=== PATIENT | female | born 1985 | race Hispanic/Latino ===

== ENCOUNTER 2018-03-13 21:06 | Emergency (ER) | payer OTHER ==
--- OUTSIDE RECORDS SUMMARY | 2018-03-13 21:18 | XMS REPORT | Continuity of Care Document ---
:1985 Author Organization Interface Problems Problem Status Onset Classification Date Comments Source Date Reported Escherichia Active 02/25/20 Problem 02/28/2018 Problem MH coli<sup>1, 2</sup> 18 added by [facility] Discern Expert. CATATONIA, Active 02/24/20 HYPOKALEMIA 18 [place] PALPITATIONS Active 02/24/20 18 [place] Chalazion left 10/28/19 01/25/2018 upper eyelid 18 [place] STROKE SYMPTOMS Active 10/20/19 18 [facility] Epilepsy, 10/07/19 01/06/2018 unspecified, not 18 [facility] intractable, without status epilepticus GI BLEED/SEIZURES Active 09/30/19 18 [facility] SEIZURES Active 09/30/19 18 [facility] Discharge 11/12/19 11/14/2016 Diagnosis: 17 [facility] Abdominal pain in female CHEST PAIN Active 11/11/19 17 [place] Discharge 06/14/20 06/17/2016 Diagnosis: Fracture 16 [facility] of unspecified metatarsal bone, unspecified foot, initial encounter for closed fracture POSSIBLE FRACTURE Active 06/14/20 16 [facility] Discharge 06/10/20 06/13/2016 Diagnosis: Hand 16 [facility] contusion HAND PAIN OR INJURY Active 06/10/20 16 [facility] Discharge 06/03/20 06/06/2016 Diagnosis: URI 16 [facility] EAR PAIN Active 06/03/20 16 [facility] G89.4 - CHRONIC Active 05/06/20 OPID PAIN SYNDROME 16 [place] ABD PAIN Active 02/13/20 16 [facility] UPPER GI BLEED Active 02/13/20 16 [facility] UPPER GI BLEED Active 02/13/20 16 [facility] VOMITING BLOOD Active 02/07/20 16 [facility] ABDOMINAL PAIN Active 02/07/20 16 [facility] ABDOMINAL PAIN, Active 02/07/20 UPPER GI BLEED 16 [facility] Discharge 02/06/20 02/09/2016 Diagnosis: 16 [facility] Diverticulitis Discharge 02/06/20 02/09/2016 Diagnosis: 16 [facility] Abdominal pain ABD PAIN/ EAR PAIN Active 02/05/20 16 [facility] Discharge 10/04/19 10/07/2015 Diagnosis: 16 [facility] 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 THROAT PAIN Active 10/04/19 16 [facility] Discharge 09/19/19 09/21/2014 Diagnosis: Skin 15 [facility] infection Discharge 09/19/19 09/21/2014 Diagnosis: Migraine 15 [facility] MIGRAINE Active 09/19/19 15 [facility] GI bleed Resolved Problem 02/28/2018 [facility], [place] Hypertension Resolved Problem 02/28/2018 [facility] [place] Migraines Active Problem 02/28/2018 [facility] [place] Gastrointestinal 01/06/2018 hemorrhage, [place] unspecified 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 , and cerebral infarction without residual deficits Essential 01/06/2018 hypertension [facility] Anxiety Active Problem 02/28/2018 [facility] Back pain, chronic Active Problem 02/28/2018 [facility] GERD (<span Active Problem 02/28/2018 ID="[id number]">C [place] onfirmed</span>) Insomnia Active Problem 02/28/2018 [facility] Obesity Active Problem 02/28/2018 [facility] Malignant neoplasm 01/25/2018 of pancreas, [place] unspecified 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 UNSPECIFIED Active ABDOMINAL PAIN [place] GASTROINTESTINAL Active HEMORRHAGE, [place] UNSPECIFIED LBP Active S[facility] [place] UNSPECIFIED Active CONVULSIONS [place] 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 [facility] PHYSIOLO HYPOKALEMIA Active [place] ANEMIA, UNSPECIFIED Active [facility] FOR GENERAL Active ADULT MEDICAL EXAM [facility] W/ VITAMIN D Active DEFICIENCY, [place] UNSPECIFIED ESSENTIAL (PRIMARY) Active HYPERTENSION [facility] Medications Medication Details Route Status Patient Ordering Order Source Instructions Provider Date Celexa 10 mg, 1 tab, Inactive 02/26/ Route: PO, Drug 2017 form: TAB, Bedtime, Dosing Weight 63.636, kg, Start date: 02/25/18 21:00:00 CDT, Duration: 30 day, Stop date: 03/26/18 21:00:00 CDT Citalopram 10 MG 10 mg=1 tab, Active 02/25/ Oral Tablet PO, Daily, # 30 2017 [facility] [Celexa] tab, 0 Refill(s), Pharmacy: [facility] [id number] Tylenol 1,000 mg, 2 Inactive 02/25/ MH tab, Route: PO2017 [facility] Drug form: TAB, ONCE, Dosing Weight 63.636, kg, Priority: NOW, Start date: 02/25/18 13:14:00 CDT, Stop date: 02/25/18 13:14:00 CDTNotes: Max acetaminophen 4000 mg/day (4 gm/day). (Same as: Tylenol Extra Strength) Potassium 40 mEq, 2 tab, Inactive 02/25/ MH Chloride Route: PO, Drug 2017 [facility] form: ERTAB, ONCE, Dosing Weight 63.636, kg, Start date: 02/25/18 12:00:00 CDT, Stop date: 02/25/18 12:00:00 CDTNotes: (Same as: K-Dur 20) "Do Not Crush" For patients unable to swallow tablet, dissolve in one half glass of water. Allow about 2 minutes for the tablets to disintegrate. Stir before giving to prepare slurry and administer. Please exclude Patient’s with feeding tube less than 14 [place] (Dobhoff, J-tube etc) and pediatric and patients. With food and full glass of water Potassium 40 mEq, 2 tab, Inactive 02/25/ MH Chloride Route: PO, Drug 2017 [facility] form: ERTAB, ONCE, Dosing Weight 63.636, kg, Start date: 02/25/18 10:00:00 CDT, Stop date: 02/25/18 10:00:00 CDTNotes: (Same as: K-Dur 20) "Do Not Crush" For patients unable to swallow tablet, dissolve in one half glass of water. Allow about 2 minutes for the tablets to disintegrate. Stir before giving to prepare slurry and administer. Please exclude Patient’s with feeding tube less than 14 [place] (Dobhoff, J-tube etc) and pediatric and patients. With food and full glass of water Potassium 40 mEq, 2 tab, Inactive 02/25/ MH Chloride Route: PO, Drug 2017 [facility] form: ERTAB, ONCE, Dosing Weight 63.636, kg, Start date: 02/25/18 8:24:00 CDT, Stop date: 02/25/18 8:24:00 CDTNotes: (Same as: K-Dur 20) "Do Not Crush" For patients unable to swallow tablet, dissolve in one half glass of water. Allow about 2 minutes for the tablets to disintegrate. Stir before giving to prepare slurry and administer. Please exclude Patient’s with feeding tube less than 14 [place] (Dobhoff, J-tube etc) and pediatric and patients. With food and full glass of water Potassium 10 mEq, 5 mL, Inactive Chloride Route: IVPB2017 [facility] Q1H, Dosing Weight 63.636, kg, Total Dose=40 meq, Start date: 02/25/18 7:00:00 CDT, Duration: 4 doses or times, Stop date: 02/25/18 10:00:00 CDT, Peripheral LineNotes: MUST be Diluted before use (Same as: KCl) MEDICATION WASTE Product Size: 40 mEq Product Wasted: ___ mEq Celexa 10 mg, 1 tab, Inactive Route: PO, Drug 2017 [facility] form: TAB, ONCE, Dosing Weight 63.636, kg, Start date: 02/24/18 21:00:00 CDT, Stop date: 02/24/18 21:00:00 CDT Ativan 1 mg, 0.5 mL, No Longer Route: IV, Drug Active 2017 [facility] form: INJ, Q4H, Dosing Weight 63.636, kg, PRN as needed for anxiety, Start date: 02/24/18 21:00:00 CDT, Duration: 30 day, Stop date: 03/26/18 20:59:00 CDTNotes: (Same as: Ativan) Ativan 1 mg, 0.5 mL, Inactive Route: IVP, 2017 [facility] Drug form: INJ, ONCE, Dosing Weight 63.636, kg, Start date: 02/24/18 20:59:00 CDT, Stop date: 02/24/18 20:59:00 CDTNotes: (Same as: Ativan) Docusate 100 mg, 10 mL, No Longer Route: PO, Drug Active 2017 [facility] form: LIQ, BID, Dosing Weight 63.636, kg, Start date: 02/24/18 17:00:00 CDT, Duration: 30 day, Stop date: 03/26/18 9:00:00 CDTNotes: (Same as: Colace) Insulin Lispro 4 unit, 0.04 No Longer mL, Route: Active 2017 [facility] SUB-Q, Drug form: SOLN, TID-Before Meals, Dosing Weight 63.636, kg, PRN Blood Glucose Results, Start date: 02/24/18 9:14:00 CDT, Duration: 30 day, Stop date: 03/26/18 9:13:00 CDTNotes: (Same as: Humalog ) Roll in palms of hands gently; Do not shake `vigorously. "Single Patient Use Only " WASTE: F/P - Black; E - Municipal Trash Bin Stable for 28 days at room temperature. Expires in days from D ate Dextrose 50% 25 gm, 50 mL, No Longer Syringe Route: IVP, Active 2017 [facility] Drug Form: INJ, Dosing Weight 63.636, kg, PRN, PRN Blood Glucose Results, Start date: 02/24/18 9:14:00 CDT, Duration: 30 day, Stop date: 03/26/18 9:13:00 CDT Glucagon 1 mg, Route: No Longer IM, Drug form: [facility] 2017 [facility] PDR/INJ, PRN, Dosing Weight 63.636, kg, PRN Blood Glucose Results, Start date: 02/24/18 9:14:00 CDT, Duration: 30 day, Stop date: 03/26/18 9:13:00 CDT Saline Flush 0.9% 10 ml, Route: No Longer IVP, Drug Form: Active 2017 [facility] INJ, Dosing Weight 63.636, kg, PRN, PRN Line Flush, Start date: 02/24/18 9:06:00 CDT, Duration: 30 day, Stop date: 03/26/18 9:05:00 CDTNotes: (Same as: BD Posiflush) Ondansetron 4 mg, 2 mL, No Longer Route: IVP, Active 2017 [facility] Drug form: INJ, Q6H, Dosing Weight 63.636, kg, PRN Nausea & Vomiting, Start date: 02/24/18 9:06:00 CDT, Duration: 30 day, Stop date: 03/26/18 9:05:00 CDTNotes: (Same as: Zofran) MEDICATION WASTE Product Size: 4 mg Product Wasted: ___ mg Sodium Chloride 1,000 mL, Rate: No Longer 0.9% IV 1,000 mL 250 ml/hr, Active 2017 [facility] Infuse over: 4 hr, Route: IV, Dosing Weight 63.636 kg, Total Volume: 1,000, Start date: 02/24/18 9:06:00 CDT, Duration: 30 day, Stop date: 03/26/18 9:05:00 CDT, 1.73, m2 Zofran ODT 4 mg, Route: Inactive PO, Drug form: 2017 [facility] TABDIS, ONCE, Dosing Weight 63.636, kg, Priority: STAT, Start date: 02/24/18 2:31:00 CDT, Stop date: 02/24/18 2:31:00 CDT Potassium 10 mEq, 5 mL, Inactive Chloride Route: IVPB, 2017 [facility] Q1H, Dosing Weight 63.636, kg, Total Dose=40 meq, Start date: 02/24/18 2:00:00 CDT, Duration: 4 doses or times, Stop date: 02/24/18 5:00:00 CDT, Peripheral LineNotes: MUST be Diluted before use (Same as: KCl) MEDICATION WASTE Product Size: 40 mEq Product Wasted: 30mEq Potassium 40 mEq, 30 mL, No Longer Chloride 1.33 Route: PO, Drug Active 2017 MEQ/ML Oral form: LIQ, Solution ONCE, Dosing Weight 63.636, kg, Priority: STAT, Start date: 02/23/18 23:46:00 CDT, Stop date: 02/23/18 23:46:00 CDTNotes: (Same as: Potassium Chloride) Docusate 100 mg, Route: Inactive PO, Drug form: 2017 [facility], BID, Dosing Weight 81.818, kg, Start date: 09/30/17 9:00:00 SIGNAL INTEGRITY ENGINEER, Duration: 30 day, Stop date: 10/29/17 17:00:00 CDT Levetiracetam 500 500 mg, 1 tab, No Longer MG Oral Tablet Route: PO, Drug Active 2017 [facility] [Keppra] form: TAB, Q12H, Dosing Weight 81.818, kg, Start date: 09/30/17 9:00:00 SIGNAL INTEGRITY ENGINEER, Duration: 30 day, Stop date: 10/29/17 21:00:00 CDTNotes: (Same as:Pricila) Lorazepam 1 mg, Route: Inactive IVP, Q15Min, 2017 [facility] Dosing Weight 81.818, kg, PRN Seizure, Start date: 09/30/17 8:21:00 SIGNAL INTEGRITY ENGINEER, Duration: 30 day, Stop date: 10/30/17 9:20:00 CDT Saline Flush 0.9% 10 ml, Route: Inactive IVP, Drug Form: 2017 [facility] INJ, Dosing Weight 81.818, kg, PRN, PRN Line Flush, Start date: 09/30/17 8:17:00 SIGNAL INTEGRITY ENGINEER, Duration: 30 day, Stop date: 10/30/17 9:16:00 CDT Ondansetron 4 mg, Route: Inactive IVP, Q6H, 2017 [facility] Dosing Weight 81.818, kg, PRN Nausea & Vomiting, Start date: 09/30/17 8:17:00 SIGNAL INTEGRITY ENGINEER, Duration: 30 day, Stop date: 10/30/17 8:16:00 CDT Acetaminophen 650 mg, Route: Inactive PO, Drug form: 2017 [facility] TAB, Q4H, Dosing Weight 81.818, kg, PRN Pain 1-3/Temp > 100.4 F, Start date: 09/30/17 8:17:00 SIGNAL INTEGRITY ENGINEER, Duration: 30 day, Stop date: 10/30/17 8:16:00 CDT Acetaminophen 325 1 tab, Route: Inactive MG / Hydrocodone PO, Drug Form: 2017 [facility] Bitartrate 5 MG TAB, Dosing Oral Tablet Weight 81.818, kg, Q4H, PRN Pain Score 4-6, Start date: 09/30/17 8:17:00 SIGNAL INTEGRITY ENGINEER, Duration: 30 day, Stop date: 10/30/17 8:16:00 CDT Sodium Chloride 1,000 mL, Rate: Inactive 0.9% IV 1000 mL 125 ml/hr, 2017 [facility] Infuse over: 8 hr, Route: IV, Dosing Weight 81.818 kg, Total Volume: 1,000, Start date: 09/30/17 8:17:00 SIGNAL INTEGRITY ENGINEER, Duration: 30 day, Stop date: 10/30/17 8:16:00 CDT, 1.96, m2 octreotide 1,250 248.25 mL, Inactive microgram + Rate: 10 ml/hr, 2017 [facility] Sodium Chloride Infuse over: 25 0.9% IV 248.25 mL hr, Route: IV, Dosing Weight 81.818 kg, Total Volume: 249.5, Start date: 09/30/17 5:09:00 SIGNAL INTEGRITY ENGINEER, Duration: 30 day, Stop date: 10/30/17 5:08:00 CDT, 1.96, m2 Reglan 10 mg, Route: Inactive IVP, Drug form: 2017 [facility] INJ, ONCE, Dosing Weight 81.818, kg, Priority: STAT, Start date: 09/30/17 5:09:00 SIGNAL INTEGRITY ENGINEER, Stop date: 09/30/17 5:09:00 SIGNAL INTEGRITY ENGINEER Octreotide 50 microgram, Inactive 0.5 mL, Route: 2017 [facility] IV, Drug form: INJ, ONCE, Dosing Weight 81.818, kg, Start date: 09/30/17 5:08:00 SIGNAL INTEGRITY ENGINEER, Stop date: 09/30/17 5:08:00 CSTNotes: (Same As: SandoSTATIN). Refrigerate. MEDICATION WASTE Product Size: 100 microgram Product Wasted: ___ microgram Divalproex Sodium 250 mg, 1 tab, No Longer 250 MG Enteric Route: PO, Drug Active 2017 [facility] Coated Tablet form: ECTAB, [Depakote] ONCE, Dosing Weight 81.818, kg, Start date: 09/30/17 5:03:00 SIGNAL INTEGRITY ENGINEER, Stop date: 09/30/17 5:03:00 SIGNAL INTEGRITY ENGINEER, Delayed Release tabletNotes: (Same as: Depakote Delayed Release) Do not confuse with the extended-releas e tablet. Delayed absorption, enteric coated tablet. Do not crush pantoprazole 80 100 mL, Rate: No Longer mg + Sodium 10 ml/hr, Active 2017 [facility] Chloride 0.9% IV Infuse over: 10 100 mL hr, Route: IVPB, Dosing Weight 81.818 kg, Total Volume: 100, Infuse at 8 mg / hr for 72 hours for GI bleeding, Start date: 09/30/17 4:57:00 SIGNAL INTEGRITY ENGINEER, Duration: 72 hr, Stop date: 10/03/17 4:56:00 SIGNAL INTEGRITY ENGINEER, 1.96, m2 Acetaminophen 325 1 tab, Route: Inactive MG / Hydrocodone PO, Drug Form: 2017 [facility] Bitartrate 5 MG TAB, Dosing Oral Tablet Weight 81.818, [Ovett 5/325] kg, ONCE, STAT, Start date: 09/30/17 4:37:00 SIGNAL INTEGRITY ENGINEER, Stop date: 09/30/17 4:37:00 SIGNAL INTEGRITY ENGINEER Protonix 80 mg, Route: Inactive IVP, ONCE, 2017 [facility] Dosing Weight 81.818, kg, Priority: STAT, Start date: 09/30/17 4:00:00 SIGNAL INTEGRITY ENGINEER, Stop date: 09/30/17 4:00:00 SIGNAL INTEGRITY ENGINEER Ondansetron 4 mg, Route: Inactive IVP, Drug form: 2017 [facility] INJ, ONCE, Dosing Weight 81.818, kg, Priority: STAT, Start date: 09/30/17 3:59:00 SIGNAL INTEGRITY ENGINEER, Stop date: 09/30/17 3:59:00 SIGNAL INTEGRITY ENGINEER Sodium Chloride 1,000 mL, Inactive 0.9% (Bolus) IV Infuse Over: 1 2017 [facility] hr, Route: IV, ONCE, Priority: STAT, Dosing Weight 81.818 kg, Start date: 09/30/17 3:59:00 SIGNAL INTEGRITY ENGINEER, Stop date: 09/30/17 3:59:00 SIGNAL INTEGRITY ENGINEER Famotidine 20 mg, Route: Inactive IVP, ONCE, 2017 [facility] Dosing Weight 81.818, kg, Priority: STAT, Start date: 09/30/17 3:59:00 SIGNAL INTEGRITY ENGINEER, Stop date: 09/30/17 3:59:00 SIGNAL INTEGRITY ENGINEER Famotidine 20 MG 20 mg=1 tab, Active Oral Tablet PO, BID, # 30 2017 [facility] tab, 0 Refill(s) Ondansetron 4 MG 4 mg=1 tab, PO, Active Disintegrating TID, PRN Nausea 2016 [facility] Tablet / Vomiting, Dissolve tab under tongue, X 3 day, # 20 tab, 0 Refill(s) Acetaminophen 300 1 - 2 tab, PO, No Longer MG / Codeine Q6H, PRN Pain, Active 2016 [facility] Phosphate 30 MG X 2 day, # 10 Oral Tablet tab, 0 [Tylenol with Refill(s) Codeine #3] Acetaminophen 325 1 tab, Route: Inactive MG / Hydrocodone PO, Dosing 2016 [facility] Bitartrate 10 MG Weight 90, kg, Oral Tablet ONCE, STAT, Start date: 11/11/16 1:54:00 CDT, Stop date: 11/11/16 1:54:00 CDT Morphine 4 mg, Route: Inactive IVP, ONCE, 2016 [facility] Dosing Weight 90, kg, Priority: STAT, Start date: 11/11/16 0:08:00 CDT, Stop date: 11/11/16 0:08:00 CDT Levsin SL 0.125 mg, 1 Inactive tab, Route: SL, 2016 [facility] Drug form: TAB, Q4H, Dosing Weight 90, kg, Start date: 11/11/16 0:00:00 CDT, Duration: 30 day, Stop date: 12/10/16 20:00:00 CDTNotes: (Same as: Levsin) Take 30 min before meal Ondansetron 4 mg, 2 mL, Inactive Route: IVP2016 [facility] Drug form: INJ, ONCE, Dosing Weight 90, kg, Priority: STAT, Start date: 11/10/16 23:05:00 CDT, Stop date: 11/10/16 23:05:00 CDTNotes: (Same as: Zofran) MEDICATION WASTE Product Size: 4 mg Product Wasted: ___ mg Famotidine 20 mg, 2 mL, Inactive Route: IVP2016 [facility] Drug form: INJ, ONCE, Dosing Weight 90, kg, Priority: STAT, Start date: 11/10/16 23:04:00 CDT, Stop date: 11/10/16 23:04:00 CDTNotes: (Same as: Pepcid) Can be dilute in 5-10cc NS IVP: Slow IV push over at least 2 minutes. Sodium Chloride 1,000 mL, 1000 Inactive 0.154 MEQ/ML ml/hr, Infuse 2016 [facility] Injectable Over: 1 hr, Solution Route: IV, 1,000, Drug form: INJ, ONCE, Priority: STAT, Dosing Weight 90 kg, Start date: 11/10/16 23:04:00 CDT, Duration: 1 doses or times, Stop date: 11/10/16 23:04:00 CDT Saline Flush 0.9% 10 mL, Route: No Longer IVP, Drug Form: Active 2016 [facility] INJ, Dosing Weight 90.17, kg, PRN, PRN Line Flush, Start date: 11/10/16 21:32:00 CDT, Duration: 30 day, Stop date: 12/10/16 21:31:00 CDTNotes: (Same as: BD Posiflush) Acetaminophen 325 1 tab, Route: Inactive MG / Hydrocodone PO, Dosing 2015 [facility] Bitartrate 7.5 MG Weight 87.273, Oral Tablet kg, ONCE, Start [Ovett 7.5/325] date: 06/14/16 8:14:00 CDT, Stop date: 06/14/16 8:14:00 CDT Acetaminophen 300 1 - 2 tab, PO, Active MG / Codeine Q4H, PRN Pain, 2015 [facility] Phosphate 30 MG X 3 day, # 20 Oral Tablet tab, 0 [Tylenol with Refill(s) Codeine #3] Acetaminophen 325 1 tab, Route: Inactive MG / Hydrocodone PO, Drug Form: 2015 [facility] Bitartrate 5 MG TAB, Dosing Oral Tablet Weight 87.273, [Ovett 5/325] kg, ONCE, STAT, Start date: 06/14/16 7:15:00 CDT, Stop date: 06/14/16 7:15:00 CDT ibuprofen 800 mg 800 mg=1 tab, Active oral tablet PO, Q6H, PRN 2015 [facility] Fever or Pain, Take with food, X 10 day, # 40 tab, 0 Refill(s), Pharmacy: [facility] [id number] Acetaminophen 300 1 tab, PO, Q6H, Active MG / Codeine PRN Pain, X 3 2016 Phosphate 30 MG day, # 12 tab, Oral Tablet 0 Refill(s) [Tylenol with Codeine #3] Acetaminophen 300 1 cap, PO, Q4H, Active MH MG / butalbital PRN PRN 2016 [facility] 50 MG / Caffeine Headache, Do 40 MG Oral not exceed 6 Capsule capsules in 24 [Fioricet] hours, X 5 day, # 30 cap, 0 Refill(s), Pharmacy: [facility] [id number] 200 ACTUAT 2 puff, Active Albuterol 0.09 INHALER, Q4H, 2016 MG/ACTUAT Metered PRN wheezing, Dose Inhaler coughing, or [Proventil] shortness of breath, # 1 ea, 1 Refill(s), Pharmacy: [facility] [id number] Promethazine DM 5 mL, PO, Q6H, Active oral syrup PRN for cough, 2016 [facility] X 6 day, # 120 mL, 0 Refill(s), Pharmacy: [facility] [id number] Acetaminophen 325 1 tab, Route: Inactive MG / Hydrocodone PO, Drug Form: 2015 Bitartrate 10 MG TAB, Dosing Oral Tablet Weight 86.364, kg, ONCE, STAT, Start date: 06/10/16 22:24:00 CDT, Stop date: 06/10/16 22:24:00 CDTNotes: Do not exceed 4gm/day of acetaminophen. (Same as: Ovett 325/10) Ketorolac 60 mg, 2 mL, Inactive Route: IM, Drug 2015 form: INJ, ONCE, Dosing Weight 86.364, kg, Priority: STAT, Start date: 06/10/16 22:24:00 CDT, Stop date: 06/10/16 22:24:00 CDTNotes: (Same as:Toradol) IV bolus must be given >15 seconds. Give IM administration slowly and deeply into the muscle. Not for use > 4 days MEDICATION WASTE Product Size: 60 mg Product Wasted: ___ mg Orphenadrine 60 mg, 2 mL, Inactive Route: IM, Drug 2015 [facility] form: INJ, ONCE, Dosing Weight 86.364, kg, Priority: STAT, Start date: 06/10/16 22:24:00 CDT, Stop date: 06/10/16 22:24:00 CDT Acetaminophen 325 1 tab, Route: Inactive MH MG / Hydrocodone PO, Dosing 2015 [facility] Bitartrate 5 MG Weight 86.364, Oral Tablet kg, ONCE, STAT, Start date: 06/10/16 22:21:00 CDT, Stop date: 06/10/16 22:21:00 CDT Acetaminophen 325 1 tab, Route: Inactive MH MG / Hydrocodone PO, Dosing 2015 [facility] Bitartrate 5 MG Weight 88.182, Oral Tablet kg, ONCE, STAT, Start date: 06/03/16 4:06:00 CDT, Stop date: 06/03/16 4:06:00 CDT Robitussin-AC 10 mL, PO, Q6H, Active oral syrup PRN as needed 2015 for cough and congestion, X 5 day, # 200 mL, 0 Refill(s) predniSONE 20 mg 40 mg=2 tab, Active MH oral tablet PO, Daily, X 5 2015, # 10 tab, 0 Refill(s), Pharmacy: [facility] [id number] 200 ACTUAT 2 puff, Active Albuterol 0.09 INHALER, Q4H, 2015 MG/ACTUAT Metered PRN wheezing, Dose Inhaler coughing, or [Proventil] shortness of breath, # 1 ea, 1 Refill(s), Pharmacy: [facility] [id number] homatropine 5 mL, Route: Inactive methylbromide 0.3 PO, Dosing 2015 [facility] MG/ML / Weight 88.182, Hydrocodone kg, ONCE, STAT, Bitartrate 1 Start date: MG/ML Oral 06/03/16 Solution 2:31:00 CDT, [Hycodan] Stop date: 06/03/16 2:31:00 CDT Lunesta 3 mg, Route: Inactive PO, Bedtime, 2015 Dosing Weight 86.364, kg, Start date: 02/13/16 21:00:00 CDT, Duration: 30 day, Stop date: 03/13/16 21:00:00 CDT Ambien 5 mg, 1 tab, Inactive Route: PO, Drug 2015 form: TAB, Bedtime, Start date: 02/13/16 21:00:00 CDT, Duration: 30 day, Stop date: 03/13/16 21:00:00 CDTNotes: (Same As: Ambien) Seroquel 50 mg, 2 tab, Inactive Route: PO, Drug 2015 form: TAB, BID, Dosing Weight 86.364, kg, Start date: 02/13/16 17:00:00 CDT, Duration: 30 day, Stop date: 03/14/16 9:00:00 CDTNotes: (Same as: SEROquel) Zanaflex 8 mg, 2 tab, Inactive Route: PO, Drug 2015 [facility] form: TAB, Q8H, Dosing Weight 86.364, kg, Start date: 02/13/16 16:00:00 CDT, Duration: 30 day, Stop date: 03/14/16 8:00:00 CDTNotes: (Same As: Zanaflex) ciprofloxacin 500 500 mg=1 tab, Active mg oral tablet PO, Q12H, X 3 2015, # 6 tab, 0 Refill(s) Sucralfate 100 1 gm, 10 mL, Inactive MG/ML Oral Route: PO, Drug 2015 Suspension form: SUSP, [Carafate] QID-Before Meals, Dosing Weight 86.364, kg, Start date: 02/13/16 11:30:00 CDT, Duration: 30 day, Stop date: 03/14/16 7:30:00 CDTNotes: Enteral feeds may interfere with the absorption of this medication. Shake well. Take 1 hr before or 2 hrs after antacids, dairy pdt, minerals & meals. (Same As: Carafate) Saline Flush 0.9% 10 ml, Route: Inactive IVP, Drug Form: 2015 [place] INJ, Dosing Weight 86.364, kg, PRN, PRN Line Flush, Start date: 02/13/16 10:15:00 CDT, Duration: 30 day, Stop date: 03/14/16 10:14:00 CDTNotes: Same as: BD Posiflush Sterile Glucose 50 MG/ML 1,000 mL, Rate: Inactive / Sodium Chloride 125 ml/hr, 2015 0.154 MEQ/ML Infuse over: 8 Injectable hr, Route: IV, Solution Dosing Weight 86.364 kg, Total Volume: 1,000, Start date: 02/13/16 10:15:00 CDT, Duration: 30 day, Stop date: 03/14/16 10:14:00 CDT Sodium Chloride 100 mL, Rate: 8 Inactive 0.154 MEQ/ML mg/hr, Route: 2015 [facility] Injectable IV, Dosing Solution Weight 86.364 kg, Total Volume: 100, Start date: 02/13/16 10:15:00 CDT, Duration: 72 hr, Stop date: 02/16/16 10:14:00 CDT quetiapine 50 MG 50 mg=1 tab, Active Oral Tablet PO, BID, 0 2015 [facility] [Seroquel] Refill(s) tizanidine 4 MG 8 mg=2 tab, PO, Active Oral Tablet Q8H, 0 2015 [Zanaflex] Refill(s) Lunesta 3 mg, PO, Active Bedtime, 0 2015 [facility] Refill(s) tramadol 50 mg, 1 tab, Inactive hydrochloride 50 Route: PO, Drug 2015 [facility] Oral Tablet form: TAB, Q6H, Dosing Weight 86.364, kg, PRN Pain Score 4-6, Start date: 02/13/16 9:52:00 CDT, Duration: 30 day, Stop date: 03/14/16 9:51:00 CDTNotes: Not to exceed 400mg/day. (Same As: Ultram) Acetaminophen 300 1 tab, Route: Inactive MG / Codeine PO, Drug Form: 2015 [facility] Phosphate 30 MG TAB, Dosing Oral Tablet Weight 86.364, [Tylenol with kg, Q6H, PRN Codeine #3] Pain Score 7-10, Start date: 02/13/16 9:52:00 CDT, Duration: 30 day, Stop date: 03/14/16 9:51:00 CDTNotes: Do not exceed 4gm/day of acetaminophen. (Same as: Tylenol with Codeine # 3) Acetaminophen 650 mg, 2 tab, Inactive Route: PO, Drug 2015 [facility] form: TAB, Q6H, Dosing Weight 86.364, kg, PRN Pain 1-3/Temp > 99.5 F, Start date: 02/13/16 9:48:00 CDT, Duration: 30 day, Stop date: 03/14/16 9:47:00 CDTNotes: Do not exceed 4 gm/day. (Same as: Tylenol) Zofran 4 mg, 2 mL, Inactive Route: IV, Drug 2015 [facility] form: INJ, Q8H, Dosing Weight 86.364, kg, PRN Nausea, Start date: 02/13/16 9:48:00 CDT, Duration: 30 day, Stop date: 03/14/16 9:47:00 CDTNotes: (Same as: Zofran) MEDICATION WASTE Product Size: 4 mg Product Wasted: ___ mg docusate sodium 100 mg, 1 cap, Inactive 100 mg oral Route: PO, Drug 2015 [facility] capsule form: CAP, BID, Dosing Weight 86.364, kg, PRN Constipation, Start date: 02/13/16 9:46:00 CDT, Duration: 30 day, Stop date: 03/14/16 9:45:00 CDTNotes: (Same as: Colace) (Do Not Crush) Metoclopramide 5 5 mg, 1 tab, Inactive MG Oral Tablet Route: PO, Drug 2015 [facility] [Reglan] form: TAB, Before Meals & Bedtime, Dosing Weight 86.364, kg, Start date: 02/13/16 7:30:00 CDT, Duration: 30 day, Stop date: 03/13/16 21:00:00 CDTNotes: (Same as: Reglan) Take 30 min before meals Protonix 40 mg, 1 tab, Inactive Route: PO, Drug 2015 [facility] form: ECTAB, Before Breakfast, Dosing Weight 86.364, kg, Start date: 02/13/16 7:30:00 CDT, Duration: 30 day, Stop date: 03/13/16 7:30:00 CDTNotes: Tablet should not be chewed or crushed. (Same as: Protonix) Dilaudid 0.5 mg, 0.5 mL, Inactive Route: IV, Drug 2015 [facility] form: INJ, Q3H, Dosing Weight 86.364, kg, PRN Pain Score 7-10, Start date: 02/13/16 6:41:00 CDT, Duration: 30 day, Stop date: 03/14/16 6:40:00 CDT Phenergan 12.5 mg, 0.5 Inactive mL, Route: 2015 [facility] IVPB, Q4H, Dosing Weight 86.364, kg, PRN Nausea & Vomiting, Start date: 02/13/16 6:41:00 CDT, Duration: 30 day, Stop date: 03/14/16 6:40:00 CDTNotes: Do not give IV push. (Same as: Phenergan) Sodium Chloride 1,000 mL, Rate: Inactive 0.154 MEQ/ML 25 ml/hr, 2015 [facility] Injectable Infuse over: 40 Solution hr, Route: IV, Dosing Weight 86.364 kg, Total Volume: 1,000, Start date: 02/13/16 6:35:00 CDT, Duration: 30 day, Stop date: 03/14/16 6:34:00 CDT Sodium Chloride 100 mL, Rate: Inactive 0.154 MEQ/ML 10 ml/hr, 2015 [facility] Injectable Infuse over: 10 Solution hr, Route: IVPB, Dosing Weight 86.364 kg, Total Volume: 100, Infuse at 8 mg / hr for 72 hours for GI bleeding, Start date: 02/13/16 5:00:00 CDT, Duration: 72 hr, Stop date: 02/16/16 4:59:00 CDT Morphine 4 mg, Route: Inactive IVP, Drug form: 2015 [facility] INJ, ONCE, Dosing Weight 86.364, kg, Priority: STAT, Start date: 02/13/16 3:34:00 CDT, Stop date: 02/13/16 3:34:00 CDT Protonix 80 mg, Route: Inactive IVP, Drug form: 2015 [facility] INJ, ONCE, Dosing Weight 86.364, kg, Priority: STAT, Start date: 02/13/16 3:34:00 CDT, Stop date: 02/13/16 3:34:00 CDTNotes: For IV push reconstitute with 10 ml 0.9% sodium chloride and push over 2 minutes. (Same as: Protonix) Ondansetron 4 mg, Route: Inactive IVP, ONCE, 2015 Dosing Weight 86.364, kg, Priority: STAT, Start date: 02/13/16 3:34:00 CDT, Stop date: 02/13/16 3:34:00 CDT Saline Flush 0.9% 10 mL, Route: Inactive IVP, Drug Form: 2015 [facility] INJ, Dosing Weight 86.364, kg, PRN, PRN Line Flush, Start date: 02/13/16 3:34:00 CDT, Duration: 30 day, Stop date: 03/14/16 3:33:00 CDTNotes: (Same as: BD Posiflush) Sodium Chloride 1,000 mL, Rate: Inactive 0.154 MEQ/ML 125 ml/hr, 2015 Injectable Infuse over: 8 Solution hr, Route: IV, Dosing Weight 86.364 kg, Total Volume: 1,000, Start date: 02/13/16 3:34:00 CDT, Duration: 30 day, Stop date: 03/14/16 3:33:00 CDT pantoprazole 40 40 mg=1 tab, Active 02/10/ [facility] mg oral enteric PO, BID-Before 2015 coated tablet Meals, # 60 tab, 0 Refill(s) Sucralfate 100 1 gm=10 mL, PO, Active 02/10/ [facility] MG/ML Oral QID-Before 2015 Suspension Meals, # 560 [Carafate] mL, 0 Refill(s) Metoclopramide 5 5 mg=1 tab, PO, Active 02/10/ [facility] MG Oral Tablet Before Meals & 2015 Bedtime, X 14 day, # 56 tab, 0 Refill(s) Promethazine 25 mg=1 tab, Active Hydrochloride 25 PO, Q6H, PRN 2015 [facility] Oral Tablet Nausea, X 4 [Phenergan] day, # 15 tab, 0 Refill(s) Acetaminophen 300 1 - 2 tab, PO, No Longer MG / Codeine Q4H, PRN Pain, Active 2015 Phosphate 30 MG X 2 day, # 20 Oral Tablet tab, 0 [Tylenol with Refill(s) Codeine #3] Acetaminophen 325 1 tab, Route: Inactive MG / Hydrocodone PO, Drug Form: 2015 Bitartrate 5 MG TAB, Dosing Oral Tablet Weight 74.5, [Ovett 5/325] kg, Q4H, PRN Pain Score 7-10, Minimize use if possible, Start date: 02/11/16 7:40:00 CDT, Duration: 30 day, Stop date: 03/12/16 7:39:00 CDTNotes: (Same as: Ovett 325/5) Do not exceed 4gm/day of acetaminophen. tramadol 50 mg, 1 tab, Inactive hydrochloride 50 Route: PO, Drug 2015 [facility] Oral Tablet form: TAB, Q6H, Dosing Weight 74.5, kg, PRN Pain Score 4-6, Start date: 02/11/16 7:40:00 CDT, Duration: 30 day, Stop date: 03/12/16 7:39:00 CDTNotes: Not to exceed 400mg/day. (Same As: Ultram) Acetaminophen 650 mg, 2 tab, Inactive Route: PO, Drug 2015 [facility] form: TAB, Q6H, Dosing Weight 74.5, kg, PRN Pain 1-3/Temp > 99.5 F, Start date: 02/11/16 7:40:00 CDT, Duration: 30 day, Stop date: 03/12/16 7:39:00 CDTNotes: Do not exceed 4 gm/day. (Same as: Tylenol) Reglan 5 mg, 1 tab, No Longer Route: PO, Drug Active 2015 [facility] form: TAB, Before Meals & Bedtime, Dosing Weight 74.5, kg, Start date: 02/10/16 16:30:00 CDT, Duration: 30 day, Stop date: 03/11/16 11:30:00 CDTNotes: (Same as: Reglan) Take 30 min before meals pneumococcal 0.5 mL, Route: Inactive capsular IM, Drug Form: 2015 [facility] polysaccharide INJ, Daily, type 1 vaccine / Start date: pneumococcal 02/10/16 capsular 9:00:00 CDT, polysaccharide Duration: 1 type 10A vaccine doses or times, / pneumococcal Stop date: capsular 02/10/16 polysaccharide 9:00:00 type 11A vaccine CDTNotes: (Same / pneumococcal as: Pneumovax capsular 23) polysaccharide Refrigerate type 12F vaccine / pneumococcal capsular polysacchar Phenergan 12.5 mg, 0.5 Inactive mL, Route: IM, 2015 [facility] Drug form: INJ, Q4H, Dosing Weight 74.5, kg, PRN as needed for nausea/vomiting , Start date: 02/10/16 6:40:00 CDT, Duration: 30 day, Stop date: 03/11/16 6:39:00 CDTNotes: Do not give IV push. (Same as: Phenergan) Phenergan 12.5 mg, 0.5 Inactive mL, Route: IM, 2015 [facility] Drug form: INJ, Q4H, Dosing Weight 74.5, kg, PRN as needed for nausea/vomiting , Start date: 02/10/16 6:27:00 CDT, Duration: 30 day, Stop date: 03/11/16 6:26:00 CDTNotes: Do not give IV push. (Same as: Phenergan) Sucralfate 100 1 gm, 10 mL, No Longer MG/ML Oral Route: PO, Drug Active 2015 [facility] Suspension form: SUSP, [Carafate] QID-Before Meals, Dosing Weight 74.5, kg, Start date: 02/09/16 16:30:00 CDT, Duration: 30 day, Stop date: 03/10/16 11:30:00 CDTNotes: Enteral feeds may interfere with the absorption of this medication. Shake well. Take 1 hr before or 2 hrs after antacids, dairy pdt, minerals & meals. (Same As: Carafate) Phenergan 25 mg, 1 mL, No Longer Route: IVPB, 2015 [facility] Q6H, Dosing Weight 74.5, kg, PRN Nausea & Vomiting, Start date: 02/09/16 11:28:00 CDT, Duration: 30 day, Stop date: 03/10/16 11:27:00 CDTNotes: Do not give IV push. (Same as: Phenergan) docusate sodium 100 mg, 1 cap, No Longer 100 mg oral Route: PO, Drug Active 2015 [facility] capsule form: CAP, BID, Dosing Weight 74.5, kg, PRN Constipation, Start date: 02/09/16 9:15:00 CDT, Duration: 30 day, Stop date: 03/10/16 9:14:00 CDTNotes: (Same as: Colace) (Do Not Crush) Seroquel 25 mg, 1 tab, No Longer Route: PO, Drug Active 2015 [facility] form: TAB, BID, Dosing Weight 74.5, kg, Start date: 02/08/16 17:00:00 CDT, Duration: 30 day, Stop date: 03/09/16 9:00:00 CDTNotes: (Same as: SEROquel) pantoprazole 40 mg, 1 tab, No Longer Route: PO, Drug Active 2015 [facility] form: ECTAB, BID-Before Meals, Dosing Weight 74.5, kg, Start date: 02/08/16 16:30:00 CDT, Duration: 30 day, Stop date: 03/09/16 7:30:00 CDTNotes: Tablet should not be chewed or crushed. (Same as: Protonix) Ambien 5 mg, 1 tab, No Longer Route: PO, Drug Active 2015 [facility] form: TAB, Bedtime, Dosing Weight 74.5, kg, PRN as needed for sleep, Start date: 02/08/16 13:52:00 CDT, Duration: 30 day, Stop date: 03/09/16 13:51:00 CDTNotes: (Same As: Ambien) Zofran 4 mg, 2 mL, No Longer Route: IVP, Active 2015 [facility] Drug form: INJ, Q4H, Dosing Weight 74.5, kg, PRN Nausea, Start date: 02/08/16 13:49:00 CDT, Duration: 30 day, Stop date: 03/09/16 13:48:00 CDTNotes: (Same as: Dariana) MEDICATION WASTE Product Size: 4 mg Product Wasted: ___ mg Acetaminophen 325 1 tab, Route: No Longer MG / Hydrocodone PO, Drug Form: Active 2015 [facility] Bitartrate 5 MG TAB, Dosing Oral Tablet Weight 74.5, [Ovett 5/325] kg, Q4H, PRN Pain Score 4-6, Start date: 02/08/16 13:48:00 CDT, Duration: 30 day, Stop date: 03/09/16 13:47:00 CDTNotes: (Same as: Ovett 325/5) Do not exceed 4gm/day of acetaminophen. Ciprofloxacin 400 mg, 200 mL, No Longer Route: IVPB, Active 2015 [facility] Drug form: INJ, [id number], Dosing Weight 74.545, kg, Start date: 02/08/16 1:00:00 CDT, Duration: 30 day, Stop date: 03/08/16 13:00:00 CDTNotes: Do not refrigerate Sodium Chloride 100 mL, Rate: No Longer 0.154 MEQ/ML 10 ml/hr, Active 2015 [facility] Injectable Infuse over: 10 Solution hr, Route: IVPB, Dosing Weight 74.545 kg, Total Volume: 100, Infuse at 8 mg / hr for 72 hours for GI bleeding, Start date: 02/07/16 23:34:00 CDT, Duration: 72 hr, Stop date: 02/10/16 23:33:00 CDT Sodium Chloride 100 mL, Rate: No Longer 0.154 MEQ/ML 10 ml/hr, Active 2015 [facility] Injectable Infuse over: 10 Solution hr, Route: IVPB, Dosing Weight 74.545 kg, Total Volume: 100, Infuse at 8 mg / hr for 72 hours for GI bleeding, Start date: 02/07/16 23:33:00 CDT, Duration: 72 hr, Stop date: 02/10/16 23:32:00 CDT sodium chloride 1,000 mL, Rate: No Longer 0.9% 1000 ml INJ 100 ml/hr, Active 2015 [facility] 1,000 mL Infuse over: 10 hr, Route: IV, Dosing Weight 74.545 kg, Total Volume: 1,000, Start date: 02/07/16 23:26:00 CDT, Duration: 30 day, Stop date: 03/08/16 23:25:00 CDT Dilaudid 0.5 mg, 0.5 mL, No Longer Route: IVP, Active 2015 [facility] Drug form: INJ, Q3H, Dosing Weight 74.545, kg, PRN Pain Score 6-10, Priority: Routine, Start date: 02/07/16 23:25:00 CDT, Duration: 30 day, Stop date: 03/08/16 23:24:00 CDT Flagyl 500 mg, 100 mL, Inactive Route: IVPB, 2015 [facility] Drug form: INJ, ONCE, Dosing Weight 74.545, kg, Priority: STAT, Start date: 02/07/16 22:27:00 CDT, Stop date: 02/07/16 22:27:00 CDTNotes: (Same as: Flagyl) Avoid alcohol. Ciprofloxacin 400 mg, 200 mL, Inactive Route: IVPB, 2015 [facility] Drug form: INJ, ONCE, Dosing Weight 74.545, kg, Priority: STAT, Start date: 02/07/16 22:27:00 CDT, Stop date: 02/07/16 22:27:00 CDTNotes: Do not refrigerate Zofran 4 mg, Route: Inactive IVP, Drug form: 2015 [facility] INJ, ONCE, Dosing Weight 74.545, kg, Priority: STAT, Start date: 02/07/16 22:00:00 CDT, Stop date: 02/07/16 22:00:00 CDT Morphine 4 mg, Route: Inactive IVP, Drug form: 2015 [facility] INJ, ONCE, Dosing Weight 74.545, kg, Priority: STAT, Start date: 02/07/16 22:00:00 CDT, Stop date: 02/07/16 22:00:00 CDT pantoprazole 40 mg, Route: Inactive IVP, Drug form: 2015 [facility] INJ, ONCE, Dosing Weight 74.545, kg, For IV push reconstitute with 10 ml 0.9% sodium chloride and push over at least 3 minutes, Priority: STAT, Start date: 02/07/16 20:17:00 CDT, Stop date: 02/07/16 20:17:00 CDTNotes: For IV push reconstitute with 10 ml 0.9% sodium chloride and push over 2 minutes. (Same as: Protonix) Ondansetron 4 mg, 2 mL, Inactive Route: IVP, 2015 [facility] Drug form: INJ, ONCE, Dosing Weight 74.545, kg, Priority: STAT, Start date: 02/07/16 20:17:00 CDT, Stop date: 02/07/16 20:17:00 CDTNotes: (Same as: Zofran) MEDICATION WASTE Product Size: 4 mg Product Wasted: __0_ mg sodium chloride 250 mL, Rate: No Longer 0.9% INJ 250 mL [facility] for use Active 2015 [facility] with blood product administration. , Dosing Weight 74.545, kg, Route: IV, Total Volume: 250, Priority: Routine, Start Date: 02/07/16 20:17:00 CDT, Duration: 30 day, Stop date: 03/08/16 20:16:00 CDT, Replace Every: 24 hr Morphine 4 mg, 2 mL, Inactive Route: IVP, 2015 [facility] Drug form: INJ, ONCE, Dosing Weight 74.545, kg, Priority: STAT, Start date: 02/07/16 20:17:00 CDT, Stop date: 02/07/16 20:17:00 CDTNotes: (Same as:MORPhine Sulfate) Saline Flush 0.9% 10 mL, Route: No Longer IVP, Drug Form: Active 2015 [facility] INJ, Dosing Weight 74.545, kg, PRN, PRN Line Flush, Start date: 02/07/16 20:17:00 CDT, Duration: 30 day, Stop date: 03/08/16 20:16:00 CDTNotes: (Same as: BD Posiflush) Sodium Chloride 1,000 mL, 2,000 Inactive 0.154 MEQ/ML ml/hr, Infuse 2015 [facility] Injectable Over: 30 Solution minutes, Route: IV, 1,000, Drug form: INJ, ONCE, Priority: STAT, Dosing Weight 74.545 kg, Start date: 02/07/16 20:17:00 CDT, Duration: 1 doses or times, Stop date: 02/07/16 20:17:00 CDT Sodium Chloride 1,000 mL, 1,000 Inactive 0.154 MEQ/ML ml/hr, Infuse 2015 [facility] Injectable Over: 1 hr, Solution Route: IV, 1,000, Drug form: INJ, ONCE, Priority: STAT, Dosing Weight 73.636 kg, Start date: 02/07/16 19:53:00 CDT, Duration: 1 doses or times, Stop date: 02/07/16 19:53:00 CDT Zofran 4 mg, 2 mL, Inactive Route: IVP, 2015 [facility] Drug form: INJ, ONCE, Dosing Weight 73.636, kg, Priority: STAT, Start date: 02/07/16 19:53:00 CDT, Stop date: 02/07/16 19:53:00 CDTNotes: (Same as: Zofran) MEDICATION WASTE Product Size: 4 mg Product Wasted: ___ mg Morphine 4 mg, Route: Inactive IVP, Drug form: 2015 [facility] INJ, ONCE, Dosing Weight 73.636, kg, Priority: STAT, Start date: 02/06/16 0:18:00 CDT, Stop date: 02/06/16 0:18:00 CDT promethazine 25 25 mg=1 tab, On Hold mg oral tablet PO, Q6H, PRN 2015 [facility] Nausea/Vomiting , X 3 day, # 12 tab, 0 Refill(s) Acetaminophen 300 1 - 2 tab, PO, No Longer MG / Codeine Q6H, PRN Pain, Active 2015 [facility] Phosphate 30 MG X 2 day, # 20 Oral Tablet tab, 0 [Tylenol with Refill(s) Codeine #3] Metronidazole 500 500 mg=1 tab, On Hold MG Oral Tablet PO, Q8H, X 10 2015 [facility] [Flagyl] day, # 30 tab, 0 Refill(s) Ciprofloxacin 500 500 mg=1 tab, On Hold MG Oral Tablet PO, Q12H, X 10 2015 [Cipro] day, # 20 tab, 0 Refill(s) Ondansetron 4 mg, 2 mL, Inactive Route: IVP, 2015 [facility] Drug form: INJ, ONCE, Dosing Weight 73.636, kg, Priority: STAT, Start date: 02/05/16 23:45:00 CDT, Stop date: 02/05/16 23:45:00 CDTNotes: (Same as: Zofran) MEDICATION WASTE Product Size: 4 mg Product Wasted: ___ mg Morphine 4 mg, Route: Inactive IVP, Drug form: 2015 [facility] INJ, ONCE, Dosing Weight 73.636, kg, Priority: STAT, Start date: 02/05/16 22:39:00 CDT, Stop date: 02/05/16 22:39:00 CDT Zofran 4 mg, Route: Inactive IVP, Drug form: 2015 [facility] INJ, ONCE, Dosing Weight 73.636, kg, Priority: STAT, Start date: 02/05/16 22:39:00 CDT, Stop date: 02/05/16 22:39:00 CDT Sodium Chloride 1,000 mL, 1,000 Inactive 0.154 MEQ/ML ml/hr, Infuse 2015 [facility] Injectable Over: 1 Hour, Solution Route: IV, ONCE, Priority: STAT, Dosing Weight 73.636 kg, Start date: 02/05/16 21:35:00 CDT, Duration: 1 doses or times, Stop date: 02/05/16 21:35:00 CDT Morphine 4 mg, Route: Inactive IVP, Drug form: 2015 [facility] INJ, ONCE, Dosing Weight 73.636, kg, Priority: STAT, Start date: 02/05/16 21:35:00 CDT, Stop date: 02/05/16 21:35:00 CDT Zofran 4 mg, 2 mL, Inactive Route: IVP, 2015 [facility] Drug form: INJ, ONCE, Dosing Weight 73.636, kg, Start date: 02/05/16 21:21:00 CDT, Stop date: 02/05/16 21:21:00 CDTNotes: (Same as: Zofran) MEDICATION WASTE Product Size: 4 mg Product Wasted: ___ mg Metronidazole 500 500 mg=1 tab, Active 10/04/ [facility] MG Oral Tablet PO, Q8H, X 7 2016 [facility] [Flagyl] day, # 21 tab, 0 Refill(s) Ciprofloxacin 500 500 mg=1 tab, Active 10/04/ [facility] MG Oral Tablet PO, Q12H, X 7 2016 [facility] [Cipro] day, # 14 tab, 0 Refill(s) tramadol 1 - 2 tabs, PO, Active hydrochloride 50 Q4-6H, PRN as 2015 [facility] MG Oral Tablet needed for [Ultram] pain, X 7 day, # 12 tab, 0 Refill(s) Dilaudid 0.5 mg, Route: Inactive IM, ONCE, 2015 [facility] Dosing Weight 90.909, kg, Priority: STAT, Start date: 10/04/15 4:14:00, Stop date: 10/04/15 4:14:00 Acetaminophen 325 1 tab, Route: Inactive MG / Hydrocodone PO, Dosing 2015 [facility] Bitartrate 7.5 MG Weight 90.909, Oral Tablet kg, ONCE, Start [Ovett 7.5/325] date: 10/04/15 3:37:00, Stop date: 10/04/15 3:37:00 Phenergan 12.5 mg, Route: Inactive IVPB, ONCE, 2015 [facility] Dosing Weight 90.909, kg, Priority: STAT, Start date: 10/04/15 2:20:00, Stop date: 10/04/15 2:20:00 Sodium Chloride 1,000 mL, 1,000 Inactive 0.154 MEQ/ML ml/hr, Infuse 2015 [facility] Injectable Over: 1 Hour, Solution Route: IV, ONCE, Priority: STAT, Dosing Weight 90.909 kg, Start date: 10/04/15 2:20:00, Duration: 1 doses or times, Stop date: 10/04/15 2:20:00 Zofran 4 mg, Route: Inactive IVP, ONCE, 2015 [facility] Dosing Weight 90.909, kg, Start date: 10/04/15 1:18:00, Stop date: 10/04/15 1:18:00 Morphine 4 mg, Route: Inactive IVP, ONCE, 2015 [facility] Dosing Weight 90.909, kg, Priority: STAT, Start date: 10/04/15 1:18:00, Stop date: 10/04/15 1:18:00 Ativan 0.5 mg, Route: Inactive IVP, ONCE, 2015 [facility] Dosing Weight 90.909, kg, Priority: STAT, Start date: 10/04/15 1:18:00, Stop date: 10/04/15 1:18:00 tramadol 50 mg=1 tab, Active hydrochloride 50 PO, Q6H, pain, 2014 [facility] MG Oral Tablet # 20 tab, 0 [Ultram] Refill(s) Cephalexin 500 MG 500 mg=1 cap, Active Oral Capsule PO, QID, # 40 2014 [facility] [Keflex] cap, 0 Refill(s) Sulfamethoxazole 1 tab, PO, BID, Active 800 MG / # 20 tab, 0 2014 [facility] Trimethoprim 160 Refill(s) MG Oral Tablet [Bactrim] Clindamycin 900 mg, 6 mL, Inactive Route: IVPB, 2014 [facility] Drug form: INJ, ONCE, Dosing Weight 83.182, kg, Priority: STAT, Start date: 09/19/14 1:24:00, Stop date: 09/19/14 1:24:00Notes: (Same As: Cleocin) Sodium Chloride 1,000 mL, 1,000 Inactive 0.154 MEQ/ML ml/hr, Infuse 2014 [facility] Injectable Over: 1 hr, Solution Route: IV, 1,000, Drug form: INJ, ONCE, Priority: STAT, Dosing Weight 83.182 kg, Start date: 09/19/14 1:23:00, Duration: 1 doses or times, Stop date: 09/19/14 1:23:00 Metoclopramide 10 mg, 2 mL, Inactive Route: IVP, 2014 [facility] Drug form: INJ, ONCE, Dosing Weight 83.182, kg, Priority: STAT, Start date: 09/19/14 1:23:00, Stop date: 09/19/14 1:23:00Notes: (Same as: Reglan) Diphenhydramine 25 mg, 0.5 mL, Inactive Route: IVP, 2014 [facility] Drug form: INJ, ONCE, Dosing Weight 83.182, kg, Priority: STAT, Start date: 09/19/14 1:23:00, Stop date: 09/19/14 1:23:00Notes: (Same as: Benadryl) Allergies, Adverse Reactions, Alerts Substance Category Reaction Severity Reaction Status Date Comments Source type Reported NKDA Assertion Drug Active allergy [facility] Immunizations Immunization Date Site Status Last Comments Source Given Updated influenza virus Right completed [facility] vaccine, 6 Deltoid inactivated pneumococcal Not Given [facility] 23-valent 6 vaccine<sup>1</s up> Results Order Name Results Value Reference Date Interpretation Comments Source Range ELECTROLYT Potassium 3.3 meq/L 3.5 - 5.1 02/25 [facility] ELECTROLYT Potassium 2.6 meq/L 3.5 - 5.1 02/25 Result [facility] Comment: [facility] Critical Result(s) called to Mary Kay Foreman at 02/25/2018 10:36 by Mary Kay Lewis. Read back OK. CARDIAC Total CK 1265 12 - 191 02/25 ENZYMES unit/L /2018 [facility] CHEM PANEL eGFR 129 02/25 Result Comment: The eGFR is calculated using the CKD-EPI formula. In most young, healthy individuals the eGFR will be >90 mL/ min/1.73m2. The eGFR declines with age. An eGFR of 60-89 may be normal in mL/min/1.7 /2017 some populations, particularly the elderly, for whom the CKD-EPI formula has not been extensively validated. Use of the eGFR is not recommended in the following populations: [facility] 3m2 Individuals with unstable creatinine concentrations, including patients and those with serious co-morbid conditions. Patients with extremes in muscle mass or diet. The data above are obtained from the National Kid[employer] Disease Education Program (NKDEP) which additionally recommends that when the eGFR is used in patients with extremes of body mass index for purposes of drug dosing, the eGFR should be multiplied by the estimated BMI. CHEM PANEL AST 84 unit/L 0 - 37 02/25 [facility] CHEM PANEL Alk Phos 45 unit/L 39 - 136 02/25 [facility] CHEM PANEL Bili Total 0.3 mg/dL 0.2 - 1.3 02/25 [facility] CHEM PANEL Globulin 2.6 g/dL 2.7 - 4.2 02/25 [facility] CHEM PANEL A/G Ratio 1.0 0.7 - 1.6 02/25 [facility] CHEM PANEL ALT 113 unit/L 0 - 65 02/25 [facility] CHEM PANEL B/C Ratio 19 6 - 25 02/25 [facility] CHEM PANEL Total 5.1 g/dL 6.4 - 8.4 02/25 [facility] CHEM PANEL Albumin Lvl 2.5 g/dL 3.5 - 5.0 02/25 [facility] CHEM PANEL AGAP 12.6 meq/L 10.0 - 02/25 MH 20.0 [facility] CHEM PANEL Calcium Lvl 7.6 mg/dL 8.5 - 10.5 02/25 [facility] CHEM PANEL Potassium 2.6 meq/L 3.5 - 5.1 02/25 Result Comment: [facility] Critical Result(s) called to Yoko Grullon at 02/25/2018 06:39 by LT. Read back OK. CHEM PANEL Chloride Lvl 114 meq/L 95 - 109 02/25 [facility] CHEM PANEL Sodium Lvl 149 meq/L 135 - 145 02/25 [facility] CHEM PANEL CO2 25 meq/L 24 - 32 02/25 [facility] CHEM PANEL BUN 9 mg/dL 7 - 22 02/25 [facility] CHEM PANEL Creatinine 0.48 mg/dL 0.50 - 02/25 Lvl 1.40 [facility] CHEM PANEL Glucose Lvl 88 mg/dL 70 - 99 02/25 [facility] CHEM PANEL Phosphorus 2.6 mg/dL 2.5 - 4.5 02/25 [facility] CHEM PANEL Magnesium 1.8 mg/dL 1.8 - 2.4 02/25 Lvl [facility] HEMATOLOGY Segs 52.5 % 45.0 - 02/25 MH 75.0 [facility] HEMATOLOGY Lymphocytes 2.7 K/CMM 1.0 - 5.5 02/25 # /2017 [facility] HEMATOLOGY Segs-Bands # 3.8 K/CMM 1.5 - 8.1 02/25 [facility] HEMATOLOGY Monocytes # 0.7 K/CMM 0.0 - 0.8 02/25 [facility] HEMATOLOGY Basophils 0.4 % 0.0 - 1.0 02/25 [facility] HEMATOLOGY Lymphocytes 36.7 % 20.0 - 02/25 MH 40.0 [facility] HEMATOLOGY Eosinophils 0.8 % 0.0 - 4.0 02/25 [facility] HEMATOLOGY Monocytes 9.6 % 2.0 - 12.0 02/25 [facility] HEMATOLOGY Eosinophils 0.1 K/CMM 0.0 - 0.5 02/25 # /2017 [facility] HEMATOLOGY MPV 9.5 fL 7.4 - 10.4 02/25 [facility] HEMATOLOGY Platelet 261 K/CMM 133 - 450 02/25 [facility] HEMATOLOGY RDW 14.0 % 11.5 - 02/25 14. [facility] HEMATOLOGY MCH 28.0 pg 27.0 - 02/25 31.0 [facility] HEMATOLOGY Hct 31.1 % 36.0 - 02/25 48.0 [facility] HEMATOLOGY MCV 84.5 fL 80.0 - 02/25 98.0 [facility] HEMATOLOGY MCHC 33.2 g/dL 32.0 - 02/25 36.0 [facility] HEMATOLOGY Hgb 10.3 g/dL 12.0 - 02/25 16.0 [facility] HEMATOLOGY RBC 3.69 M/CMM 4.20 - 02/25 5.40 /2017 [facility] HEMATOLOGY WBC 7.3 K/CMM 3.7 - 10.4 02/25 [facility] DRUG U Phencyc Negative Negative 02/24 SCREEN [facility] *NA* (02/24/18 2:36 AM) DRUG UDS Note See Note 02/24 SCREEN /2017 [facility] (02/24/18 2:36 AM) DRUG U Cannab Scr Positive Negative 02/24 SCREEN [facility] *ABN* (02/24/18 2:36 AM) DRUG U Opiate Scr Negative Negative 02/24 SCREEN [facility] *NA* (02/24/18 2:36 AM) DRUG U Cocaine Negative Negative 02/24 SCREEN [facility] *NA* (02/24/18 2:36 AM) DRUG U Benzodia Negative Negative 02/24 SCREEN Scr /2017 [facility] *NA* (02/24/18 2:36 AM) DRUG U Kalpana Scr Negative Negative 02/24 SCREEN /2017 [facility] *NA* (02/24/18 2:36 AM) DRUG U Amph Scr Negative Negative 02/24 SCREEN /2017 [facility] *NA* (02/24/18 2:36 AM) URINE AND UA Color Paulette 02/24 STOOL [facility] URINE AND UA Mucus Many /LPF None Seen 02/24 MH STOOL /LPF [facility] URINE AND UA Bacteria Occasional None Seen 02/24 MH STOOL /HPF /HPF /2017 URINE AND UA WBC 7 /HPF 0 - 5 02/24 STOOL [facility] URINE AND UA Sq Epi Moderate Few /LPF 02/24 STOOL /LPF URINE AND UA Nitrite Negative Negative 02/24 STOOL [facility] (02/24/18 2:36 AM) URINE AND UA 2.0 mg/dL 0.1 - 1.0 02/24 STOOL Urobilinogen URINE AND UA Blood Moderate Negative 02/24 STOOL [facility] *ABN* (02/24/18 2:36 AM) URINE AND UA Leuk Est Trace Negative 02/24 [facility] *ABN* (02/24/18 2:36 AM) URINE AND UA Spec Grav 1.024 <=1.030 02/24 STOOL URINE AND UA Turbidity Slight Clear 02/24 STOOL [facility] *ABN* (02/24/18 2:36 AM) URINE AND UA Glucose Negative Negative 02/24 STOOL mg/dL mg/dL URINE AND UA Protein 30 mg/dL Negative 02/24 STOOL mg/dL URINE AND UA pH 5.0 5.0 - 8.0 02/24 STOOL [facility] URINE AND UA Bili Negative Negative 02/24 STOOL [facility] *NA* (02/24/18 2:36 AM) URINE AND UA Ketones 20 mg/dL Negative 02/24 STOOL mg/dL /2017 [facility] URINE CHEM U Preg Negative Negative 02/24 [facility] (02/24/18 2:36 AM) CHEM PANEL Ketone 2.26 <=0.27 02/24 Quantitative mmol/L mmol/L /2017 [facility] CHEM PANEL Ammonia 29.0 <=45.0 02/24 umol/L uMol/L /2017 [facility] CARDIAC Troponin-I null 0.00 - 02/24 ENZYMES 0.40 [facility] CARDIAC CK MB 39.2 ng/mL 0.5 - 3.6 02/24 ENZYMES [facility] CARDIAC Total CK 3892 12 - 191 02/24 ENZYMES unit/L /2017 [facility] CARDIAC CK MB Index 1.0 0.0 - 2.5 02/24 ENZYMES [facility] CHEM PANEL eGFR 56 02/24 Result Comment: The eGFR is calculated using the CKD-EPI formula. In most young, healthy individuals the eGFR will be >90 mL/ min/1.73m2. The eGFR declines with age. An eGFR of 60-89 may be normal in mL/min/1.7 some populations, particularly the elderly, for whom the CKD-EPI formula has not been extensively validated. Use of the eGFR is not recommended in the following populations: [facility] 3m2 Individuals with unstable creatinine concentrations, including patients and those with serious co-morbid conditions. Patients with extremes in muscle mass or diet. The data above are obtained from the National Kidney Disease Education Program (NKDEP) which additionally recommends that when the eGFR is used in patients with extremes of body mass index for purposes of drug dosing, the eGFR should be multiplied by the estimated BMI. CHEM PANEL Albumin Lvl 3.9 g/dL 3.5 - 5.0 02/24 [facility] CHEM PANEL Total 8.3 g/dL 6.4 - 8.4 02/24 Protein [facility] CHEM PANEL Sodium Lvl 144 meq/L 135 - 145 02/24 [facility] CHEM PANEL Creatinine 1.26 mg/dL 0.50 - 02/24 Lvl 1.40 [facility] CHEM PANEL Chloride Lvl 106 meq/L 95 - 109 02/24 [facility] CHEM PANEL B/C Ratio 25 6 - 25 02/24 [facility] CHEM PANEL CO2 21 meq/L 24 - 32 02/24 [facility] CHEM PANEL Calcium Lvl 10.0 mg/dL 8.5 - 10.5 02/24 [facility] CHEM PANEL AGAP 19.6 meq/L 10.0 - 02/24 MH 20.0 [facility] CHEM PANEL A/G Ratio 0.9 0.7 - 1.6 02/24 [facility] CHEM PANEL Globulin 4.4 g/dL 2.7 - 4.2 02/24 [facility] CHEM PANEL AST 147 unit/L 0 - 37 02/24 [facility] CHEM PANEL ALT 203 unit/L 0 - 65 02/24 [facility] CHEM PANEL Alk Phos 73 unit/L 39 - 136 02/24 [facility] CHEM PANEL Bili Total 0.4 mg/dL 0.2 - 1.3 02/24 [facility] CHEM PANEL BUN 32 mg/dL 7 - 22 02/24 [facility] CHEM PANEL Glucose Lvl 250 mg/dL 70 - 99 02/24 [facility] CHEM PANEL Lipase Lvl 374 unit/L 73 - 393 02/24 [facility] HEMATOLOGY PTT 23.6 s 22.9 - 02/24 MH 35.8 /2017 [facility] HEMATOLOGY PT 14.4 s 12.0 - 02/24 MH 14.7 [facility] HEMATOLOGY INR 1.12 0.85 - 02/24 MH 1.17 [facility] HEMATOLOGY MPV 10.5 fL 7.4 - 10.4 02/24 [facility] HEMATOLOGY Platelet 387 K/CMM 133 - 450 02/24 [facility] HEMATOLOGY RDW 14.0 % 11.5 - 02/24 MH 14.5 [facility] HEMATOLOGY MCH 28.1 pg 27.0 - 02/24 MH 31.0 /2017 [facility] HEMATOLOGY MCHC 33.0 g/dL 32.0 - 02/24 MH 36.0 [facility] HEMATOLOGY RBC 5.37 M/CMM 4.20 - 02/24 MH 5.40 /2017 [facility] HEMATOLOGY Hgb 15.1 g/dL 12.0 - 02/24 MH 16.0 [facility] HEMATOLOGY Hct 45.8 % 36.0 - 02/24 MH 48.0 [facility] HEMATOLOGY MCV 85.3 fL 80.0 - 02/24 MH 98.0 [facility] HEMATOLOGY WBC 19.5 K/CMM 3.7 - 10.4 02/24 [facility] HEMATOLOGY Segs-Bands # 16.9 K/CMM 1.5 - 8.1 02/24 [facility] HEMATOLOGY Lymphocytes 1.3 K/CMM 1.0 - 5.5 02/24 MH # /2018 [facility] HEMATOLOGY Monocytes # 1.2 K/CMM 0.0 - 0.8 02/24 [facility] HEMATOLOGY Basophils # 0.1 K/CMM 0.0 - 0.2 02/24 [facility] HEMATOLOGY Segs 86.6 % 45.0 - 02/24 75.0 /2017 [facility] HEMATOLOGY Lymphocytes 6.8 % 20.0 - 02/24 MH 40.0 /2017 [facility] HEMATOLOGY Monocytes 6.2 % 2.0 - 12.0 02/24 [facility] HEMATOLOGY Basophils 0.4 % 0.0 - 1.0 02/24 [facility] SPECIAL Hgb A1C 5.9 % <=5.6 % 02/24 CHEMISTRY /2017 [facility] Knee 1-2 Knee 1-2 Clinical Indication: - bilateral knee pain 02/24 - Views Views - [facility] Bilateral Bilateral DX Comparison: None DX Read by: Clinton Vinson MD Dictated Date/time: 02/24/18 01:22 FINDINGS: Electronically Signed by: Clinton Vinson MD 02/24/18 01:23 FINAL REPORT AP and lateral views of both knees are performed. No evidence for acute fracture or dislocation. The joint spaces are preserved bilaterally. There is no knee region soft tissue swelling. There are no radiopaque foreign bodies. Hoffa's fat pad region is unremarkable. No significant joint effusion appreciated. No loose intra-articular bodies. If there is further concern, recommend follow-up radiographs or MRI for complete assessment. IMPRESSION: Unremarkable bilateral knee radiographs. SL: [id number] Brain wo Brain wo EXAM: CT BRAIN WITHOUT CONTRAST 02/23 - contrast contrast CT /2017 - [facility] CT DATE: 02/23/2018 10:30 PM CDT Read by: Cory Mixon MD Dictated Date/time: 02/24/18 00:01 Electronically Signed by: Cory Mixon MD 02/24/18 00:03 FINAL REPORT INDICATION: Altered mental status. COMPARISON: 09/30/2017. TECHNIQUE: Noncontrast axial imaging of the brain was acquired from the vertex to the skull base. Reformatted coronal and sagittal images were provided for review. CT radiation dose DLP: 981.84 mGy-cm. FINDINGS: No acute intracranial hemorrhage, midline shift, or mass effect is identified. The russo-white matter differentiation is preserved. The ventricles and sulci are within normal limits, without evidence for hydrocephalus. The orbits, paranasal sinuses, and mastoid air cells are unremarkable. The calvarium and skull base are intact. IMPRESSION: No acute intracranial abnormality. SL: [id number] Chest Chest 1view Clinical Indication: - ams 02/23 - 1view DX - [facility] Comparison: September 30, 2017 Read by: Dale Glass MD Dictated Date/time: 02/23/18 22:44 FINDINGS: Electronically Signed by: Dale Glass MD 02/23/18 22:45 FINAL REPORT The frontal chest radiograph shows normal lung volumes without interstitial or airspace opacities, pleural effusions or pneumothorax. The cardiomediastinal contours are normal. The trachea is midline. There are no clinically significant osseous abnormalities noted. IMPRESSION: No chest radiographic evidence of acute cardiopulmonary disease. SL: 82 BLOOD BANK ABO/Rh A POS 09/30 RESULTS /2017 [facility] BLOOD BANK Antibody Negative 09/30 RESULTS Scrn [facility] (09/30/17 4:14 AM) DRUG UDS Note See Note 09/30 SCREEN [facility] (09/30/17 3:57 AM) DRUG U Kalpana Scr Negative Negative 09/30 SCREEN [facility] *NA* (09/30/17 3:57 AM) DRUG U Cocaine Negative Negative 09/30 SCREEN Scr [facility] *NA* (09/30/17 3:57 AM) DRUG U Amph Scr Negative Negative 09/30 SCREEN [facility] *NA* (09/30/17 3:57 AM) DRUG U Benzodia Positive Negative 09/30 SCREEN Scr [facility] *ABN* (09/30/17 3:57 AM) DRUG U Opiate Scr Positive Negative 09/30 SCREEN [facility] *ABN* (09/30/17 3:57 AM) DRUG U Cannab Scr Positive Negative 09/30 SCREEN [facility] *ABN* (09/30/17 3:57 AM) DRUG U Phencyc Negative Negative 09/30 SCREEN Scr [facility] *NA* (09/30/17 3:57 AM) URINE AND UA Color Ltyellow 09/30 STOOL /2017 [facility] URINE AND UA <=1.0 0.1 - 1.0 09/30 STOOL Urobilinogen mg/dL /2017 [facility] URINE AND UA Bacteria Occasional None Seen 09/30 STOOL /HPF /HPF /2017 [facility] URINE AND UA Sq Epi Few /LPF Few /LPF 09/30 [facility] URINE AND UA Nitrite Negative Negative 09/30 [facility] (09/30/17 3:57 AM) URINE AND UA Blood Negative Negative 09/30 [facility] (09/30/17 3:57 AM) URINE AND UA Bili Negative Negative 09/30 [facility] *NA* (09/30/17 3:57 AM) URINE AND UA RBC 1 /HPF 0 - 2 09/30 [facility] URINE AND UA WBC 4 /HPF 0 - 5 09/30 [facility] URINE AND UA Leuk Est Small Negative 09/30 [facility] *ABN* (09/30/17 3:57 AM) URINE AND UA Ketones Negative Negative 09/30 STOOL mg/dL mg/dL [facility] URINE AND UA Protein Negative Negative 09/30 STOOL mg/dL mg/dL [facility] URINE AND UA Turbidity Clear Clear 09/30 [facility] (09/30/17 3:57 AM) URINE AND UA Spec Grav 1.009 <=1.030 09/30 [facility] URINE AND UA Glucose Negative Negative 09/30 STOOL mg/dL mg/dL [facility] URINE AND UA pH 7.0 5.0 - 8.0 09/30 [facility] CARDIAC Total CK 49 unit/L 12 - 191 09/30 ENZYMES [facility] CHEM PANEL Lactic Acid 1.1 mMol/L 0.5 - 2.2 09/30 Lvl /2017 [facility] CHEM PANEL eGFR 118 09/30 Result Comment: The eGFR is calculated using the CKD-EPI formula. In most young, healthy individuals the eGFR will be >90 mL/ min/1.73m2. The eGFR declines with age. An eGFR of 60-89 may be normal in mL/min/1.7 /2018 some populations, particularly the elderly, for whom the CKD-EPI formula has not been extensively validated. Use of the eGFR is not recommended in the following populations: [facility] 3m2 Individuals with unstable creatinine concentrations, including patients and those with serious co-morbid conditions. Patients with extremes in muscle mass or diet. The data above are obtained from the National Kidney Disease Education Program (NKDEP) which additionally recommends that when the eGFR is used in patients with extremes of body mass index for purposes of drug dosing, the eGFR should be multiplied by the estimated BMI. CHEM PANEL Total 7.4 g/dL 6.4 - 8.4 09/30 [facility] CHEM PANEL Calcium Lvl 8.2 mg/dL 8.5 - 10.5 09/30 [facility] CHEM PANEL Albumin Lvl 3.7 g/dL 3.5 - 5.0 09/30 [facility] CHEM PANEL BUN 13 mg/dL 7 - 22 09/30 [facility] CHEM PANEL Glucose Lvl 108 mg/dL 70 - 99 09/30 [facility] CHEM PANEL CO2 27 meq/L 24 - 32 09/30 [facility] CHEM PANEL Potassium 3.6 meq/L 3.5 - 5.1 09/30 Lvl [facility] CHEM PANEL Chloride Lvl 105 meq/L 95 - 109 09/30 [facility] CHEM PANEL Sodium Lvl 139 meq/L 135 - 145 09/30 [facility] CHEM PANEL Creatinine 0.63 mg/dL 0.50 - 09/30 Lvl 1.40 [facility] CHEM PANEL AST 32 unit/L 0 - 37 09/30 [facility] CHEM PANEL ALT 43 unit/L 0 - 65 09/30 [facility] CHEM PANEL Bili Total 0.2 mg/dL 0.2 - 1.3 09/30 [facility] CHEM PANEL Alk Phos 76 unit/L 39 - 136 09/30 [facility] CHEM PANEL AGAP 10.6 meq/L 10.0 - 09/30 20.0 [facility] CHEM PANEL Globulin 3.7 g/dL 2.7 - 4.2 09/30 [facility] CHEM PANEL B/C Ratio 21 6 - 25 09/30 [facility] CHEM PANEL A/G Ratio 1.0 0.7 - 1.6 09/30 [facility] ENDOCRINOL S Preg Negative Negative 09/30 OG [facility] *NA* (09/30/17 3:24 AM) HEMATOLOGY Eosinophils 0.1 K/CMM 0.0 - 0.5 09/30 # /2018 [facility] HEMATOLOGY Monocytes # 0.5 K/CMM 0.0 - 0.8 09/30 [facility] HEMATOLOGY Basophils 0.5 % 0.0 - 1.0 09/30 [facility] HEMATOLOGY Segs-Bands # 3.2 K/CMM 1.5 - 8.1 09/30 [facility] Lymphocytes 2.9 K/CMM 1.0 - 5.5 09/30 MH # /2017 [facility] HEMATOLOGY Lymphocytes 43.8 % 20.0 - 09/30 MH 40.0 [facility] Eosinophils 1.0 % 0.0 - 4.0 09/30 [facility] Monocytes 7.6 % 2.0 - 12.0 09/30 [facility] HEMATOLOGY Segs 47.1 % 45.0 - 09/30 MH 75.0 /2017 [facility] Hct 38.3 % 36.0 - 09/30 MH 48.0 [facility] Hgb 12.7 g/dL 12.0 - 09/30 16.0 [facility] MCV 85.8 fL 80.0 - 09/30 98.0 [facility] MCH 28.3 pg 27.0 - 09/30 31.0 [facility] RDW 14.6 % 11.5 - 09/30 14.5 [facility] MCHC 33.0 g/dL 32.0 - 09/30 36.0 [facility] RBC 4.47 M/CMM 4.20 - 09/30 5.40 /2017 [facility] Platelet 244 K/CMM 133 - 450 09/30 [facility] WBC 6.7 K/CMM 3.7 - 10.4 09/30 [facility] MPV 8.6 fL 7.4 - 10.4 09/30 [facility] Chest Chest 1view Chest, single view dated 09/30/2017. 09/30 - 1view DX - [facility] HISTORY: Dyspnea. Read by: Derrick Hendricks MD Dictated Date/time: 09/30/17 04:28 Electronically Signed by: Derrick Hendricks MD 09/30/17 04:29 FINAL REPORT Comparison is made to a prior study dated 11/10/2016. The heart is normal in size. The cardiomediastinal shadow is stable. The lungs appear clear. The pulmonary vasculature is normal in caliber. No acute pleural space abnormalities are detected. IMPRESSION: 1. No radiographic evidence of acute cardiopulmonary disease. SL: 131 Brain wo Brain wo CT HEAD WITHOUT CONTRAST 09/30 - contrast contrast CT /2017 - [facility] CT Clinical Indication: - seizure. Read by: Rudy Henderson MD Dictated Date/time: 09/30/17 04:13 Comparison: 10/02/2015. Electronically Signed by: Rudy Henderson MD 09/30/17 04:19 FINAL REPORT TECHNIQUE: CT images were obtained from the foramen magnum to the vertex without the use of intravenous contrast on a multidetector CT. CT imaging was performed with exposure control parameters to reduc e radiation dose. Coronal and sagittal reconstructions were obtained. CT radiation dose DLP: 901.27 mGy-cm FINDINGS: There is no hemorrhage, extra-axial fluid collection, overt mass, midline shift or hydrocephalus. The visualized paranasal sinuses and mastoid air cells are clear. The calvarium and skull base are intact. If clinical concern persists for acute pathology further evaluation with MRI brain can be obtained if clinically warranted. IMPRESSION: No CT evidence of acute intracranial abnormality. SL: NIMA CARDIAC CK MB Index null 0.0 - 2.5 11/11 ENZYMES [facility] CARDIAC Troponin-I null 0.00 - 11/11 ENZYMES 0.40 /2017 [facility] CARDIAC CK MB null 0.5 - 3.6 11/11 ENZYMES [facility] CARDIAC Total CK 71 unit/L 12 - 191 11/11 ENZYMES [facility] CHEM PANEL Amylase Lvl 37 unit/L 25 - 115 11/11 [facility] CHEM PANEL eGFR 94 11/11 Result Comment: The eGFR is calculated using the CKD-EPI formula. In most young, healthy individuals the eGFR will be >90 mL/ min/1.73m2. The eGFR declines with age. An eGFR of 60-89 may be normal in mL/min/1.7 /2017 some populations, particularly the elderly, for whom the CKD-EPI formula has not been extensively validated. Use of the eGFR is not recommended in the following populations: [facility] 3m2 Individuals with unstable creatinine concentrations, including patients and those with serious co-morbid conditions. Patients with extremes in muscle mass or diet. The data above are obtained from the National Kidney Disease Education Program (NKDEP) which additionally recommends that when the eGFR is used in patients with extremes of body mass index for purposes of drug dosing, the eGFR should be multiplied by the estimated BMI. CHEM PANEL A/G Ratio 0.9 0.7 - 1.6 11/11 [facility] CHEM PANEL Globulin 3.8 g/dL 2.7 - 4.2 11/11 [facility] CHEM PANEL B/C Ratio 12 6 - 25 11/11 [facility] CHEM PANEL AGAP 9.8 meq/L 10.0 - 03 MH 20.0 [facility] CHEM PANEL Bili Total 0.5 mg/dL 0.2 - 1.3 11/11 [facility] CHEM PANEL Alk Phos 76 unit/L 39 - 136 11/11 [facility] CHEM PANEL Calcium Lvl 8.6 mg/dL 8.5 - 10.5 11/11 [facility] CHEM PANEL CO2 29 meq/L 24 - 32 11/11 [facility] CHEM PANEL Chloride Lvl 106 meq/L 95 - 109 11/11 [facility] CHEM PANEL Potassium 3.8 meq/L 3.5 - 5.1 11/11 MH Lvl [facility] CHEM PANEL Sodium Lvl 141 meq/L 135 - 145 11/11 [facility] CHEM PANEL AST 24 unit/L 0 - 37 11/11 [facility] CHEM PANEL ALT 22 unit/L 0 - 65 11/11 [facility] CHEM PANEL Albumin Lvl 3.5 g/dL 3.5 - 5.0 11/11 [facility] CHEM PANEL Total 7.3 g/dL 6.4 - 8.4 11/11 [facility] CHEM PANEL BUN 10 mg/dL 7 - 22 11/11 [facility] CHEM PANEL Creatinine 0.82 mg/dL 0.50 - 11/11 MH Lvl 1.40 /2016 [facility] CHEM PANEL Glucose Lvl 100 mg/dL 70 - 99 11/11 [facility] HEMATOLOGY Monocytes # 0.6 K/CMM 0.0 - 0.8 11/11 [facility] HEMATOLOGY Lymphocytes 1.9 K/CMM 1.0 - 5.5 11/11 MH [facility] HEMATOLOGY Basophils 0.5 % 0.0 - 1.0 11/11 [facility] HEMATOLOGY Segs-Bands # 4.9 K/CMM 1.5 - 8.1 11/11 [facility] HEMATOLOGY Monocytes 8.3 % 2.0 - 12.0 11/11 [facility] HEMATOLOGY Eosinophils 0.3 % 0.0 - 4.0 11/11 [facility] HEMATOLOGY Lymphocytes 25.3 % 20.0 - 11/11 MH 40.0 /2017 [facility] HEMATOLOGY Segs 65.6 % 45.0 - 11/11 MH 75.0 /2017 [facility] HEMATOLOGY Hct 36.7 % 36.0 - 11/11 MH 48.0 /2016 [facility] HEMATOLOGY Hgb 12.1 g/dL 12.0 - 11/11 MH 16.0 /2016 [facility] HEMATOLOGY MCV 84.7 fL 80.0 - 11/11 MH 98.0 /2017 [facility] HEMATOLOGY RBC 4.33 M/CMM 4.20 - 11/11 MH 5.40 /2017 [facility] HEMATOLOGY WBC 7.5 K/CMM 3.7 - 10.4 11/11 [facility] HEMATOLOGY MPV 8.2 fL 7.4 - 10.4 11/11 [facility] HEMATOLOGY RDW 13.9 % 11.5 - 11/11 MH 14.5 /2016 [facility] HEMATOLOGY Platelet 285 K/CMM 133 - 450 11/11 [facility] HEMATOLOGY MCH 28.1 pg 27.0 - 11/11 MH 31.0 [facility] HEMATOLOGY MCHC 33.1 g/dL 32.0 - 11/11 MH 36.0 [facility] URINE AND UA Nitrite Negative Negative 11/11 STOOL [facility] (11/10/16 10:12 PM) URINE AND UA Blood Negative Negative 11/11 [facility] (11/10/16 10:12 PM) URINE AND UA WBC 1 /HPF 0 - 5 11/11 [facility] URINE AND UA Sq Epi Few /LPF Few /LPF 11/11 [facility] URINE AND UA Leuk Est Small Negative 11/11 [facility] *ABN* (11/10/16 10:12 PM) URINE AND UA Bili Negative Negative 11/11 STOOL [facility] *NA* (11/10/16 10:12 PM) URINE AND UA Ketones Negative Negative 11/11 STOOL mg/dL mg/dL [facility] URINE AND UA Glucose Negative Negative 11/11 STOOL mg/dL mg/dL [facility] URINE AND UA Bacteria Occasional None Seen 11/11 STOOL /HPF /HPF /2016 URINE AND UA RBC 1 /HPF 0 - 2 11/11 STOOL [facility] URINE AND UA <=1.0 0.1 - 1.0 11/11 STOOL Urobilinogen mg/dL /2016 [facility] URINE AND UA Color Ltyellow 11/11 STOOL [facility] URINE AND UA Protein Negative Negative 11/11 STOOL mg/dL mg/dL [facility] URINE AND UA pH 6.0 5.0 - 8.0 11/11 [facility] URINE AND UA Spec Grav 1.011 <=1.030 11/11 STOOL [facility] URINE AND UA Turbidity Clear Clear 11/11 [facility] (11/10/16 10:12 PM) URINE CHEM U Preg Negative Negative 11/11 [facility] (11/10/16 10:12 PM) ED ED Study: CT abdomen and pelvis with contrast. 11/11 Abdomen/Pe Abdomen/Pelv - [facility] lvis IV is IV contrast contrast only CT only CT HISTORY: Right lower quadrant pain Read by: Sabine Ho MD Dictated Date/time: 11/11/16 01:08 Electronically Signed by: Sabine Ho MD 11/11/16 01:19 FINAL REPORT Comments: Abdomen pelvic CT was obtained utilizing multiple axial images from the lung bases to the pelvic outlet. Intravenous contrast was given. Sagittal and coronal reconstructions were reviewed. Total exam DLP is 2112 mgy-cm. Visualized lower chest: The lung bases are clear. Normal size heart. ABDOMEN: The liver, spleen, kidneys, pancreas and adrenal glands are within normal limits. Dilated CBD, likely due to cholecystectomy. The small and large bowel loops are nondilated. No evidence of acute appendicitis or diverticulitis. No free intraperitoneal air or fluid collections. Urinary bladder is within normal limits. Uterus present Bones are within normal limits. Impression: No acute inflammatory process in the abdomen or pelvis Chest Chest 1view Study: Chest 1view DX 11/10 - 1view DX - [facility] Clinical Indication: Chest pain - chest pain Read by: Óscar Garces MD Dictated Date/time: 11/10/16 22:43 Electronically Signed by: Óscar Garces MD 11/10/16 22:43 FINAL REPORT Comparison: Chest x-ray from 06/03/2016 FINDINGS: The cardiac silhouette is normal in size. The lungs are clear and without consolidation or congestion. No pleural effusion or pneumothorax is seen. The osseous structures are unremarkable. IMPRESSION: No acute cardiopulmonary disease. SL: [id number] Foot Foot series Patient Name: MICK KELLER [birth year] - series DX : 1985; Age: 30 years y/o Female MR: [id number] Read by: Joshua Torres MD Dictated Date/time: 06/14/16 07:37 Electronically Signed by: Joshua Torres MD 06/14/16 07:41 FINAL REPORT Study: Foot series DX Comparison: None Clinical Indication: Right foot pain; Nondisplaced fractures are noted at the articular base of the right 1st metatarsal as well as the proximal metadiaphyseal junctions of the right 2nd, 3rd and 4th metatarsals. No dislocation. Soft tissue swelling at the dorsum of the forefoot. SL: [id number] Hand 3 Hand 3 views Clinical Indication: Right hand Pain, Trauma; 06/10 views DX Comparison: None Read by: Pastor Pickett Dictated Date/time: 06/10/16 23:30 FINDINGS: Electronically Signed by: Pastor Pickett 06/10/16 23:31 FINAL REPORT The 3 views of the right hand show normal alignment without fractures or dislocations. There is no soft tissue swelling or radiopaque foreign body. IMPRESSION: No acute bony abnormality in the right hand. SL: [id number] Chest 2 Chest 2 CHEST RADIOGRAPH 2 VIEWS 06/03 - views DX views INDICATION: Chest pain Read by: Ray Espinal MD Dictated Date/time: 06/03/16 03:36 Electronically Signed by: Ray Espinal MD 06/03/16 03:37 FINAL REPORT COMPARISON: Chest radiograph 02/13/2016 DISCUSSION: The cardiomediastinal silhouette and pulmonary vasculature are within normal limits. No consolidation, pleural effusion, or pneumothorax are visible. No suspicious pulmonary nodules are identified. No acute bony abnormalities are seen. IMPRESSION: No acute intrathoracic abnormalities are visualized. SL:16 HEMATOLOGY RDW 13.9 % 11.5 - 02/12 14. [facility] HEMATOLOGY Platelet 196 K/CMM 133 - 450 02/12 [facility] HEMATOLOGY MPV 8.1 fL 7.4 - 10.4 02/12 [facility] HEMATOLOGY MCHC 32.4 g/dL 32.0 - 02/12 MH 36.0 /2015 [facility] HEMATOLOGY WBC 3.6 K/CMM 3.7 - 10.4 02/12 [facility] HEMATOLOGY RBC 4.18 M/CMM 4.20 - 02/12 MH 5.40 /2015 [facility] HEMATOLOGY Hgb 11.6 g/dL 12.0 - 02/12 MH 16.0 /2015 [facility] HEMATOLOGY MCH 27.7 pg 27.0 - 02/12 MH 31.0 /2015 [facility] HEMATOLOGY MCV 85.4 fL 80.0 - 02/12 MH 98.0 /2015 [facility] HEMATOLOGY Hct 35.7 % 36.0 - 02/12 MH 48.0 [facility] CHEM PANEL Phosphorus 3.8 mg/dL 2.5 - 4.5 02/12 [facility] CHEM PANEL Magnesium 2.1 mg/dL 1.8 - 2.4 02/12 Lvl /2015 [facility] CHEM PANEL A/G Ratio 0.8 0.7 - 1.6 02/12 [facility] CHEM PANEL B/C Ratio 10 6 - 25 02/12 [facility] CHEM PANEL Globulin 4.5 g/dL 2.0 - 4.0 02/12 [facility] CHEM PANEL AGAP 10.5 meq/L 10.0 - 02/12 20.0 [facility] CHEM PANEL eGFR 97 02/12 Result Comment: The eGFR is calculated using the CKD-EPI formula. In most young, healthy individuals the eGFR will be >90 mL/ min/1.73m2. The eGFR declines with age. An eGFR of 60-89 may be normal in mL/min/1. some populations, particularly the elderly, for whom the CKD-EPI formula has not been extensively validated. Use of the eGFR is not recommended in the following populations: [facility] 3m2 Individuals with unstable creatinine concentrations, including patients and those with serious co-morbid conditions. Patients with extremes in muscle mass or diet. The data above are obtained from the National Kidney Disease Education Program (NKDEP) which additionally recommends that when the eGFR is used in patients with extremes of body mass index for purposes of drug dosing, the eGFR should be multiplied by the estimated BMI. CHEM PANEL Glucose Lvl 119 mg/dL 70 - 99 02/12 [facility] CHEM PANEL CO2 28 meq/L 24 - 32 07/ [facility] CHEM PANEL Potassium 3.5 meq/L 3.5 - 5.1 07/ MH Lvl /2015 [facility] CHEM PANEL Creatinine 0.81 mg/dL 0.50 - 07/ MH Lvl 1.40 /2015 [facility] CHEM PANEL Chloride Lvl 104 meq/L 95 - 109 07/ [facility] CHEM PANEL Sodium Lvl 139 meq/L 135 - 145 07 [facility] CHEM PANEL BUN 8 mg/dL 7 - 22 02/12 [facility] CHEM PANEL Bili Total 0.1 mg/dL 0.2 - 1.3 07 [facility] CHEM PANEL Alk Phos 117 unit/L 39 - 136 07 [facility] CHEM PANEL AST 36 unit/L 0 - 37 02/12 [facility] CHEM PANEL Albumin Lvl 3.5 g/dL 3.5 - 5.0 02/12 [facility] CHEM PANEL Calcium Lvl 8.8 mg/dL 8.5 - 10.5 02/12 [facility] CHEM PANEL ALT 57 unit/L 0 - 65 07 [facility] CHEM PANEL Total 8.0 g/dL 6.4 - 8.4 02/12 [facility] CHEM PANEL Magnesium 2.1 mg/dL 1.8 - 2.4 02/12 Lvl /2015 [facility] CHEM PANEL Lipase Lvl 80 unit/L 73 - 393 02/12 [facility] HEMATOLOGY PTT 30.2 s 22.9 - 07 MH 35.8 /2015 [facility] HEMATOLOGY MPV 8.1 fL 7.4 - 10.4 02/12 [facility] HEMATOLOGY RBC 4.51 M/CMM 4.20 - 07 MH 5.40 /2015 [facility] HEMATOLOGY Hct 38.4 % 36.0 - 07/ MH 48.0 /2015 [facility] HEMATOLOGY Hgb 12.3 g/dL 12.0 - 07 MH 16.0 /2015 [facility] HEMATOLOGY MCHC 32.2 g/dL 32.0 - 07 MH 36.0 /2015 [facility] HEMATOLOGY MCH 27.4 pg 27.0 - 07 MH 31.0 /2015 [facility] HEMATOLOGY MCV 85.0 fL 80.0 - 07 MH 98.0 /2015 [facility] HEMATOLOGY Platelet 209 K/CMM 133 - 450 07 [facility] HEMATOLOGY RDW 14.0 % 11.5 - 07 MH 14.5 /2015 [facility] HEMATOLOGY WBC 3.8 K/CMM 3.7 - 10.4 / /2015 [facility] HEMATOLOGY INR 0.99 0.85 - 02/12 MH 1.17 /2015 [facility] HEMATOLOGY PT 13.4 s 12.0 - 02/12 MH 14.7 /2015 [facility] HEMATOLOGY Monocytes # 0.6 K/CMM 0.0 - 0.8 02/12 /2015 [facility] HEMATOLOGY Lymphocytes 36.8 % 20.0 - 07 MH 40.0 /2015 [facility] HEMATOLOGY Segs 43.4 % 45.0 - 07 MH 75.0 /2015 [facility] HEMATOLOGY Eosinophils 0.2 K/CMM 0.0 - 0.5 / MH # /2015 [facility] HEMATOLOGY Lymphocytes 1.4 K/CMM 1.0 - 5.5 / MH # /2015 [facility] HEMATOLOGY Segs-Bands # 1.7 K/CMM 1.5 - 8.1 02/12 [facility] HEMATOLOGY Basophils 0.7 % 0.0 - 1.0 02/12 [facility] HEMATOLOGY Eosinophils 4.1 % 0.0 - 4.0 02/12 [facility] HEMATOLOGY Monocytes 15.0 % 2.0 - 12.0 02/12 [facility] URINE AND UA <=1.0 0.1 - 1.0 02/12 STOOL Urobilinogen mg/dL /2015 [facility] URINE AND UA Spec Grav 1.018 <=1.030 02/12 STOOL /2015 [facility] URINE AND UA pH 6.0 5.0 - 8.0 02/12 STOOL [facility] URINE AND UA Protein Negative Negative 02/12 STOOL mg/dL mg/dL /2015 [facility] URINE AND UA Color Yellow Yellow 02/12 STOOL [facility] *NA* (02/13/16 3:41 AM) URINE AND UA Turbidity Clear Clear 02/12 STOOL /2015 [facility] (02/13/16 3:41 AM) URINE AND UA Trans Epi 2 /LPF <=0 /LPF 02/12 STOOL [facility] URINE AND UA RBC 6 /HPF 0 - 2 02/12 STOOL /2015 [facility] URINE AND UA Mucus Few /LPF None Seen 02/12 STOOL /LPF /2015 [facility] URINE AND UA WBC 7 /HPF 0 - 5 02/12 STOOL [facility] URINE AND UA Sq Epi Many /LPF Few /LPF 02/12 STOOL [facility] URINE AND UA Bacteria Occasional None Seen 02/12 STOOL /HPF /HPF /2015 [facility] URINE AND UA Glucose Negative Negative 02/12 [facility] mg/dL mg/dL URINE AND UA Ketones Negative Negative 02/12 [facility] mg/dL mg/dL URINE AND UA Blood Negative Negative 02/12 [facility] (02/13/16 3:41 AM) URINE AND UA Leuk Est Large Negative 02/12 [facility] *ABN* (02/13/16 3:41 AM) URINE AND UA Bili Negative Negative 02/12 *NA* (02/13/16 3:41 AM) URINE AND UA Nitrite Negative Negative 02/12 (02/13/16 3:41 AM) URINE AND Occult Bld Negative Negative 02/12 STOOL Stl [facility] (02/13/16 3:41 AM) Chest Chest 1view Chest 1view DX 02/13/2016 3:34 AM CDT 02/12 - 1view DX - [facility] Ordering Physician: Shantanu Curtis MD Read by: Anastasia Perales MD Dictated Date/time: 02/13/16 03:56 CLINICAL HISTORY: Abnormal chest sounds; shortness of breath Electronically Signed by: Anastasia Perales MD 02/13/16 03 :57 FINAL REPORT TECHNIQUE: AP view of the chest were obtained. COMPARISON: 02/07/2016 FINDINGS: Lungs are clear. No pleural effusion of pneumothorax is present. Cardiomediastinal silhouette is normal. Bones are normal. IMPRESSION: No acute abnormality of the chest. SL: SSENDOS-PC ELECTROLYT AGAP 12.2 meq/L 10.0 - 02/10 ES 20.0 /2015 [facility] ELECTROLYT eGFR 87 02/10 Result Comment: The eGFR is calculated using the CKD-EPI formula. In most young, healthy individuals the eGFR will be >90 mL/ min/1.73m2. The eGFR declines with age. An eGFR of 60-89 may be normal in ES mL/min/1. some populations, particularly the elderly, for whom the CKD-EPI formula has not been extensively validated. Use of the eGFR is not recommended in the following populations: [facility] 3m2 Individuals with unstable creatinine concentrations, including patients and those with serious co-morbid conditions. Patients with extremes in muscle mass or diet. The data above are obtained from the National Kidney Disease Education Program (NKDEP) which additionally recommends that when the eGFR is used in patients with extremes of body mass index for purposes of drug dosing, the eGFR should be multiplied by the estimated BMI. ELECTROLYT Glucose Lvl 111 mg/dL 70 - 99 02/10 [facility] ELECTROLYT Chloride Lvl 102 meq/L 95 - 109 02/10 [facility] ELECTROLYT Creatinine 0.88 mg/dL 0.50 - 02/10 ES Lvl 1.40 [facility] ELECTROLYT BUN 4 mg/dL 7 - 02/10 [facility] ELECTROLYT Potassium 4.2 meq/L 3.5 - 5.1 02/10 Lv [facility] ELECTROLYT Sodium Lvl 140 meq/L 135 - 145 02/10 [facility] ELECTROLYT Calcium Lvl 8.3 mg/dL 8.5 - 10.5 02/10 [facility] ELECTROLYT CO2 30 meq/L 24 - 32 02/10 [facility] HEMATOLOGY Eosinophils 0.2 K/CMM 0.0 - 0.5 02/10 MH # /2015 [facility] HEMATOLOGY Monocytes # 0.5 K/CMM 0.0 - 0.8 02/10 [facility] HEMATOLOGY Lymphocytes 1.0 K/CMM 1.0 - 5.5 02/10 [facility] HEMATOLOGY Segs 69.5 % 45.0 - 02/10 MH 75.0 [facility] HEMATOLOGY Lymphocytes 18.4 % 20.0 - 02/10 MH 40.0 [facility] HEMATOLOGY Segs-Bands # 3.9 K/CMM 1.5 - 8.1 02/10 [facility] HEMATOLOGY Basophils 0.4 % 0.0 - 1.0 02/10 [facility] HEMATOLOGY Monocytes 8.9 % 2.0 - 12.0 02/10 [facility] HEMATOLOGY Eosinophils 2.8 % 0.0 - 4.0 02/10 [facility] HEMATOLOGY MCHC 32.7 g/dL 32.0 - 02/10 MH 36.0 [facility] HEMATOLOGY MCH 28.0 pg 27.0 - 02/10 MH 31.0 [facility] HEMATOLOGY MCV 85.6 fL 80.0 - 02/10 MH 98.0 /2015 [facility] HEMATOLOGY MPV 7.8 fL 7.4 - 10.4 02/10 [facility] HEMATOLOGY Platelet 196 K/CMM 133 - 450 02/10 [facility] HEMATOLOGY RDW 14.3 % 11.5 - 02/10 MH 14.5 [facility] HEMATOLOGY Hct 33.1 % 36.0 - 02/10 MH 48.0 [facility] HEMATOLOGY Hgb 10.8 g/dL 12.0 - 02/10 MH 16.0 [facility] HEMATOLOGY WBC 5.7 K/CMM 3.7 - 10.4 02/10 [facility] HEMATOLOGY RBC 3.87 M/CMM 4.20 - 02/10 5.40 [facility] CHEM PANEL eGFR 117 02/09 Result Comment: The eGFR is calculated using the CKD-EPI formula. In most young, healthy individuals the eGFR will be >90 mL/ min/1.73m2. The eGFR declines with age. An eGFR of 60-89 may be normal in mL/min/1. some populations, particularly the elderly, for whom the CKD-EPI formula has not been extensively validated. Use of the eGFR is not recommended in the following populations: [facility] 3m2 Individuals with unstable creatinine concentrations, including patients and those with serious co-morbid conditions. Patients with extremes in muscle mass or diet. The data above are obtained from the National Kidney Disease Education Program (NKDEP) which additionally recommends that when the eGFR is used in patients with extremes of body mass index for purposes of drug dosing, the eGFR should be multiplied by the estimated BMI. CHEM PANEL Potassium 3.7 meq/L 3.5 - 5.1 02/09 MH Lvl /2015 [facility] CHEM PANEL Chloride Lvl 103 meq/L 95 - 109 02/09 [facility] CHEM PANEL CO2 28 meq/L 24 - 32 02/09 [facility] CHEM PANEL Sodium Lvl 139 meq/L 135 - 145 02/09 [facility] CHEM PANEL Creatinine 0.66 mg/dL 0.50 - 02/09 MH Lvl 1.40 [facility] CHEM PANEL Calcium Lvl 8.0 mg/dL 8.5 - 10.5 02/09 [facility] CHEM PANEL BUN 3 mg/dL 7 - 22 02/09 [facility] CHEM PANEL Glucose Lvl 108 mg/dL 70 - 99 02/09 [facility] CHEM PANEL AGAP 11.7 meq/L 10.0 - 02/09 MH 20.0 [facility] CHEM PANEL Phosphorus 3.6 mg/dL 2.5 - 4.5 02/09 [facility] CHEM PANEL Magnesium 2.3 mg/dL 1.8 - 2.4 02/09 MH Lvl /2015 [facility] HEMATOLOGY MPV 8.4 fL 7.4 - 10.4 02/09 [facility] HEMATOLOGY Platelet 220 K/CMM 133 - 450 02/09 [facility] HEMATOLOGY RDW 13.8 % 11.5 - 02/09 MH 14.5 [facility] HEMATOLOGY RBC 3.79 M/CMM 4.20 - 02/09 MH 5.40 /2015 [facility] HEMATOLOGY Hct 32.5 % 36.0 - 02/09 MH 48.0 /2015 [facility] HEMATOLOGY Hgb 10.6 g/dL 12.0 - 02/09 MH 16.0 [facility] HEMATOLOGY MCV 85.6 fL 80.0 - 02/09 MH 98.0 /2015 [facility] HEMATOLOGY MCH 28.0 pg 27.0 - 02/09 MH 31.0 /2015 [facility] HEMATOLOGY MCHC 32.7 g/dL 32.0 - 02/09 MH 36.0 /2015 [facility] HEMATOLOGY WBC 4.4 K/CMM 3.7 - 10.4 02/09 [facility] HEMATOLOGY Lymphocytes 36.2 % 20.0 - 02/09 MH 40.0 [facility] HEMATOLOGY Monocytes 11.0 % 2.0 - 12.0 02/09 [facility] HEMATOLOGY Basophils 0.3 % 0.0 - 1.0 02/09 [facility] HEMATOLOGY Segs-Bands # 2.1 K/CMM 1.5 - 8.1 02/09 [facility] HEMATOLOGY Eosinophils 4.0 % 0.0 - 4.0 02/09 [facility] HEMATOLOGY Lymphocytes 1.6 K/CMM 1.0 - 5.5 02/09 MH # /2015 [facility] HEMATOLOGY Monocytes # 0.5 K/CMM 0.0 - 0.8 02/09 [facility] HEMATOLOGY Eosinophils 0.2 K/CMM 0.0 - 0.5 02/09 MH # /2015 [facility] HEMATOLOGY Segs 48.5 % 45.0 - 02/09 75.0 /2015 [facility] HEMATOLOGY Hct 32.7 % 36.0 - 02/07 48.0 /2015 [facility] HEMATOLOGY Hgb 10.7 g/dL 12.0 - 02/07 16.0 [facility] Abdomen Abdomen Patient Name: MICK KELLER 02/07 - complete complete US /2015 - [facility] US : 1985; Age: 30 years y/o Female MR: [id number] Read by: Joshua Torres MD Dictated Date/time: 02/08/16 13:11 Electronically Signed by: Joshua Torres MD 02/08/16 13:14 FINAL REPORT Study: Abdomen complete US 02/08/2016 11:13 AM CDT Ordering Physician: Lorenzo Ponce MD Comparison: None Clinical Indication: Epigastric Pain; The gallbladder is surgically absent by history. Patchy increased echogenicity of the liver is noted compatible with fatty infiltration of the liver; however, cirrhosis or chronic hepatitis could have t his appearance. No intrahepatic duct dilatation demonstrated. Common duct caliber is 6 mm which is normal. The right kidney measures 11.1 x 4.5 x 4.9cm. Left kidney measures 11.5 x 4.5 x 5.4cm. Accentua tion of the corticomedullary differentiation is noted at the kidneys bilaterally. Kidneys and spleen have an otherwise normal sonographic appearance. The abdominal aorta and IVC are unremarkable. The pa ncreas head has a normal sonographic appearance; the body and tail are obscured by shadowing from overlying bowel gas. Flow at the portal vein is hepatopedal. IMPRESSION: 1. Status post cholecystectomy. 2. Patchy increased echogenicity of the liver is noted compatible with fatty infiltration of the liver; however, cirrhosis or chronic hepatitis could have this appearance. 3. Bilateral medical renal disease. SL: [id number] CHEM PANEL Lactic Acid 0.7 mMol/L 0.5 - 2.2 02/07 Lvl /2015 [facility] BLOOD BANK ABO/Rh A POS 02/07 RESULTS /2015 [facility] BLOOD BANK Antibody Negative 02/07 RESULTS Scrn [facility] (02/07/16 8:47 PM) CHEM PANEL Magnesium 2.2 mg/dL 1.8 - 2.4 02/07 Lvl /2015 [facility] CHEM PANEL Glucose Lvl 86 mg/dL 70 - 99 02/07 [facility] CHEM PANEL Albumin Lvl 3.6 g/dL 3.5 - 5.0 02/07 [facility] CHEM PANEL BUN 8 mg/dL 7 - 22 02/07 [facility] CHEM PANEL Calcium Lvl 8.5 mg/dL 8.5 - 10.5 02/07 [facility] CHEM PANEL Sodium Lvl 138 meq/L 135 - 145 02/07 [facility] CHEM PANEL Creatinine 0.80 mg/dL 0.50 - 02/07 MH Lvl 1.40 [facility] CHEM PANEL CO2 27 meq/L 24 - 32 02/07 [facility] CHEM PANEL Chloride Lvl 103 meq/L 95 - 109 02/07 [facility] CHEM PANEL Potassium 3.9 meq/L 3.5 - 5.1 02/07 Result Comment: [facility] Specimen slightly hemolyzed. CHEM PANEL AST 23 unit/L 0 - 37 02/07 [facility] CHEM PANEL ALT 28 unit/L 0 - 65 02/07 [facility] CHEM PANEL eGFR 98 02/07 Result Comment: The eGFR is calculated using the CKD-EPI formula. In most young, healthy individuals the eGFR will be >90 mL/ min/1.73m2. The eGFR declines with age. An eGFR of 60-89 may be normal in mL/min/1.7 some populations, particularly the elderly, for whom the CKD-EPI formula has not been extensively validated. Use of the eGFR is not recommended in the following populations: [facility] 3m2 Individuals with unstable creatinine concentrations, including patients and those with serious co-morbid conditions. Patients with extremes in muscle mass or diet. The data above are obtained from the National Kidney Disease Education Program (NKDEP) which additionally recommends that when the eGFR is used in patients with extremes of body mass index for purposes of drug dosing, the eGFR should be multiplied by the estimated BMI. CHEM PANEL Total 7.7 g/dL 6.4 - 8.4 02/07 [facility] CHEM PANEL Bili Total 0.2 mg/dL 0.2 - 1.3 02/07 [facility] CHEM PANEL Alk Phos 75 unit/L 39 - 136 02/07 [facility] CHEM PANEL B/C Ratio 10 6 - 25 02/07 [facility] CHEM PANEL AGAP 11.9 meq/L 10.0 - 06/26 MH 20.0 [facility] CHEM PANEL Globulin 4.1 g/dL 2.0 - 4.0 02/07 [facility] CHEM PANEL A/G Ratio 0.9 0.7 - 1.6 02/07 [facility] CHEM PANEL Lipase Lvl 120 unit/L 73 - 393 02/07 [facility] HEMATOLOGY Basophils # 0.1 K/CMM 0.0 - 0.2 02/07 [facility] HEMATOLOGY Eosinophils 0.1 K/CMM 0.0 - 0.5 02/07 MH # /2015 [facility] HEMATOLOGY Monocytes # 0.6 K/CMM 0.0 - 0.8 02/07 [facility] HEMATOLOGY Lymphocytes 2.6 K/CMM 1.0 - 5.5 02/07 [facility] HEMATOLOGY Segs 51.4 % 45.0 - 02/07 75.0 [facility] HEMATOLOGY Segs-Bands # 3.5 K/CMM 1.5 - 8.1 02/07 [facility] HEMATOLOGY Plt Morph Clumped 02/07 [facility] (02/07/16 8:47 PM) HEMATOLOGY RBC Morph Normal 02/07 [facility] (02/07/16 8:47 PM) HEMATOLOGY Basophils 0.8 % 0.0 - 1.0 02/07 [facility] HEMATOLOGY Eosinophils 1.6 % 0.0 - 4.0 02/07 [facility] HEMATOLOGY Monocytes 8.9 % 2.0 - 12.0 02/07 [facility] HEMATOLOGY Lymphocytes 37.3 % 20.0 - 02/07 MH 40.0 [facility] HEMATOLOGY PTT 20.0 s 22.9 - 02/07 MH 35.8 [facility] HEMATOLOGY PT 12.5 s 12.0 - 02/07 MH 14.7 [facility] HEMATOLOGY INR 0.90 0.85 - 02/07 MH 1.17 /2015 [facility] HEMATOLOGY RBC 4.60 M/CMM 4.20 - 02/07 MH 5.40 [facility] HEMATOLOGY RDW 13.8 % 11.5 - 02/07 MH 14.5 [facility] HEMATOLOGY WBC 6.9 K/CMM 3.7 - 10.4 02/07 [facility] HEMATOLOGY MCV 85.2 fL 80.0 - 02/07 98.0 [facility] HEMATOLOGY MCHC 32.3 g/dL 32.0 - 02/07 36.0 /2015 [facility] HEMATOLOGY MCH 27.5 pg 27.0 - 02/07 31.0 [facility] HEMATOLOGY Platelet 221 K/CMM 133 - 450 02/07 [facility] HEMATOLOGY MPV 8.8 fL 7.4 - 10.4 02/07 [facility] IMMUNOLOGY [facility] HIV 4th Negative Negative 02/07 GEN /2015 [facility] (02/07/16 8:47 PM) URINE AND UA <=1.0 0.1 - 1.0 02/07 STOOL Urobilinogen mg/dL [facility] URINE AND UA Bacteria Occasional None Seen 02/07 STOOL /HPF /HPF /2015 [facility] URINE AND UA Mucus Many /LPF None Seen 02/07 STOOL /LPF [facility] URINE AND UA WBC 3 /HPF 0 - 5 02/07 URINE AND UA Nitrite Negative Negative 02/07 [facility] (02/07/16 8:47 PM) URINE AND UA Sq Epi Many /LPF Few /LPF 02/07 [facility] URINE AND UA Leuk Est Small Negative 02/07 STOOL [facility] *ABN* (02/07/16 8:47 PM) URINE AND UA RBC null 0 - 2 02/07 URINE AND UA Bili Negative Negative 02/07 [facility] *NA* (02/07/16 8:47 PM) URINE AND UA Blood Negative Negative 02/07 [facility] (02/07/16 8:47 PM) URINE AND UA Protein Negative Negative 02/07 STOOL mg/dL mg/dL [facility] URINE AND UA pH 5.0 5.0 - 8.0 02/07 STOOL [facility] URINE AND UA Spec Grav 1.021 <=1.030 02/07 STOOL [facility] URINE AND UA Glucose Negative Negative 02/07 STOOL mg/dL mg/dL [facility] URINE AND UA Ketones Negative Negative 02/07 STOOL mg/dL mg/dL URINE AND UA Color Yellow Yellow 02/07 [facility] *NA* (02/07/16 8:47 PM) URINE AND UA Turbidity Slight Clear 02/07 [facility] *ABN* (02/07/16 8:47 PM) URINE CHEM U Preg Negative Negative 02/07 (02/07/16 8:47 PM) Chest/Abdo Chest/Abdome Patient Name: MICK KELLER 02/07 - men/Pelvis n/Pelvis w w IV IV contrast : 1985; Age: 30 years y/o Female contrast CT CT MR: [id number] Read by: Tito Barahona MD Dictated Date/time: 02/08/16 00:57 Electronically Signed by: Tito Barahona MD 02/08/16 01:03 FINAL REPORT Study: Chest/Abdomen/Pelvis w IV contrast CT 02/07/2016 11:41 PM CDT Ordering Physician: Lennox Toribio MD Clinical Indication: Abdominal pain, acute; right lower abd pain for 4 days , today started vomiting blood and pain worsened. Comparison: CT abdomen pelvis of 02/05/2016. TECHNIQUE: Sequential trans-axial images were obtained thru the chest, abdomen and pelvis after administration of iodinated contrast. Coronal and sagittal reconstructions were obtained. 100 cc of nonionic contrast material was used for the exam. Dose: DLP=mGy-cm CHEST FINDINGS: Stable borderline cardiomegaly. No pericardial effusion. No mediastinum or hilar mass or adenopathy. Mild bibasilar atelectasis. No focal consolidation, significant pleural effusion or pneumothorax. ABDOMEN AND PELVIS FINDINGS: Postoperative cholecystectomy. Dilated common bile duct likely postsurgical. Diffuse fatty liver infiltration. The spleen, pancreas, and kidneys are stable in appearance. Grossly normal appendix. Abundance of stool within the colon. Mild descending diverticulosis. Stable fibroid uterus. Probably small left ovarian cyst. Small amount of fluid is present within the cul-de-sac. The bladder is nondistended. IMPRESSION: 1. Overall, no significant interval change. No definite acute focal abnormality detected. 2. Postoperative cholecystectomy. Dilated common bile duct likely postsurgical. 3. Diffuse fatty liver infiltration. 4. Mild descending diverticulosis. SL: [id number] Chest Chest 1view EXAM: Chest 1view DX 02/06 1view DX DATE: 02/07/2016 11:36 PM CDT INDICATION: Chest pain Read by: Tito Barahona MD Dictated Date/time: 02/08/16 00:08 COMPARISON: None. Electronically Signed by: Tito Barahona MD 02/08/16 00:09 FINAL REPORT IMPRESSION: Grossly normal cardiac silhouette and mediastinum. No focal consolidation, significant pleural effusion or pneumothorax. SL: ESTEBANGUEMILY Abdomen AP Abdomen AP Study: Abdomen AP DX 02/07/2016 10:26 PM CDT 02/06 - MH DX - [facility] Patient Name: MICK KELLER MR: [id number] Read by: Saul Siddiqui MD Dictated Date/time: 02/07/16 23:25 : 1985; Age: 30 years y/o Female Electronically Signed by: Saul Siddiqui MD 02/07/16 23:26 FINAL REPORT Ordering Physician: Lennox Toribio MD Clinical Indication: Acute generalized abdominal pain. Comparison: None Bowel gas: The examination is mildly compromised by large patient body habitus. A nonspecific nonobstructed bowel gas pattern is present. General: No organomegaly, mass lesions, or suspicious abnormal calcifications. Cholecystectomy clips in the right upper abdominal quadrant. Rounded opacity in the pelvis represents the urinary bladder. Lung bases: Clear lung bases. Normal size heart. Osseous structures: No fracture, dislocation, or suspicious focal osseous lesion. IMPRESSION: 1. Nonspecific nonobstructed bowel gas pattern. SL: KALPESH CHEM PANEL eGFR 93 02/05 Result Comment: The eGFR is calculated using the CKD-EPI formula. In most young, healthy individuals the eGFR will be >90 mL/ min/1.73m2. The eGFR declines with age. An eGFR of 60-89 may be normal in mL/min/1. some populations, particularly the elderly, for whom the CKD-EPI formula has not been extensively validated. Use of the eGFR is not recommended in the following populations: [facility] 3m2 Individuals with unstable creatinine concentrations, including patients and those with serious co-morbid conditions. Patients with extremes in muscle mass or diet. The data above are obtained from the National Kidney Disease Education Program (NKDEP) which additionally recommends that when the eGFR is used in patients with extremes of body mass index for purposes of drug dosing, the eGFR should be multiplied by the estimated BMI. CHEM PANEL Bili Total 0.3 mg/dL 0.2 - 1.3 02/05 [facility] CHEM PANEL Glucose Lvl 87 mg/dL 70 - 99 02/05 [facility] CHEM PANEL CO2 27 meq/L 24 - 32 02/05 [facility] CHEM PANEL ALT 25 unit/L 0 - 65 02/05 [facility] CHEM PANEL AST 11 unit/L 0 - 37 02/05 [facility] CHEM PANEL Alk Phos 71 unit/L 39 - 136 02/05 [facility] CHEM PANEL Albumin Lvl 3.7 g/dL 3.5 - 5.0 02/05 [facility] CHEM PANEL Chloride Lvl 105 meq/L 95 - 109 02/05 [facility] CHEM PANEL Sodium Lvl 138 meq/L 135 - 145 02/05 [facility] CHEM PANEL Potassium 3.9 meq/L 3.5 - 5.1 02/05 [facility] Lvl /2015 [facility] CHEM PANEL Calcium Lvl 8.3 mg/dL 8.5 - 10.5 02/05 [facility] CHEM PANEL Total 7.7 g/dL 6.4 - 8.4 02/05 [facility] CHEM PANEL Creatinine 0.84 mg/dL 0.50 - 02/05 [facility] Lvl 1.40 [facility] CHEM PANEL BUN 17 mg/dL 7 - 22 02/05 [facility] CHEM PANEL AGAP 9.9 meq/L 10.0 - 02/05 [facility] 20.0 /2015 [facility] CHEM PANEL B/C Ratio 20 6 - 25 02/05 [facility] CHEM PANEL A/G Ratio 0.9 0.7 - 1.6 02/05 [facility] CHEM PANEL Globulin 4.0 g/dL 2.0 - 4.0 02/05 [facility] HEMATOLOGY Eosinophils 0.1 K/CMM 0.0 - 0.5 02/05 [facility] /2015 [facility] HEMATOLOGY Basophils # 0.1 K/CMM 0.0 - 0.2 02/05 [facility] HEMATOLOGY Eosinophils 1.3 % 0.0 - 4.0 02/05 [facility] HEMATOLOGY Basophils 1.0 % 0.0 - 1.0 02/05 [facility] HEMATOLOGY Monocytes # 0.7 K/CMM 0.0 - 0.8 02/05 [facility] HEMATOLOGY Segs-Bands # 4.8 K/CMM 1.5 - 8.1 02/05 [facility] HEMATOLOGY Lymphocytes 2.2 K/CMM 1.0 - 5.5 02/05 [facility] # /2016 [facility] HEMATOLOGY Monocytes 9.0 % 2.0 - 12.0 02/05 [facility] /2015 [facility] HEMATOLOGY Segs 61.3 % 45.0 - 02/05 [facility] 75.0 /2015 [facility] HEMATOLOGY Lymphocytes 27.4 % 20.0 - 02/05 [facility] 40.0 /2015 [facility] HEMATOLOGY MPV 8.3 fL 7.4 - 10.4 02/05 [facility] HEMATOLOGY WBC 7.8 K/CMM 3.7 - 10.4 02/05 [facility] HEMATOLOGY Platelet 267 K/CMM 133 - 450 02/05 [facility] /2015 [facility] HEMATOLOGY RDW 13.9 % 11.5 - 02/05 [facility] 14.5 /2015 [facility] HEMATOLOGY MCV 85.8 fL 80.0 - 02/05 98.0 /2015 [facility] HEMATOLOGY Hgb 12.4 g/dL 12.0 - 02/05 16.0 /2015 [facility] HEMATOLOGY Hct 38.1 % 36.0 - 02/05 [facility] 48.0 /2015 [facility] HEMATOLOGY MCHC 32.6 g/dL 32.0 - 02/05 36.0 /2015 [facility] HEMATOLOGY MCH 28.0 pg 27.0 - 02/05 31.0 /2015 [facility] HEMATOLOGY RBC 4.44 M/CMM 4.20 - 02/05 [facility] 5.40 /2015 [facility] URINE AND UA <=1.0 0.1 - 1.0 02/05 [facility] Urobilinogen mg/dL /2015 [facility] URINE AND UA WBC 3 /HPF 0 - 5 02/05 [facility] /2016 [facility] URINE AND UA RBC 3 /HPF 0 - 2 02/05 [facility] /2015 [facility] URINE AND UA Mucus Moderate None Seen 02/05 [facility] /LPF /LPF /2015 [facility] URINE AND UA Protein 30 mg/dL Negative 02/05 [facility] mg/dL /2015 [facility] URINE AND UA Glucose Negative Negative 02/05 [facility] mg/dL mg/dL [facility] URINE AND UA Ketones Negative Negative 02/05 [facility] mg/dL mg/dL [facility] URINE AND UA Bili Negative Negative 02/05 [facility] *NA* (02/05/16 9:57 PM) URINE AND UA Leuk Est Trace Negative 02/05 [facility] *ABN* (02/05/16 9:57 PM) URINE AND UA Blood Negative Negative 02/05 [facility] (02/05/16 9:57 PM) URINE AND UA Nitrite Negative Negative 02/05 [facility] (02/05/16 9:57 PM) URINE AND UA Sq Epi Moderate Few /LPF 02/05 [facility] /LPF [facility] URINE AND UA Turbidity Clear Clear 02/05 [facility] (02/05/16 9:57 PM) URINE AND UA Spec Grav 1.032 <=1.030 02/05 [facility] URINE AND UA pH 6.0 5.0 - 8.0 02/05 [facility] URINE AND UA Color Yellow Yellow 02/05 [facility] *NA* (02/05/16 9:57 PM) URINE CHEM U Preg Negative Negative 02/05 [facility] (02/05/16 9:57 PM) ED ED Study: ED Abdomen/Pelvis IV contrast only CT 02/04 - Abdomen/Pe Abdomen/Pelv - [facility] lvis IV is IV Age: 30 years y/o Female contrast contrast only CT only CT Read by: Hernan Dowell MD Dictated Date/time: 02/05/16 23:42 Clinical Indication: Abdominal pain, acute;Pt c/o lower left abd pain and nausea x 2 days with R ear pain and headache x 1 day. Pt also c/o Left lower back pain x 2 days as well. Denies injury Electronically Signed by: Hernan Dowell MD 02/05/16 23:49 FINAL REPORT Comparison: 10/04/2015 TECHNIQUE: Helical imaging was performed diaphragm through the symphysis with multiplanar reformations obtained. IV CONTRAST: 100cc Omnipaque 300 GI CONTRAST: None CT Radiation Dose: KHN=[id number] mGy-cm FINDINGS: LOWER CHEST: The lung bases are clear. SOLID ORGANS: The spleen, pancreas, liver, adrenal glands and kidneys are unremarkable. The patient has had a previous cholecystectomy. BOWEL: The bowel is generally within normal limits. From the splenic flexure to the sigmoid there are changes of diverticulosis. The majority of the descending colon is contracted. This may be due to sp asm associated with mild diverticular inflammation. There is no evidence of infiltration of the adjacent fat. No perforation or abscess formation is noted. The appendix is visualized and is within normal limits. PERITONEUM: No free intraperitoneal fluid or air. RETROPERITONEUM: No adenopathy. The aorta is normal. PELVIS: No pelvic mass. The urinary bladder is normal. The uterus is slightly retroverted. The right and left ovaries are not enlarged. MUSCULOSKELETAL: The skeleton is intact. IMPRESSION: 1. Previous cholecystectomy. 2. Changes of diverticulosis in the descending colon with segmental contraction which may be related to mild diverticular irritation in this region. No other evidence of diverticulitis. 3. Otherwise unremarkable CT abdomen and pelvis. SL: BENITA MOLECULAR N gonorrhea Negative Negative 10/04 DIAGNOSTIC by Amp Det (APTIMA) *NA* (10/04/15 4:33 AM) MOLECULAR Source Endocervix 10/04 DIAGNOSTIC [facility]TIMA *NA* (10/04/15 4:33 AM) MOLECULAR C Negative Negative 10/04 DIAGNOSTIC trachomatis by Amp Det *NA* (APTIMA) (10/04/15 4:33 AM) MOLECULAR Source Endocervix 10/04 DIAGNOSTIC APTIMA [facility] *NA* (10/04/15 4:33 AM) URINE AND Occult Bld Negative Negative 10/04 [facility] (10/04/15 3:40 AM) URINE AND UA Color Ltyellow 10/04 [facility] URINE AND UA <=1.0 0.1 - 1.0 10/04 [facility] Urobilinogen mg/dL [facility] URINE AND UA Bili Negative Negative 10/04 [facility] *NA* (10/04/15 12:40 AM) URINE AND UA Blood Negative Negative 10/04 [facility] (10/04/15 12:40 AM) URINE AND UA Ketones Negative Negative 10/04 [facility] mg/dL mg/dL [facility] URINE AND UA Trans Epi 3 /LPF <=0 /LPF 10/04 [facility] URINE AND UA Mucus Few /LPF None Seen 10/04 [facility] /LPF [facility] URINE AND UA Sq Epi Moderate Few /LPF 10/04 [facility] /LPF [facility] URINE AND UA WBC 29 /HPF 0 - 5 10/04 [facility] URINE AND UA RBC 2 /HPF 0 - 2 10/04 [facility] URINE AND UA Leuk Est Large Negative 10/04 [facility] *ABN* (10/04/15 12:40 AM) URINE AND UA Nitrite Negative Negative 10/04 [facility] (10/04/15 12:40 AM) URINE AND UA Glucose Negative Negative 10/04 [facility] mg/dL mg/dL [facility] URINE AND UA pH 5.0 5.0 - 8.0 10/04 [facility] URINE AND UA Protein Negative Negative 10/04 [facility] mg/dL mg/dL [facility] URINE AND UA Spec Grav 1.014 <=1.030 10/04 [facility] URINE AND UA Turbidity Marked Clear 10/04 [facility] *ABN* (10/04/15 12:40 AM) URINE CHEM U Preg Negative Negative 10/04 [facility] (10/04/15 12:40 AM) CHEM PANEL eGFR 107 10/04 Result Comment: The eGFR is calculated using the CKD-EPI formula. In most young, healthy individuals the eGFR will be >90 mL/ min/1.73m2. The eGFR declines with age. An eGFR of 60-89 may be normal in mL/min/1.7 some populations, particularly the elderly, for whom the CKD-EPI formula has not been extensively validated. Use of the eGFR is not recommended in the following populations: [facility] 3m2 Individuals with unstable creatinine concentrations, including patients and those with serious co-morbid conditions. Patients with extremes in muscle mass or diet. The data above are obtained from the National Kidney Disease Education Program (NKDEP) which additionally recommends that when the eGFR is used in patients with extremes of body mass index for purposes of drug dosing, the eGFR should be multiplied by the estimated BMI. CHEM PANEL Bili Total 0.2 mg/dL 0.2 - 1.3 10/04 [facility] CHEM PANEL Alk Phos 72 unit/L 39 - 136 10/04 [facility] CHEM PANEL AST 25 unit/L 0 - 37 10/04 [facility] CHEM PANEL Total 7.5 g/dL 6.4 - 8.4 10/04 [facility] CHEM PANEL Calcium Lvl 8.6 mg/dL 8.5 - 10.5 10/04 [facility] CHEM PANEL ALT 42 unit/L 0 - 65 10/04 [facility] CHEM PANEL Albumin Lvl 3.7 g/dL 3.5 - 5.0 10/04 [facility] CHEM PANEL CO2 29 meq/L 24 - 32 10/04 [facility] CHEM PANEL Chloride Lvl 103 meq/L 95 - 109 10/04 [facility] CHEM PANEL Creatinine 0.75 mg/dL 0.50 - 10/04 [facility] Lvl 1.40 /2015 [facility] CHEM PANEL BUN 14 mg/dL 7 - 22 10/04 [facility] CHEM PANEL Glucose Lvl 81 mg/dL 70 - 99 10/04 [facility] CHEM PANEL Potassium 3.5 meq/L 3.5 - 5.1 10/04 [facility] Lvl /2015 [facility] CHEM PANEL Sodium Lvl 139 meq/L 135 - 145 10/04 [facility] CHEM PANEL A/G Ratio 1.0 0.7 - 1.6 10/04 [facility] CHEM PANEL Globulin 3.8 g/dL 2.0 - 4.0 10/04 [facility] CHEM PANEL B/C Ratio 19 6 - 25 10/04 [facility] CHEM PANEL AGAP 10.5 meq/L 10.0 - 10/04 [facility] 20.0 [facility] HEMATOLOGY Platelet 268 K/CMM 133 - 450 10/04 [facility] HEMATOLOGY MPV 8.2 fL 7.4 - 10.4 10/04 [facility] HEMATOLOGY RBC 4.40 M/CMM 4.20 - 10/04 [facility] 5.40 /2015 [facility] HEMATOLOGY WBC 6.4 K/CMM 3.7 - 10.4 10/04 [facility] HEMATOLOGY RDW 13.5 % 11.5 - 10/04 MH 14.5 [facility] HEMATOLOGY Hgb 12.2 g/dL 12.0 - 10/04 MH 16.0 [facility] HEMATOLOGY MCV 84.8 fL 80.0 - 10/04 [facility] 98.0 [facility] HEMATOLOGY MCHC 32.7 g/dL 32.0 - 10/04 [facility] 36.0 /2015 [facility] HEMATOLOGY Hct 37.3 % 36.0 - 10/04 MH 48.0 [facility] HEMATOLOGY MCH 27.8 pg 27.0 - 10/04 [facility] 31.0 [facility] HEMATOLOGY Segs 50.0 % 45.0 - 10/04 MH 75.0 [facility] HEMATOLOGY Basophils 0.7 % 0.0 - 1.0 10/04 [facility] HEMATOLOGY Monocytes 10.0 % 2.0 - 12.0 10/04 [facility] HEMATOLOGY Eosinophils 2.4 % 0.0 - 4.0 10/04 MH /2015 [facility] HEMATOLOGY Lymphocytes 36.9 % 20.0 - 10/04 [facility] 40.0 /2016 [facility] HEMATOLOGY Segs-Bands # 3.2 K/CMM 1.5 - 8.1 10/04 [facility] HEMATOLOGY Lymphocytes 2.4 K/CMM 1.0 - 5.5 10/04 # /2016 [facility] HEMATOLOGY Eosinophils 0.2 K/CMM 0.0 - 0.5 10/04 # /2016 [facility] HEMATOLOGY Monocytes # 0.6 K/CMM 0.0 - 0.8 10/04 [facility] Pelvis w Pelvis w EXAM: Ultrasound pelvis with Doppler 10/04 - Transvag Transvag - [facility] and Pelvis Pelvis History: Left pelvic pain, possible ovarian torsion. Negative test. Doppler US Doppler US COMPARISON: Ultrasound 03/08/2010 Read by: Renato Ye MD Dictated Date/time: 10/04/15 05:23 TECHNIQUE: Transabdominal and transvaginal grayscale static imaging of the pelvis performed with duplex Doppler. Electronically Signed by: Renato Ye MD 10/04/15 05:27 FINAL REPORT FINDINGS: Exam is somewhat limited due to patient motion. TRANSABDOMINAL PELVIC ULTRASOUND: Uterus: Measures 7.2 cm length. Right ovary: Visualized. Left ovary: Nonvisualized. Bladder is underdistended. TRANSVAGINAL PELVIC ULTRASOUND performed to better evaluate the endometrium and adnexa: Uterus: Endometrial stripe measures 2.5 cm thickness. Nabothian cysts in the cervix. Right ovary: Visualized with color and spectral flow. Left ovary: Visualized with color and spectral flow. No adnexal mass is seen. Small amount of free fluid. IMPRESSION: No appreciable ovarian torsion. SL: [id number] Renal Renal Stone EXAM: CT renal stone 10/04 - Stone CT CT /2015 - [facility] History: Right and left lateral abdominal pain COMPARISON: CT 03/08/2010 Read by: Renato Ye MD Dictated Date/time: 10/04/15 02:57 TECHNIQUE: Axial images of the abdomen and pelvis with sagittal and coronal reformats. No contrast. Electronically Signed by: Renato Ye MD 10/04/15 03:04 FINAL REPORT FINDINGS: No renal, ureteral or bladder stone is seen. No hydronephrosis. Cholecystectomy. Unenhanced images of the visualized liver, spleen, adrenals and pancreas appear unremarkable. Nonspecific bowel pattern. Normal appendix. Physiological free fluid in the cul-de-sac. Uterine fibroids. Aorta is normal caliber. Mild groundglass attenuation in the visualized lung bases. Sacralization of L5 on the left. IMPRESSION: 1. No urinary stone is seen. 2. Mild groundglass opacities in the lung bases may reflect air trapping or pneumonitis. SL: [id number] URINE CHEM U Preg Negative Negative 09/19 [facility] (09/19/14 1:53 AM) Vital Signs Vital Sign Value Date Comments Source Systolic (mm Hg) 104 02/25/2018 [facility] Diastolic (mm Hg) 72 02/25/2018 [facility] Respitory Rate 16 02/25/2018 [facility] Heart Rate 83 02/25/2018 [facility] Temperature Oral (F) 97.9 F 02/25/2018 [facility] Respitory Rate 18 02/25/2018 [facility] Systolic (mm Hg) 134 02/25/2018 [facility] Diastolic (mm Hg) 91 02/25/2018 [facility] Heart Rate 100 02/25/2018 [facility] Temperature Oral (F) 98.6 F 02/25/2018 [facility] Temperature Oral (F) 98.5 F 02/25/2018 [facility] Heart Rate 102 02/25/2018 [facility] Respitory Rate 18 02/25/2018 [facility] Systolic (mm Hg) 128 02/25/2018 [facility] Diastolic (mm Hg) 82 02/25/2018 [facility] BMI Calculated 22.64 02/24/2018 [facility] Weight 63.636 02/24/2018 [facility] Height 167.64 cm 02/24/2018 [facility] Weight 63.636 02/24/2018 [facility] Weight 85 10/19/2017 [facility] BMI Calculated 31.18 10/19/2017 [facility] Height 165.1 cm 10/19/2017 [facility] Systolic (mm Hg) 143 10/19/2017 [facility] Diastolic (mm Hg) 92 10/19/2017 [facility] Heart Rate 88 10/19/2017 [facility] Respitory Rate 18 10/19/2017 [facility] Temperature Oral (F) 97.6 F 10/19/2017 [facility] Respitory Rate 18 09/30/2017 [facility] Systolic (mm Hg) 112 09/30/2017 [facility] Diastolic (mm Hg) 69 09/30/2017 [facility] Heart Rate 85 09/30/2017 [facility] Temperature Oral (F) 98.5 F 09/30/2017 [facility] Respitory Rate 19 09/30/2017 [facility] Systolic (mm Hg) 128 09/30/2017 [facility] Diastolic (mm Hg) 58 09/30/2017 [facility] Diastolic (mm Hg) 86 09/30/2017 [facility] Heart Rate 105 09/30/2017 [facility] Respitory Rate 19 09/30/2017 [facility] Systolic (mm Hg) 138 09/30/2017 [facility] Temperature Oral (F) 98.6 F 09/30/2017 [facility] Weight 81.818 09/30/2017 [facility] Height 165.1 cm 09/30/2017 [facility] BMI Calculated 30.02 09/30/2017 [facility] Heart Rate 104 09/30/2017 [facility] Temperature Oral (F) 98.6 F 09/30/2017 [facility] Respitory Rate 18 11/11/2016 [facility] Systolic (mm Hg) 146 11/11/2016 [facility] Diastolic (mm Hg) 95 11/11/2016 [facility] Temperature Oral (F) 97.9 F 11/11/2016 [facility] Heart Rate 81 11/11/2016 [facility] Weight 90 11/11/2016 [facility] Height 165.1 cm 11/11/2016 [facility] Respitory Rate 18 11/11/2016 [facility] Heart Rate 106 11/11/2016 [facility] Temperature Oral (F) 98.7 F 11/11/2016 [facility] BMI Calculated 33.02 11/11/2016 [facility] Systolic (mm Hg) 145 11/11/2016 [facility] Diastolic (mm Hg) 99 11/11/2016 [facility] Heart Rate 79 06/14/2016 [facility] Respitory Rate 18 06/14/2016 [facility] Temperature Oral (F) 98.7 F 06/14/2016 [facility] Systolic (mm Hg) 128 06/14/2016 [facility] Diastolic (mm Hg) 84 06/14/2016 [facility] Weight 87.273 06/14/2016 [facility] BMI Calculated 33.03 06/14/2016 [facility] Height 162.56 cm 06/14/2016 [facility] Temperature Oral (F) 98.7 F 06/14/2016 [facility] Systolic (mm Hg) 134 06/14/2016 [facility] Diastolic (mm Hg) 92 06/14/2016 [facility] Respitory Rate 17 06/14/2016 [facility] Heart Rate 90 06/14/2016 [facility] Heart Rate 96 06/11/2016 [facility] Temperature Oral (F) 97.8 F 06/11/2016 [facility] Systolic (mm Hg) 128 06/11/2016 [facility] Diastolic (mm Hg) 98 06/11/2016 [facility] Respitory Rate 18 06/11/2016 [facility] Weight 86.364 06/11/2016 [facility] BMI Calculated 31.68 06/11/2016 [facility] Height 165.1 cm 06/11/2016 [facility] Respitory Rate 20 06/11/2016 [facility] Heart Rate 112 06/11/2016 [facility] Temperature Oral (F) 98.1 F 06/11/2016 [facility] Systolic (mm Hg) 143 06/11/2016 [facility] Diastolic (mm Hg) 91 06/11/2016 [facility] Temperature Oral (F) 98 F 06/03/2016 [facility] Respitory Rate 18 06/03/2016 [facility] Heart Rate 89 06/03/2016 [facility] Systolic (mm Hg) 121 06/03/2016 [facility] Diastolic (mm Hg) 87 06/03/2016 [facility] Weight 88.182 06/03/2016 [facility] Temperature Oral (F) 98.1 F 06/03/2016 [facility] BMI Calculated 32.35 06/03/2016 [facility] Height 165.1 cm 06/03/2016 [facility] Respitory Rate 18 06/03/2016 [facility] Heart Rate 98 06/03/2016 [facility] Systolic (mm Hg) 127 06/03/2016 [facility] Diastolic (mm Hg) 89 06/03/2016 [facility] Temperature Oral (F) 97.7 F 02/13/2016 [facility] Respitory Rate 17 02/13/2016 [facility] Systolic (mm Hg) 126 02/13/2016 [facility] Diastolic (mm Hg) 82 02/13/2016 [facility] Heart Rate 92 02/13/2016 [facility] Height 165.1 cm 02/13/2016 [facility] BMI Calculated 31.68 02/13/2016 [facility] Weight 86.364 02/13/2016 [facility] Systolic (mm Hg) 116 02/13/2016 [facility] Diastolic (mm Hg) 78 02/13/2016 [facility] Temperature Oral (F) 97.8 F 02/13/2016 [facility] Respitory Rate 16 02/13/2016 [facility] Heart Rate 82 02/13/2016 [facility] Respitory Rate 16 02/13/2016 [facility] Systolic (mm Hg) 112 02/13/2016 [facility] Diastolic (mm Hg) 88 02/13/2016 [facility] Temperature Oral (F) 98.2 F 02/13/2016 [facility] Heart Rate 102 02/13/2016 [facility] Height 165.1 cm 02/13/2016 [facility] BMI Calculated 31.68 02/13/2016 [facility] Weight 86.364 02/13/2016 [facility] Temperature Oral (F) 98.4 F 02/11/2016 [facility] Heart Rate 68 02/11/2016 [facility] Respitory Rate 16 02/11/2016 [facility] Systolic (mm Hg) 103 02/11/2016 [facility] Diastolic (mm Hg) 74 02/11/2016 [facility] Heart Rate 80 02/11/2016 [facility] Systolic (mm Hg) 118 02/11/2016 [facility] Diastolic (mm Hg) 72 02/11/2016 [facility] Respitory Rate 16 02/11/2016 [facility] Temperature Oral (F) 99.1 F 02/11/2016 [facility] Systolic (mm Hg) 113 02/11/2016 [facility] Diastolic (mm Hg) 74 02/11/2016 [facility] Temperature Oral (F) 99.8 F 02/11/2016 [facility] Respitory Rate 16 02/11/2016 [facility] Heart Rate 82 02/11/2016 [facility] Weight 74.5 02/08/2016 [facility] BMI Calculated 27.35 02/08/2016 [facility] Weight 74.545 02/08/2016 [facility] Height 165.1 cm 02/08/2016 [facility] Respitory Rate 18 02/06/2016 [facility] Systolic (mm Hg) 123 02/06/2016 [facility] Diastolic (mm Hg) 78 02/06/2016 [facility] Temperature Oral (F) 98.2 F 02/06/2016 [facility] Heart Rate 100 02/06/2016 [facility] Weight 73.636 02/06/2016 [facility] Height 165.1 cm 02/06/2016 [facility] Respitory Rate 21 02/06/2016 [facility] Heart Rate 110 02/06/2016 [facility] Systolic (mm Hg) 128 02/06/2016 [facility] Diastolic (mm Hg) 88 02/06/2016 [facility] BMI Calculated 27.01 02/06/2016 [facility] Temperature Oral (F) 98.3 F 02/06/2016 [facility] Weight 90 10/04/2015 [facility] Height 165.1 cm 10/04/2015 [facility] Systolic (mm Hg) 116 10/04/2015 [facility] Diastolic (mm Hg) 74 10/04/2015 [facility] Temperature Oral (F) 98.3 F 10/04/2015 [facility] Heart Rate 104 10/04/2015 [facility] Respitory Rate 18 10/04/2015 [facility] BMI Calculated 33.02 10/04/2015 [facility] Systolic (mm Hg) 128 10/04/2015 [facility] Diastolic (mm Hg) 88 10/04/2015 [facility] Temperature Oral (F) 98.5 F 10/04/2015 [facility] Respitory Rate 18 10/04/2015 [facility] Heart Rate 91 10/04/2015 [facility] Temperature Oral (F) 98.0 F 10/04/2015 [facility] Respitory Rate 18 10/04/2015 [facility] Systolic (mm Hg) 118 10/04/2015 [facility] Diastolic (mm Hg) 81 10/04/2015 [facility] Heart Rate 90 10/04/2015 [facility] BMI Calculated 33.35 10/04/2015 [facility] Weight 90.909 10/04/2015 [facility] Height 165.1 cm 10/04/2015 [facility] Respitory Rate 20 10/04/2015 [facility] Heart Rate 90 10/04/2015 [facility] Temperature Oral (F) 98.0 F 10/04/2015 [facility] Systolic (mm Hg) 124 10/04/2015 [facility] Diastolic (mm Hg) 85 10/04/2015 [facility] Weight 88.182 10/04/2015 [facility] BMI Calculated 32.35 10/04/2015 [facility] Temperature Oral (F) 97.3 F 10/04/2015 [facility] Heart Rate 95 10/04/2015 [facility] Respitory Rate 18 10/04/2015 [facility] Systolic (mm Hg) 106 10/04/2015 [facility] Diastolic (mm Hg) 68 10/04/2015 [facility] Height 165.1 cm 10/04/2015 [facility] Systolic (mm Hg) 126 09/19/2014 [facility] Diastolic (mm Hg) 74 09/19/2014 [facility] Respitory Rate 18 09/19/2014 [facility] Temperature Oral (F) 98.1 F 09/19/2014 [facility] Heart Rate 88 09/19/2014 [facility] Heart Rate 92 09/19/2014 [facility] Respitory Rate 18 09/19/2014 [facility] Temperature Oral (F) 98.1 F 09/19/2014 [facility] Temperature Oral (F) 98.6 F 09/19/2014 [facility] Respitory Rate 20 09/19/2014 [facility] Heart Rate 107 09/19/2014 [facility] Diastolic (mm Hg) 79 09/19/2014 [facility] Systolic (mm Hg) 131 09/19/2014 [facility] Height 165.1 cm 09/19/2014 [facility] Weight 83.182 09/19/2014 [facility] BMI Calculated 30.52 09/19/2014 [facility] Encounters Location Location Encounter Encounter Reason Attending ADM DC Status Source Details Type Number For Provider Date Date Visit [facility] [place] [id number] Jasson 09/19 09/19 [facility] Zalacain /2014 [facility] [place] [id number] Jay 10/04 10/04 [facility] Emergency Rika /2015 [facility] [place] [id number] Wilber 10/04 10/04 [facility] Emergency Kutsen /2015 [facility] [place] EC [id number] Mayura 10/04 10/04 [facility] Emergency Phadtare /2015 [facility] EC [id number] Wilber 02/05 02/05 [facility] K[place]sen /2015 [facility] Inpatient [id number] Shantanu 02/07 02/10 Rosendo Rogers /2015 [facility] Inpatient [id number] Shantanu 02/12 02/12 Rosendo Yingved /2015 [facility] Emergency [id number] Cat Barahona 06/03 06/03 Rosendo /2015 [facility] Emergency [id number] Stacey 06/11 06/11 Rosendo Malcolm /2015 [facility] Emergency [id number] Christopher 06/14 06/14 Rosendo Curtis /2015 [facility] Outpatient [id number] REEBA 10/06 [facility] /2016 [facility] Emergency [id number] Cat Barahona 11/11 11/11 JAMES Robbins /2016 [facility] Emergency [id number] Eugenie 09/30 09/30 JAMES Smyth /2017 [facility] Emergency [id number] Cat Barahona 10/19 10/19 JAMES Robbins /2017 [facility] Inpatient [id number] Ravinder 02/24 02/25 JAMES Iniguez Jr /2017 [facility] Procedures Procedure Code Date Perfomer Comments Source Cholecystectomy [id number] [facility] Cholecystectomy [id number] [facility]
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
--- OUTSIDE RECORDS SUMMARY | 2018-03-13 21:20 | XMS REPORT | Summary of Care ---
:1985 Author Organization [facility] Address [address] [place], [place] [address]- Encounter HQ Encntr_alias(FIN) [id number] Date(s): 10/03/15 - 10/04/15 [facility] [address] [place] [address] Professional Services provided by [facility] [place] [address]- Discharge Disposition: Not Seen Attending Physician: Jay Meléndez MD Vital Signs Most recent to oldest [Reference Range]: 1 Height 165.1 cm (10/03/15 10:59 PM) Temperature Oral [96.4-99.1 DegF] 97.3 DegF (10/03/15 10:59 PM) Blood Pressure [90-140/60-90 mmHg] 106/68 mmHg (10/03/15 10:59 PM) Respiratory Rate [14-20 BRMIN] 18 BRMIN (10/03/15 10:59 PM) Peripheral Pulse Rate [60-100 bpm] 95 bpm (10/03/15 10:59 PM) Weight 88.182 kg (10/03/15 10:59 PM) Body Mass Index 32.35 m2 (10/03/15 10:59 PM) Problem List Condition Effective Dates Status Health Status Informant GI bleed(Confirmed) Resolved Hypertension(Confirmed) Resolved Migraines(Confirmed) Resolved Allergies, Adverse Reactions, Alerts Substance Reaction Severity Status NKDA Active Medications No data available for this section Results No data available for this section Immunizations No data available for this section Procedures Procedure Date Related Diagnosis Body Site Cholecystectomy Social History Social History Type Response Smoking Status Never smoker; Exposure to Tobacco Smoke None; Cigarette Smoking Last 365 Days No; Reg Smoking Cessation Counseling No Assessment and Plan No data available for this section
--- OUTSIDE RECORDS SUMMARY | 2018-03-13 21:20 | XMS REPORT | Summary of Care ---
:1985 Author Organization [facility] Address [address] [place], [place] [address]- Encounter HQ Melar_herbert(FIN) [id number] Date(s): 10/04/15 - 10/04/15 [facility] [address] [place] [address]- Discharge Disposition: Elopement Attending Physician: Alecia Dowd MD Vital Signs Most recent to oldest [Reference Range]: 1 Height 165.1 cm (10/04/15 4:28 PM) Temperature Oral [96.4-99.1 DegF] 98.3 DegF (10/04/15 4:28 PM) Blood Pressure [90-140/60-90 mmHg] 116/74 mmHg (10/04/15 4:28 PM) Respiratory Rate [14-20 BRMIN] 18 BRMIN (10/04/15 4:28 PM) Peripheral Pulse Rate [60-100 bpm] 104 bpm *HI* (10/04/15 4:28 PM) Weight 90 kg (10/04/15 4:28 PM) Body Mass Index 33.02 m2 (10/04/15 4:28 PM) Problem List Condition Effective Dates Status [...]
--- OUTSIDE RECORDS SUMMARY | 2018-03-13 21:20 | XMS REPORT | Summary of Care ---
:1985 Author Organization [facility] Address [address] [place], [place] [address]- Encounter HQ Donal(FIN) [id number] Date(s): 09/30/17 - 09/30/17 [facility] [address] [place] [address]- Encounter Diagnosis Epilepsy, unspecified, not intractable, without status epilepticus (Final) - Gastrointestinal hemorrhage, unspecified (Final) - Personal history of transient ischemic attack (TIA), and cerebral infarction without residual deficits (Final) - Essential (primary) hypertension (Final) - Discharge Disposition: Left Against Medical Advise Attending Physician: Stacey Malcolm DO Admitting Physician: Eugenie Smyth MD Vital Signs Most recent to oldest 1 2 3 [Reference Range]: Height 165.1 cm (09/30/17 2:59 AM) Temperature Oral [96.4-99.1 98.5 DegF 98.6 DegF 98.6 DegF DegF] (09/30/17 5:15 AM) (09/30/17 3:11 AM) (09/30/17 2:59 AM) Blood Pressure [90-140/60-90 112/69 mmHg 128/58 mmHg mmHg] (09/30/17 5:15 AM) (09/30/17 4:15 AM) Systolic Blood Pressure [90-140 138 mmHg mmHg] (09/30/17 3:11 AM) Diastolic Blood Pressure [60-90 86 mmHg mmHg] (09/30/17 3:11 AM) Respiratory Rate [14-20 BRMIN] 18 BRMIN 19 BRMIN 19 BRMIN (09/30/17 5:15 AM) (09/30/17 4:15 AM) (09/30/17 3:11 AM) Peripheral Pulse Rate [60-100 85 bpm 105 bpm 104 bpm bpm] (09/30/17 5:15 AM) *HI* *HI* (09/30/17 3:11 AM) (09/30/17 2:59 AM) Weight 81.818 kg (09/30/17 2:59 AM) Body Mass Index 30.02 m2 (09/30/17 2:59 AM) Problem List Condition Effective Dates Status Health Status Informant Anxiety(Confirmed) Active Back pain, chronic(Confirmed) Active GERD (gastroesophageal reflux Active disease)(Confirmed) GI bleed(Confirmed) Resolved Hypertension(Confirmed) Resolved Insomnia(Confirmed) Active Migraines(Confirmed) Active Obesity(Confirmed) Active Allergies, Adverse Reactions, Alerts Substance Reaction Severity Status NKDA Active Medications acetaminophen 650 mg, Route: PO, Drug form: TAB, Q4H, Dosing Weight 81.818, kg, PRN Pain 1-3/ Temp > 100.4 F, Start date: 09/30/17 8:17:00 [employer], Duration: 30 day, Stop date : 10/30/17 8:16:00 CDT Start Date: 09/30/17 Stop Date: 09/30/17 Status: Discontinuedacetaminophen-hydrocodone 325 mg-5 mg oral tablet 1 tab, Route: PO, Drug Form: TAB, Dosing Weight 81.818, kg, Q4H, PRN Pain Score 4-6, Start date: 09/30/17 8:17:00 [employer], Duration: 30 day, Stop date: 10/30/17 8: 16:00 CDT Start Date: 09/30/17 Stop Date: 09/30/17 Status: DiscontinuedDepakote 250 mg oral enteric coated tablet 250 mg, 1 tab, Route: PO, Drug form: ECTAB, ONCE, Dosing Weight 81.818, kg, Start date: 09/30/17 5:03:00 [employer], Stop date: 09/30/17 5:03:00 [employer], Delayed Release tablet Notes: (Same as: Depakote Delayed Release) Do not confuse with the extended- release tablet. Delayed absorption, enteric coated tablet. Do not crush Start Date: 09/30/17 Stop Date: 10/10/17 Status: Discontinueddocusate 100 mg, Route: PO, Drug form: CAP, BID, Dosing Weight 81.818, kg, Start date: 9:00:00 [employer], Duration: 30 day, Stop date: 10/29/17 17:00:00 CDT Start Date: 09/30/17 Stop Date: 09/30/17 Status: Canceledfamotidine 20 mg, Route: IVP, ONCE, Dosing Weight 81.818, kg, Priority: STAT, Start date: 09/30/17 3:59:00 [employer],Stop date: 09/30/17 3:59:00 [employer] Start Date: 09/30/17 Stop Date: 09/30/17 Status: Completedfamotidine 20 mg, Route: IVP, ONCE, Dosing Weight 81.818, kg, Priority: STAT, Start date: 09/30/17 3:59:00 [employer],Stop date: 09/30/17 3:59:00 [employer] Start Date: 09/30/17 Stop Date: 09/30/17 Status: CompletedKeppra 500 mg oral tablet 500 mg, 1 tab, Route: PO, Drug form: TAB, Q12H, Dosing Weight 81.818, kg, Start date: 09/30/17 9:00:00 [employer], Duration: 30 day, Stop date: 10/29/17 21:00:00 CDT Notes: (Same as:Keppra) Start Date: 09/30/17 Stop Date: 10/01/17 Status: DiscontinuedLORazepam 1 mg, Route: IVP, Q15Min, Dosing Weight 81.818, kg, PRN Seizure, Start date: 8:21:00 [employer], Duration: 30 day, Stop date: 10/30/17 9:20:00 CDT Start Date: 09/30/17 Stop Date: 09/30/17 Status: DiscontinuedNorco 5/325 oral tablet 1 tab, Route: PO, Drug Form: TAB, Dosing Weight 81.818, kg, ONCE, STAT, Start date: 09/30/17 4:37:00CST, Stop date: 09/30/17 4:37:00 [employer] Start Date: 09/30/17 Stop Date: 09/30/17 Status: CompletedOctreotide (bolus) 50 microgram, 0.5 mL, Route: IV, Drug form: INJ, ONCE, Dosing Weight 81.818, kg , Start date: 09/30/17 5:08:00 [employer], Stop date: 09/30/17 5:08:00 [employer]IST Notes: (Same As: SandoSTATIN). Refrigerate. MEDICATION WASTE Product Size: 100 microgram Product Wasted: ___ microgram Start Date: 09/30/17 Stop Date: 09/30/17 Status: Completedoctreotide 1,250 microgram + Sodium Chloride 0.9% IV 248.25 mL 248.25 mL, Rate: 10 ml/hr, Infuse over: 25 hr, Route: IV, Dosing Weight 81.818 kg, Total Volume: 249.5, Start date: 09/30/17 5:09:00 [employer], Duration: 30 day, Stop date: 10/30/17 5:08:00 CDT, 1.96, m2 Start Date: 09/30/17 Stop Date: 09/30/17 Status: Discontinuedondansetron 4 mg, Route: IVP, Q6H, Dosing Weight 81.818, kg, PRN Nausea & Vomiting, Start date: 09/30/17 8:17:00 [employer], Duration: 30 day, Stop date: 10/30/17 8:16:00 CDT Start Date: 09/30/17 Stop Date: 09/30/17 Status: Discontinuedondansetron 4 mg, Route: IVP, Drug form: INJ, ONCE, Dosing Weight 81.818, kg, Priority: STAT , Start date: 09/30/17 3:59:00 [employer], Stop date: 09/30/17 3:59:00 [employer]IST Start Date: 09/30/17 Stop Date: 09/30/17 Status: Completedondansetron 4 mg, Route: IVP, Drug form: INJ, ONCE, Dosing Weight 81.818, kg, Priority: STAT , Start date: 09/30/17 3:59:00 [employer], Stop date: 09/30/17 3:59:00 [employer]IST Start Date: 09/30/17 Stop Date: 09/30/17 Status: Completedpantoprazole 80 mg + Sodium Chloride 0.9% IV 100 mL 100 mL, Rate: 10 ml/hr, Infuse over: 10 hr, Route: IVPB, Dosing Weight 81.818 kg , Total Volume: 100,Infuse at 8 mg / hr for 72 hours for GI bleeding, Start date : 09/30/17 4:57:00 [employer], Duration: 72 hr,Stop date: 10/03/17 4:56:00 [employer], 1.96, m2 Start Date: 09/30/17 Stop Date: 10/01/17 Status: DiscontinuedProtonix 80 mg, Route: IVP, ONCE, Dosing Weight 81.818, kg, Priority: STAT, Start date: 09/30/17 4:00:00 [employer],Stop date: 09/30/17 4:00:00 [employer]IST Start Date: 09/30/17 Stop Date: 09/30/17 Status: CompletedReglan 10 mg, Route: IVP, Drug form: INJ, ONCE, Dosing Weight 81.818, kg, Priority: STAT, Start date: 09/30/17 5:09:00 [employer], Stop date: 09/30/17 5:09:00 [employer]IST Start Date: 09/30/17 Stop Date: 09/30/17 Status: CompletedSaline Flush 0.9% 10 ml, Route: IVP, Drug Form: INJ, Dosing Weight 81.818, kg, PRN, PRN Line Flush , Start date: 09/30/17 8:17:00 [employer], Duration: 30 day, Stop date: 10/30/17 9:16: 00 CDT Start Date: 09/30/17 Stop Date: 09/30/17 Status: DiscontinuedSodium Chloride 0.9% (Bolus) IV 1,000 mL, Infuse Over: 1 hr, Route: IV, ONCE, Priority: STAT, Dosing Weight 81.818 kg, Start date: 09/30/17 3:59:00 [employer], Stop date: 09/30/17 3:59:00 [employer] D[employer]IST Start Date: 09/30/17 Stop Date: 09/30/17 Status: CompletedSodium Chloride 0.9% (Bolus) IV 1,000 mL, Infuse Over: 1 hr, Route: IV, ONCE, Priority: STAT, Dosing Weight 81.818 kg, Start date: 09/30/17 3:59:00 [employer], Stop date: 09/30/17 3:59:00 [employer] D[employer]IST Start Date: 09/30/17 Stop Date: 09/30/17 Status: CompletedSodium Chloride 0.9% IV 1000 mL 1,000 mL, Rate: 125 ml/hr, Infuse over: 8 hr, Route: IV, Dosing Weight 81.818 kg , Total Volume: 1,000, Start date: 09/30/17 8:17:00 [employer], Duration: 30 day, Stop date: 10/30/17 8:16:00 CDT, 1.96, m2 Start Date: 09/30/17 Stop Date: 09/30/17 Status: Discontinued Results BLOOD BANK RESULTS Most recent to oldest [Reference Range]: 1 ABO/Rh A POS *Unknown* (09/30/17 4:14 AM) Antibody Scrn Negative (09/30/17 4:14 AM) ELECTROLYTES Most recent to oldest [Reference Range]: 1 Sodium Lvl [135-145 mEq/L] 139 mEq/L (09/30/17 3:24 AM) Potassium Lvl [3.5-5.1 mEq/L] 3.6 mEq/L (09/30/17 3:24 AM) Chloride Lvl [95-109 mEq/L] 105 mEq/L (09/30/17 3:24 AM) CO2 [24-32 mEq/L] 27 mEq/L (09/30/17 3:24 AM) AGAP [10.0-20.0 mEq/L] 10.6 mEq/L (09/30/17 3:24 AM) CHEM PANEL Most recent to oldest [Reference Range]: 1 Creatinine Lvl [0.50-1.40 mg/dL] 0.63 mg/dL (09/30/17 3:24 AM) eGFR 118 mL/min/1.73m2 1 *NA* (09/30/17 3:24 AM) BUN [7-22 mg/dL] 13 mg/dL (09/30/17 3:24 AM) B/C Ratio [6-25] 21 (09/30/17 3:24 AM) Glucose Lvl [70-99 mg/dL] 108 mg/dL *HI* (09/30/17 3:24 AM) Total Protein [6.4-8.4 g/dL] 7.4 g/dL (09/30/17 3:24 AM) Albumin Lvl [3.5-5.0 g/dL] 3.7 g/dL (09/30/17 3:24 AM) Globulin [2.7-4.2 g/dL] 3.7 g/dL (09/30/17 3:24 AM) A/G Ratio [0.7-1.6] 1.0 (09/30/17 3:24 AM) Calcium Lvl [8.5-10.5 mg/dL] 8.2 mg/dL *LOW* (09/30/17 3:24 AM) ALT [0-65 unit/L] 43 unit/L (09/30/17 3:24 AM) AST [0-37 unit/L] 32 unit/L (09/30/17 3:24 AM) Alk Phos [39-136 unit/L] 76 unit/L (09/30/17 3:24 AM) Bili Total [0.2-1.3 mg/dL] 0.2 mg/dL (09/30/17 3:24 AM) Lactic Acid Lvl [0.5-2.2 mMol/L] 1.1 mMol/L (09/30/17 3:24 AM) 1Result Comment: The eGFR is calculated using [...] Most recent to oldest [Reference Range]: 1 Total CK [12-191 unit/L] 49 unit/L (09/30/17 3:24 AM) DRUG SCREEN Most recent to oldest [Reference Range]: 1 U Amph Scr [Negative] Negative *NA* (09/30/17 3:57 AM) U Kalpana Scr [Negative] Negative *NA* (09/30/17 3:57 AM) U Benzodia Scr [Negative] Positive *ABN* (09/30/17 3:57 AM) U Cocaine Scr [Negative] Negative *NA* (09/30/17 3:57 AM) U Opiate Scr [Negative] Positive *ABN* (09/30/17 3:57 AM) U Phencyc Scr [Negative] Negative *NA* (09/30/17 3:57 AM) U Cannab Scr [Negative] Positive *ABN* (09/30/17 3:57 AM) UDS Note See Note (09/30/17 3:57 AM) TOXICOLOGY Most recent to oldest [Reference Range]: 1 Valproic Acid Lvl [50-100 ug/ml] 6 ug/ml *LOW* (09/30/17 3:57 AM) ENDOCRINOLOGY Most recent to oldest [Reference Range]: 1 S Preg [Negative] Negative *NA* (09/30/17 3:24 AM) URINE AND STOOL Most recent to oldest [Reference Range]: 1 UA Turbidity [Clear] Clear (09/30/17 3:57 AM) UA Color Ltyellow *NA* (09/30/17 3:57 AM) UA pH [5.0-8.0] 7.0 (09/30/17 3:57 AM) UA Spec Grav [<=1.030] 1.009 (09/30/17 3:57 AM) UA Glucose [Negative mg/dL] Negative mg/dL *NA* (09/30/17 3:57 AM) UA Blood [Negative] Negative (09/30/17 3:57 AM) UA Ketones [Negative mg/dL] Negative mg/dL *NA* (09/30/17 3:57 AM) UA Protein [Negative mg/dL] Negative mg/dL (09/30/17 3:57 AM) UA Urobilinogen [0.1-1.0 mg/dL] <=1.0 mg/dL *NA* (09/30/17 3:57 AM) UA Bili [Negative] Negative *NA* (09/30/17 3:57 AM) UA Leuk Est [Negative] Small *ABN* (09/30/17 3:57 AM) UA Nitrite [Negative] Negative (09/30/17 3:57 AM) UA WBC [0-5 /HPF] 4 /HPF (09/30/17 3:57 AM) UA RBC [0-2 /HPF] 1 /HPF (09/30/17 3:57 AM) UA Bacteria [None Seen /HPF] Occasional /HPF *NA* (09/30/17 3:57 AM) UA Sq Epi [Few /LPF] Few /LPF *NA* (09/30/17 3:57 AM) HEMATOLOGY Most recent to oldest [Reference Range]: 1 WBC [3.7-10.4 K/CMM] 6.7 K/CMM (09/30/17 3:24 AM) RBC [4.20-5.40 M/CMM] 4.47 M/CMM (09/30/17 3:24 AM) Hgb [12.0-16.0 g/dL] 12.7 g/dL (09/30/17 3:24 AM) Hct [36.0-48.0 %] 38.3 % (09/30/17 3:24 AM) MCV [80.0-98.0 fL] 85.8 fL (09/30/17 3:24 AM) MCH [27.0-31.0 pg] 28.3 pg (09/30/17 3:24 AM) MCHC [32.0-36.0 g/dL] 33.0 g/dL (09/30/17 3:24 AM) RDW [11.5-14.5 %] 14.6 % *HI* (09/30/17 3:24 AM) MPV [7.4-10.4 fL] 8.6 fL (09/30/17 3:24 AM) Platelet [133-450 K/CMM] 244 K/CMM (09/30/17 3:24 AM) Segs [45.0-75.0 %] 47.1 % (09/30/17 3:24 AM) Lymphocytes [20.0-40.0 %] 43.8 % *HI* (09/30/17 3:24 AM) Monocytes [2.0-12.0 %] 7.6 % (09/30/17 3:24 AM) Eosinophils [0.0-4.0 %] 1.0 % (09/30/17 3:24 AM) Basophils [0.0-1.0 %] 0.5 % (09/30/17 3:24 AM) Segs-Bands # [1.5-8.1 K/CMM] 3.2 K/CMM (09/30/17 3:24 AM) Lymphocytes # [1.0-5.5 K/CMM] 2.9 K/CMM (09/30/17 3:24 AM) Monocytes # [0.0-0.8 K/CMM] 0.5 K/CMM (09/30/17 3:24 AM) Eosinophils # [0.0-0.5 K/CMM] 0.1 K/CMM (09/30/17 3:24 AM) Immunizations Given and Recorded Vaccine Date Status [...] Reg Smoking Cessation Counseling No entered on: 10/19/17 1socially Assessment and Plan No data available for this section
--- OUTSIDE RECORDS SUMMARY | 2018-03-13 21:20 | XMS REPORT | Summary of Care ---
:1985 Author Encounter HQ Donal(RON) [id number] Date(s): 09/19/14 - 09/19/14 [facility] [address] Discharge Diagnosis: Skin infection Discharge Diagnosis: Migraine Discharge Disposition: Home Physician Attending: Jasson Mooney MD Reason for Visit MIGRAINE Vital Signs Most recent to oldest [Reference 1 2 3 Range]: Height 165.1 cm (09/19/14 1:04 AM) Temperature Oral [96.4-99.1 DegF] 98.1 DegF 98.1 DegF 98.6 DegF (09/19/14 3:28 AM) (09/19/14 1:48 AM) (09/19/14 1:04 AM) Systolic Blood Pressure [90-140 126 mmHg 131 mmHg mmHg] (09/19/14 3:28 AM) (09/19/14 1:04 AM) Diastolic Blood Pressure [60-90 74 mmHg 79 mmHg mmHg] (09/19/14 3:28 AM) (09/19/14 1:04 AM) Respiratory Rate [14-20 BRMIN] 18 BRMIN 18 BRMIN 20 BRMIN (09/19/14 3:28 AM) (09/19/14 1:48 AM) (09/19/14 1:04 AM) Peripheral Pulse Rate [60-100 bpm] 88 bpm 92 bpm 107 bpm (09/19/14 3:28 AM) (09/19/14 1:48 AM) *HI* (09/19/14 1:04 AM) Weight 83.182 kg (09/19/14 1:04 AM) Body Mass Index 30.52 m2 (09/19/14 1:04 AM) Problem List Condition Effective Dates Status Health Status Informant Hypertension(Confirmed) Resolved Migraines(Confirmed) Resolved Allergies, Adverse Reactions, Alerts Substance Reaction Severity Status NKDA Active Medications Bactrim DS oral tablet 1 tab, PO, BID, # 20 tab, 0 Refill(s) Start Date: 09/19/14 Stop Date: 09/29/14 Status: Orderedclindamycin + Sodium Chloride 0.9% IV 100 mL 900 mg, 6 mL, Route: IVPB, Drug form: INJ, ONCE, Dosing Weight 83.182, kg, Priority: STAT, Start date: 09/19/14 1:24:00, Stop date: 09/19/14 1:24:00 Notes: (Same As: Cleocin) Start Date: 09/19/14 Stop Date: 09/19/14 Status: CompleteddiphenhydrAMINE 25 mg, 0.5 mL, Route: IVP, Drug form: INJ, ONCE, Dosing Weight 83.182, kg, Priority: STAT, Start date: 09/19/14 1:23:00, Stop date: 09/19/14 1:23:00 Notes: (Same as: Benadryl) Start Date: 09/19/14 Stop Date: 09/19/14 Status: CompletedKeflex 500 mg oral capsule 500 mg=1 cap, PO, QID, # 40 cap, 0 Refill(s) Start Date: 09/19/14 Stop Date: 09/29/14 Status: Orderedmetoclopramide 10 mg, 2 mL, Route: IVP, Drug form: INJ, ONCE, Dosing Weight 83.182, kg, Priority: STAT, Start date:09/19/14 1:23:00, Stop date: 09/19/14 1:23:00 Notes: (Same as: Reglan) Start Date: 09/19/14 Stop Date: 09/19/14 Status: CompletedSodium Chloride 0.9% (Bolus) IV 1,000 mL, 1,000 ml/hr, Infuse Over: 1 hr, Route: IV, 1,000, Drug form: INJ, ONCE , Priority: STAT, Dosing Weight 83.182 kg, Start date: 09/19/14 1:23:00, Duration: 1 doses or times, Stop date: 09/19/14 1:23:00 Start Date: 09/19/14 Stop Date: 09/19/14 Status: CompletedUltram 50 mg oral tablet 50 mg=1 tab, PO, Q6H, pain, # 20 tab, 0 Refill(s) Start Date: 09/19/14 Status: Ordered Results URINE CHEM Most recent to oldest [Reference Range]: 1 U Preg [Negative] Negative (09/19/14 1:53 AM) Medications Administered During Your Visit No data available for this section Immunizations No data available for this section Procedures Procedure Type Body Site Date of Procedure Related Diagnosis Cholecystectomy Social History Social History Type Response Smoking Status Never smoker, Exposure to Tobacco Smoke None, Cigarette Smoking Last 365 Days No, Reg Smoking Cessation Counseling No
--- OUTSIDE RECORDS SUMMARY | 2018-03-13 21:20 | XMS REPORT | Summary of Care ---
:[address] [facility] Address [address] [place], [place] [address]- Encounter HQ Elida_herbert(FIN) [id number] Date(s): 10/19/17 - 10/19/17 [facility] [address] [place] [address]- Encounter Diagnosis Chalazion left upper eyelid (Final) - 10/26/17 Malignant neoplasm of pancreas, unspecified (Final) - Discharge Disposition: Home or Self Care Attending Physician: India Barahona DO Vital Signs Most recent to oldest [Reference Range]: 1 Height 165.1 cm (10/19/17 12:55 AM) Temperature Oral [96.4-99.1 DegF] 97.6 DegF (10/19/17 12:55 AM) Blood Pressure [90-140/60-90 mmHg] 143/92 mmHg *HI* (10/19/17 12:55 AM) Respiratory Rate [14-20 BRMIN] 18 BRMIN (10/19/17 12:55 AM) Peripheral Pulse Rate [60-100 bpm] 88 bpm (10/19/17 12:55 AM) Weight 85 kg (10/19/17 12:55 AM) Body Mass Index 31.18 m2 (10/19/17 12:55 AM) Problem List Condition Effective Dates Status Health Status Informant Anxiety(Confirmed) Active Back pain, chronic(Confirmed) Active GERD (gastroesophageal reflux Active disease)(Confirmed) GI bleed(Confirmed) Resolved Hypertension(Confirmed) Resolved Insomnia(Confirmed) Active Migraines(Confirmed) Active Obesity(Confirmed) Active Allergies, Adverse Reactions, Alerts Substance Reaction Severity Status NKDA Active Medications No data available for this section Results No data available for this section Immunizations Given and Recorded Vaccine Date Status [...]
--- OUTSIDE RECORDS SUMMARY | 2018-03-13 21:21 | XMS REPORT | Summary of Care ---
:1985 Author Organization [facility] Address [address] [place], [place] [address]- Encounter HQ Elida_herbert(FIN) [id number] Date(s): 06/14/16 - 06/14/16 [facility] [address] [place] [address]- Discharge Diagnosis: Fracture of unspecified metatarsal bone(s), unspecified foot, initial encounterfor closed fracture Discharge Disposition: Home or Self Care Attending Physician: Shantanu Cutris MD Vital Signs Most recent to oldest [Reference Range]: 1 2 Height 162.56 cm (06/14/16 7:09 AM) Temperature Oral [96.4-99.1 DegF] 98.7 DegF 98.7 DegF (06/14/16 8:30 AM) (06/14/16 7:09 AM) Blood Pressure [90-140/60-90 mmHg] 128/84 mmHg 134/92 mmHg (06/14/16 8:30 AM) (06/14/16 7:09 AM) Respiratory Rate [14-20 BRMIN] 18 BRMIN 17 BRMIN (06/14/16 8:30 AM) (06/14/16 7:09 AM) Peripheral Pulse Rate [60-100 bpm] 79 bpm 90 bpm (06/14/16 8:30 AM) (06/14/16 7:09 AM) Weight 87.273 kg (06/14/16 7:09 AM) Body Mass Index 33.03 m2 (06/14/16 7:09 AM) Problem List Condition Effective Dates Status Health Status Informant Anxiety(Confirmed) Active Back pain, chronic(Confirmed) Active GERD (gastroesophageal reflux Active disease)(Confirmed) GI bleed(Confirmed) Resolved Hypertension(Confirmed) Resolved Insomnia(Confirmed) Active Migraines(Confirmed) Active Obesity(Confirmed) Active Allergies, Adverse Reactions, Alerts Substance Reaction Severity Status NKDA Active Medications [place] 5/325 oral tablet 1 tab, Route: PO, Drug Form: TAB, Dosing Weight 87.273, kg, ONCE, STAT, Start date: 06/14/16 7:15:00CDT, Stop date: 06/14/16 7:15:00 CDT Start Date: 06/14/16 Stop Date: 06/14/16 Status: CompletedNorco 7.5/325 oral tablet 1 tab, Route: PO, Dosing Weight 87.273, kg, ONCE, Start date: 06/14/16 8:14:00 CDT, Stop date: 06/14/16 8:14:00 CDT Start Date: 06/14/16 Stop Date: 06/14/16 Status: CompletedTylenol with Codeine #3 oral tablet 1 - 2 tab, PO, Q4H, PRN Pain, X 3 day, # 20 tab, 0 Refill(s) Start Date: 06/14/16 Stop Date: 06/17/16 Status: Ordered Results No data available for this section Immunizations Given and Recorded Vaccine Date Status Refusal Reason influenza virus vaccine, inactivated 05/31/16 Given Not Given Vaccine Date Status Refusal Reason pneumococcal 23-valent vaccine1 02/10/16 Not Given Patient Refuses 1Result Comment: Pt got it 2014 Procedures Procedure Date Related Diagnosis Body Site Cholecystectomy Social History Social History Type Response Substance Abuse Use: None. Alcohol Current, Type Wine, Liquor.1 Smoking Status Never smoker; Type: Chewing tobacco; Exposure to Tobacco Smoke None; Cigarette Smoking Last 365 Days No; Reg Smoking Cessation Counseling No 1socially Assessment and Plan No data available for this section
--- OUTSIDE RECORDS SUMMARY | 2018-03-13 21:21 | XMS REPORT | Summary of Care ---
:1985 Author Organization [facility] Address [address] [place], [place] [address]- Encounter HQ Elida_herbert(FIN) [id number] Date(s): 06/10/16 - 06/10/16 [facility] [address] [place] [address]- Discharge Diagnosis: Hand contusion Discharge Disposition: Home or Self Care Attending Physician: Stacey Malcolm DO Vital Signs Most recent to oldest [Reference Range]: 1 2 Height 165.1 cm (06/10/16 10:18 PM) Temperature Oral [96.4-99.1 DegF] 97.8 DegF 98.1 DegF (06/10/16 11:55 PM) (06/10/16 10:18 PM) Blood Pressure [90-140/60-90 mmHg] 128/98 mmHg 143/91 mmHg (06/10/16 11:55 PM) *HI* (06/10/16 10:18 PM) Respiratory Rate [14-20 BRMIN] 18 BRMIN 20 BRMIN (06/10/16 11:55 PM) (06/10/16 10:18 PM) Peripheral Pulse Rate [60-100 bpm] 96 bpm 112 bpm (06/10/16 11:55 PM) *HI* (06/10/16 10:18 PM) Weight 86.364 kg (06/10/16 10:18 PM) Body Mass Index 31.68 m2 (06/10/16 10:18 PM) Problem List Condition Effective Dates Status Health Status Informant Anxiety(Confirmed) Active Back pain, chronic(Confirmed) Active GERD (gastroesophageal reflux Active disease)(Confirmed) GI bleed(Confirmed) Resolved Hypertension(Confirmed) Resolved Insomnia(Confirmed) Active Migraines(Confirmed) Active Obesity(Confirmed) Active Allergies, Adverse Reactions, Alerts Substance Reaction Severity Status NKDA Active Medications acetaminophen-hydrocodone 325 mg-10 mg oral tablet 1 tab, Route: PO, Drug Form: TAB, Dosing Weight 86.364, kg, ONCE, STAT, Start date: 06/10/16 22:24:00 CDT, Stop date: 06/10/16 22:24:00 CDT Notes: Do not exceed 4gm/day of acetaminophen. (Same as: [place] 325/10) Start Date: 06/10/16 Stop Date: 06/10/16 Status: Completedacetaminophen-hydrocodone 325 mg-5 mg oral tablet 1 tab, Route: PO, Dosing Weight 86.364, kg, ONCE, STAT, Start date: 06/10/16 22: 21:00 CDT, Stop date: 06/10/16 22:21:00 CDT Start Date: 06/10/16 Stop Date: 06/10/16 Status: DiscontinuedFioricet 300 mg-50 mg-40 mg oral capsule 1 cap, PO, Q4H, PRN PRN Headache, Do not exceed 6 capsules in 24 hours, X 5 day , # 30 cap, 0 Refill(s), Pharmacy: [facility] [id number] Start Date: 06/10/16 Stop Date: 06/15/16 Status: Orderedibuprofen 800 mg oral tablet 800 mg=1 tab, PO, Q6H, PRN Fever or Pain, Take with food, X 10 day, # 40 tab, 0 Refill(s), Pharmacy:[facility] [id number] Start Date: 06/10/16 Stop Date: 06/20/16 Status: OrderedketOROLAC 60 mg, 2 mL, Route: IM, Drug form: INJ, ONCE, Dosing Weight 86.364, kg, Priority : STAT, Start date: 06/10/16 22:24:00 CDT, Stop date: 06/10/16 22:24:00 CDT Notes: (Same as:Toradol) IV bolus must be given >15 seconds. Give IM administration slowly and deeply into the muscle.Not for use > 4 days MEDICATION WASTE Product Size: 60 mgProduct Wasted: ___ mg Start Date: 06/10/16 Stop Date: 06/10/16 Status: Completedorphenadrine 60 mg, 2 mL, Route: IM, Drug form: INJ, ONCE, Dosing Weight 86.364, kg, Priority : STAT, Start date: 06/10/16 22:24:00 CDT, Stop date: 06/10/16 22:24:00 CDT Start Date: 06/10/16 Stop Date: 06/10/16 Status: CompletedPromethazine DM oral syrup 5 mL, PO, Q6H, PRN for cough, X 6 day, # 120 mL, 0 Refill(s), Pharmacy: [facility] [id number] Start Date: 06/10/16 Stop Date: 06/16/16 Status: OrderedProventil HFA 90 mcg/inh inhalation aerosol with adapter 2 puff, INHALER, Q4H, PRN wheezing, coughing, or shortness of breath, # 1 ea, 1 Refill(s), Pharmacy:[facility] [id number] Start Date: 06/10/16 Status: OrderedTylenol with Codeine #3 oral tablet 1 tab, PO, Q6H, PRN Pain, X 3 day, # 12 tab, 0 Refill(s) Start Date: 06/10/16 Stop Date: 06/13/16 Status: Ordered Results No data available for [...]
--- OUTSIDE RECORDS SUMMARY | 2018-03-13 21:21 | XMS REPORT | Summary of Care ---
:1985 Author Organization [facility] Address [address] [place], [place] [address]- Encounter HQ Donal(FIN) [id number] Date(s): 02/13/16 - 02/13/16 [facility] [address] [place] [address]- Discharge Disposition: Home Attending Physician: Shatnanu Rogers MD Admitting Physician: Shantanu Rogers MD Vital Signs Most recent to oldest [Reference 1 2 3 Range]: Height 165.1 cm 165.1 cm (02/13/16 9:55 AM) (02/13/16 3:00 AM) Temperature Oral [96.4-99.1 DegF] 97.7 DegF 97.8 DegF 98.2 DegF (02/13/16 12:00 PM) (02/13/16 8:17 AM) (02/13/16 6:44 AM) Blood Pressure [90-140/60-90 126/82 mmHg 116/78 mmHg 112/88 mmHg mmHg] (02/13/16 12:00 PM) (02/13/16 8:17 AM) (02/13/16 7:51 AM) Respiratory Rate [14-20 BRMIN] 17 BRMIN 16 BRMIN 16 BRMIN (02/13/16 12:00 PM) (02/13/16 8:17 AM) (02/13/16 7:51 AM) Peripheral Pulse Rate [60-100 92 bpm 82 bpm 102 bpm bpm] (02/13/16 12:00 PM) (02/13/16 8:17 AM) *HI* (02/13/16 6:44 AM) Weight 86.364 kg 86.364 kg (02/13/16 9:55 AM) (02/13/16 3:00 AM) Body Mass Index 31.68 m2 31.68 m2 (02/13/16 9:55 AM) (02/13/16 3:00 AM) Problem List Condition Effective Dates Status Health Status Informant GI bleed(Confirmed) Resolved Hypertension(Confirmed) Resolved Migraines(Confirmed) Resolved Allergies, Adverse Reactions, Alerts Substance Reaction Severity Status NKDA Active Medications acetaminophen 650 mg, 2 tab, Route: PO, Drug form: TAB, Q6H, Dosing Weight 86.364, kg, PRN Pain 1-3/Temp > 99.5 F, Start date: 02/13/16 9:48:00 CDT, Duration: 30 day, Stop date: 03/14/16 9:47:00 CDT Notes: Do not exceed 4 gm/day. (Same as: Tylenol) Start Date: 02/13/16 Stop Date: 02/13/16 Status: DiscontinuedAmbien 5 mg, 1 tab, Route: PO, Drug form: TAB, Bedtime, Start date: 02/13/16 21:00:00 CDT, Duration: 30 day, Stop date: 03/13/16 21:00:00 CDT Notes: (Same As: Ambien) Start Date: 02/13/16 Stop Date: 02/13/16 Status: CanceledCarafate 1 g/10 mL oral suspension 1 gm, 10 mL, Route: PO, Drug form: SUSP, QID-Before Meals, Dosing Weight 86.364 , kg, Start date: 02/13/16 11:30:00 CDT, Duration: 30 day, Stop date: 03/14/16 7 :30:00 CDT Notes: Enteral feeds may interfere with the absorption of this medication. Shake well. Take 1 hr before or 2 hrs after antacids, dairy pdt, minerals & meals. (Same As: Carafate) Start Date: 02/13/16 Stop Date: 02/13/16 Status: Discontinuedciprofloxacin 500 mg oral tablet 500 mg=1 tab, PO, Q12H, X 3 day, # 6 tab, 0 Refill(s) Start Date: 02/13/16 Stop Date: 02/16/16 Status: TynvhjaA5KN 1,000 mL 1,000 mL, Rate: 125 ml/hr, Infuse over: 8 hr, Route: IV, Dosing Weight 86.364 kg , Total Volume: 1,000, Start date: 02/13/16 10:15:00 CDT, Duration: 30 day, Stop date: 03/14/16 10:14:00 CDT Start Date: 02/13/16 Stop Date: 02/13/16 Status: DiscontinuedDilaudid 0.5 mg, 0.5 mL, Route: IV, Drug form: INJ, Q3H, Dosing Weight 86.364, kg, PRN Pain Score 7-10, Startdate: 02/13/16 6:41:00 CDT, Duration: 30 day, Stop date: 03/14/16 6:40:00 CDT Start Date: 02/13/16 Stop Date: 02/13/16 Status: Discontinueddocusate sodium 100 mg oral capsule 100 mg, 1 cap, Route: PO, Drug form: CAP, BID, Dosing Weight 86.364, kg, PRN Constipation, Start date: 02/13/16 9:46:00 CDT, Duration: 30 day, Stop date: 9:45:00 CDT Notes: (Same as: Colace) (Do Not Crush) Start Date: 02/13/16 Stop Date: 02/13/16 Status: DiscontinuedLunesta 3 mg, Route: PO, Bedtime, Dosing Weight 86.364, kg, Start date: 02/13/16 21:00: 00 CDT, Duration: 30 day, Stop date: 03/13/16 21:00:00 CDT Start Date: 02/13/16 Stop Date: 02/13/16 Status: DeletedLunesta 3 mg, PO, Bedtime, 0 Refill(s) Start Date: 02/13/16 Status: Orderedmorphine Sulfate 4 mg, Route: IVP, Drug form: INJ, ONCE, Dosing Weight 86.364, kg, Priority: STAT , Start date: 02/13/16 3:34:00 CDT, Stop date: 02/13/16 3:34:00 CDT Start Date: 02/13/16 Stop Date: 02/13/16 Status: Completedondansetron 4 mg, Route: IVP, ONCE, Dosing Weight 86.364, kg, Priority: STAT, Start date: 3:34:00 CDT, Stop date: 02/13/16 3:34:00 CDT Start Date: 02/13/16 Stop Date: 02/13/16 Status: Completedpantoprazole 80 mg + sodium chloride 0.9% INJ 100 mL 100 mL, Rate: 10 ml/hr, Infuse over: 10 hr, Route: IVPB, Dosing Weight 86.364 kg , Total Volume: 100,Infuse at 8 mg / hr for 72 hours for GI bleeding, Start date : 02/13/16 5:00:00 CDT, Duration: 72 hr,Stop date: 02/16/16 4:59:00 CDT Start Date: 02/13/16 Stop Date: 02/13/16 Status: DiscontinuedPhenergan + sodium chloride 0.9% INJ 50 mL 12.5 mg, 0.5 mL, Route: IVPB, Q4H, Dosing Weight 86.364, kg, PRN Nausea & Vomiting, Start date: 02/13/16 6:41:00 CDT, Duration: 30 day, Stop date: 6:40:00 CDT Notes: Do not give IV push. (Same as: Phenergan) Start Date: 02/13/16 Stop Date: 02/13/16 Status: DiscontinuedProtonix 80 mg, Route: IVP, Drug form: INJ, ONCE, Dosing Weight 86.364, kg, Priority: STAT, Start date: 02/13/16 3:34:00 CDT, Stop date: 02/13/16 3:34:00 CDT Notes: For IV push reconstitute with 10 ml 0.9% sodium chloride and push over 2 minutes. (Same as: Protonix) Start Date: 02/13/16 Stop Date: 02/13/16 Status: CompletedProtonix 40 mg, 1 tab, Route: PO, Drug form: ECTAB, Before Breakfast, Dosing Weight 86.364, kg, Start date: 02/13/16 7:30:00 CDT, Duration: 30 day, Stop date: 03/13 7:30:00 CDT Notes: Tablet should not be chewed or crushed.(Same as: Protonix) Start Date: 02/13/16 Stop Date: 02/13/16 Status: DiscontinuedReglan 5 mg oral tablet 5 mg, 1 tab, Route: PO, Drug form: TAB, Before Meals & Bedtime, Dosing Weight 86.364, kg, Start date: 02/13/16 7:30:00 CDT, Duration: 30 day, Stop date : 03/13/16 21:00:00 CDT Notes: (Same as: Reglan) Take 30 min before meals Start Date: 02/13/16 Stop Date: 02/13/16 Status: DiscontinuedSaline Flush 0.9% 10 ml, Route: IVP, Drug Form: INJ, Dosing Weight 86.364, kg, PRN, PRN Line Flush , Start date: 02/13/16 10:15:00 CDT, Duration: 30 day, Stop date: 03/14/16 10:14 :00 CDT Notes: Same as: BD Posiflush Sterile Start Date: 02/13/16 Stop Date: 02/13/16 Status: DiscontinuedSaline Flush 0.9% 10 mL, Route: IVP, Drug Form: INJ, Dosing Weight 86.364, kg, PRN, PRN Line Flush , Start date: 02/13/16 3:34:00 CDT, Duration: 30 day, Stop date: 03/14/16 3:33: 00 CDT Notes: (Same as: BD Posiflush) Start Date: 02/13/16 Stop Date: 02/13/16 Status: DiscontinuedSEROquel 50 mg, 2 tab, Route: PO, Drug form: TAB, BID, Dosing Weight 86.364, kg, Start date: 02/13/16 17:00:00 CDT, Duration: 30 day, Stop date: 03/14/16 9:00:00 CDT Notes: (Same as: SEROquel) Start Date: 02/13/16 Stop Date: 02/13/16 Status: CanceledSEROquel 50 mg oral tablet 50 mg=1 tab, PO, BID, 0 Refill(s) Start Date: 02/13/16 Status: Orderedsodium chloride 0.9% 1000 ml INJ 1,000 mL 1,000 mL, Rate: 125 ml/hr, Infuse over: 8 hr, Route: IV, Dosing Weight 86.364 kg , Total Volume: 1,000, Start date: 02/13/16 3:34:00 CDT, Duration: 30 day, Stop date: 03/14/16 3:33:00 CDT Start Date: 02/13/16 Stop Date: 02/13/16 Status: Discontinuedsodium chloride 0.9% 1000 ml INJ 1,000 mL 1,000 mL, Rate: 25 ml/hr, Infuse over: 40 hr, Route: IV, Dosing Weight 86.364 kg , Total Volume: 1,000, Start date: 02/13/16 6:35:00 CDT, Duration: 30 day, Stop date: 03/14/16 6:34:00 CDT Start Date: 02/13/16 Stop Date: 02/13/16 Status: DiscontinuedSodium Chloride 0.9% IV 100 mL + pantoprazole 80 mg 100 mL, Rate: 8 mg/hr, Route: IV, Dosing Weight 86.364 kg, Total Volume: 100, Start date: 02/13/16 10:15:00 CDT, Duration: 72 hr, Stop date: 02/16/16 10:14: 00 CDT Start Date: 02/13/16 Stop Date: 02/13/16 Status: Deletedtramadol 50 mg oral tablet 50 mg, 1 tab, Route: PO, Drug form: TAB, Q6H, Dosing Weight 86.364, kg, PRN Pain Score 4-6, Start date: 02/13/16 9:52:00 CDT, Duration: 30 day, Stop date: 03/14/16 9:51:00 CDT Notes: Not to exceed 400mg/day. (Same As: Ultram) Start Date: 02/13/16 Stop Date: 02/13/16 Status: DiscontinuedTylenol with Codeine #3 oral tablet 1 tab, Route: PO, Drug Form: TAB, Dosing Weight 86.364, kg, Q6H, PRN Pain Score 7-10, Start date: 02/13/16 9:52:00 CDT, Duration: 30 day, Stop date: 03/14/16 9: 51:00 CDT Notes: Do not exceed 4gm/day of acetaminophen. (Same as: Tylenol with Codeine # 3) Start Date: 02/13/16 Stop Date: 02/13/16 Status: DiscontinuedZanaflex 8 mg, 2 tab, Route: PO, Drug form: TAB, Q8H, Dosing Weight 86.364, kg, Start date: 02/13/16 16:00:00CDT, Duration: 30 day, Stop date: 03/14/16 8:00:00 CDT Notes: (Same As: Zanaflex) Start Date: 02/13/16 Stop Date: 02/13/16 Status: CanceledZanaflex 4 mg oral tablet 8 mg=2 tab, PO, Q8H, 0 Refill(s) Start Date: 02/13/16 Status: OrderedZofran 4 mg, 2 mL, Route: IV, Drug form: INJ, Q8H, Dosing Weight 86.364, kg, PRN Nausea , Start date: 02/13/16 9:48:00 CDT, Duration: 30 day, Stop date: 03/14/16 9:47: 00 CDT Notes: (Same as: Zofran) MEDICATION WASTE Product Size: 4 mgProduct Wasted: ___ mg Start Date: 02/13/16 Stop Date: 02/13/16 Status: Discontinued Results ELECTROLYTES Most recent to oldest [Reference Range]: 1 2 Sodium Lvl [135-145 mEq/L] 139 mEq/L (02/13/16 3:41 AM) Potassium Lvl [3.5-5.1 mEq/L] 3.5 mEq/L (02/13/16 3:41 AM) Chloride Lvl [95-109 mEq/L] 104 mEq/L (02/13/16 3:41 AM) CO2 [24-32 mEq/L] 28 mEq/L (02/13/16 3:41 AM) AGAP [10.0-20.0 mEq/L] 10.5 mEq/L (02/13/16 3:41 AM) CHEM PANEL Most recent to oldest [Reference Range]: 1 2 Creatinine Lvl [0.50-1.40 mg/dL] 0.81 mg/dL (02/13/16 3:41 AM) eGFR 97 mL/min/1.73m2 1 *NA* (02/13/16 3:41 AM) BUN [7-22 mg/dL] 8 mg/dL (02/13/16 3:41 AM) B/C Ratio [6-25] 10 (02/13/16 3:41 AM) Glucose Lvl [70-99 mg/dL] 119 mg/dL *HI* (02/13/16 3:41 AM) Total Protein [6.4-8.4 g/dL] 8.0 g/dL (02/13/16 3:41 AM) Albumin Lvl [3.5-5.0 g/dL] 3.5 g/dL (02/13/16 3:41 AM) Globulin [2.0-4.0 g/dL] 4.5 g/dL *HI* (02/13/16 3:41 AM) A/G Ratio [0.7-1.6] 0.8 (02/13/16 3:41 AM) Calcium Lvl [8.5-10.5 mg/dL] 8.8 mg/dL (02/13/16 3:41 AM) Phosphorus [2.5-4.5 mg/dL] 3.8 mg/dL (02/13/16 3:41 AM) Magnesium Lvl [1.8-2.4 mg/dL] 2.1 mg/dL 2.1 mg/dL (02/13/16 3:41 AM) (02/13/16 3:41 AM) ALT [0-65 unit/L] 57 unit/L (02/13/16 3:41 AM) AST [0-37 unit/L] 36 unit/L (02/13/16 3:41 AM) Alk Phos [39-136 unit/L] 117 unit/L (02/13/16 3:41 AM) Bili Total [0.2-1.3 mg/dL] 0.1 mg/dL *LOW* (02/13/16 3:41 AM) Lipase Lvl [73-393 unit/L] 80 unit/L (02/13/16 3:41 AM) 1Result Comment: The eGFR is calculated using the CKD-EPI formula. In most young , healthy individualsthe eGFR will be >90 mL/min/1.73m2. The eGFR declines with age. An eGFR of 60-89 may be normal in some populations, particularly the elderly, for whom [...] eGFR should be multiplied by the estimated BMI.URINE AND STOOL Most recent to oldest [Reference Range]: 1 2 UA Turbidity [Clear] Clear (02/13/16 3:41 AM) UA Color [Yellow] Yellow *NA* (02/13/16 3:41 AM) UA pH [5.0-8.0] 6.0 (02/13/16 3:41 AM) UA Spec Grav [<=1.030] 1.018 (02/13/16 3:41 AM) UA Glucose [Negative mg/dL] Negative mg/dL *NA* (02/13/16 3:41 AM) UA Blood [Negative] Negative (02/13/16 3:41 AM) UA Ketones [Negative mg/dL] Negative mg/dL *NA* (02/13/16 3:41 AM) UA Protein [Negative mg/dL] Negative mg/dL (02/13/16 3:41 AM) UA Urobilinogen [0.1-1.0 mg/dL] <=1.0 mg/dL *NA* (02/13/16 3:41 AM) UA Bili [Negative] Negative *NA* (02/13/16 3:41 AM) UA Leuk Est [Negative] Large *ABN* (02/13/16 3:41 AM) UA Nitrite [Negative] Negative (02/13/16 3:41 AM) UA WBC [0-5 /HPF] 7 /HPF *HI* (02/13/16 3:41 AM) UA RBC [0-2 /HPF] 6 /HPF *HI* (02/13/16 3:41 AM) UA Bacteria [None Seen /HPF] Occasional /HPF *NA* (02/13/16 3:41 AM) UA Sq Epi [Few /LPF] Many /LPF *ABN* (02/13/16 3:41 AM) UA Mucus [None Seen /LPF] Few /LPF *NA* (02/13/16 3:41 AM) UA Trans Epi [<=0 /LPF] 2 /LPF *HI* (02/13/16 3:41 AM) Occult Bld Stl [Negative] Negative (02/13/16 3:41 AM) HEMATOLOGY Most recent to oldest [Reference Range]: 1 2 WBC [3.7-10.4 K/CMM] 3.6 K/CMM 3.8 K/CMM *LOW* (02/13/16 3:41 AM) (02/13/16 10:34 AM) RBC [4.20-5.40 M/CMM] 4.18 M/CMM 4.51 M/CMM *LOW* (02/13/16 3:41 AM) (02/13/16 10:34 AM) Hgb [12.0-16.0 g/dL] 11.6 g/dL 12.3 g/dL *LOW* (02/13/16 3:41 AM) (02/13/16 10:34 AM) Hct [36.0-48.0 %] 35.7 % 38.4 % *LOW* (02/13/16 3:41 AM) (02/13/16 10:34 AM) MCV [80.0-98.0 fL] 85.4 fL 85.0 fL (02/13/16 10:34 AM) (02/13/16 3:41 AM) MCH [27.0-31.0 pg] 27.7 pg 27.4 pg (02/13/16 10:34 AM) (02/13/16 3:41 AM) MCHC [32.0-36.0 g/dL] 32.4 g/dL 32.2 g/dL (02/13/16 10:34 AM) (02/13/16 3:41 AM) RDW [11.5-14.5 %] 13.9 % 14.0 % (02/13/16 10:34 AM) (02/13/16 3:41 AM) Platelet [133-450 K/CMM] 196 K/CMM 209 K/CMM (02/13/16 10:34 AM) (02/13/16 3:41 AM) MPV [7.4-10.4 fL] 8.1 fL 8.1 fL (02/13/16 10:34 AM) (02/13/16 3:41 AM) Segs [45.0-75.0 %] 43.4 % *LOW* (02/13/16 3:41 AM) Lymphocytes [20.0-40.0 %] 36.8 % (02/13/16 3:41 AM) Monocytes [2.0-12.0 %] 15.0 % *HI* (02/13/16 3:41 AM) Eosinophils [0.0-4.0 %] 4.1 % *HI* (02/13/16 3:41 AM) Basophils [0.0-1.0 %] 0.7 % (02/13/16 3:41 AM) Segs-Bands # [1.5-8.1 K/CMM] 1.7 K/CMM (02/13/16 3:41 AM) Lymphocytes # [1.0-5.5 K/CMM] 1.4 K/CMM (02/13/16 3:41 AM) Monocytes # [0.0-0.8 K/CMM] 0.6 K/CMM (02/13/16 3:41 AM) Eosinophils # [0.0-0.5 K/CMM] 0.2 K/CMM (02/13/16 3:41 AM) PT [12.0-14.7 seconds] 13.4 seconds (02/13/16 3:41 AM) INR [0.85-1.17] 0.99 (02/13/16 3:41 AM) PTT [22.9-35.8 seconds] 30.2 seconds (02/13/16 3:41 AM) Immunizations Not Given Vaccine Date Status Refusal Reason pneumococcal 23-valent vaccine1 02/10/16 Not Given Patient Refuses 1Result Comment: Pt got it 2014 Procedures Procedure Date Related Diagnosis Body Site Cholecystectomy Social History Social History Type Response Alcohol Current, Type Beer. Frequency: 1-2 times per week. 3 Drinks/Episode average. 6.00 Drinks/Episode maximum. Previous treatment: None. Alcohol use interferes with work or home: No. Drinks more than intended: No. Others hurt by drinking: No. Ready to change: No. Household alcohol concerns: No. 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 R/O hematemesis 2. UTI 3. Abd pain 4. Gastritis 5. Gastroparesis 6. HTN 7. Fatty liver 8. Recent Chantal-Dela Cruz tear 02/12 - EGD shows gastritis, food in stomach. No evidence of active bleed or tear. Pt reporting hematemesis, but Hb actually increased since D/C two days ago. Hemoccult stool is neg. Will check gastric fluid if pt has further episode of hematemesis. GI has recommended minimizing op ioids to avoid further exacerbating gastroparesis so will d/c morphine, Dilaudid, Edgard. Continue Reglan. ABX for UTI.
--- OUTSIDE RECORDS SUMMARY | 2018-03-13 21:21 | XMS REPORT | Summary of Care ---
:1985 Author Organization [facility] Address [address] [place], [place] [address]- Encounter [facility] Donal(FIN) [id number] Date(s): 02/07/16 - 02/11/16 [facility] [address] [place] [address]- Discharge Disposition: Home Attending Physician: Shantanu Rogers MD Admitting Physician: Shantanu Rogers MD Vital Signs Most recent to oldest 1 2 3 [Reference Range]: Height 165.1 cm (02/07/16 7:52 PM) Temperature Oral [96.4-99.1 98.4 DegF 99.1 DegF 99.8 DegF DegF] (02/11/16 12:00 PM) (02/11/16 8:00 AM) *HI* (02/11/16 4:00 AM) Blood Pressure [90-140/60-90 103/74 mmHg 118/72 mmHg 113/74 mmHg mmHg] (02/11/16 12:00 PM) (02/11/16 8:00 AM) (02/11/16 4:00 AM) Respiratory Rate [14-20 BRMIN] 16 BRMIN 16 BRMIN 16 BRMIN (02/11/16 12:00 PM) (02/11/16 8:00 AM) (02/11/16 4:00 AM) Peripheral Pulse Rate [60-100 68 bpm 80 bpm 82 bpm bpm] (02/11/16 12:00 PM) (02/11/16 8:00 AM) (02/11/16 4:00 AM) Weight 74.5 kg 74.545 kg (02/08/16 2:00 AM) (02/07/16 7:52 PM) Body Mass Index 27.35 m2 (02/07/16 7:52 PM) Problem List Condition Effective Dates Status Health Status Informant GI bleed(Confirmed) Resolved Hypertension(Confirmed) Resolved Migraines(Confirmed) Resolved Allergies, Adverse Reactions, Alerts Substance Reaction Severity Status NKDA Active Medications acetaminophen 650 mg, 2 tab, Route: PO, Drug form: TAB, Q6H, Dosing Weight 74.5, kg, PRN Pain 1-3/Temp > 99.5 F, Start date: 02/11/16 7:40:00 CDT, Duration: 30 day, Stop date : 03/12/16 7:39:00 CDT Notes: Do not exceed 4 gm/day. (Same as: Tylenol) Start Date: 02/11/16 Stop Date: 02/11/16 Status: DiscontinuedAmbien 5 mg, 1 tab, Route: PO, Drug form: TAB, Bedtime, Dosing Weight 74.5, kg, PRN as needed for sleep, Start date: 02/08/16 13:52:00 CDT, Duration: 30 day, Stop date : 03/09/16 13:51:00 CDT Notes: (Same As: Ambien) Start Date: 02/08/16 Stop Date: 02/11/16 Status: DiscontinuedCarafate 1 g/10 mL oral suspension 1 gm=10 mL, PO, QID-Before Meals, # 560 mL, 0 Refill(s) Start Date: 02/11/16 Stop Date: 02/25/16 Status: OrderedCarafate 1 g/10 mL oral suspension 1 gm, 10 mL, Route: PO, Drug form: SUSP, QID-Before Meals, Dosing Weight 74.5, kg, Start date: 02/09/16 16:30:00 CDT, Duration: 30 day, Stop date: 03/10/16 11: 30:00 CDT Notes: Enteral feeds may interfere with the absorption of this medication. Shake well. Take 1 hr before or 2 hrs after antacids, dairy pdt, minerals & meals. (Same As: Carafate) Start Date: 02/09/16 Stop Date: 02/11/16 Status: Discontinuedciprofloxacin 400 mg, 200 mL, Route: IVPB, Drug form: INJ, [id number], Dosing Weight 74.545, kg, Start date: 161:00:00 CDT, Duration: 30 day, Stop date: 03/08/16 13:00:00 CDT Notes: Do not refrigerate Start Date: 02/08/16 Stop Date: 02/11/16 Status: Discontinuedciprofloxacin 400 mg, 200 mL, Route: IVPB, Drug form: INJ, ONCE, Dosing Weight 74.545, kg, Priority: STAT, Start date: 02/07/16 22:27:00 CDT, Stop date: 02/07/16 22:27:00 CDT Notes: Do not refrigerate Start Date: 02/07/16 Stop Date: 02/07/16 Status: CompletedDilaudid 0.5 mg, 0.5 mL, Route: IVP, Drug form: INJ, Q3H, Dosing Weight 74.545, kg, PRN Pain Score 6-10, Priority: Routine, Start date: 02/07/16 23:25:00 CDT, Duration : 30 day, Stop date: 03/08/16 23:24:00 CDT Start Date: 02/07/16 Stop Date: 02/11/16 Status: Discontinueddocusate sodium 100 mg oral capsule 100 mg, 1 cap, Route: PO, Drug form: CAP, BID, Dosing Weight 74.5, kg, PRN Constipation, Start date:02/09/16 9:15:00 CDT, Duration: 30 day, Stop date: 9:14:00 CDT Notes: (Same as: Colace) (Do Not Crush) Start Date: 02/09/16 Stop Date: 02/11/16 Status: DiscontinuedFlagyl 500 mg, 100 mL, Route: IVPB, Drug form: INJ, ONCE, Dosing Weight 74.545, kg, Priority: STAT, Start date: 02/07/16 22:27:00 CDT, Stop date: 02/07/16 22:27:00 CDT Notes: (Same as: Flagyl) Avoid alcohol. Start Date: 02/07/16 Stop Date: 02/07/16 Status: Completedmetoclopramide 5 mg oral tablet 5 mg=1 tab, PO, Before Meals & Bedtime, X 14 day, # 56 tab, 0 Refill(s) Start Date: 02/11/16 Stop Date: 02/25/16 Status: Orderedmorphine Sulfate 4 mg, 2 mL, Route: IVP, Drug form: INJ, ONCE, Dosing Weight 74.545, kg, Priority : STAT, Start date: 02/07/16 20:17:00 CDT, Stop date: 02/07/16 20:17:00 CDT Notes: (Same as:MORPhine Sulfate) Start Date: 02/07/16 Stop Date: 02/07/16 Status: Completedmorphine Sulfate 4 mg, Route: IVP, Drug form: INJ, ONCE, Dosing Weight 74.545, kg, Priority: STAT , Start date: 02/07/16 22:00:00 CDT, Stop date: 02/07/16 22:00:00 CDT Start Date: 02/07/16 Stop Date: 02/07/16 Status: CompletedNorco 5/325 oral tablet 1 tab, Route: PO, Drug Form: TAB, Dosing Weight 74.5, kg, Q4H, PRN Pain Score 7- 10, Minimize use if possible, Start date: 02/11/16 7:40:00 CDT, Duration: 30 day , Stop date: 03/12/16 7:39:00 CDT Notes: (Same as: Milton 325/5) Do not exceed 4gm/day of acetaminophen. Start Date: 02/11/16 Stop Date: 02/11/16 Status: DiscontinuedNorco 5/325 oral tablet 1 tab, Route: PO, Drug Form: TAB, Dosing Weight 74.5, kg, Q4H, PRN Pain Score 4- 6, Start date: 02/08/16 13:48:00 CDT, Duration: 30 day, Stop date: 03/09/16 13: 47:00 CDT Notes: (Same as: Milton 325/5) Do not exceed 4gm/day of acetaminophen. Start Date: 02/08/16 Stop Date: 02/11/16 Status: DiscontinuedNS (Bolus) IV 1,000 mL, 1,000 ml/hr, Infuse Over: 1 hr, Route: IV, 1,000, Drug form: INJ, ONCE , Priority: STAT, Dosing Weight 73.636 kg, Start date: 02/07/16 19:53:00 CDT, Duration: 1 doses or times, Stop date: 02/07/16 19:53:00 CDT Start Date: 02/07/16 Stop Date: 02/07/16 Status: Completedondansetron 4 mg, 2 mL, Route: IVP, Drug form: INJ, ONCE, Dosing Weight 74.545, kg, Priority : STAT, Start date: 02/07/16 20:17:00 CDT, Stop date: 02/07/16 20:17:00 CDT Notes: (Same as: Zofran) MEDICATION WASTE Product Size: 4 mgProduct Wasted: __0_ mg Start Date: 02/07/16 Stop Date: 02/07/16 Status: Completedpantoprazole 40 mg, 1 tab, Route: PO, Drug form: ECTAB, BID-Before Meals, Dosing Weight 74.5 , kg, Start date: 02/08/16 16:30:00 CDT, Duration: 30 day, Stop date: 03/09/16 7 :30:00 CDT Notes: Tablet should not be chewed or crushed.(Same as: Protonix) Start Date: 02/08/16 Stop Date: 02/11/16 Status: Discontinuedpantoprazole 40 mg, Route: IVP, Drug form: INJ, ONCE, Dosing Weight 74.545, kg, For IV push reconstitute with 10 ml 0.9% sodium chloride and push over at least 3 minutes, Priority: STAT, Start date: 02/07/16 20:17:00 CDT, Stop date: 02/07/16 20:17:00 CDT Notes: For IV push reconstitute with 10 ml 0.9% sodium chloride and push over 2 minutes. (Same as: Protonix) Start Date: 02/07/16 Stop Date: 02/07/16 Status: Completedpantoprazole 40 mg oral enteric coated tablet 40 mg=1 tab, PO, BID-Before Meals, # 60 tab, 0 Refill(s) Start Date: 02/11/16 Stop Date: 03/12/16 Status: Orderedpantoprazole 80 mg + sodium chloride 0.9% INJ 100 mL 100 mL, Rate: 10 ml/hr, Infuse over: 10 hr, Route: IVPB, Dosing Weight 74.545 kg , Total Volume: 100,Infuse at 8 mg / hr for 72 hours for GI bleeding, Start date : 02/07/16 23:34:00 CDT, Duration: 72 hr, Stop date: 02/10/16 23:33:00 CDT Start Date: 02/07/16 Stop Date: 02/08/16 Status: Discontinuedpantoprazole 80 mg + sodium chloride 0.9% INJ 100 mL 100 mL, Rate: 10 ml/hr, Infuse over: 10 hr, Route: IVPB, Dosing Weight 74.545 kg , Total Volume: 100,Infuse at 8 mg / hr for 72 hours for GI bleeding, Start date : 02/07/16 23:33:00 CDT, Duration: 72 hr, Stop date: 02/10/16 23:32:00 CDT Start Date: 02/07/16 Stop Date: 02/08/16 Status: Voided With ResultsPhenergan 12.5 mg, 0.5 mL, Route: IM, Drug form: INJ, Q4H, Dosing Weight 74.5, kg, PRN as needed for nausea/vomiting, Start date: 02/10/16 6:40:00 CDT, Duration: 30 day, Stop date: 03/11/16 6:39:00 CDT Notes: Do not give IV push. (Same as: Phenergan) Start Date: 02/10/16 Stop Date: 02/10/16 Status: DiscontinuedPhenergan 12.5 mg, 0.5 mL, Route: IM, Drug form: INJ, Q4H, Dosing Weight 74.5, kg, PRN as needed for nausea/vomiting, Start date: 02/10/16 6:27:00 CDT, Duration: 30 day, Stop date: 03/11/16 6:26:00 CDT Notes: Do not give IV push. (Same as: Phenergan) Start Date: 02/10/16 Stop Date: 02/10/16 Status: DiscontinuedPhenergan + sodium chloride 0.9% INJ 50 mL 25 mg, 1 mL, Route: IVPB, Q6H, Dosing Weight 74.5, kg, PRN Nausea & Vomiting , Start date: 02/09/16 11:28:00 CDT, Duration: 30 day, Stop date: 03/10/16 11:27 :00 CDT Notes: Do not give IV push. (Same as: Phenergan) Start Date: 02/09/16 Stop Date: 02/11/16 Status: DiscontinuedPhenergan 25 mg oral tablet 25 mg=1 tab, PO, Q6H, PRN Nausea, X 4 day, # 15 tab, 0 Refill(s) Start Date: 02/11/16 Stop Date: 02/15/16 Status: Orderedpneumococcal 23-valent vaccine 0.5 mL, Route: IM, Drug Form: INJ, Daily, Start date: 02/10/16 9:00:00 CDT, Duration: 1 doses or times, Stop date: 02/10/16 9:00:00 CDT Notes: (Same as: Pneumovax 23) Refrigerate Start Date: 02/10/16 Stop Date: 02/10/16 Status: CompletedReglan 5 mg, 1 tab, Route: PO, Drug form: TAB, Before Meals & Bedtime, Dosing Weight 74.5, kg, Start date: 02/10/16 16:30:00 CDT, Duration: 30 day, Stop date : 03/11/16 11:30:00 CDT Notes: (Same as: Reglan) Take 30 min before meals Start Date: 02/10/16 Stop Date: 02/11/16 Status: DiscontinuedSaline Flush 0.9% 10 mL, Route: IVP, Drug Form: INJ, Dosing Weight 74.545, kg, PRN, PRN Line Flush , Start date: 02/07/16 20:17:00 CDT, Duration: 30 day, Stop date: 03/08/16 20:16 :00 CDT Notes: (Same as: BD Posiflush) Start Date: 02/07/16 Stop Date: 02/08/16 Status: DiscontinuedSEROquel 25 mg, 1 tab, Route: PO, Drug form: TAB, BID, Dosing Weight 74.5, kg, Start date : 02/08/16 17:00:00 CDT, Duration: 30 day, Stop date: 03/09/16 9:00:00 CDT Notes: (Same as: SEROquel) Start Date: 02/08/16 Stop Date: 02/11/16 Status: DiscontinuedSodium Chloride 0.9% (Bolus) IV 1,000 mL, 2,000 ml/hr, Infuse Over: 30 minutes, Route: IV, 1,000, Drug form: INJ , ONCE, Priority: STAT, Dosing Weight 74.545 kg, Start date: 02/07/16 20:17:00 CDT, Duration: 1 doses or times, Stop date: 02/07/16 20:17:00 CDT Start Date: 02/07/16 Stop Date: 02/07/16 Status: Completedsodium chloride 0.9% 1000 ml INJ 1,000 mL 1,000 mL, Rate: 100 ml/hr, Infuse over: 10 hr, Route: IV, Dosing Weight 74.545 kg, Total Volume: 1,000, Start date: 02/07/16 23:26:00 CDT, Duration: 30 day, Stop date: 03/08/16 23:25:00 CDT Start Date: 02/07/16 Stop Date: 02/08/16 Status: Discontinuedsodium chloride 0.9% INJ 250 mL 250 mL, Rate: [employer] for use with blood product administration., Dosing Weight 74.545, kg, Route: IV, Total Volume: 250, Priority: Routine, Start Date: 20:17:00 CDT, Duration: 30 day, Stop date: 03/08/16 20:16:00 CDT, Replace Every: 24 hr Start Date: 02/07/16 Stop Date: 02/08/16 Status: Discontinuedtramadol 50 mg oral tablet 50 mg, 1 tab, Route: PO, Drug form: TAB, Q6H, Dosing Weight 74.5, kg, PRN Pain Score 4-6, Start date: 02/11/16 7:40:00 CDT, Duration: 30 day, Stop date: 7:39:00 CDT Notes: Not to exceed 400mg/day. (Same As: Ultram) Start Date: 02/11/16 Stop Date: 02/11/16 Status: DiscontinuedTylenol with Codeine #3 oral tablet 1 - 2 tab, PO, Q4H, PRN Pain, X 2 day, # 20 tab, 0 Refill(s) Start Date: 02/11/16 Stop Date: 02/13/16 Status: CompletedZofran 4 mg, 2 mL, Route: IVP, Drug form: INJ, Q4H, Dosing Weight 74.5, kg, PRN Nausea , Start date: 02/08/16 13:49:00 CDT, Duration: 30 day, Stop date: 03/09/16 13:48 :00 CDT Notes: (Same as: Zofran) MEDICATION WASTE Product Size: 4 mgProduct Wasted: ___ mg Start Date: 02/08/16 Stop Date: 02/11/16 Status: DiscontinuedZofran 4 mg, Route: IVP, Drug form: INJ, ONCE, Dosing Weight 74.545, kg, Priority: STAT , Start date: 02/07/16 22:00:00 CDT, Stop date: 02/07/16 22:00:00 CDT Start Date: 02/07/16 Stop Date: 02/07/16 Status: CompletedZofran 4 mg, 2 mL, Route: IVP, Drug form: INJ, ONCE, Dosing Weight 73.636, kg, Priority : STAT, Start date: 02/07/16 19:53:00 CDT, Stop date: 02/07/16 19:53:00 CDT Notes: (Same as: Zofran) MEDICATION WASTE Product Size: 4 mgProduct Wasted: ___ mg Start Date: 02/07/16 Stop Date: 02/07/16 Status: Discontinued Results BLOOD BANK RESULTS Most recent to oldest [Reference Range]: 1 2 3 ABO/Rh A POS *Unknown* (02/07/16 8:47 PM) Antibody Scrn Negative (02/07/16 8:47 PM) ELECTROLYTES Most recent to oldest 1 2 3 [Reference Range]: Sodium Lvl [135-145 mEq/L] 140 mEq/L 139 mEq/L 138 mEq/L (02/11/16 5:32 AM) (02/10/16 5:18 AM) (02/07/16 8:47 PM) Potassium Lvl [3.5-5.1 4.2 mEq/L 3.7 mEq/L 3.9 mEq/L 1 mEq/L] (02/11/16 5:32 AM) (02/10/16 5:18 AM) (02/07/16 8:47 PM) Chloride Lvl [95-109 mEq/L] 102 mEq/L 103 mEq/L 103 mEq/L (02/11/16 5:32 AM) (02/10/16 5:18 AM) (02/07/16 8:47 PM) CO2 [24-32 mEq/L] 30 mEq/L 28 mEq/L 27 mEq/L (02/11/16 5:32 AM) (02/10/16 5:18 AM) (02/07/16 8:47 PM) AGAP [10.0-20.0 mEq/L] 12.2 mEq/L 11.7 mEq/L 11.9 mEq/L (02/11/16 5:32 AM) (02/10/16 5:18 AM) (02/07/16 8:47 PM) 1Result Comment: Specimen slightly hemolyzed.CHEM PANEL Most recent to oldest 1 2 3 [Reference Range]: Creatinine Lvl [0.50-1.40 0.88 mg/dL 0.66 mg/dL 0.80 mg/dL mg/dL] (02/11/16 5:32 AM) (02/10/16 5:18 AM) (02/07/16 8:47 PM) eGFR 87 mL/min/1.73m2 1 117 mL/min/1.73m2 2 98 mL/min/1.73m2 3 *NA* *NA* *NA* (02/11/16 5:32 AM) (02/10/16 5:18 AM) (02/07/16 8:47 PM) BUN [7-22 mg/dL] 4 mg/dL 3 mg/dL 8 mg/dL *LOW* *LOW* (02/07/16 8:47 PM) (02/11/16 5:32 AM) (02/10/16 5:18 AM) B/C Ratio [6-25] 10 (02/07/16 8:47 PM) Glucose Lvl [70-99 mg/dL] 111 mg/dL 108 mg/dL 86 mg/dL *HI* *HI* (02/07/16 8:47 PM) (02/11/16 5:32 AM) (02/10/16 5:18 AM) Total Protein [6.4-8.4 7.7 g/dL g/dL] (02/07/16 8:47 PM) Albumin Lvl [3.5-5.0 g/dL] 3.6 g/dL (02/07/16 8:47 PM) Globulin [2.0-4.0 g/dL] 4.1 g/dL *HI* (02/07/16 8:47 PM) A/G Ratio [0.7-1.6] 0.9 (02/07/16 8:47 PM) Calcium Lvl [8.5-10.5 8.3 mg/dL 8.0 mg/dL 8.5 mg/dL mg/dL] *LOW* *LOW* (02/07/16 8:47 PM) (02/11/16 5:32 AM) (02/10/16 5:18 AM) Phosphorus [2.5-4.5 mg/dL] 3.6 mg/dL (02/10/16 5:18 AM) Magnesium Lvl [1.8-2.4 2.3 mg/dL 2.2 mg/dL mg/dL] (02/10/16 5:18 AM) (02/07/16 8:47 PM) ALT [0-65 unit/L] 28 unit/L (02/07/16 8:47 PM) AST [0-37 unit/L] 23 unit/L (02/07/16 8:47 PM) Alk Phos [39-136 unit/L] 75 unit/L (02/07/16 8:47 PM) Bili Total [0.2-1.3 mg/dL] 0.2 mg/dL (02/07/16 8:47 PM) Lipase Lvl [73-393 unit/L] 120 unit/L (02/07/16 8:47 PM) Lactic Acid Lvl [0.5-2.2 0.7 mMol/L mMol/L] (02/08/16 5:31 AM) 1Result Comment: The eGFR is calculated [...] young, healthy individualsthe eGFR will be >90 mL/ min/1.73m2. The [...] eGFR should be multiplied by the estimated BMI.3Result Comment: The eGFR is calculated using the CKD-EPI formula. In most young, healthy individualsthe eGFR will be >90 mL/ min/1.73m2. The [...] should be multiplied by the estimated BMI.URINE CHEM Most recent to oldest [Reference Range]: 1 2 3 U Preg [Negative] Negative (02/07/16 8:47 PM) URINE AND STOOL Most recent to oldest [Reference Range]: 1 2 3 UA Turbidity [Clear] Slight *ABN* (02/07/16 8:47 PM) UA Color [Yellow] Yellow *NA* (02/07/16 8:47 PM) UA pH [5.0-8.0] 5.0 (02/07/16 8:47 PM) UA Spec Grav [<=1.030] 1.021 (02/07/16 8:47 PM) UA Glucose [Negative mg/dL] Negative mg/dL *NA* (02/07/16 8:47 PM) UA Blood [Negative] Negative (02/07/16 8:47 PM) UA Ketones [Negative mg/dL] Negative mg/dL *NA* (02/07/16 8:47 PM) UA Protein [Negative mg/dL] Negative mg/dL (02/07/16 8:47 PM) UA Urobilinogen [0.1-1.0 mg/dL] <=1.0 mg/dL *NA* (02/07/16 8:47 PM) UA Bili [Negative] Negative *NA* (02/07/16 8:47 PM) UA Leuk Est [Negative] Small *ABN* (02/07/16 8:47 PM) UA Nitrite [Negative] Negative (02/07/16 8:47 PM) UA WBC [0-5 /HPF] 3 /HPF (02/07/16 8:47 PM) UA RBC [0-2 /HPF] <1 /HPF (02/07/16 8:47 PM) UA Bacteria [None Seen /HPF] Occasional /HPF *NA* (02/07/16 8:47 PM) UA Sq Epi [Few /LPF] Many /LPF *ABN* (02/07/16 8:47 PM) UA Mucus [None Seen /LPF] Many /LPF *ABN* (02/07/16 8:47 PM) IMMUNOLOGY Most recent to oldest [Reference Range]: 1 2 3 CDC HIV 4th GEN [Negative] Negative (02/07/16 8:47 PM) HEMATOLOGY Most recent to oldest 1 2 3 [Reference Range]: WBC [3.7-10.4 K/CMM] 5.7 K/CMM 4.4 K/CMM 6.9 K/CMM (02/11/16 5:32 AM) (02/10/16 5:18 AM) (02/07/16 8:47 PM) RBC [4.20-5.40 M/CMM] 3.87 M/CMM 3.79 M/CMM 4.60 M/CMM *LOW* *LOW* (02/07/16 8:47 PM) (02/11/16 5:32 AM) (02/10/16 5:18 AM) Hgb [12.0-16.0 g/dL] 10.8 g/dL 10.6 g/dL 10.7 g/dL *LOW* *LOW* *LOW* (02/11/16 5:32 AM) (02/10/16 5:18 AM) (02/08/16 5:55 PM) Hct [36.0-48.0 %] 33.1 % 32.5 % 32.7 % *LOW* *LOW* *LOW* (02/11/16 5:32 AM) (02/10/16 5:18 AM) (02/08/16 5:55 PM) MCV [80.0-98.0 fL] 85.6 fL 85.6 fL 85.2 fL (02/11/16 5:32 AM) (02/10/16 5:18 AM) (02/07/16 8:47 PM) MCH [27.0-31.0 pg] 28.0 pg 28.0 pg 27.5 pg (02/11/16 5:32 AM) (02/10/16 5:18 AM) (02/07/16 8:47 PM) MCHC [32.0-36.0 g/dL] 32.7 g/dL 32.7 g/dL 32.3 g/dL (02/11/16 5:32 AM) (02/10/16 5:18 AM) (02/07/16 8:47 PM) RDW [11.5-14.5 %] 14.3 % 13.8 % 13.8 % (02/11/16 5:32 AM) (02/10/16 5:18 AM) (02/07/16 8:47 PM) Platelet [133-450 K/CMM] 196 K/CMM 220 K/CMM 221 K/CMM (02/11/16 5:32 AM) (02/10/16 5:18 AM) (02/07/16 8:47 PM) MPV [7.4-10.4 fL] 7.8 fL 8.4 fL 8.8 fL (02/11/16 5:32 AM) (02/10/16 5:18 AM) (6/25/16 8:47 PM) Segs [45.0-75.0 %] 69.5 % 48.5 % 51.4 % (02/11/16 5:32 AM) (02/10/16 5:18 AM) (02/07/16 8:47 PM) Lymphocytes [20.0-40.0 %] 18.4 % 36.2 % 37.3 % *LOW* (02/10/16 5:18 AM) (02/07/16 8:47 PM) (02/11/16 5:32 AM) Monocytes [2.0-12.0 %] 8.9 % 11.0 % 8.9 % (02/11/16 5:32 AM) (02/10/16 5:18 AM) (02/07/16 8:47 PM) Eosinophils [0.0-4.0 %] 2.8 % 4.0 % 1.6 % (02/11/16 5:32 AM) (02/10/16 5:18 AM) (02/07/16 8:47 PM) Basophils [0.0-1.0 %] 0.4 % 0.3 % 0.8 % (02/11/16 5:32 AM) (02/10/16 5:18 AM) (02/07/16 8:47 PM) Segs-Bands # [1.5-8.1 K/CMM] 3.9 K/CMM 2.1 K/CMM 3.5 K/CMM (02/11/16 5:32 AM) (02/10/16 5:18 AM) (02/07/16 8:47 PM) Lymphocytes # [1.0-5.5 1.0 K/CMM 1.6 K/CMM 2.6 K/CMM K/CMM] (02/11/16 5:32 AM) (02/10/16 5:18 AM) (02/07/16 8:47 PM) Monocytes # [0.0-0.8 K/CMM] 0.5 K/CMM 0.5 K/CMM 0.6 K/CMM (02/11/16 5:32 AM) (02/10/16 5:18 AM) (02/07/16 8:47 PM) Eosinophils # [0.0-0.5 0.2 K/CMM 0.2 K/CMM 0.1 K/CMM K/CMM] (02/11/16 5:32 AM) (02/10/16 5:18 AM) (02/07/16 8:47 PM) Basophils # [0.0-0.2 K/CMM] 0.1 K/CMM (02/07/16 8:47 PM) RBC Morph Normal (02/07/16 8:47 PM) Plt Morph Clumped (02/07/16 8:47 PM) PT [12.0-14.7 seconds] 12.5 seconds (02/07/16 8:47 PM) INR [0.85-1.17] 0.90 (02/07/16 8:47 PM) PTT [22.9-35.8 seconds] 20.0 seconds *LOW* (02/07/16 8:47 PM) Immunizations Not Given Vaccine Date Status Refusal Reason pneumococcal 23-valent vaccine1 02/10/16 Not Given Patient Refuses 1Result Comment: Pt got it 2015 Procedures Procedure Date Related Diagnosis Body Site [...] Title: Clinical Document Author: Laya Arthur Date: 02/11/16 Internal Medicine Progress Note [facility] SUBJECTIVE No acute events. Pt asleep. Friend at bedside denies issues. States she stepped out briefly last night and when she returned pt told her she had episode of hematemesis. Also states that pt is requesting to advance to regular diet. OBJECTIVE Vital Signs (last 24 hrs) Last Charted Temp Oral H 99.8DegF (FEB 10 04:00) Heart Rate Peripheral 82 bpm (FEB 10 04:00) Resp Rate 16 BRMIN (FEB 10 04:00) SBP 113 mmHg (FEB 10 04:00) DBP 74 mmHg (FEB 10 04:00) SpO2 98 % (FEB 10 04:00) Labs (Last four charted values) WBC 5.7 (FEB 10) 4.4 (FEB 09) 6.9 (FEB 06) Hgb L 10.8 (FEB 10) L 10.6 (FEB 09) L 10.7 (FEB 07) 12.0 (FEB 07) Hct L 33.1 (FEB 10) L 32.5 (FEB 09) L 32.7 (FEB 07) 37.3 (FEB 07) Plt 196 (FEB 10) 220 (FEB 09) 221 (FEB 06) Na 140 (FEB 10) 139 (FEB 09) 138 (FEB 06) K 4.2 (FEB 10) 3.7 (FEB 09) 3.9 (FEB 06) CO2 30 (FEB 10) 28 (FEB 09) 27 (FEB 06) Cl 102 (FEB 10) 103 (FEB 09) 103 (FEB 06) Cr 0.88 (FEB 10) 0.66 (FEB 09) 0.80 (FEB 06) BUN L 4 (FEB 10) L 3 (FEB 09) 8 (FEB 06) Glucose Random H 111 (FEB 10) H 108 (FEB 09) 86 (FEB 06) Mg 2.3 (FEB 09) 2.2 (FEB 06) Phos 3.6 (FEB 09) Ca L 8.3 (FEB 10) L 8.0 (FEB 09) 8.5 (FEB 06) PT 12.5 (FEB 06) INR 0.90 (FEB 06) PTT L 20.0 (FEB 06) Medications (12) Active Scheduled Meds (5): 02/08/16 QUEtiapine (SEROquel) 25 mg PO BID 02/08/16 ciprofloxacin 400 mg IVPB [id number] 200 ml/hr 02/10/16 metoclopramide (Reglan) 5 mg PO Before Meals & Bedtime 02/08/16 pantoprazole 40 mg PO BID-Before Meals 02/09/16 sucralfate (Carafate 1 g/10 mL oral suspension) 1 gm PO QID-Before Meals Unscheduled Meds: None PRN Meds (7): 02/11/16 acetaminophen-hydrocodone ([place] 5/325 oral tablet) 1 tab PO Q4H 02/11/16 acetaminophen 650 mg PO Q6H 02/09/16 docusate (docusate sodium 100 mg oral capsule) 100 mg PO BID 02/08/16 ondansetron (Zofran) 4 mg IVP Q4H 02/09/16 promethazine + sodium chloride 0.9% INJ 50 mL (Phenergan + sodium chloride 0.9% INJ 50 mL) 25 mg IVPB Q6H 153 ml/hr 02/11/16 tramadol (tramadol 50 mg oral tablet) 50 mg PO Q6H 02/08/16 zolpidem (Ambien) 5 mg PO Bedtime One Time Meds: None Continuous Infusions: None Physical Exam Gen: Pt resting comfortably, NAD HEENT: normocephalic, atraumatic, no thyromegaly, no neck stiffness Chest: RRR, no M/R/G, CTAB, no rhonchi wheezes or rales Abd: Bowel sounds present in 4 quads, soft, ND, NTTP Ext: No cyanosis or edema Skin: No rash noted ASSESSMENT & PLAN 1. Chantal-Dela Cruz tear 2. Erosive esophagitis and gastritis 3. HTN 4. Fatty liver 02/07 - CT A/P shows fatty liver, no other significant findings U/S Abd shows fatty liver 02/09 - Path neg for H.pylori. Shows gastritis Pt stable. Not eating much yesterday, but asking for advanced diet today. Hb stable today, no obvious bleeding. Wean off pain meds, d/c home when cleared by GI.
--- OUTSIDE RECORDS SUMMARY | 2018-03-13 21:21 | XMS REPORT | Summary of Care ---
:1985 Author Organization [facility] Address [address] [place], [place] [address]- Encounter HQ Donal(RON) [id number] Date(s): 02/05/16 - 02/06/16 [facility] [address] [place] [address]- [phone] Discharge Diagnosis: Diverticulitis Discharge Diagnosis: Abdominal pain Discharge Disposition: Home Attending Physician: Wilber Cheatham MD Vital Signs Most recent to oldest [Reference Range]: 1 2 Height 165.1 cm (02/05/16 9:14 PM) Temperature Oral [96.4-99.1 DegF] 98.2 DegF 98.3 DegF (02/06/16 12:22 AM) (02/05/16 9:14 PM) Blood Pressure [90-140/60-90 mmHg] 123/78 mmHg 128/88 mmHg (02/06/16 12:22 AM) (02/05/16 9:14 PM) Respiratory Rate [14-20 BRMIN] 18 BRMIN 21 BRMIN (02/06/16 12:22 AM) *HI* (02/05/16 9:14 PM) Peripheral Pulse Rate [60-100 bpm] 100 bpm 110 bpm (02/06/16 12:22 AM) *HI* (02/05/16 9:14 PM) Weight 73.636 kg (02/05/16 9:14 PM) Body Mass Index 27.01 m2 (02/05/16 9:14 PM) Problem List Condition Effective Dates Status Health Status Informant GI bleed(Confirmed) Resolved Hypertension(Confirmed) Resolved Migraines(Confirmed) Resolved Allergies, Adverse Reactions, Alerts Substance Reaction Severity Status NKDA Active Medications Cipro 500 mg oral tablet 500 mg=1 tab, PO, Q12H, X 10 day, # 20 tab, 0 Refill(s) Start Date: 02/06/16 Stop Date: 02/16/16 Status: SuspendedFlagyl 500 mg oral tablet 500 mg=1 tab, PO, Q8H, X 10 day, # 30 tab, 0 Refill(s) Start Date: 02/06/16 Stop Date: 02/16/16 Status: Suspendedmorphine Sulfate 4 mg, Route: IVP, Drug form: INJ, ONCE, Dosing Weight 73.636, kg, Priority: STAT , Start date: 02/05/16 22:39:00 CDT, Stop date: 02/05/16 22:39:00 CDT Start Date: 02/05/16 Stop Date: 02/05/16 Status: Completedmorphine Sulfate 4 mg, Route: IVP, Drug form: INJ, ONCE, Dosing Weight 73.636, kg, Priority: STAT , Start date: 02/05/16 21:35:00 CDT, Stop date: 02/05/16 21:35:00 CDT Start Date: 02/05/16 Stop Date: 02/05/16 Status: Completedmorphine Sulfate 4 mg, Route: IVP, Drug form: INJ, ONCE, Dosing Weight 73.636, kg, Priority: STAT , Start date: 02/06/16 0:18:00 CDT, Stop date: 02/06/16 0:18:00 CDT Start Date: 02/06/16 Stop Date: 02/06/16 Status: Completedondansetron 4 mg, 2 mL, Route: IVP, Drug form: INJ, ONCE, Dosing Weight 73.636, kg, Priority : STAT, Start date: 02/05/16 23:45:00 CDT, Stop date: 02/05/16 23:45:00 CDT Notes: (Same as: Dariana) MEDICATION WASTE Product Size: 4 mgProduct Wasted: ___ mg Start Date: 02/05/16 Stop Date: 02/05/16 Status: Completedpromethazine 25 mg oral tablet 25 mg=1 tab, PO, Q6H, PRN Nausea/Vomiting, X 3 day, # 12 tab, 0 Refill(s) Start Date: 02/06/16 Stop Date: 02/09/16 Status: SuspendedSodium Chloride 0.9% (Bolus) IV 1,000 mL, 1,000 ml/hr, Infuse Over: 1 Hour, Route: IV, ONCE, Priority: STAT, Dosing Weight 73.636 kg, Start date: 02/05/16 21:35:00 CDT, Duration: 1 doses or times, Stop date: 02/05/16 21:35:00 CDT Start Date: 02/05/16 Stop Date: 02/05/16 Status: CompletedTylenol with Codeine #3 oral tablet 1 - 2 tab, PO, Q6H, PRN Pain, X 2 day, # 20 tab, 0 Refill(s) Start Date: 02/06/16 Stop Date: 02/08/16 Status: CompletedZofran 4 mg, 2 mL, Route: IVP, Drug form: INJ, ONCE, Dosing Weight 73.636, kg, Start date: 02/05/16 21:21:00 CDT, Stop date: 02/05/16 21:21:00 CDT Notes: (Same as: Zofran) MEDICATION WASTE Product Size: 4 mgProduct Wasted: ___ mg Start Date: 02/05/16 Stop Date: 02/05/16 Status: CompletedZofran 4 mg, Route: IVP, Drug form: INJ, ONCE, Dosing Weight 73.636, kg, Priority: STAT , Start date: 02/05/16 22:39:00 CDT, Stop date: 02/05/16 22:39:00 CDT Start Date: 02/05/16 Stop Date: 02/05/16 Status: Completed Results ELECTROLYTES Most recent to oldest [Reference Range]: 1 Sodium Lvl [135-145 mEq/L] 138 mEq/L (02/05/16 9:57 PM) Potassium Lvl [3.5-5.1 mEq/L] 3.9 mEq/L (02/05/16 9:57 PM) Chloride Lvl [95-109 mEq/L] 105 mEq/L (02/05/16 9:57 PM) CO2 [24-32 mEq/L] 27 mEq/L (02/05/16 9:57 PM) AGAP [10.0-20.0 mEq/L] 9.9 mEq/L *LOW* (02/05/16 9:57 PM) CHEM PANEL Most recent to oldest [Reference Range]: 1 Creatinine Lvl [0.50-1.40 mg/dL] 0.84 mg/dL (02/05/16 9:57 PM) eGFR 93 mL/min/1.73m2 1 *NA* (02/05/16 9:57 PM) BUN [7-22 mg/dL] 17 mg/dL (02/05/16 9:57 PM) B/C Ratio [6-25] 20 (02/05/16 9:57 PM) Glucose Lvl [70-99 mg/dL] 87 mg/dL (02/05/16 9:57 PM) Total Protein [6.4-8.4 g/dL] 7.7 g/dL (02/05/16 9:57 PM) Albumin Lvl [3.5-5.0 g/dL] 3.7 g/dL (02/05/16 9:57 PM) Globulin [2.0-4.0 g/dL] 4.0 g/dL (02/05/16 9:57 PM) A/G Ratio [0.7-1.6] 0.9 (02/05/16 9:57 PM) Calcium Lvl [8.5-10.5 mg/dL] 8.3 mg/dL *LOW* (02/05/16 9:57 PM) ALT [0-65 unit/L] 25 unit/L (02/05/16 9:57 PM) AST [0-37 unit/L] 11 unit/L (02/05/16 9:57 PM) Alk Phos [39-136 unit/L] 71 unit/L (02/05/16 9:57 PM) Bili Total [0.2-1.3 mg/dL] 0.3 mg/dL (02/05/16 9:57 PM) 1Result Comment: The eGFR is calculated [...] [Reference Range]: 1 U Preg [Negative] Negative (02/05/16 9:57 PM) URINE AND STOOL Most recent to oldest [Reference Range]: 1 UA Turbidity [Clear] Clear (02/05/16 9:57 PM) UA Color [Yellow] Yellow *NA* (02/05/16 9:57 PM) UA pH [5.0-8.0] 6.0 (02/05/16 9:57 PM) UA Spec Grav [<=1.030] 1.032 *HI* (02/05/16 9:57 PM) UA Glucose [Negative mg/dL] Negative mg/dL *NA* (02/05/16 9:57 PM) UA Blood [Negative] Negative (02/05/16 9:57 PM) UA Ketones [Negative mg/dL] Negative mg/dL *NA* (02/05/16 9:57 PM) UA Protein [Negative mg/dL] 30 mg/dL *ABN* (02/05/16 9:57 PM) UA Urobilinogen [0.1-1.0 mg/dL] <=1.0 mg/dL *NA* (02/05/16 9:57 PM) UA Bili [Negative] Negative *NA* (02/05/16 9:57 PM) UA Leuk Est [Negative] Trace *ABN* (02/05/16 9:57 PM) UA Nitrite [Negative] Negative (02/05/16 9:57 PM) UA WBC [0-5 /HPF] 3 /HPF (02/05/16 9:57 PM) UA RBC [0-2 /HPF] 3 /HPF *HI* (02/05/16 9:57 PM) UA Sq Epi [Few /LPF] Moderate /LPF *ABN* (02/05/16 9:57 PM) UA Mucus [None Seen /LPF] Moderate /LPF *ABN* (02/05/16 9:57 PM) HEMATOLOGY Most recent to oldest [Reference Range]: 1 WBC [3.7-10.4 K/CMM] 7.8 K/CMM (02/05/16 9:57 PM) RBC [4.20-5.40 M/CMM] 4.44 M/CMM (02/05/16 9:57 PM) Hgb [12.0-16.0 g/dL] 12.4 g/dL (02/05/16 9:57 PM) Hct [36.0-48.0 %] 38.1 % (02/05/16 9:57 PM) MCV [80.0-98.0 fL] 85.8 fL (02/05/16 9:57 PM) MCH [27.0-31.0 pg] 28.0 pg (02/05/16 9:57 PM) MCHC [32.0-36.0 g/dL] 32.6 g/dL (02/05/16 9:57 PM) RDW [11.5-14.5 %] 13.9 % (02/05/16 9:57 PM) Platelet [133-450 K/CMM] 267 K/CMM (02/05/16 9:57 PM) MPV [7.4-10.4 fL] 8.3 fL (02/05/16 9:57 PM) Segs [45.0-75.0 %] 61.3 % (02/05/16 9:57 PM) Lymphocytes [20.0-40.0 %] 27.4 % (02/05/16 9:57 PM) Monocytes [2.0-12.0 %] 9.0 % (02/05/16 9:57 PM) Eosinophils [0.0-4.0 %] 1.3 % (02/05/16 9:57 PM) Basophils [0.0-1.0 %] 1.0 % (02/05/16 9:57 PM) Segs-Bands # [1.5-8.1 K/CMM] 4.8 K/CMM (02/05/16 9:57 PM) Lymphocytes # [1.0-5.5 K/CMM] 2.2 K/CMM (02/05/16 9:57 PM) Monocytes # [0.0-0.8 K/CMM] 0.7 K/CMM (02/05/16 9:57 PM) Eosinophils # [0.0-0.5 K/CMM] 0.1 K/CMM (02/05/16 9:57 PM) Basophils # [0.0-0.2 K/CMM] 0.1 K/CMM (02/05/16 9:57 PM) Immunizations No data available for this section [...]
--- OUTSIDE RECORDS SUMMARY | 2018-03-13 21:21 | XMS REPORT | Summary of Care ---
:1985 Author Organization [facility] Address [address] [place], [place] [address]- Encounter HQ Shahlantr_herbert(FIN) [id number] Date(s): 06/03/16 - 06/03/16 [facility] [address] [place] [address]- Discharge Diagnosis: URI (upper respiratory infection) Discharge Disposition: Home or Self Care Attending Physician: Idnia Barahona DO Vital Signs Most recent to oldest [Reference Range]: 1 2 Height 165.1 cm (06/03/16 2:18 AM) Temperature Oral [96.4-99.1 DegF] 98 DegF 98.1 DegF (06/03/16 4:14 AM) (06/03/16 2:18 AM) Blood Pressure [90-140/60-90 mmHg] 121/87 mmHg 127/89 mmHg (06/03/16 4:14 AM) (06/03/16 2:18 AM) Respiratory Rate [14-20 BRMIN] 18 BRMIN 18 BRMIN (06/03/16 4:14 AM) (06/03/16 2:18 AM) Peripheral Pulse Rate [60-100 bpm] 89 bpm 98 bpm (06/03/16 4:14 AM) (06/03/16 2:18 AM) Weight 88.182 kg (06/03/16 2:18 AM) Body Mass Index 32.35 m2 (06/03/16 2:18 AM) Problem List Condition Effective Dates Status Health Status Informant Anxiety(Confirmed) Active Back pain, chronic(Confirmed) Active GERD (gastroesophageal reflux Active disease)(Confirmed) GI bleed(Confirmed) Resolved Hypertension(Confirmed) Resolved Insomnia(Confirmed) Active Migraines(Confirmed) Active Obesity(Confirmed) Active Allergies, Adverse Reactions, Alerts Substance Reaction Severity Status NKDA Active Medications acetaminophen-hydrocodone 325 mg-5 mg oral tablet 1 tab, Route: PO, Dosing Weight 88.182, kg, ONCE, STAT, Start date: 06/03/16 4: 06:00 CDT, Stop date:06/03/16 4:06:00 CDT Start Date: 06/03/16 Stop Date: 06/03/16 Status: CompletedHycodan oral syrup 5 mL, Route: PO, Dosing Weight 88.182, kg, ONCE, STAT, Start date: 06/03/16 2:31 :00 CDT, Stop date: 06/03/16 2:31:00 CDT Start Date: 06/03/16 Stop Date: 06/03/16 Status: CompletedpredniSONE 20 mg oral tablet 40 mg=2 tab, PO, Daily, X 5 day, # 10 tab, 0 Refill(s), Pharmacy: [facility] [id number] Start Date: 06/03/16 Stop Date: 06/08/16 Status: OrderedProventil HFA 90 mcg/inh inhalation aerosol with adapter 2 puff, INHALER, Q4H, PRN wheezing, coughing, or shortness of breath, # 1 ea, 1 Refill(s), Pharmacy:[facility] [id number] Start Date: 06/03/16 Status: OrderedRobitussin-AC oral syrup 10 mL, PO, Q6H, PRN as needed for cough and congestion, X 5 day, # 200 mL, 0 Refill(s) Start Date: 06/03/16 Stop Date: 06/08/16 Status: Ordered Results No data available for [...]
--- OUTSIDE RECORDS SUMMARY | 2018-03-13 21:21 | XMS REPORT | Summary of Care ---
:1985 Author Organization [facility] Address [address] [place], [place] [address]- Encounter HQ Donal(FIN) [id number] Date(s): 10/04/15 - 10/04/15 [facility] [address] [place] [address]- Discharge Diagnosis: 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 Discharge Disposition: Home Attending Physician: Wilber Cheatham MD Vital Signs Most recent to oldest 1 2 3 [Reference Range]: Height 165.1 cm (10/04/15 12:19 AM) Temperature Oral [96.4-99.1 98.5 DegF 98.0 DegF 98.0 DegF DegF] (10/04/15 4:57 AM) (10/04/15 3:03 AM) (10/04/15 12:19 AM) Blood Pressure [90-140/60-90 128/88 mmHg 118/81 mmHg 124/85 mmHg mmHg] (10/04/15 4:57 AM) (10/04/15 3:03 AM) (10/04/15 12:19 AM) Respiratory Rate [14-20 18 BRMIN 18 BRMIN 20 BRMIN BRMIN] (10/04/15 4:57 AM) (10/04/15 3:03 AM) (10/04/15 12:19 AM) Peripheral Pulse Rate [60-100 91 bpm 90 bpm 90 bpm bpm] (10/04/15 4:57 AM) (10/04/15 3:03 AM) (10/04/15 12:19 AM) Weight 90.909 kg (10/04/15 12:19 AM) Body Mass Index 33.35 m2 (10/04/15 12:19 AM) Problem List Condition Effective Dates Status Health Status Informant GI bleed(Confirmed) Resolved Hypertension(Confirmed) Resolved Migraines(Confirmed) Resolved Allergies, Adverse Reactions, Alerts Substance Reaction Severity Status NKDA Active Medications Ativan 0.5 mg, Route: IVP, ONCE, Dosing Weight 90.909, kg, Priority: STAT, Start date: 10/04/15 1:18:00, Stop date: 10/04/15 1:18:00 Start Date: 10/04/15 Stop Date: 10/04/15 Status: CompletedCipro 500 mg oral tablet 500 mg=1 tab, PO, Q12H, X 7 day, # 14 tab, 0 Refill(s) Start Date: 10/04/15 Stop Date: 10/11/15 Status: OrderedDilaudid 0.5 mg, Route: IM, ONCE, Dosing Weight 90.909, kg, Priority: STAT, Start date: 10/04/15 4:14:00, Stop date: 10/04/15 4:14:00 Start Date: 10/04/15 Stop Date: 10/04/15 Status: CompletedFlagyl 500 mg oral tablet 500 mg=1 tab, PO, Q8H, X 7 day, # 21 tab, 0 Refill(s) Start Date: 10/04/15 Stop Date: 10/11/15 Status: Orderedmorphine Sulfate 4 mg, Route: IVP, ONCE, Dosing Weight 90.909, kg, Priority: STAT, Start date: 1:18:00, Stopdate: 10/04/15 1:18:00 Start Date: 10/04/15 Stop Date: 10/04/15 Status: CompletedNorco 7.5/325 oral tablet 1 tab, Route: PO, Dosing Weight 90.909, kg, ONCE, Start date: 10/04/15 3:37:00, Stop date: 10/04/15 3:37:00 Start Date: 10/04/15 Stop Date: 10/04/15 Status: CompletedPhenergan 12.5 mg, Route: IVPB, ONCE, Dosing Weight 90.909, kg, Priority: STAT, Start date : 10/04/15 2:20:00, Stop date: 10/04/15 2:20:00 Start Date: 10/04/15 Stop Date: 10/04/15 Status: CompletedSodium Chloride 0.9% (Bolus) IV 1,000 mL, 1,000 ml/hr, Infuse Over: 1 Hour, Route: IV, ONCE, Priority: STAT, Dosing Weight 90.909 kg, Start date: 10/04/15 2:20:00, Duration: 1 doses or times, Stop date: 10/04/15 2:20:00 Start Date: 10/04/15 Stop Date: 10/04/15 Status: CompletedUltram 50 mg oral tablet 1 - 2 tabs, PO, Q4-6H, PRN as needed for pain, X 7 day, # 12 tab, 0 Refill(s) Start Date: 10/04/15 Stop Date: 10/11/15 Status: OrderedZofran 4 mg, Route: IVP, ONCE, Dosing Weight 90.909, kg, Start date: 10/04/15 1:18:00, Stop date: 10/04/15 1:18:00 Start Date: 10/04/15 Stop Date: 10/04/15 Status: Completed Results ELECTROLYTES Most recent to oldest [Reference Range]: 1 2 Sodium Lvl [135-145 mEq/L] 139 mEq/L (10/04/15 12:25 AM) Potassium Lvl [3.5-5.1 mEq/L] 3.5 mEq/L (10/04/15 12:25 AM) Chloride Lvl [95-109 mEq/L] 103 mEq/L (10/04/15 12:25 AM) CO2 [24-32 mEq/L] 29 mEq/L (10/04/15 12:25 AM) AGAP [10.0-20.0 mEq/L] 10.5 mEq/L (10/04/15 12:25 AM) CHEM PANEL Most recent to oldest [Reference Range]: 1 2 Creatinine Lvl [0.50-1.40 mg/dL] 0.75 mg/dL (10/04/15 12:25 AM) eGFR 107 mL/min/1.73m2 1 *NA* (10/04/15 12:25 AM) BUN [7-22 mg/dL] 14 mg/dL (10/04/15 12:25 AM) B/C Ratio [6-25] 19 (10/04/15 12:25 AM) Glucose Lvl [70-99 mg/dL] 81 mg/dL (10/04/15 12:25 AM) Total Protein [6.4-8.4 g/dL] 7.5 g/dL (10/04/15 12:25 AM) Albumin Lvl [3.5-5.0 g/dL] 3.7 g/dL (10/04/15 12:25 AM) Globulin [2.0-4.0 g/dL] 3.8 g/dL (10/04/15 12:25 AM) A/G Ratio [0.7-1.6] 1.0 (10/04/15 12:25 AM) Calcium Lvl [8.5-10.5 mg/dL] 8.6 mg/dL (10/04/15:25 AM) ALT [0-65 unit/L] 42 unit/L (10/04/15 12:25 AM) AST [0-37 unit/L] 25 unit/L (10/04/15:25 AM) Alk Phos [39-136 unit/L] 72 unit/L (10/04/15 12:25 AM) Bili Total [0.2-1.3 mg/dL] 0.2 mg/dL (10/04/15 12:25 AM) 1Result Comment: The eGFR is calculated [...] recent to oldest [Reference Range]: 1 2 U Preg [Negative] Negative (10/04/15 12:40 AM) URINE AND STOOL Most recent to oldest [Reference Range]: 1 2 UA Turbidity [Clear] Marked *ABN* (10/04/15 12:40 AM) UA Color Ltyellow *NA* (10/04/15 12:40 AM) UA pH [5.0-8.0] 5.0 (10/04/15 12:40 AM) UA Spec Grav [<=1.030] 1.014 (10/04/15 12:40 AM) UA Glucose [Negative mg/dL] Negative mg/dL *NA* (10/04/15 12:40 AM) UA Blood [Negative] Negative (10/04/15 12:40 AM) UA Ketones [Negative mg/dL] Negative mg/dL *NA* (10/04/15 12:40 AM) UA Protein [Negative mg/dL] Negative mg/dL (10/04/15 12:40 AM) UA Urobilinogen [0.1-1.0 mg/dL] <=1.0 mg/dL *NA* (10/04/15 12:40 AM) UA Bili [Negative] Negative *NA* (10/04/15 12:40 AM) UA Leuk Est [Negative] Large *ABN* (10/04/15 12:40 AM) UA Nitrite [Negative] Negative (10/04/15 12:40 AM) UA WBC [0-5 /HPF] 29 /HPF *HI* (10/04/15 12:40 AM) UA RBC [0-2 /HPF] 2 /HPF (10/04/15 12:40 AM) UA Sq Epi [Few /LPF] Moderate /LPF *ABN* (10/04/15 12:40 AM) UA Mucus [None Seen /LPF] Few /LPF *NA* (10/04/15 12:40 AM) UA Trans Epi [<=0 /LPF] 3 /LPF *HI* (10/04/15 12:40 AM) Occult Bld Stl [Negative] Negative (10/04/15 3:40 AM) HEMATOLOGY Most recent to oldest [Reference Range]: 1 2 WBC [3.7-10.4 K/CMM] 6.4 K/CMM (10/04/15 12:25 AM) RBC [4.20-5.40 M/CMM] 4.40 M/CMM (10/04/15 12:25 AM) Hgb [12.0-16.0 g/dL] 12.2 g/dL (10/04/15 12:25 AM) Hct [36.0-48.0 %] 37.3 % (10/04/15 AM) MCV [80.0-98.0 fL] 84.8 fL (10/04/15 AM) MCH [27.0-31.0 pg] 27.8 pg (10/04/15 AM) MCHC [32.0-36.0 g/dL] 32.7 g/dL (10/04/15:25 AM) RDW [11.5-14.5 %] 13.5 % (10/04/15: AM) Platelet [133-450 K/CMM] 268 K/CMM (10/04/15:25 AM) MPV [7.4-10.4 fL] 8.2 fL (10/04/15:25 AM) Segs [45.0-75.0 %] 50.0 % (10/04/15:25 AM) Lymphocytes [20.0-40.0 %] 36.9 % (10/04/15 12:25 AM) Monocytes [2.0-12.0 %] 10.0 % (10/04/15 12:25 AM) Eosinophils [0.0-4.0 %] 2.4 % (10/04/15 12:25 AM) Basophils [0.0-1.0 %] 0.7 % (10/04/15 12:25 AM) Segs-Bands # [1.5-8.1 K/CMM] 3.2 K/CMM (10/04/15 12:25 AM) Lymphocytes # [1.0-5.5 K/CMM] 2.4 K/CMM (10/04/15 12:25 AM) Monocytes # [0.0-0.8 K/CMM] 0.6 K/CMM (10/04/15 12:25 AM) Eosinophils # [0.0-0.5 K/CMM] 0.2 K/CMM (10/04/15 12:25 AM) MOLECULAR DIAGNOSTIC Most recent to oldest [Reference Range]: 1 2 Source APTIMA Endocervix Endocervix *NA* *NA* (10/04/15 4:33 AM) (10/04/15 4:33 AM) N gonorrhea by Amp Det (APTIMA) [Negative] Negative *NA* (10/04/15 4:33 AM) C trachomatis by Amp Det (APTIMA) [Negative] Negative *NA* (10/04/15 4:33 AM) Immunizations No data available for this section Procedures Procedure Date Related Diagnosis Body Site Cholecystectomy Social History Social History Type Response Smoking Status Never smoker; Exposure to Tobacco Smoke None; Cigarette Smoking Last 365 Days No; Reg Smoking Cessation Counseling No Assessment and Plan No data available for this section
--- OUTSIDE RECORDS SUMMARY | 2018-03-13 21:22 | XMS REPORT | Summary of Care ---
:1985 Author Organization [facility] Address [address] [place], [place] [address]- Encounter HQ Elida_herbert(FIN) [id number] Date(s): 11/10/16 - 11/11/16 [facility] [address] [place] [address]- Discharge Diagnosis: Abdominal pain in female Discharge Disposition: Home or Self Care Attending Physician: India Barahona DO Vital Signs Most recent to oldest [Reference Range]: 1 2 Height 165.1 cm (11/10/16 9:31 PM) Temperature Oral [96.4-99.1 DegF] 97.9 DegF 98.7 DegF (11/11/16 2:10 AM) (11/10/16 9:31 PM) Blood Pressure [90-140/60-90 mmHg] 146/95 mmHg 145/99 mmHg *HI* *HI* (11/11/16 2:10 AM) (11/10/16 9:31 PM) Respiratory Rate [14-20 BRMIN] 18 BRMIN 18 BRMIN (11/11/16 2:10 AM) (11/10/16 9:31 PM) Peripheral Pulse Rate [60-100 bpm] 81 bpm 106 bpm (11/11/16 2:10 AM) *HI* (11/10/16 9:31 PM) Weight 90 kg (11/10/16 9:31 PM) Body Mass Index 33.02 m2 (11/10/16 9:31 PM) Problem List Condition Effective Dates Status Health Status Informant Anxiety(Confirmed) Active Back pain, chronic(Confirmed) Active GERD (gastroesophageal reflux Active disease)(Confirmed) GI bleed(Confirmed) Resolved Hypertension(Confirmed) Resolved Insomnia(Confirmed) Active Migraines(Confirmed) Active Obesity(Confirmed) Active Allergies, Adverse Reactions, Alerts Substance Reaction Severity Status NKDA Active Medications acetaminophen-hydrocodone 325 mg-10 mg oral tablet 1 tab, Route: PO, Dosing Weight 90, kg, ONCE, STAT, Start date: 11/11/16 1:54: 00 CDT, Stop date: 11/11/16 1:54:00 CDT Start Date: 11/11/16 Stop Date: 11/11/16 Status: Completedfamotidine 20 mg, 2 mL, Route: IVP, Drug form: INJ, ONCE, Dosing Weight 90, kg, Priority: STAT, Start date: 11/10/16 23:04:00 CDT, Stop date: 11/10/16 23:04:00 CDT Notes: (Same as: Pepcid)Can be dilute in 5-10cc NS IVP: Slow IV push over at least 2 minutes. Start Date: 11/10/16 Stop Date: 11/10/16 Status: Completedfamotidine 20 mg oral tablet 20 mg=1 tab, PO, BID, # 30 tab, 0 Refill(s) Start Date: 11/11/16 Stop Date: 11/18/16 Status: OrderedLevsin SL 0.125 mg, 1 tab, Route: SL, Drug form: TAB, Q4H, Dosing Weight 90, kg, Start date: 11/11/16 0:00:00 CDT, Duration: 30 day, Stop date: 12/10/16 20:00:00 CDT Notes: (Same as: Levsin) Take 30 min before meal Start Date: 11/11/16 Stop Date: 11/11/16 Status: Discontinuedmorphine Sulfate 4 mg, Route: IVP, ONCE, Dosing Weight 90, kg, Priority: STAT, Start date: 0:08:00 CDT, Stopdate: 11/11/16 0:08:00 CDT Start Date: 11/11/16 Stop Date: 11/11/16 Status: Completedondansetron 4 mg, 2 mL, Route: IVP, Drug form: INJ, ONCE, Dosing Weight 90, kg, Priority: STAT, Start date: 11/10/16 23:05:00 CDT, Stop date: 11/10/16 23:05:00 CDT Notes: (Same as: Zofran) MEDICATION WASTE Product Size: 4 mgProduct Wasted: ___ mg Start Date: 11/10/16 Stop Date: 11/10/16 Status: Completedondansetron 4 mg oral tablet, disintegrating 4 mg=1 tab, PO, TID, PRN Nausea / Vomiting, Dissolve tab under tongue, X 3 day, # 20 tab, 0 Refill(s) Start Date: 11/11/16 Stop Date: 11/14/16 Status: OrderedSaline Flush 0.9% 10 mL, Route: IVP, Drug Form: INJ, Dosing Weight 90.17, kg, PRN, PRN Line Flush , Start date: 11/10/16 21:32:00 CDT, Duration: 30 day, Stop date: 12/10/16 21:31 :00 CDT Notes: (Same as: BD Posiflush) Start Date: 11/10/16 Stop Date: 11/11/16 Status: DiscontinuedSodium Chloride 0.9% (Bolus) IV 1,000 mL, 1000 ml/hr, Infuse Over: 1 hr, Route: IV, 1,000, Drug form: INJ, ONCE , Priority: STAT, Dosing Weight 90 kg, Start date: 11/10/16 23:04:00 CDT, Duration: 1 doses or times, Stop date: 11/10/16 23:04:00 CDT Start Date: 11/10/16 Stop Date: 11/10/16 Status: CompletedTylenol with Codeine #3 oral tablet 1 - 2 tab, PO, Q6H, PRN Pain, X 2 day, # 10 tab, 0 Refill(s) Start Date: 11/11/16 Stop Date: 11/13/16 Status: Completed Results ELECTROLYTES Most recent to oldest [Reference Range]: 1 Sodium Lvl [135-145 mEq/L] 141 mEq/L (11/10/16 11:03 PM) Potassium Lvl [3.5-5.1 mEq/L] 3.8 mEq/L (11/10/16 11:03 PM) Chloride Lvl [95-109 mEq/L] 106 mEq/L (11/10/16 11:03 PM) CO2 [24-32 mEq/L] 29 mEq/L (11/10/16 11:03 PM) AGAP [10.0-20.0 mEq/L] 9.8 mEq/L *LOW* (11/10/16 11: PM) CHEM PANEL Most recent to oldest [Reference Range]: 1 Creatinine Lvl [0.50-1.40 mg/dL] 0.82 mg/dL (11/10/16 11: PM) eGFR 94 mL/min/1.73m2 1 *NA* (11/10/16 PM) BUN [7-22 mg/dL] 10 mg/dL (11/10/16 11: PM) B/C Ratio [6-25] 12 (11/10/16 11: PM) Glucose Lvl [70-99 mg/dL] 100 mg/dL *HI* (11/10/16 PM) Total Protein [6.4-8.4 g/dL] 7.3 g/dL (11/10/16 PM) Albumin Lvl [3.5-5.0 g/dL] 3.5 g/dL (11/10/16 PM) Globulin [2.7-4.2 g/dL] 3.8 g/dL (11/10/16 11: PM) A/G Ratio [0.7-1.6] 0.9 (11/10/16 PM) Calcium Lvl [8.5-10.5 mg/dL] 8.6 mg/dL (11/10/16 11: PM) ALT [0-65 unit/L] 22 unit/L (11/10/16 PM) AST [0-37 unit/L] 24 unit/L (11/10/16 11: PM) Alk Phos [39-136 unit/L] 76 unit/L (11/10/16 11:03 PM) Bili Total [0.2-1.3 mg/dL] 0.5 mg/dL (11/10/16: PM) Amylase Lvl [25-115 unit/L] 37 unit/L (11/10/16 11:03 PM) 1Result Comment: The eGFR is calculated [...] [Reference Range]: 1 Total CK [12-191 unit/L] 71 unit/L (11/10/16 11:03 PM) CK MB [0.5-3.6 ng/mL] <0.5 ng/mL (11/10/16 11:03 PM) CK MB Index [0.0-2.5] <0.7 (11/10/16 11:03 PM) Troponin-I [0.00-0.40 ng/mL] <0.02 ng/mL (11/10/16 11:03 PM) URINE CHEM Most recent to oldest [Reference Range]: 1 U Preg [Negative] Negative (11/10/16 10:12 PM) URINE AND STOOL Most recent to oldest [Reference Range]: 1 UA Turbidity [Clear] Clear (11/10/16 10:12 PM) UA Color Ltyellow *NA* (11/10/16 10:12 PM) UA pH [5.0-8.0] 6.0 (11/10/16 10:12 PM) UA Spec Grav [<=1.030] 1.011 (11/10/16 10:12 PM) UA Glucose [Negative mg/dL] Negative mg/dL *NA* (11/10/16 10:12 PM) UA Blood [Negative] Negative (11/10/16 10:12 PM) UA Ketones [Negative mg/dL] Negative mg/dL *NA* (11/10/16 10:12 PM) UA Protein [Negative mg/dL] Negative mg/dL (11/10/16 10:12 PM) UA Urobilinogen [0.1-1.0 mg/dL] <=1.0 mg/dL *NA* (11/10/16 10:12 PM) UA Bili [Negative] Negative *NA* (11/10/16 10:12 PM) UA Leuk Est [Negative] Small *ABN* (11/10/16 10:12 PM) UA Nitrite [Negative] Negative (11/10/16 10:12 PM) UA WBC [0-5 /HPF] 1 /HPF (11/10/16 10:12 PM) UA RBC [0-2 /HPF] 1 /HPF (11/10/16 10:12 PM) UA Bacteria [None Seen /HPF] Occasional /HPF *NA* (11/10/16 10:12 PM) UA Sq Epi [Few /LPF] Few /LPF *NA* (11/10/16 10:12 PM) HEMATOLOGY Most recent to oldest [Reference Range]: 1 WBC [3.7-10.4 K/CMM] 7.5 K/CMM (11/10/16 11:03 PM) RBC [4.20-5.40 M/CMM] 4.33 M/CMM (11/10/16 11:03 PM) Hgb [12.0-16.0 g/dL] 12.1 g/dL (11/10/16 11:03 PM) Hct [36.0-48.0 %] 36.7 % (11/10/16 11:03 PM) MCV [80.0-98.0 fL] 84.7 fL (11/10/16 11:03 PM) MCH [27.0-31.0 pg] 28.1 pg (11/10/16 11:03 PM) MCHC [32.0-36.0 g/dL] 33.1 g/dL (11/10/16 11:03 PM) RDW [11.5-14.5 %] 13.9 % (11/10/16 11:03 PM) Platelet [133-450 K/CMM] 285 K/CMM (11/10/16 11:03 PM) MPV [7.4-10.4 fL] 8.2 fL (11/10/16 11:03 PM) Segs [45.0-75.0 %] 65.6 % (11/10/16 11:03 PM) Lymphocytes [20.0-40.0 %] 25.3 % (11/10/16 11:03 PM) Monocytes [2.0-12.0 %] 8.3 % (11/10/16 11:03 PM) Eosinophils [0.0-4.0 %] 0.3 % (11/10/16 11:03 PM) Basophils [0.0-1.0 %] 0.5 % (11/10/16 11:03 PM) Segs-Bands # [1.5-8.1 K/CMM] 4.9 K/CMM (11/10/16 11:03 PM) Lymphocytes # [1.0-5.5 K/CMM] 1.9 K/CMM (11/10/16 11:03 PM) Monocytes # [0.0-0.8 K/CMM] 0.6 K/CMM (11/10/16 11:03 PM) Immunizations Given and Recorded Vaccine Date Status [...]
--- OUTSIDE RECORDS SUMMARY | 2018-03-13 21:22 | XMS REPORT ---
:1985 Author Organization [facility] Address 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 Problem Name Problem Onset Status Entry Provider Comment Standard Annotate Code Date Date Description Acute sinusitis 461.9 Active Marva Acute sinusitis, 01/21 01/21 William GOODEN unspecified Gastrointestina 578.9 Active Marva Hemorrhage of l bleeding 01/06 01/06 William GOODEN gastrointestinal tract, unspecified Tachycardia NOS 785.0 Active Marva Tachycardia, 01/06 01/06 William GOODEN unspecified Reactive airway 493.90 Active Monica Pickett Asthma, disease 12/07 12/07 unspecified ADJUSTMENT Active Gabe DISORDER, W/ 11/28 11/28 Fazal DEPRESSED MOOD PTSD Active Gabe Posttraumatic 11/28 11/28 Fazal stress disorder Anxiety 300.00 Active Monica Pickett Anxiety state, 10/21 10/21 unspecified BMI 33.0-33.9 Active Monica Pickett Body Mass Index 10/21 10/21 33.0-33.9, adult Migraine 346.00 Active Monica Pickett Migraine with headache with 10/21 10/21 aura, without aura mention of intractable migraine, without mention of status migrainosus Obesity Active Monica Pickett Obesity, 10/21 10/21 unspecified Personal V15.52 Active Monica Pickett Personal history reports 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 then Screening for V77.1 Active Monica Nieves Screening for diabetes 10/21 10/21 diabetes mellitus mellitus Screening for V77.99 Active Monica Nieves Screening for endocrine 10/21 10/21 other and disease unspecified endocrine, nutritional, metabolic, and immunity disorders Screening for V77.91 Active Monica Nieves Screening for hyperlipidemia 10/21 10/21 lipoid disorders Screening for V77.99 Active Monica Nieves Screening for metabolic 10/21 10/21 other and disease unspecified endocrine, nutritional, metabolic, and immunity disorders Screening for V74.5 Active Monica Nieves Screening std 10/21 10/21 examination for venereal disease Seizure 780.39 Active Monica Nieves Other convulsions disorder 10/21 10/21 Medication List Medication Instructions Start Stop Generic NDC Status Provider Patient Date Date Name Instruction SEROQUEL 25 MG Take one QUETIAPINE 84097593816 Active Gabe Active ORAL TABLET tablet at FUMARATE Fazal bedtime MD GLOVER DM Take 10 DEXTROMETHORPH 00396748236 Active Marva Active 100-10 MG/5ML mL every AN-GUAIFENESIN Thomas ORAL SYRUP 6 hours as needed for cough PROAIR HFA 108 2 puffs ALBUTEROL 86122716658 Active Monica Nieves Active (90 Base) every 4 - SULFATE MD MCG/ACT 6 hours INHALATION as needed AEROSOL SOLUTION PROMETHAZINE Take 5 ml PROMETHAZINE 59926024307 Active Monica Nieves Active HCL 6.25 MG/5ML three HCL MD ORAL SOLUTION times daily as needed for cough KLONOPIN 2 MG Take one CLONAZEPAM 13262633284 Active Gabe Active ORAL TABLET tablet By Fazal Mouth Twice a Day as needed for anxiety AMITRIPTYLINE 1 by AMITRIPTYLINE 45009572886 Active Monica Nieves Active HCL 25 MG ORAL mouth HCL MD TABLET nightly at bedtime CELEXA 40 MG 1 by CITALOPRAM 02959427725 Active Gabe Active ORAL TABLET mouth HYDROBROMIDE Fazal every day AMOXICILLIN-POT 1 tsp AMOXICILLIN-POT 821426 AMOXICILLIN-POT Inactive CLAVULANATE by CLAVULANATE CLAVULANATE 875-125 MG ORAL mouth 875-125 MG ORAL TABLET twice TABLET a day PREDNISONE 20 MG Take 2 PREDNISONE 20 MG 488627 PREDNISONE Inactive ORAL TABLET tablet ORAL TABLET s by mouth daily X 5 days QUETIAPINE Take 1 QUETIAPINE 213114 QUETIAPINE Inactive FUMARATE 25 MG tablet FUMARATE 25 MG FUMARATE ORAL TABLET by ORAL TABLET mouth at bedtim e PROMETHAZINE HCL Take 5 PROMETHAZINE HCL 587066 PROMETHAZINE HCL Inactive 6.25 MG/5ML ORAL ml by 6.25 MG/5ML ORAL SOLUTION mouth SOLUTION three times daily as needed for cough TESSALON PERLES Take 1 TESSALON PERLES 647306 BENZONATATE Inactive 100 MG ORAL capsul 100 MG ORAL CAPSULE e CAPSULE three times daily as needed for cough CHERATUSSIN AC 2 CHERATUSSIN AC 100455 GUAIFENESIN- CODE Inactive 100-10 MG/5ML teaspo 100-10 MG/5ML INE ORAL SYRUP ons ORAL SYRUP (10mL) by mouth every 4 hours as needed for cough HYDROXYZINE HCL 1 by HYDROXYZINE HCL 958440 HYDROXYZINE HCL Inactive 25 MG ORAL mouth 25 MG ORAL TABLET every TABLET 6 hours as needed RISPERDAL 2 MG Take 1 RISPERDAL 2 MG 053937 RISPERIDONE Inactive ORAL TABLET tablet ORAL TABLET by mouth at bedtim e AMOXICILLIN-POT 1 tsp AMOXICILLIN-POT 04595645933 No Marva Active CLAVULANATE by CLAVULANATE Longer Thomas 875-125 MG ORAL mouth Active MD TABLET twice a day PREDNISONE 20 MG Take 2 PREDNISONE 29269834979 No Monica Pickett Active ORAL TABLET tablet Longer MD bhatt by Active mouth daily X 5 days QUETIAPINE Take 1 QUETIAPINE 56571804126 No Gabe Active FUMARATE 25 MG tablet FUMARATE Longer Fazal ORAL TABLET by Active [facility] PROMETHAZINE HCL Take 5 PROMETHAZINE HCL 89143177946 No Monica Nieves Active 6.25 MG/5ML ORAL ml by Longer MD SOLUTION mouth Active three times daily as needed for cough TESSALON PERLES Take 1 BENZONATATE 19914449826 No Monica Nieves Active 100 MG ORAL capsul Longer MD CAPSULE e Active three times daily as needed for cough CHERATUSSIN AC 2 GUAIFENESIN-CODE 87601323583 No Monica Nieves Active 100-10 MG/5ML teaspo INE Longer MD ORAL SYRUP ons Active (10mL) by mouth every 4 hours as needed for cough HYDROXYZINE HCL 1 by HYDROXYZINE HCL 46804845586 No Agbe Active 25 MG ORAL mouth Longer Fazal TABLET every Active MD 6 hours as needed RISPERDAL 2 MG Take 1 RISPERIDONE 38115235579 No Gabe Active ORAL TABLET tablet Longer Fazal by Active MD mouth at bedtim e Vital Signs Date Name Value Unit Range Description blood pressure, diastolic 88 mm[Hg] BP card blood pressure, systolic 126 mm[Hg] BP sys height E&M 65 [in_us] Bdy height pulse rate E&M 106 /min Heart rate temperature E&M 99.3 [degF] Body temperature weight E&M 207 [lb_av] Weight Measured blood pressure, diastolic 86 mm[Hg] BP card blood pressure, systolic 138 mm[Hg] BP sys height E&M 65 [in_us] Bdy height pulse rate E&M 109 /min Heart rate weight E&M 208.13 [lb_av] Weight Measured blood pressure, diastolic 83 mm[Hg] BP card blood pressure, systolic 117 mm[Hg] BP sys height E&M 65 [in_us] Bdy height pulse rate E&M 111 /min Heart rate temperature E&M 99.1 [degF] Body temperature weight E&M 212 [lb_av] Weight Measured blood pressure, diastolic 87 mm[Hg] BP card blood pressure, systolic 118 mm[Hg] BP sys height E&M 65 [in_us] Bdy height pulse rate E&M 101 /min Heart rate weight E&M 210.40 [lb_av] Weight Measured blood pressure, diastolic 86 mm[Hg] BP card blood pressure, systolic 119 mm[Hg] BP sys height E&M 65 [in_us] Bdy height pulse rate E&M 101 /min Heart rate temperature E&M 98.0 [degF] Body temperature weight E&M 211.25 [lb_av] Weight Measured blood pressure, diastolic 84 mm[Hg] BP card blood pressure, systolic 116 mm[Hg] BP sys height E&M 65 [in_us] Bdy height pulse rate E&M 108 /min Heart rate weight E&M 205.50 [lb_av] Weight Measured Encounters Date Encounter Provider Code Facility Est Patient Exp Problem Marva Thomas MD CPT-66382 [facility] 16:59:26 CDT - 32086 Family Practice Est Patient Exp Problem Gabe Diehl MD CPT-23562 [facility] 21:08:35 CDT - 62428 Behavioral Health Est Patient Exp Problem Marva Thomas MD CPT-13509 [facility] 17:53:05 CDT - 48484 Family Practice Est Patient Exp Problem Gabe Diehl MD CPT-76470 [facility] 20:22:46 CDT - 66149 Behavioral Health Est Patient Exp Problem Monica Pickett MD CPT-53109 [facility] 08:27:49 CDT - 32099 Family Practice Est Patient Exp Problem Gabe Diehl MD [facility]-56777 [facility] 14:46:42 CDT - 71577 Behavioral Health New Patient Monica Pickett MD CPT-43343 [facility] 09:00:57 [facility] - [address] [facility]
--- OUTSIDE RECORDS SUMMARY | 2018-03-13 21:22 | XMS REPORT ---
:1985 [facility] Address [facility] [address] [place] [address] Care Team Providers Name Role Phone Unavailable Unavailable Unavailable Problems This patient has no known problems. Allergies, Adverse Reactions, Alerts This patient has no known allergies or adverse reactions. Medications This patient has no known medications.
[2018-03-13 22:29] LABS: Absolute Lymphocytes (CBC) 1.8 K/uL (0.7-4.9); Absolute Monocytes 0.4 K/uL (0.1-1.3); Basophils % 0.4 % (0-1.3); Eosinophils % 0.2 % (0-4.4); Hematocrit 41.8 % (36.0-45.0); MCV 87.4 fL (80-100); MPV 9.2 fL (7.6-11.3); Monocytes % 5.8 % (3.3-12.3); RBC Red Blood Cell Count 4.78 M/uL (3.86-4.86)
--- NOTE | 2018-03-13 22:29 | RAD REPORT ---
EXAM DESCRIPTION: CT - Head Brain Wo Cont - 03/13/2018 10:19 pm CLINICAL HISTORY: SEIZURE COMPARISON: HEAD BRAIN W O CONTRAST dated 05/10/2015; HEAD BRAIN W O CONTRAST dated 02/04/2015; HEAD B RAIN W O CONTRAST dated 09/26/2012; HEAD BRAIN W O CONTRAST dated 11/02/2008 TECHNIQUE: All CT scans are performed using dose optimization technique as appropriate and may inclu de automated exposure control or mA/KV adjustment according to patient size. FINDINGS: No intracranial hemorrhage, hydrocephalus or extra-axial fluid collection.No areas of brai n edema or evidence of midline shift. The paranasal sinuses and mastoids are clear. The calvarium is intact. IMPRESSION: No acute intracranial abnormality.
[2018-03-13 22:30] LABS: Protime INR 1.01
[2018-03-13 23:02] LABS: Urine Blood NEGATIVE (NEG); Urine Glucose NEGATIVE (NEG); Urine Protein NEGATIVE (NEG)
[2018-03-13] MEDS ORDERED: ACETAMINOPHEN 500 MG TAB ONE (23:09)
[2018-03-13 23:13] LABS: Urine Bacteria 20-50 /HPF (<20); Urine Culture Reflex Order REFLEXED; Urine Mucus 3+ /HPF (NONE SEEN); Urine RBC <5 /HPF (NONE SEEN)
[2018-03-13 23:21] LABS: Barbiturates NEGATIVE (NEGATIVE); Benzodiazepines NEGATIVE (NEGATIVE); Cocaine NEGATIVE (NEGATIVE); METHAMPHETAM NEGATIVE (NEGATIVE); Methadone NEGATIVE (NEGATIVE); Opiates POSITIVE (NEGATIVE); Phencyclidine NEGATIVE (NEGATIVE); THC Cannibis NEGATIVE (NEGATIVE)
[2018-03-13] MEDS ORDERED: DIVALPROEX DR 250 MG TAB PO ONE (23:31)
[2018-03-13 23:39] LABS: ALT/SGPT 61 U/L (12-78); AST/SGOT 33 U/L (15-37); Albumin 3.3 g/dL (3.4-5.0); Alkaline Phosphatase 101 U/L (45-117); BUN Blood Urea Nitrogen 6 mg/dL (7-18); Bicarbonate 27 mmol/L (21-32); Bilirubin Direct 0.1 mg/dL (0-0.2); Bilirubin Total 0.3 mg/dL (0.2-1.0); Glucose Level 120 mg/dL (74-106); Lipase 232 U/L (73-393); Potassium 3.9 mmol/L (3.5-5.1); Protein, Total 7.2 g/dL (6.4-8.2); Sodium Level 140 mmol/L (136-145)
[2018-03-13 23:44] LABS: Valproic Acid (Depakene) Level < 3.0 ug/mL (50-100)
--- NOTE | 2018-03-14 00:38 | ER ---
Nurse's Notes [facility] Name: Lashay Daniels Age: 32 yrs Sex: Female : 1985 Arrival Date: 03/13/2018 Time: 21:10 Bed 23 Private MD: Diagnosis: Acute Seizure;Seizure medication non-adherence Presentation: 03/13 21:10 Presenting complaint: EMS states: patients family reports patient had a seizure that kr2 lasted about 5-10 minutes. History of seizures and pancreatic cancer. Patient reports she has been out of her Depakote for 1 week. Family states she fell twice today but did not hit her head. She was post ictal when EMS arrived, in bed watching tv when seizure occurred. Transition of care: patient was not received from another setting of care. Onset of symptoms was March 13, 2018 at 20:30. Risk Assessment: Do you want to hurt yourself or someone else? Patient reports no desire to harm self or others. Initial Sepsis Screen: Does the patient meet any 2 criteria? No. Patient's initial sepsis screen is negative. Does the patient have a suspected source of infection? No. Patient's initial sepsis screen is negative. Care prior to arrival: None. 21:10 Method Of Arrival: EMS: [facility] kr2 21:10 Acuity: AKOSUA 3 kr2 Triage Assessment: 21:14 General: Appears in no apparent distress. uncomfortable, well developed, well kr2 nourished, Behavior is. Pain: Complains of pain in entire body Pain currently is 6 out of 10 on a pain scale. Quality of pain is described as aching, Is continuous, Alleviated by nothing. EENT: Oral mucosa is moist. Neuro: Level of Consciousness is awake, alert, obeys commands, Oriented to person, place, time, situation, Appropriate for age. Cardiovascular: Capillary refill < 3 seconds in bilateral fingers Patient's skin is warm and dry. Respiratory: Airway is patent Respiratory effort is even, unlabored, Respiratory pattern is regular, symmetrical. GI: Abdomen is round non-distended. : Denies burning with urination. Derm: Skin is intact, is healthy with good turgor, Skin is pink, warm \T\ dry. Musculoskeletal: Circulation, motion, and sensation intact. 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 - Social history:: Smoking status: Patient/guardian denies using tobacco. - Ebola Screening: : No symptoms or risks identified at this time. - Family history:: not pertinent. - Hospitalizations: : No recent hospitalization is reported. Screenin:14 Abuse screen: Denies threats or abuse. Denies injuries from another. Nutritional kr2 screening: No deficits noted. Tuberculosis screening: No symptoms or risk factors identified. Fall Risk Secondary diagnosis (15 points) seizures. Assessment: 22:33 Reassessment: See triage assessment. kr2 23:10 Reassessment: Patient medicated with Tylenol as ordered for headache. kr2 23:30 Reassessment: Patient reports Dr. Curtis at [facility] wants her to come there so that he kr2 can evaluate her and admit her. Patient's mother here and spoke with Dr. Terrazas. AMA formed signed by patient and mother. 23:40 Reassessment: Patient left AMA via wheelchair with mother, they report they will be kr2 going to [facility]. Vital Signs: 21:18 BP 109 / 82; Pulse 106; Resp 18; Temp 97.7; Pulse Ox 99% ; Weight 63.5 kg; Height 5 ft. kr2 5 in. (165.10 cm); Pain 6/10; 22:34 BP 103 / 84; Pulse 91; Resp 16; Pulse Ox 99% on R/A; kr2 21:18 Body Mass Index 23.30 (63.50 kg, 165.10 cm) kr2 [place] Coma Score: 21:14 Eye Response: spontaneous(4). Verbal Response: oriented(5). Motor Response: obeys kr2 commands(6). Total: 15. ED Course: 21:10 Patient arrived in ED. kr2 21:14 Triage completed. kr2 21:15 Inserted saline lock: 22 gauge in right upper arm, using aseptic technique. ,using kr2 aseptic technique. Performed by DENISE Harrington Blood collected. 21:16 Arm band placed on left wrist. EKG completed in triage. Results shown to . kr2 21:19 Patient has correct armband on for positive identification. Bed in low position. Call kr2 light in reach. Side rails up X2. Seizure precautions initiated. ekg monitor tech on. Pulse ox on. NIBP on. 21:20 EKG done, by ED staff. jp3 21:25 Warm blanket given. Pillow given. jp3 21:37 Danuta Aldridge, DENISE is Primary Nurse. kr2 21:43 Emil Terrazas MD is Attending Physician. pr 22:20 CT Head Brain wo Cont In Process Unspecified. EDMS 23:35 No provider procedures requiring assistance completed. IV discontinued, intact, kr2 bleeding controlled, No redness/swelling at site. Pressure dressing applied. 03/14 00:48 Primary Nurse role handed off by Danuta Aldridge, DENISE rg2 Administered Medications: 03/13 23:10 Drug: Tylenol 1000 mg Route: PO; kr2 23:38 Follow up: Response: No adverse reaction kr2 23:26 Drug: Depakote 500 mg Route: PO; kr2 23:38 Follow up: Response: Administered just prior to patient leaving AMA kr2 Outcome: 23:36 AMA AMA form signed kr2 23:36 Condition: stable 23:36 Instructed on follow up and referral plans. Demonstrated understanding of follow-up care. 03/14 00:37 Patient left the ED. 00:55 Patient left the ED. rg2 Signatures: Dispatcher [employer] ED NnekaTonya mckeon rg2 Kathy Gutierrez RN RN Emil Terrazas MD MD wa Reaves, Karey, RN RN kr2 Abimael Loja jp3 Corrections: (The following items were deleted from the chart) 03/13 23:10 22:34 Pulse 91bpm; Resp 16bpm; Pulse Ox 99% RA; kr2 kr2 23:38 23:15 Tylenol 1000 mg PO kr2 kr2
[2018-03-14 00:41] VITALS: TEMP 97.7; O2SAT 99
[2018-03-14 00:42] VITALS: BP 103/84
--- NOTE | 2018-03-14 00:55 | EDPHYS ---
Physician Documentation [facility] Name: Lashay Daniels Age: 32 yrs Sex: Female : 1985 Arrival Date: 03/13/2018 Time: 21:10 Bed 23 Private MD: ED Physician Emil Terrazas HPI: 03/14 00:40 This 32 yrs old Female presents to ER via EMS with complaints of Seizure. wa 00:40 The patient presents after having a single isolated seizure, that lasted 3 minute(s). wa Character of seizure(s): Loss of consciousness: the patient experienced loss of consciousness, brief, Motor activity: generalized, shaking all over, Incontinence: none, Apnea: the patient did not experience apnea, Circulation: it is unknown whether or not the patient experienced a disturbance in pulse, Eye movements: are unknown. Seizure onset: just prior to arrival. Context: the seizure(s) was witnessed, by family, occurred at home, occurred while the patient was watching TV. Contributing factors: missed recent doses of medications, has not had her depakote in 1 week. Seizure Hx: Last seizure: The patient's last seizure many months ago, Usual frequency: sporadic, Seizure medications: valproic acid. Associated injury: The patient did not suffer any apparent associated injury. EMS care: none. Current symptoms: c/o generalized body aches. The patient has experienced similar episodes in the past. The patient has not recently seen a physician. 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 - Social history:: Smoking status: Patient/guardian denies using tobacco. - Ebola Screening: : No symptoms or risks identified at this time. - Family history:: not pertinent. - Hospitalizations: : No recent hospitalization is reported. ROS: 03/14 00:43 Constitutional: Negative for fever, chills, and weight loss, Eyes: Negative for injury, wa pain, redness, and discharge, ENT: Negative for injury, pain, and discharge, Neck: Negative for injury, pain, and swelling, Cardiovascular: Negative for chest pain, palpitations, and edema, Respiratory: Negative for shortness of breath, cough, wheezing, and pleuritic chest pain, Abdomen/GI: Negative for abdominal pain, nausea, vomiting, diarrhea, and constipation, Back: Negative for injury and pain, : Negative for injury, bleeding, discharge, and swelling, MS/Extremity: Negative for injury and deformity, Skin: Negative for injury, rash, and discoloration, Psych: Negative for depression, anxiety, suicide ideation, homicidal ideation, and hallucinations. Neuro: Positive for seizure activity, Negative for altered mental status, dizziness, gait disturbance, headache. All other systems are negative. Exam: 00:44 Constitutional: This is a well developed, well nourished patient who is awake, alert, wa and in no acute distress. Head/Face: Normocephalic, atraumatic. Eyes: Pupils equal round and reactive to light, extra-ocular motions intact. Lids and lashes normal. Conjunctiva and sclera are non-icteric and not injected. Cornea within normal limits. Periorbital areas with no swelling, redness, or edema. ENT: Nares patent. No nasal discharge, no septal abnormalities noted. Tympanic membranes are normal and external auditory canals are clear. Oropharynx with no redness, swelling, or masses, exudates, or evidence of obstruction, uvula midline. Mucous membranes moist. Neck: Trachea midline, no thyromegaly or masses palpated, and no cervical lymphadenopathy. Supple, full range of motion without nuchal rigidity, or vertebral point tenderness. No Meningismus. Chest/axilla: Normal chest wall appearance and motion. Nontender with no deformity. No lesions are appreciated. Cardiovascular: Regular rate and rhythm with a normal S1 and S2. No gallops, murmurs, or rubs. Normal PMI, no JVD. No pulse deficits. Respiratory: Lungs have equal breath sounds bilaterally, clear to auscultation and percussion. No rales, rhonchi or wheezes noted. No increased work of breathing, no retractions or nasal flaring. Abdomen/GI: Soft, non-tender, with normal bowel sounds. No distension or tympany. No guarding or rebound. No evidence of tenderness throughout. Back: No spinal tenderness. No costovertebral tenderness. Full range of motion. Skin: Warm, dry with normal turgor. Normal color with no rashes, no lesions, and no evidence of cellulitis. MS/ Extremity: Pulses equal, no cyanosis. Neurovascular intact. Full, normal range of motion. Neuro: Awake and alert, GCS 15, oriented to person, place, time, and situation. Cranial nerves II-XII grossly intact. Motor strength 5/5 in all extremities. Sensory grossly intact. Cerebellar exam normal. Normal gait. Psych: Awake, alert, with orientation to person, place and time. Behavior, mood, and affect are within normal limits. Vital Signs: 03/13 21:18 BP 109 / 82; Pulse 106; Resp 18; Temp 97.7; Pulse Ox 99% ; Weight 63.5 kg; Height 5 ft. kr2 5 in. (165.10 cm); Pain 6/10; 22:34 BP 103 / 84; Pulse 91; Resp 16; Pulse Ox 99% on R/A; kr2 21:18 Body Mass Index 23.30 (63.50 kg, 165.10 cm) kr2 [place] Coma Score: 21:14 Eye Response: spontaneous(4). Verbal Response: oriented(5). Motor Response: obeys kr2 commands(6). Total: 15. MDM: 21:43 Patient medically screened. 03/14 00:44 Differential diagnosis: seizure. missed meds. no Sz x several months. will check labs, me head CT, depakote level. will replace as necessary. Data reviewed: vital signs, nurses notes. Test interpretation: by ED physician or midlevel provider: Head CT: no acute process. labs noted positive for opiates. UA noted for 30-50 bacteria. wbc within normal limits. . Response to treatment: the patient's symptoms have markedly improved after treatment. ED course: receive tylenol and a dose of depakote. mother came and signed pt out stating she wants to take pt directly to [facility] to be evaluated by pt's physician. see AMA on chart. Did not wait for discharge instructions. 03/13 21:52 Order name: UDS; Complete Time: 23:26 me 03/13 21:52 Order name: Urine Microscopic Only; Complete Time: 23: me 03/13 21:52 Order name: Basic Metabolic Panel; Complete Time: 00:40 me 03/13 21:52 Order name: CBC with Diff; Complete Time: 23:26 me 03/13 21:52 Order name: Hepatic Function; Complete Time: 00:40 me 03/13 21:52 Order name: Lipase; Complete Time: 00:40 me 03/13 21:52 Order name: Magnesium; Complete Time: 00:40 me 03/13 21:52 Order name: Protime (+inr); Complete Time: 22:33 me 03/13 21:53 Order name: Depakote me 03/13 21:53 Order name: Valproic Acid (Depakene) Level; Complete Time: 00:40 [facility] 03/13 22:21 Order name: Urine Dipstick--Ancillary (enter results) [facility] 03/13 22:21 Order name: Urine --Ancillary (enter results); Complete Time: 23:26 [facility] 03/13 22:21 Order name: Urine Dipstick-Ancillary; Complete Time: 23:26 [facility] 03/13 23:14 Order name: Urine Culture [facility] 03/13 21:52 Order name: Urine Test (obtain specimen); Complete Time: 22:18 me 03/13 21:52 Order name: CT Head Brain wo Cont; Complete Time: 22:32 me 03/13 21:52 Order name: Cardiac monitoring; Complete Time: 22:18 me 03/13 21:52 Order name: IV Saline Lock; Complete Time: 22:18 me 03/13 21:52 Order name: Labs collected and sent; Complete Time: 22:16 me 03/13 21:52 Order name: NPO; Complete Time: 22:16 me 03/13 21:52 Order name: O2 Sat Monitoring; Complete Time: 22:17 me 03/13 21:52 Order name: Urine Dipstick-Ancillary (obtain specimen); Complete Time: 22:17 me Administered Medications: 03/13 23:10 Drug: Tylenol 1000 mg Route: PO; kr2 23:38 Follow up: Response: No adverse reaction 2 23:26 Drug: Depakote 500 mg Route: PO; kr2 23:38 Follow up: Response: Administered just prior to patient leaving AMA kr2 Disposition: 03/14/18 00:37 Patient has left against medical advice. Impression: Acute Seizure, Seizure medication non-adherence. - Patients states they are going to Home. - Condition is Fair. Follow up: Private Physician; When: Today. - Problem is new. - Symptoms have improved. Signatures: Dispatcher [employer] Tonya Villalobos rg2 Kathy Gutierrez, RN RN Emil Terrazas MD MD wa Reaves, Karey, RN RN kr2 Corrections: (The following items were deleted from the chart) 03/14 00:49 00:37 03/14/2018 00:37 Patients has left against medical advice. Patient states they wa are going to Home. Condition is Fair. 00:55 00:49 03/14/2018 00:37 Patients has left against medical advice. Impression: Acute rg2 Seizure; Seizure medication non-adherence. Patient states they are going to Home. Condition is Fair. Follow up: Private Physician; When: Today. Problem is new. Symptoms have improved. wa
--- NOTE | 2018-03-14 14:48 | EKG ---
Test Date: 2018-03-13 Test Time: 21:20:02 Aircraft Technician: PETER MEASUREMENT RESULTS: Intervals: Rate: 104 GA: 140 QRSD: 68 QT: 330 QTc: 433 [place]: P: 58 GA: 140 QRS: 67 T: 34 INTERPRETIVE STATEMENTS: Sinus tachycardia Possible Left atrial enlargement Nonspecific T wave abnormality Abnormal ECG Compared to ECG 05/10/2015 11:32:47 T-wave abnormality now present ST (T wave) deviation no longer present Electronically Signed On 03-14-18 14:45:23 CDT by Adolfo Kaur
== END 2018-03-14 00:55 | disposition left against medical advice (07) ==
LOC: ER 21:06
DX: R56.9 Unspecified convulsions (principal); Z91.14 Patient's other noncompliance with medication regimen
CPT/HCPCS: 36415; 70450; 80048; 80076; 80164; 80307; 81003; 81015; 81025; 83690; 83735; 85025; 85610; 87086; 87088; 93005; 99285

== ENCOUNTER 2018-05-01 21:12 | Inpatient (IN) | payer OTHER ==
--- OUTSIDE RECORDS SUMMARY | 2018-05-01 21:14 | XMS REPORT ---
:1985 Author Organization [facility] Address [address] [address] [place] [address] Phone Allergies, Adverse Reactions, Alerts Allergy Name Reaction Description Start Date Severity Status Provider No Known Allergies Lakisha Gonsalez FIBREGLASS GUN HAND Conditions or Problems Problem Name Problem Onset [...] Instruction SEROQUEL 25 MG Take one QUETIAPINE 97224877546 Active Gabe Active ORAL TABLET tablet at FUMARATE Fazal bedtime MD GLOVER DM Take 10 DEXTROMETHORPH 66891077516 Active Marva Active 100-10 MG/5ML mL every AN-GUAIFENESIN Thomas ORAL SYRUP 6 hours as needed for cough PROAIR HFA 108 2 puffs ALBUTEROL 40542427184 Active Monica Nieves Active (90 Base) every 4 - SULFATE MD MCG/ACT 6 hours INHALATION as needed AEROSOL SOLUTION PROMETHAZINE Take 5 ml PROMETHAZINE 04162200171 Active Monica Nieves Active HCL 6.25 MG/5ML three HCL MD ORAL SOLUTION times daily as needed for cough KLONOPIN 2 MG Take one CLONAZEPAM 77198995326 Active Gabe Active ORAL TABLET tablet By Fazal Mouth Twice a Day as needed for anxiety AMITRIPTYLINE 1 by AMITRIPTYLINE 35619390348 Active Monica Nieves Active HCL 25 MG ORAL mouth HCL MD TABLET nightly at bedtime CELEXA 40 MG 1 by CITALOPRAM 06349571423 Active Gabe Active ORAL TABLET mouth HYDROBROMIDE Fazal every day AMOXICILLIN-POT 1 tsp AMOXICILLIN-POT 285999 AMOXICILLIN-POT Inactive CLAVULANATE by CLAVULANATE CLAVULANATE 875-125 MG ORAL mouth 875-125 MG ORAL TABLET twice TABLET a day PREDNISONE 20 MG Take 2 PREDNISONE 20 MG 741950 PREDNISONE Inactive ORAL TABLET tablet ORAL TABLET s by mouth daily X 5 days QUETIAPINE Take 1 QUETIAPINE 474349 QUETIAPINE Inactive FUMARATE 25 MG tablet FUMARATE 25 MG FUMARATE ORAL TABLET by ORAL TABLET mouth at bedtim e PROMETHAZINE HCL Take 5 PROMETHAZINE HCL 945656 PROMETHAZINE HCL Inactive 6.25 MG/5ML ORAL ml by 6.25 MG/5ML ORAL SOLUTION mouth SOLUTION three times daily as needed for cough TESSALON PERLES Take 1 TESSALON PERLES 479662 BENZONATATE Inactive 100 MG ORAL capsul 100 MG ORAL CAPSULE e CAPSULE three times daily as needed for cough CHERATUSSIN AC 2 CHERATUSSIN AC 720125 GUAIFENESIN- CODE Inactive 100-10 MG/5ML teaspo 100-10 MG/5ML INE ORAL SYRUP ons ORAL SYRUP (10mL) by mouth every 4 hours as needed for cough HYDROXYZINE HCL 1 by HYDROXYZINE HCL 719372 HYDROXYZINE HCL Inactive 25 MG ORAL mouth 25 MG ORAL TABLET every TABLET 6 hours as needed RISPERDAL 2 MG Take 1 RISPERDAL 2 MG 568578 RISPERIDONE Inactive ORAL TABLET tablet ORAL TABLET by mouth at bedtim e AMOXICILLIN-POT 1 tsp AMOXICILLIN-POT 60308914627 No Marva Active CLAVULANATE by CLAVULANATE Longer Thomas 875-125 MG ORAL mouth Active MD TABLET twice a day PREDNISONE 20 MG Take 2 PREDNISONE 25186760610 No Monica Pickett Active ORAL TABLET tablet Longer MD bhatt by Active mouth daily X 5 days QUETIAPINE Take 1 QUETIAPINE 56158490022 No Gabe Active FUMARATE 25 MG tablet FUMARATE Longer Fazal ORAL TABLET by [facility] PROMETHAZINE HCL Take 5 PROMETHAZINE HCL 61775578240 No Monica Nieves Active 6.25 MG/5ML ORAL ml by Longer MD SOLUTION mouth Active three times daily as needed for cough TESSALON PERLES Take 1 BENZONATATE 27693368861 No Monica Nieves Active 100 MG ORAL capsul Longer MD CAPSULE e Active three times daily as needed for cough CHERATUSSIN AC 2 GUAIFENESIN-CODE 74757694583 No Monica Nieves Active 100-10 MG/5ML teaspo INE Longer MD ORAL SYRUP ons Active (10mL) by mouth every 4 hours as needed for cough HYDROXYZINE HCL 1 by HYDROXYZINE HCL 32129268228 No Gabe Active 25 MG ORAL mouth Longer Fazal TABLET every Active MD 6 hours as needed RISPERDAL 2 MG Take 1 RISPERIDONE 10832843587 No Gabe Active ORAL TABLET tablet Longer [...] Est Patient Exp Problem Marva Thomas MD CPT-15978 [facility] 16:59:26 CDT - 04514 Family Practice Est Patient Exp Problem Gabe Diehl MD CPT-58450 [facility] 21:08:35 CDT - 43901 Behavioral Health Est Patient Exp Problem Marva Thomas MD CPT-13576 [facility] 17:53:05 CDT - 71417 Family Practice Est Patient Exp Problem Gabe Diehl MD CPT-16393 [facility] 20:22:46 CDT - 21536 Behavioral Health Est Patient Exp Problem Monica Pickett MD CPT-61360 [facility] 08:27:49 CDT - 89132 Family Practice Est Patient Exp Problem Gabe Diehl MD [facility]-63378 [facility] 14:46:42 CDT - 47732 Behavioral Health New Patient Monica Pickett MD CPT-55814 [facility] 09:00:57 [facility] - [address] [facility]
--- OUTSIDE RECORDS SUMMARY | 2018-05-01 21:14 | XMS REPORT ---
:1985 [facility] Address [address] [place] [address] Care Team Providers Name Role Phone Unavailable Unavailable Unavailable Problems This patient has no known problems. Allergies, Adverse Reactions, Alerts This patient has no known allergies or adverse reactions. Medications This patient has no known medications.
[2018-05-01 22:21] LABS: Protime INR 0.97
[2018-05-01 22:28] LABS: Absolute Lymphocytes (CBC) 0.7 K/uL (0.7-4.9); Absolute Monocytes 0.8 K/uL (0.1-1.3); Absolute Neutrophil 16.6 K/uL (1.8-8.0); Basophils % 0.1 % (0-1.3); Hematocrit 37.6 % (36.0-45.0); Lymphocytes % 3.6 % (15.3-44.8); MCH 29.8 pg (27.0-35.0); MCV 90.3 fL (80-100); MPV 8.2 fL (7.6-11.3); Monocytes % 4.2 % (3.3-12.3); RBC Red Blood Cell Count 4.17 M/uL (3.86-4.86)
[2018-05-01 23:13] LABS: Blood Morphology Comment NOT SEEN (NOT SEEN); Platelet Estimate INCR
[2018-05-02 00:29] LABS: ALT/SGPT 142 U/L (12-78); Albumin 3.6 g/dL (3.4-5.0); Alkaline Phosphatase 121 U/L (45-117); BUN Blood Urea Nitrogen 28 mg/dL (7-18); Bicarbonate 23 mmol/L (21-32); Bilirubin Direct 0.2 mg/dL (0-0.2); Bilirubin Total 0.3 mg/dL (0.2-1.0); Glucose Level 90 mg/dL (74-106); Protein, Total 7.6 g/dL (6.4-8.2); Sodium Level 134 mmol/L (136-145)
[2018-05-02 00:31] LABS: AST/SGOT 469 U/L (15-37); Potassium 6.9 mmol/L (3.5-5.1)
[2018-05-02 01:01] LABS: Arterial Blood Carboxyhemoglob 0.8 % (0-1.5); Blood Gas Oxyhemoglobin 90.7 % (94-97); Blood O2 Saturation 92.5 % (92-98.5)
[2018-05-02] MEDS ORDERED: NALOXONE 0.4 MG/ML VIAL ONE ×2 (01:32→01:40)
[2018-05-02] MEDS ORDERED: NA CHLORIDE 0.9% 1,000 ML ONE (01:40)
--- NOTE | 2018-05-02 01:49 | EDPHYS ---
Physician Documentation [facility] Name: Lashay Daniels Age: 32 yrs Sex: Female : 1985 Arrival Date: 05/01/2018 Time: 21:13 Bed 3 Private MD: ED Physician Gurdeep Hernandez HPI: 05/02 02:58 This 32 yrs old Female presents to ER via EMS with complaints of Overdose. tw4 02:58 The patient presents to the emergency department after a known overdose, that was tw4 intentional. Context: Method: the patient has a confirmed or suspected ingestion, of narcotics, Time: today, Extent: it is unknown what amount the patient ingested, the OD/poisoning occurred at at home. Associated signs and symptoms: The patient has no apparent associated signs or symptoms. Severity of symptoms: At their worst the symptoms were moderate in the emergency department the symptoms have improved. 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 - Social history:: Smoking status: Patient/guardian denies using tobacco. - Ebola Screening: : No symptoms or risks identified at this time. ROS: 05/02 02:58 Constitutional: Negative for fever, chills, and weight loss, Cardiovascular: Negative tw4 for chest pain, palpitations, and edema, Respiratory: Negative for shortness of breath, cough, wheezing, and pleuritic chest pain, Abdomen/GI: Negative for abdominal pain, nausea, vomiting, diarrhea, and constipation, MS/Extremity: Negative for injury and deformity, Skin: Negative for injury, rash, and discoloration. Neuro: Positive for altered mental status. Psych: Positive for drug dependence, Negative for suicide gesture, suicidal ideation. Exam: 02:58 Head/Face: Normocephalic, atraumatic. Chest/axilla: Normal chest wall appearance and tw4 motion. Nontender with no deformity. No lesions are appreciated. Cardiovascular: Regular rate and rhythm with a normal S1 and S2. No gallops, murmurs, or rubs. Normal PMI, no JVD. No pulse deficits. Respiratory: Lungs have equal breath sounds bilaterally, clear to auscultation and percussion. No rales, rhonchi or wheezes noted. No increased work of breathing, no retractions or nasal flaring. Abdomen/GI: Soft, non-tender, with normal bowel sounds. No distension or tympany. No guarding or rebound. No evidence of tenderness throughout. Back: No spinal tenderness. No costovertebral tenderness. Full range of motion. MS/ Extremity: Pulses equal, no cyanosis. Neurovascular intact. Full, normal range of motion. 02:58 Constitutional: The patient appears somnolent 02:58 Neuro: Orientation: to person, place \T\ time. Mentation: slow to respond, Memory: is normal, Cranial nerves: grossly normal, Motor: moves all fours. 02:58 Psych: Behavior/mood is depressed, Affect is flat, Oriented to person, place, time, Patient has no thoughts/intents to harm self or others. Judgement / Insight is impaired. Vital Signs: 05/01 21:17 BP 105 / 72; Pulse 115; Resp 15; Pulse Ox 100% on R/A; Weight 72.57 kg; Height 5 ft. 6 lp1 in. (167.64 cm); Pain 10/10; 23:27 BP 97 / 76; Pulse 125; Resp 12; Pulse Ox 98% on 4 lpm NC; ak1 05/02 00:00 BP 104 / 81; Pulse 125; Resp 14; Pulse Ox 96% on 2 lpm NC; aa1 00:41 BP 103 / 75; Pulse 124; Resp 18; Pulse Ox 100% on 2 lpm NC; aa1 01:46 BP 108 / 86; Pulse 110; Resp 14; Temp 97.8; Pulse Ox 100% on 4 lpm NC; aa1 03:02 BP 115 / 85; Pulse 113; Resp 14; Pulse Ox 100% on 4 lpm NC; aa1 03:47 BP 128 / 85; Pulse 113; Resp 18; Pulse Ox 96% on 2 lpm NC; aa1 05/01 21:17 Body Mass Index 25.82 (72.57 kg, 167.64 cm) lp1 MDM: 05/01 21:19 Patient medically screened. [facility] 05/02 03:08 Differential diagnosis: Ingestion/exposure to opiates polypharmacy. Data reviewed: [facility] vital signs, nurses notes. Data interpreted: pvc monitor: rhythm is normal sinus rhythm, Pulse oximetry: Interpretation: normal. Counseling: I had a detailed discussion with the patient and/or guardian regarding: the historical points, exam findings, and any diagnostic results supporting the discharge/admit diagnosis. Physician consultation: Rubén West MD regarding admission, patient's condition, need to come to ED to see patient, need to evaluate the patient as soon as possible, and will see patient in ED. 05/01 21:45 Order name: CBC with Diff; Complete Time: 00:08 [facility] 05/01 23:13 Interpretation: WBC 18.1; PLT 429; BRANDO% 92.1; LYM% 3.6; NEUT A 16.6. [facility] 05/01 21:45 Order name: ETOH Level; Complete Time: 23:13 [facility] 05/01 23:14 Interpretation: Within normal limits: ETOH < 3. [facility] 05/01 21:45 Order name: PT-INR; Complete Time: 23:13 [facility] 05/01 23:14 Interpretation: Within normal limits: PT 11.5. [facility] 05/01 21:45 Order name: Ptt, Activated; Complete Time: 23:13 [facility] 05/01 23:13 Interpretation: Normal except: PTT 23.8. [facility] 05/01 21:45 Order name: Salicylate; Complete Time: 23:13 [facility] 05/01 23:13 Interpretation: Normal except: WANDA < 1.7. [facility] 05/01 21:45 Order name: Urine Drug Screen [facility] 05/01 23:13 Order name: Manual Differential; Complete Time: 00:08 [facility] 05/02 00:10 Order name: Basic Metabolic Panel; Complete Time: 00:33 [facility] 05/02 00:10 Order name: Liver (Hepatic) Function; Complete Time: 00:33 [facility] 05/02 00:10 Order name: Acetaminophen Level; Complete Time: 00:33 [facility] 05/02 00:34 Order name: ABG; Complete Time: 01:34 tw 05/01 21:45 Order name: Urine Test (obtain specimen); Complete Time: 03:07 tw4 05/01 21:45 Order name: EKG; Complete Time: 21:45 tw 05/01 21:45 Order name: EKG - Nurse/Tech; Complete Time: 22:23 tw4 05/01 21:45 Order name: IV Saline Lock; Complete Time: 22:23 4 05/02 00:34 Order name: Potassium; Complete Time: 01:30 [facility] 05/02 02:28 Order name: Urine Dipstick--Ancillary (enter results) [facility] 05/02 02:28 Order name: Urine --Ancillary (enter results) [facility] 05/02 03:14 Order name: Urine --Ancillary [facility] 05/02 03:14 Order name: Urine Dipstick-Ancillary [facility] 05/02 03:32 Order name: Lipase [facility] 05/02 03:54 Order name: Lactate [facility] 05/01 21:45 Order name: Labs collected and sent; Complete Time: 22:23 [facility] 05/01 21:45 Order name: Urine Dipstick-Ancillary (obtain specimen); Complete Time: 02:56 tw4 EC:08 Rate is 130 beats/min. Rhythm is regular. QRS [place] is Normal. GA interval is normal. tw4 QRS interval is normal. QT interval is normal. No Q waves. T waves are Normal. No ST changes noted. Clinical impression: Sinus tachycardia. Interpreted by me. Reviewed by me. Administered Medications: 01:39 Drug: NARcan 1 mg Route: IVP; Site: right upper arm; aa1 02:30 Follow up: Response: Marked relief of symptoms aa1 01:41 Drug: NS 0.9% 1000 ml Route: IV; Rate: 125 ml/hr; Site: right upper arm; aa1 03:00 Follow up: IV Status: Infusion continued upon transfer aa1 01:50 Drug: Calcium Chloride 1 grams Route: IVP; Site: right upper arm; aa1 02:45 Follow up: Response: No adverse reaction aa1 01:50 Drug: Insulin Regular Human 10 units {Co-Signature: ak1 (Paulette Singh RN).} Route: IVP; aa1 Site: right upper arm; 02:45 Follow up: Response: No adverse reaction aa1 01:50 Drug: D50W 50 ml Route: IVP; Site: right upper arm; aa1 02:45 Follow up: Response: No adverse reaction aa1 Disposition: 05/02/18 01:48 Hospitalization ordered by Rubén West for Inpatient Admission. Preliminary diagnosis is Opiate overdose. - Bed requested for Intensive Care Unit. - Status is Inpatient Admission. aa1 - Condition is Fair. - Problem is new. - Symptoms are unchanged. UTI on Admission? No Signatures: Dispatcher [employer] [facility] Jocelyn Bingham RN RN Melissa Rasmussen RN DENISE aa1 Doreen Brooks RN RN 1 Gurdeep Hernandez MD MD tw4 Paulette Singh RN ak1 Corrections: (The following items were deleted from the chart) 00:09 05/01 21:45 ACETAMINOPHEN+C.LAB.BRZ ordered. [facility] 05/02 00:09 05/01 21:45 BASIC METABOLIC PANEL+C.LAB.BRZ ordered. [facility] 05/02 00:09 05/01 21:45 HEPATIC FUNCTION+C.LAB.BRZ ordered. [facility] 05/02 02:04 01:48 Hospitalization Ordered by Rubén West MD for Inpatient Admission. Preliminary mw diagnosis is Opiate overdose. Bed requested for Telemetry/MedSurg (Inpatient). Status is Inpatient Admission. Condition is Fair. Problem is new. Symptoms are unchanged. UTI on Admission? No. tw4 02:59 02:04 05/02/2018 01:48 Hospitalization Ordered by Rubén West MD for Inpatient Admission. Preliminary diagnosis is Opiate overdose. Bed requested for [facility] ER HOLD. Status is Inpatient Admission. Condition is Fair. Problem is new. Symptoms are unchanged. UTI on Admission? No. mw 03:27 05/01 21:19 PMHx: pancreatic cancer; lp1 aa1 05/02 04:47 02:59 05/02/2018 01:48 Hospitalization Ordered by Rubén West MD for Inpatient aa1 Admission. Preliminary diagnosis is Opiate overdose. Bed requested for Intensive Care Unit. Status is Inpatient Admission. Condition is Fair. Problem is new. Symptoms are unchanged. UTI on Admission? No. mw
--- NOTE | 2018-05-02 01:49 | ER ---
Nurse's Notes [facility] Name: Lashay Daniels Age: 32 yrs Sex: Female : 1985 Arrival Date: 05/01/2018 Time: 21:13 Bed 3 Private MD: Diagnosis: Opiate overdose Presentation: 05/01 21:14 Presenting complaint: EMS states: 2nd time today for EMS called for patient for lp1 overdose; has prescription for Morphine due to pancreatic cancer; Given multiple rounds of Narcan with some improvement, patient continues to be drowsy, Mental health contacted by EMS for harm to self. Transition of care: patient was not received from another setting of care. Onset of symptoms was May 01, 2018. Risk Assessment: Do you want to hurt yourself or someone else? Patient reports desire/thoughts of hurting themselves or someone else. Provider notified. Initial Sepsis Screen: Does the patient meet any 2 criteria? No. Patient's initial sepsis screen is negative. Does the patient have a suspected source of infection? No. Patient's initial sepsis screen is negative. Care prior to arrival: Medication(s) given: Narcan IN x2, Narcan IV x6 IV initiated. 22 GA, in the right upper arm Glucose check: 206. 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 - Social history:: Smoking status: Patient/guardian denies using tobacco. - Ebola Screening: : No symptoms or risks identified at this time. Screenin:21 Abuse screen: Denies threats or abuse. Denies injuries from another. Nutritional aa1 screening: No deficits noted. Tuberculosis screening: No symptoms or risk factors identified. Fall Risk IV access (20 points). Assessment: 21:21 General: Appears in no apparent distress. comfortable, Behavior is calm, cooperative, aa1 appropriate for age. Pain: Complains of pain in back and left leg Quality of pain is described as aching, throbbing, Is continuous, chronic. Neuro: Level of Consciousness is awake, alert, obeys commands, Oriented to person, place, time, situation, Moves all extremities. Speech is normal, Facial symmetry appears normal, Pupils are PERRLA. Cardiovascular: Heart tones S1 S2 present Rhythm is regular. Respiratory: Airway is patent Respiratory effort is even, unlabored, Respiratory pattern is regular, symmetrical, Breath sounds are clear bilaterally. GI: Abd is soft and non tender X 4 quads. : No signs and/or symptoms were reported regarding the genitourinary system. EENT: No signs and/or symptoms were reported regarding the EENT system. Derm: Skin is intact, is healthy with good turgor, Skin is pink, warm \\T\\ dry. Musculoskeletal: Circulation, motion, and sensation intact. Capillary refill < 3 seconds. 23:25 Reassessment: family at bedside per pt request. ak1 05/02 00:20 Reassessment: Patient appears in no apparent distress at this time. Patient and/or aa1 family updated on plan of care and expected duration. Pain level reassessed. Patient is alert, oriented x 3, equal unlabored respirations, skin warm/dry/pink. Pt much more alert and requesting to go home. Reports she feels fine and does not want to stay in the hospital. MD at bedside with pt \\T\\ significant other and explains importance of pt staying in hospital. Pt denies intention to harm herself. States, "I promise I did not intentionally take too much medication. I don't want to ." Pt agrees to stay in hospital for medical treatment. 00:44 Reassessment: RT at bedside for ABG. aa1 01:25 Reassessment: Pt becoming drowsy and falling asleep. RR decreased to 6 with O2 sat aa1 dropping into 70's on 4 L NC. notified and will administer additional dose of Narcan. 01:35 Reassessment: Patient appears in no apparent distress at this time. O2 sat increased to aa1 100% on NC with RR of 14 Patient states symptoms have improved. 01:55 Reassessment: Pt vomited large amount of emesis. Gown and linens changed. aa1 02:15 Reassessment: Patient appears in no apparent distress at this time. Patient and/or aa1 family updated on plan of care and expected duration. Pain level reassessed. Patient is alert, oriented x 3, equal unlabored respirations, skin warm/dry/pink. Dr. Banks at bedside for pt assessment. Pt agrees to staying in hospital but would like to be discharged as soon as medically appropriate. States he mother usually manages her medications and she had been off of her morphine for awhile and believes that her gave her the second dose of her medicine too early. Pt again denies any intention of harming herself. 03:15 Reassessment: Patient appears in no apparent distress at this time. Patient and/or aa1 family updated on plan of care and expected duration. Pain level reassessed. Patient is alert, oriented x 3, equal unlabored respirations, skin warm/dry/pink. Awaiting admission to ICU. 04:20 Reassessment: Patient appears in no apparent distress at this time. Patient is alert, aa1 oriented x 3, equal unlabored respirations, skin warm/dry/pink. Pt admitted to ICU. Vital Signs: 05/01 21:17 BP 105 / 72; Pulse 115; Resp 15; Pulse Ox 100% on R/A; Weight 72.57 kg; Height 5 ft. 6 lp1 in. (167.64 cm); Pain 10/10; 23:27 BP 97 / 76; Pulse 125; Resp 12; Pulse Ox 98% on 4 lpm NC; ak1 05/02 00:00 BP 104 / 81; Pulse 125; Resp 14; Pulse Ox 96% on 2 lpm NC; aa1 00:41 BP 103 / 75; Pulse 124; Resp 18; Pulse Ox 100% on 2 lpm NC; aa1 01:46 BP 108 / 86; Pulse 110; Resp 14; Temp 97.8; Pulse Ox 100% on 4 lpm NC; aa1 03:02 BP 115 / 85; Pulse 113; Resp 14; Pulse Ox 100% on 4 lpm NC; aa1 03:47 BP 128 / 85; Pulse 113; Resp 18; Pulse Ox 96% on 2 lpm NC; aa1 05/01 21:17 Body Mass Index 25.82 (72.57 kg, 167.64 cm) 1 ED Course: 05/01 21:13 Patient arrived in ED. aa1 21:13 Patient has correct armband on for positive identification. Bed in low position. Call aa1 light in reach. Side rails up X2. bus monitor on. Pulse ox on. NIBP on. Warm blanket given. 21:17 Triage completed. lp1 21:19 Gurdeep Hernandez MD is Attending Physician. tw4 21:20 Melissa Rasmussen RN is Primary Nurse. aa1 21:21 Maintain EMS IV. Dressing intact. Site clean \\T\\ dry. Gauge \\T\\ site: 22g R upper arm. aa 1 23:26 Arm band placed on Patient placed in an exam room, on a stretcher, on oxygen, on ak1 cardiac nurse, on pulse oximetry. 05/02 00:31 Notified ED physician of a critical lab result(s). potassium of 6.9, AST 469 Dr Hernandez bb notified. 01:46 Rubén West MD is Hospitalizing Provider. tw4 01:55 Assisted to bedside commode. Linen changed. aa1 03:05 Accessed peripheral vein via ultrasound, utilizing dynamic ultrasound technique using aa1 20G Nexia IV catheter per hospital protocol. Clean \\T\\ dry. Dressing intact. Good blood return. Flushes easily. by Nuria Timmons RN. 03:28 No provider procedures requiring assistance completed. Patient admitted, IV remains in aa1 place. Administered Medications: 01:39 Drug: NARcan 1 mg Route: IVP; Site: right upper arm; aa1 02:30 Follow up: Response: Marked relief of symptoms aa1 01:41 Drug: NS 0.9% 1000 ml Route: IV; Rate: 125 ml/hr; Site: right upper arm; aa1 03:00 Follow up: IV Status: Infusion continued upon transfer aa1 01:50 Drug: Calcium Chloride 1 grams Route: IVP; Site: right upper arm; aa1 02:45 Follow up: Response: No adverse reaction aa1 01:50 Drug: Insulin Regular Human 10 units {Co-Signature: ak1 (Paulette Singh RN).} Route: IVP; aa1 Site: right upper arm; 02:45 Follow up: Response: No adverse reaction aa1 01:50 Drug: D50W 50 ml Route: IVP; Site: right upper arm; aa1 02:45 Follow up: Response: No adverse reaction aa1 Outcome: 01:48 Decision to Hospitalize by Provider. tw4 04:20 Admitted to ICU accompanied by nurse, accompanied by tech, via stretcher, room 6, with aa1 oxygen, on monitor, with chart, Other bedside report given to Tiffany Joyner RN 04:20 Condition: stable 04:20 Instructed on the need for admit, Demonstrated understanding of instructions. 04:47 Patient left the ED. aa1 Signatures: Melissa Rasmussen RN RN aa1 Nuria Timmons RN DENISE bb Doreen Brooks RN RN mery1 Paulette Singh, RN RN ak1 Gurdeep Hernandez MD MD tw4 Paulette Singh RN ak1 Corrections: (The following items were deleted from the chart) 00:34 00:31 Notified ED physician of muna toro 03:01 00:20 Reassessment: Patient appears in no apparent distress at this time. Patient aa1 and/or family updated on plan of care and expected duration. Pain level reassessed. Patient is alert, oriented x 3, equal unlabored respirations, skin warm/dry/pink. Pt much more alert and requesting to go home. Reports she feels fine and does not want to stay in the hospital. MD at bedside with pt \\T\\ significant other and explains importance of pt staying in hospital. aa1 03:27 17 21:19 PMHx: pancreatic cancer; lp1 aa1
[2018-05-02] MEDS ORDERED: INSULIN -REGULAR HUMAN 50 UNIT/0.5 ML ML ONE (01:59)
[2018-05-02] MEDS ORDERED: Caclcium Chloride 10% INJ SYR IV ONE (01:59)
[2018-05-02] MEDS ORDERED: D50W 25 GM/50 ML SYRINGE IV ONE ×2 (01:59→16:35)
--- NOTE | 2018-05-02 02:44 | P.HP ---
Certification for Inpatient Patient admitted to: Inpatient With expected LOS: >2 Midnights Practitioner: I am a practitioner with admitting privileges, knowledge of patient current condition, hospital course, and medical plan of care. Services: Services provided to patient in accordance with Admission requirements found in Title 42 Section 412.3 of the Code of Federal Regulations Patient History Date of Service: 05/02/18 Reason for admission: Acute encephalopathy History of Present Illness: Ms Daniels is a 32-year-old woman with history of insulin-dependent diabetes mellitus, seizure disorder, who claimed to have history of pancreatitis, was found unresponsive this morning, EMS arrived to her home provided Narcan and the patient was more alert and she refused to be transferred. Later the patient became unresponsive again, EMS was called getting an at this time she was transferred to the hospital. ENT reported the case to the police who called Mental health department for evaluation. During her stay in the ER she received Narcan, and her mentation temporary improved, then she became abdominal again. After the 2nd dose of Narcan in ER, the patient remained more alert, and she was able to provide a history. She denied any fever, chills, chest pain, abdominal pain, or diarrhea. Lab work was significantly abnormal, remarkable for leukocytosis 18.1 K, hyperkalemia 6.9, creatinine 2.3 and abnormal liver enzymes. Allergies No Known Drug Allergies Allergy (Verified 02/03/15 10:46) Unknown No Known Allergies Allergy (Uncoded 03/14/18 00:41) Unknown Home medications list reviewed: Yes Home Medications: Acetaminophen [Acetaminophen Extra Strength] 500 mg PO Q4H PRN 02/02/15 Aspirin/Acetaminophen/Caffeine [Excedrin Migraine Caplet] 1 each PO Q6H PRN Ketorolac [Toradol] 10 mg PO Q6HR PRN 02/02/15 Lisinopril [Prinivil] 20 mg PO DAILY 02/02/15 Lysine 1,000 mg PO DAILY 02/02/15 Zolpidem Tartrate [Ambien] 10 mg PO BEDTIME PRN PRN 02/02/15 Pantoprazole [Protonix Tab] 40 mg PO DAILY #30 tab 02/07/15 - Past Medical/Surgical History Diabetic: No -: HTN -: CAD, 2014 -: Kayla 2008 - Family History Father -: Cancer Mother -: Cancer - Social History Alcohol use: Yes CD- Drugs: No Caffeine use: Yes Place of Residence: Home Review of Systems 10-point ROS is otherwise unremarkable Physical Examination - Physical Exam General: Alert (On and off), In no apparent distress HEENT: Atraumatic, PERRLA, Mucous membr. moist/pink, EOMI, Sclerae nonicteric Neck: Supple, 2+ carotid pulse no bruit, No LAD, Without JVD or thyroid abnormality Respiratory: Clear to auscultation bilaterally, Normal air movement Cardiovascular: Regular rate/rhythm, Normal S1 S2 Gastrointestinal: Normal bowel sounds, No tenderness Musculoskeletal: No tenderness Integumentary: No rashes Neurological: Normal speech, Normal strength at 5/5 x4 extr, Normal tone, Normal affect Lymphatics: No axilla or inguinal lymphadenopathy - Studies Laboratory Data (last 24 hrs) 05/02/18 00:45: Potassium 5.6 H* 05/01/18 23:55: Sodium 134 L, Potassium 6.9 H*, BUN 28 H, Creatinine 2.30 H, Glucose 90, Total Bilirubin 0.3, AST 469 H*, ALT 142 H, Alkaline Phosphatase 121 H 05/01/18 23:55: Sodium Cancelled, Potassium Cancelled, BUN Cancelled, Creatinine Cancelled, Glucose Cancelled, Total Bilirubin Cancelled, AST Cancelled, ALT Cancelled, Alkaline Phosphatase Cancelled 05/01/18 22:06: PT 11.5, INR 0.97, APTT 23.8 L 05/01/18 22:06: WBC 18.1 H, Hgb 12.4, Hct 37.6, Plt Count 429 H Assessment and Plan - Plan Assessment: 1. Acute encephalopathy 2. Opioid overdose 3. The hyperkalemia 4. Acute renal injury 5. Abnormal liver enzymes 6. Seizure disorder Plan: The patient will be admitted to ICU for close monitoring, she is under involuntary long-term, pending evaluation by mental health department. She received IV insulin and glucose and Kayexalate, subsequent potassium level was 5.6. Will order abdominal ultrasound and hepatitis panel. Continue IV fluid challenge for her acute renal injury. - Advance Directives Does patient have a Living Will: No Does patient have a Durable POA for Healthcare: No - Code Status/Comfort Care Code Status Assessed: Yes Code Status: Full Code
[2018-05-02 03:12] LABS: Barbiturates POSITIVE (NEGATIVE); Benzodiazepines POSITIVE (NEGATIVE); Cocaine NEGATIVE (NEGATIVE); METHAMPHETAM NEGATIVE (NEGATIVE); Methadone NEGATIVE (NEGATIVE); Opiates POSITIVE (NEGATIVE); Phencyclidine NEGATIVE (NEGATIVE); THC Cannibis NEGATIVE (NEGATIVE)
[2018-05-02 03:13] LABS: Urine Blood 3+ (NEG); Urine Glucose TRACE (NEG); Urine Protein 2+ (NEG); Urine Specific Gravity 1.025 (1.005-1.030)
[2018-05-02] MEDS: NA CHLORIDE 0.9% 1,000 ML IV SCH ×3 (04:30→17:21)
[2018-05-02] MEDS: INSULIN -REGULAR HUMAN 50 UNIT/0.5 ML ML SQ SCH ×4 (07:30→21:00)
--- NOTE | 2018-05-02 08:45 | RAD REPORT ---
EXAM DESCRIPTION: US - Abdomen Exam Limited - 05/02/2018 8:16 am CLINICAL HISTORY: Abdominal pain. COMPARISON: 2014 FINDINGS: Gallbladder has been removed. The common bile duct measures 7 millimeters. The pancreas appears normal in size and echotexture. IMPRESSION: Mild dilatation of the biliary tree. This probably is physiologic in this patient status post cholecystectomy. However, stricture/ nonvisualized stone could also result in this appearance. .
[2018-05-02] MEDS: ONDANSETRON 4 MG/2 ML VIAL IV PRN ×2 (09:30→16:20)
[2018-05-02] MEDS: ENOXAPARIN 40 MG/0.4 ML SQ SCH (11:04)
[2018-05-02] MEDS ORDERED: SODIUM CHLORIDE 0.9% 10ML INJ IV PRN (15:26)
--- NOTE | 2018-05-02 15:30 | P.PN ---
Subjective Date of Service: 05/02/18 Primary Care Provider: Unknown Chief Complaint: Acute encephalopathy Subjective: Other (Patient alert. Still with some nausea and increase sedation) Physical Examination - Vital Signs Temperature: 98.1 F Blood Pressure: 127/79 Pulse: 101 Respirations: 12 Pulse Ox (%): 99 - Physical Exam General: Alert, Other (Poor eye contact noted. Increase sedation noted.) HEENT: Atraumatic Neck: Supple Respiratory: Clear to auscultation bilaterally, Normal air movement Cardiovascular: Normal pulses, Regular rate/rhythm Gastrointestinal: Normal bowel sounds, Soft and benign, Non-distended, No tenderness, No masses, No rebound, No guarding Musculoskeletal: No erythema, No tenderness, No warmth Integumentary: No erythema, No warmth, No cyanosis Neurological: Normal speech, Normal strength at 5/5 x4 extr, Normal tone, Abnormal affect (Patient appears depressed. Poor eye contact noted.) - Studies Laboratory Data (last 24 hrs) 05/02/18 00:45: Potassium 5.6 H* 05/01/18 23:55: Sodium 134 L, Potassium 6.9 H*, BUN 28 H, Creatinine 2.30 H, Glucose 90, Total Bilirubin 0.3, AST 469 H*, ALT 142 H, Alkaline Phosphatase 121 H 05/01/18 23:55: Sodium Cancelled, Potassium Cancelled, BUN Cancelled, Creatinine Cancelled, Glucose Cancelled, Total Bilirubin Cancelled, AST Cancelled, ALT Cancelled, Alkaline Phosphatase Cancelled 05/01/18 22:06: PT 11.5, INR 0.97, APTT 23.8 L 05/01/18 22:06: WBC 18.1 H, Hgb 12.4, Hct 37.6, Plt Count 429 H Medications List Reviewed: Yes Assessment & Plan Discharge Plan: Home Plan to discharge in: 48 Hours Physician Review Additional Text: Impression: Acute encephalopathy likely opioid overdose Hyperkalemia Acute renal injury likely from dehydration Abnormal liver function likely from medication Seizure disorder Depression with anxiety History of narcotic abuse Diabetes mellitus type 1 Plan: Will continue with IV fluids. Will monitor closely. Will hold narcotics and medication-muscle relaxers. Patient admits taking narcotic medication. Case discussed at length with mother who has medical power of research attorney. Nephrology consulted to address renal injury. Will continue with IV fluids. Will recheck lab later. Will continue with her anti seizure medication. Will confirm home medications. Will try to obtain previous records [place] [facility] [place]. Will monitor Accu-Chek. Will reassess tomorrow. Time Spent Managing Pts Care (In Minutes): 55
--- NOTE | 2018-05-02 15:38 | EKG ---
Test Date: 2018-05-01 Test Time: 22:11:48 Ell Tutor: COLT MEASUREMENT RESULTS: Intervals: Rate: 130 ID: [id number] QRSD: 108 QT: 292 QTc: 429 [place]: P: 70 ID: [id number] QRS: 93 T: 14 INTERPRETIVE STATEMENTS: Sinus tachycardia Possible Left atrial enlargement Rightward axis Incomplete right bundle branch block Nonspecific T wave abnormality Abnormal ECG Compared to ECG 03/13/2018 21:20:02 Right-axis deviation now present Incomplete right bundle-branch block now present T-wave abnormality still present Electronically Signed On 05-02-18 15:35:08 CDT by Adolfo Kaur
[2018-05-02] MEDS: CITALOPRAM 10 MG TABLET PO SCH (16:00)
--- NOTE | 2018-05-02 16:03 | RAD REPORT ---
EXAM DESCRIPTION: US - Renal Ultrasound-Complete - 05/02/2018 3:46 pm CLINICAL HISTORY: Acute kidney injury COMPARISON: None. FINDINGS: The right kidney measures 10.6 x 5.1 x 4.9 cm. The left kidney measures 10.5 x 5.0 x 4.4 cm. Renal cortical thickness and echogenicity are normal. No hydronephrosis or suspicious renal mass. No bladder wall thickening or mass. No intraluminal stone or mass. IMPRESSION: No hydronephrosis or suspicious renal mass. No other significant findings.
[2018-05-02] MEDS: PRIMIDONE 250 MG TAB PO SCH ×2 (16:22→22:29)
[2018-05-02 16:25] LABS: Potassium 5.7 mmol/L (3.5-5.1)
[2018-05-02] MEDS ORDERED: GLUCAGON 1 MG/VIAL IM PRN (16:35)
[2018-05-02] MEDS ORDERED: D50W 25 GM/50 ML SYRINGE IV PRN (16:35)
[2018-05-02] MEDS ORDERED: FUROSEMIDE 40 MG/4 ML VIAL IV ONE (16:37)
[2018-05-02] MEDS ORDERED: NA CHLORIDE 0.9% 1,000 ML IV ONE (16:37)
[2018-05-02] MEDS ORDERED: ALBUTEROL 2.5 MG/3 ML NEB SOL NEB ONE (16:37)
[2018-05-02] MEDS ORDERED: INSULIN -REGULAR HUMAN 50 UNIT/0.5 ML ML SQ ONE (16:45)
--- NOTE | 2018-05-03 02:24 | CON ---
Date of Consultation: 05/02/2018 Additional Consulting Physician: Grant Engle D.O. Reason For Consultation: Elevated BUN and creatinine, acidosis. History Of Present Illness: This is a 32-year-old female. All the information has been obtained fro m the as the patient has altered mental status. The patient's diabetes complicated with neuropa thy, no retinopathy, seizures, pancreatitis. The patient was brought to the hospital because of alte red mental status and unresponsive. Her urine drug screen is positive for opioid and barbiturate. T he patient after the Narcan recovered partially, then continued to be altered. Her primary workup sh owed that the patient has hyperkalemia, potassium up to 6.9 with elevated creatinine to 2.3. For tyesha t reason, we have been consulted. According to the family, the patient is taking nonsteroid occasion ally, every other day, 1-2 tablets. The patient denied any IV contrast. No recent hospitalization. No other medication. The patient was started on hydration. Creatinine started to trend down. Reviewing the record, the p atteresa had normal creatinine back in February 2018, creatinine 0.9 with GFR of 70. Past Medical History: Includes, 1.Diabetes. 2.Hypertension. 3.Hyperlipidemia. 4.Seizure. Home Medications: Include, 1.Tylenol. 2.Aspirin. 3.Toradol. 4.Lisinopril. 5.Ambien. 6.Pantoprazole. Family History: Positive for hypertension. Social History: Active alcohol, active smoking. Denies drug abuse. Review of Systems: None obtainable. Physical Examination: Vital Signs: When I saw the patient, blood pressure of 145/85, pulse of 97. The patient had good ur ine output of 1 L. Chest: Clear to auscultation. Heart: S1, S2. Regular. Abdomen: Soft, nontender. Extremities: No edema. Neuro: The patient is sleepy, moving 4 extremities without any focal. Lab Data: Back in February 2018, creatinine 0.9, GFR of 70. WBC of 18.1, H and H 12.4/37.6, and platele ts 429. Sodium 134, potassium 6.9, bicarb 23, BUN 28, creatinine 2.3, and calcium 7.6. AST 467, ALT 142, lactic acid of 3.1, procalcitonin 3.8. Urinalysis; specific gravity of 1.025. Bacteria of 50, and WBC less than 5. Urine drug screen was positive for opioid, barbiturates, and ecstasy, and frank odiazepine. Medications: Current medications the patient on, its include; 1.Albuterol. 2.Lovenox. 3.Citalopram. 4.Coumadin. 5.Zofran. 6.Pantoprazole. 7.Insulin. 8.IV fluid of normal saline. Imaging: Renal ultrasound showing normal size kidney, 10.6 x 10.5, no hydronephrosis. Assessment And Plan: 1.Acute kidney injury secondary to poor perfusion, acute tubular necrosis, complicated with hyperkal emia superimposed with nonsteroidal use of Toradol, complicated with hyperkalemia. The patient is st ill on the dry side. I am going to go ahead and continue aggressive hydration. We will bolus the pa tient with 1 L to establish better potassium diuresis and we will follow up. 2.Obstructive uropathy. Rhabdomyolysis has been ruled out. 3.Hyperkalemia secondary to renal failure. I am going to send for TSH and CK to rule out other caus es. We will give the patient albuterol 10 mg. I will give the patient D50 with 5 units of regular i nsulin. We will give the patient 1 L of normal saline with 40 of Lasix to establish better potassium diuresis. 4.Altered mental status secondary to opioid overdose. We will follow up with the primary. 5.Diabetes, as by primary. Case was discussed with Dr. Engle, who agreed on the plan. CALE/SUSAN Voice ID: [id number] Report ID: [id number]
[2018-05-03 05:06] LABS: Absolute Lymphocytes (CBC) 0.8 K/uL (0.7-4.9); Absolute Monocytes 0.6 K/uL (0.1-1.3); Absolute Neutrophil 7.5 K/uL (1.8-8.0); Basophils % 0.3 % (0-1.3); Eosinophils % 0.1 % (0-4.4); Hematocrit 34.5 % (36.0-45.0); Lymphocytes % 8.5 % (15.3-44.8); MCH 29.6 pg (27.0-35.0); MCV 89.1 fL (80-100); MPV 8.3 fL (7.6-11.3); Monocytes % 6.8 % (3.3-12.3); RBC Red Blood Cell Count 3.88 M/uL (3.86-4.86)
[2018-05-03 05:41] LABS: Albumin 3.4 g/dL (3.4-5.0); Bilirubin Total 0.3 mg/dL (0.2-1.0); Magnesium 2.5 mg/dL (1.8-2.4); Phosphorus 1.8 mg/dL (2.5-4.9); Potassium 4.4 mmol/L (3.5-5.1); Protein, Total 7.5 g/dL (6.4-8.2); Thyroid Stimulating Hormone 0.161 uIU/mL (0.360-3.740)
[2018-05-03 05:56] LABS: CKMB Creatine Kinase MB 41.4 ng/mL (0.3-3.6)
[2018-05-03 06:01] VITALS: BMI 27.2
[2018-05-03] MEDS: NA CHLORIDE 0.9% 1,000 ML IV SCH ×3 (06:12→16:00)
[2018-05-03 07:04] LABS: Troponin I 0.94 ng/mL (0.0-0.045)
[2018-05-03] MEDS: INSULIN -REGULAR HUMAN 50 UNIT/0.5 ML ML SQ SCH ×4 (07:30→21:00)
[2018-05-03] MEDS: CITALOPRAM 10 MG TABLET PO SCH (09:41)
[2018-05-03] MEDS: ENOXAPARIN 40 MG/0.4 ML SQ SCH (09:41)
[2018-05-03] MEDS: PANTOPRAZOLE 40 MG INJ IVP SCH (09:41)
[2018-05-03] MEDS: PRIMIDONE 250 MG TAB PO SCH ×3 (09:41→21:14)
[2018-05-03] MEDS ORDERED: NA CHLORIDE 0.9% 1,000 ML IV SCH (10:00)
--- NOTE | 2018-05-03 13:12 | P.PN ---
Subjective Date of Service: 05/03/18 Primary Care Provider: Unknown Chief Complaint: Acute encephalopathy Subjective: Other (Improved.) Physical Examination - Vital Signs Temperature: 97.1 F Blood Pressure: 150/93 Pulse: 85 Respirations: 14 Pulse Ox (%): 100 - Physical Exam General: Alert, In no apparent distress, Cooperative HEENT: Atraumatic Neck: Supple Respiratory: Clear to auscultation bilaterally, Normal air movement Cardiovascular: Normal pulses, Regular rate/rhythm Gastrointestinal: Normal bowel sounds, Soft and benign, Non-distended, No tenderness, No masses, No rebound, No guarding Musculoskeletal: No erythema, No tenderness, No warmth Integumentary: No tenderness/swelling, No erythema, No warmth, No cyanosis Neurological: Normal speech, Normal strength at 5/5 x4 extr, Normal tone, Abnormal affect (Poor eye contact) - Studies Medications List Reviewed: Yes Assessment & Plan Discharge Plan: Home Plan to discharge in: Greater than 2 days Physician Review Additional Text: Impression: Acute encephalopathy likely opioid overdose Hyperkalemia Acute renal injury likely from dehydration Abnormal liver function likely from medication Seizure disorder Depression with anxiety History of narcotic abuse Diabetes mellitus type 1 Rhabdomyolysis Plan: Acute encephalopathy likely opioid overdose: Her mentation has improved. She is not suicidal. Will continue to monitor. She seems to be at baseline. Will discuss with mother and . Hyperkalemia: Resolved. Will monitor. Acute renal injury likely from dehydration: This has improved. Nephrology continues to monitor and adjust. Encourage oral intake. Abnormal liver function likely from medication: Hepatitis sent out. Likely related to Drug use. Will continue to monitor and follow. Seizure disorder: Primidone restarted. Nephrology consulted Neurology to address. EEG ordered. Will discuss with Neurology. Depression with anxiety: Meds reviewed and restarted. Will need mental health evaluation once medical issues are stable. History of narcotic abuse: Will need cessation and rehab. Diabetes mellitus type 1: Will monitor. Patient on sliding scale. Will check A1C. Rhabdomyolysis: Continue with fluids. Likely from prolonged immobile stable during her opiote overdose. Will continue to monitor. Nephrology consulted Neurology to evaluate for possible seizure that may have led to Rhabdomyolysis. Will try to ambulate. Will get PT. Time Spent Managing Pts Care (In Minutes): 55
[2018-05-03] MEDS ORDERED: NACHLORIDE 0.45% 1,000 ML IV ONE (13:19)
[2018-05-03 13:24] LABS: Urine Appearance CLOUDY; Urine Bilirubin NEGATIVE (NEG); Urine Blood 2+ (NEG); Urine Color YELLOW; Urine Glucose 1+ (NEG); Urine Protein 1+ (NEG); Urine Urobilinogen 0.2 mg/dL (0.2-1.0); Urine pH 5.5 (5.0-7.0)
[2018-05-03 14:15] LABS: Urine Protein/Creatinine Ratio 0.55 ratio (<0.15)
[2018-05-03 15:33] LABS: Urine Microscopic Reflex ORDER UMIC
[2018-05-03] MEDS ORDERED: SODIUM PHOSPHATE 10 MM in NA CHLORIDE 0.9% 250 ML IV ONE (17:00)
[2018-05-03 17:03] LABS: Urine Bacteria <20 /HPF (<20); Urine RBC <5 /HPF (NONE SEEN)
[2018-05-03 17:04] LABS: Urine Amorphous Sediment 2+ /HPF (NONE SEEN); Urine Culture Reflex Order NOT NEEDED
--- NOTE | 2018-05-03 20:56 | PN ---
Date of Progress Note: 05/03/2018 NEPHROLOGY FOLLOWUP Subjective: The patient was admitted with altered mental status, hyperkalemia, and acute kidney inju ry. Workup showed that she has rhabdomyolysis. The patient was started on hydration. Physical Examination: Vital Signs: When I saw the patient; blood pressure of 150/93, pulse of 83, afebrile. Chest: Clear to auscultation. Heart: S1, S2. Regular. Abdomen: Soft, nontender. EXTREMITIES: No edema. NEURO: Alert, sleepy. No focal. Laboratory Data: H and H 11.5/34.5. Sodium 140, potassium 4.4, bicarb 29, BUN 19, creatinine 1.2. GFR of 51, calcium 9, phos 1.8, magnesium 2.5, alkaline phosphatase is 103, AST 431. CK of 11,914, t roponin 0.9. PTH 119. Urinalysis; specific gravity of 1.020, pH of 5.5, protein creatinine 0.5. Current Medications: The patient on its include; 1.Albuterol. 2.Lovenox. 3.Zofran. 4.Pantoprazole. 5.Insulin. 6.Normal saline at 100 per hour. Assessment And Plan: 1.Acute kidney injury secondary to rhabdomyolysis, prerenal, superimposed with nonsteroidal use. Co ntinue to recover. I am going to continue hydration. The patient will continue IV fluid. I am michelle g to go ahead and increase her IV fluid to 125 mL per hour and we will follow up. 2.Hyperkalemia secondary to rhabdomyolysis. Continue hydration and we will follow up. Resolved as above. 3.Rhabdomyolysis as above. 4.Secondary hyperparathyroidism. Calcium on normal. We will follow up. I am going to repeat the P TH in couple of days after normalized the kidney function. 5.Hypophosphatemia in the presence of the rhabdomyolysis. I going to be replacing and we will follo w up. 6.Seizure, possible postictal. We will consult Neurology. CALE/SUSAN Voice ID: [id number] Report ID: [id number]
--- NOTE | 2018-05-03 23:04 | CON ---
Reason For Consultation: Consultation called because of a possible seizure. History Of Present Illness: Ms. Daniels is a 32-year-old patient with reported history of insulin-de pendent diabetes mellitus and seizures, who came in to [facility] on 05/02/2018, after being found unresponsive at home. It is unclear if the patient actually had a seizure as this was nonwitn essed and the patient is unable to give a history of what happened. Reportedly, she has been abusing opiates and when she was found that she was given Narcan and reportedly began to respond somewhat, b ut then became somewhat less responsive again. She was admitted to [facility] and put in [facility] ICU. During her transport by emergency services and while at the emergency room and in the ICU, e had no evidence of tonic-clonic activity, no tongue biting, or no episodes of focal findings consis tent with seizure. She has not had head CT scan at this admission. She did have a head CT scan from March 13, 2018, and the study was unremarkable. Laboratory studies did reveal significant rhabdomy olysis. Creatine kinase is increased to 11,914 and elevated CK-MB to 41.4, elevated troponin to 0.94 , AST elevated at 431, and ALT elevated at 145. Her urine toxicology screen was positive for opiates , barbiturates, and benzodiazepines. At the time of my evaluation, the patient was actually returnin g to baseline in the ICU, responding appropriately to all questions, and moving all of her extremitie s equally well with a symmetric-appearing face. Past Medical History: As indicated above in addition to reported history of pancreatitis, hypertensi on, and GE reflux. Allergies: NO KNOWN DRUG ALLERGIES. Home Medications: Acetaminophen 500 mg every 4 hours as needed, Excedrin 1 tablet every 6 hours as n eeded, Toradol 10 mg every 6 hours as needed, Prinivil 20 mg daily, Biaxin 1000 mg daily, Ambien 10 m g at night as needed, and Protonix 40 mg daily. Surgical History: Cholecystectomy, 2009. Family History: Positive for cancer in both father and mother. Social History: Reports alcohol use, but denies drug use despite the positive findings on urinalysis . Review of Systems: Aside from mentioned above, she denies any recent fevers, chills, nausea, vomiting, myalgias, arthral gias, headache, weight change, or rash. No psychiatric complaints. No gastrointestinal or genitouri nary issues. Physical Examination: Vital Signs: Blood pressure 148/90, pulse 87, respiratory rate 14, and temperature 97.1. General: Ms. Daniels is resting comfortably in bed. She is in no acute distress. HEENT: She is normocephalic, atraumatic. Her sclerae are anicteric. Oropharynx is moist and pink. Neck: Supple. Chest: Clear. Heart: Regular. Extremities: Show no edema or cyanosis. Neurological: She is alert and oriented to person, place, time, and situation. She knows the hospit al, the day, the date, and the floor. On cranial nerve exam, she has no deficits on 2 through 12. O n motor examination, she has equal strength in the upper and lower extremities proximally and distall y. Sensory exam intact in upper and lower extremities proximally and distally. Reflexes 2+ in upper and lower extremities and symmetric. She will be ambulated at this point with physical therapy prio r to moving to the floor; however, no focal coordination findings noted in the upper and lower extrem ities. Laboratory Data: Labs have been reviewed. Assessment: Ms. Daniels is a 32-year-old patient with reported history of seizures, who has rhabdomy olysis, potentially related to drug abuse. Unclear that the patient has had a seizure. She does hav e an EEG, that is pending. Plan: 1.Follow up on EEG. 2.The patient may be discharged to the floor and after discharge from hospital, follow up with her n eurologist reportedly in [place] and primary care physician as scheduled. At this point, we will not adjust any medications, such as antiepileptic medications. It should be left to the neurologist who sees the patient. SHALOM/SUSAN Voice ID: [id number] Report ID: [id number]
[2018-05-04] MEDS: NA CHLORIDE 0.9% 1,000 ML IV SCH ×3 (02:39→12:00)
[2018-05-04 07:10] LABS: Albumin 3.1 g/dL (3.4-5.0); Magnesium 2.2 mg/dL (1.8-2.4); Phosphorus 1.8 mg/dL (2.5-4.9); Potassium 3.5 mmol/L (3.5-5.1)
[2018-05-04] MEDS: INSULIN -REGULAR HUMAN 50 UNIT/0.5 ML ML SQ SCH ×4 (07:30→20:33)
[2018-05-04] MEDS: CITALOPRAM 10 MG TABLET PO SCH (08:02)
[2018-05-04] MEDS: PANTOPRAZOLE 40 MG INJ IVP SCH (08:02)
[2018-05-04] MEDS: PRIMIDONE 250 MG TAB PO SCH (08:02)
[2018-05-04] MEDS: ENOXAPARIN 40 MG/0.4 ML SQ SCH (08:02)
[2018-05-04] MEDS ORDERED: THIAMINE 200 MG/2 ML INJ IVP ONE (11:21)
[2018-05-04] MEDS ORDERED: POTASSIUM PHOS 10 MM in NA CHLORIDE 0.9% 250 ML IV ONE (11:21)
[2018-05-04] MEDS: NACHLORIDE 0.45% 1,000 ML with POTASSIUM CL 20 MEQ IV SCH ×2 (12:00)
--- NOTE | 2018-05-04 12:27 | P.PN ---
Subjective Date of Service: 05/04/18 Primary Care Provider: Unknown Chief Complaint: Acute encephalopathy Subjective: Improving (Patient less sedated today.) Physical Examination - Vital Signs Temperature: 98.6 F Blood Pressure: 128/85 Pulse: 75 Respirations: 15 Pulse Ox (%): 92 - Physical Exam General: Alert, In no apparent distress, Oriented x3, Cooperative HEENT: Atraumatic Neck: Supple Respiratory: Clear to auscultation bilaterally, Normal air movement Cardiovascular: Normal pulses, Regular rate/rhythm Gastrointestinal: Normal bowel sounds, Soft and benign, Non-distended, No tenderness, No masses, No rebound, No guarding Musculoskeletal: No erythema, No tenderness, No warmth Integumentary: No erythema, No warmth, No cyanosis Neurological: Normal speech, Normal strength at 5/5 x4 extr, Normal tone, Abnormal affect (Less sedation noted today. Still with poor eye contact.) - Studies Medications List Reviewed: Yes Assessment & Plan Discharge Plan: Home Plan to discharge in: 24 Hours Physician Review Additional Text: Impression: Acute encephalopathy likely opioid overdose Hyperkalemia Acute renal injury likely from dehydration Abnormal liver function likely from medication Seizure disorder Depression with anxiety History of narcotic abuse Diabetes mellitus type 1 Rhabdomyolysis Plan: Acute encephalopathy likely opioid overdose: Her mentation continues to improve. Patient appears to be at baseline. She is not suicidal. Will have mental health evaluation done on the patient if stable the patient can be transferred to the floor. Will encourage ambulation. Will get physical therapy to ambulate. There is still some concern on whether the patient will be discharged to mother or her . This was discussed in detail with the patient. She is not short. Will need to have manager social media help in this process. Hyperkalemia: Resolved. Will monitor. Acute renal injury likely from dehydration: Renal function back to baseline. Encourage oral intake. Nephrology continues to monitor and adjust. Abnormal liver function likely from medication: Hepatitis sent out. Likely related to Drug use. Will continue to monitor and follow. Seizure disorder: Primidone restarted. Nephrology consulted Neurology to address. EEG ordered. Will discuss with Neurology. Depression with anxiety: Meds reviewed and restarted. Will have manager social media evaluate mental status. Patient will likely need counseling as an outpatient. Patient not suicidal. History of narcotic abuse: Will need cessation and rehab. Diabetes mellitus type 1: Will monitor. Patient on sliding scale. Will check A1C. Rhabdomyolysis: Continue with fluids. Continue to monitor CPK. What physical therapy ambulate. Will consider transfer to the floor if cleared from a mental health standpoint. Rhabdomyolysis likely from prolonged immobile stable during her opiote overdose. Will continue to monitor. Will discuss with nephrology and neurology. Time Spent Managing Pts Care (In Minutes): 55
--- NOTE | 2018-05-04 15:14 | EEG ---
CHART: [id number] TEST ID#: [id number] DATE OF STUDY: 05/03/2018 THE EEG WAS RECORDED PORTABLE IN THE ICU ON A 17 CHANNEL MACHINE. ELECTRODES WERE APPLIED IN THE USUAL MANNER USING THE INTERNATIONAL 10-20 SYSTEM. THE WAKING BACKGROUND RHYTHM IN THIS RECORD CONSISTS OF POORLY DEVELOPED AND POORLY ORGANIZED WAVES OF 6-7 HZ., IN A WIDE DISTRIBUTION WHICH ATTENUATE POORLY WITH EYE OPENING. MODERATE VOLTAGE 1.5-3 HZ ACTIVITY IS EXPRESSEDIN THE FRONTAL AND CENTRAL REGIONS. THERE ARE NO FOCAL OR LATERALIZING FEATURES. NO EPILEPTIFORM ACTIVITY APPEARS. SLEEP DID NOT OCCUR. HYPERVENTILATION WAS NOT PERFORMED. PHOTIC STIMULATION PRODUCED NO DRIVING BILATERALLY. IMPRESSION: THIS IS A MILD TO MODERATELY ABNORMAL EEG DUE TO A MILD TO MODERATELY SLOW BACKGROUND. THIS IS A NON-SPECIFIC FINDING INDICATING THE PRESENCE OF A MILD TO MODERATE DIFFUSE DISTURBANCE IN CEREBRAL ACTIVITY.
[2018-05-04 18:30] LABS: Potassium 4.1 mmol/L (3.5-5.1)
[2018-05-04 19:03] LABS: HBsAG Nonreactive (Nonreactive); Hepatitis A IgM Antibody Nonreactive
[2018-05-04] MEDS: ACETAMINOPHEN 500 MG TAB PO PRN (20:30)
[2018-05-04 21:55] VITALS: O2SAT 100
[2018-05-04] MEDS: guaiFENesin 100 MG/5 ML UCUP PO PRN (23:47)
[2018-05-05] MEDS: NACHLORIDE 0.45% 1,000 ML with POTASSIUM CL 20 MEQ IV SCH ×4 (01:28→03:07)
--- NOTE | 2018-05-05 02:26 | PN ---
Date of Progress Note: 05/04/2018 Chief Complaint: Acute kidney injury, rhabdomyolysis. History Of Present Illness: The patient has been treated with IV fluids. Renal function is somewhat improving with CK level remains elevated. The patient needs IV fluids, remains in ICU. Blood pressure is in acceptable control. Review of Systems: Unobtainable. The patient does not want to cooperate with examination. Physical Examination: Lungs: Clear to auscultation bilaterally. Heart: S1, S2. Abdomen: Soft, benign. Extremities: No edema. Laboratory Data: Hemoglobin 11.5, WBC 8.9, platelet count 311,000. Chemistries : Sodium 140, potassium 4.1, chloride 108, CO2 23, BUN 10, creatinine 0.8, glucose 118, calcium is 8.3. On arrival to the hospital, creatinine was 2.3. CK level is 7173. On arrival to the hospital, CK level was 11,914. Impression And Plan: 1. Acute kidney injury, in recovery phase. The patient was found to have rhabdomyolysis. Continue IV fluids. Monitor phosphorus and magnesium level. Adjust medication as needed. Monitor calcium level. The patient is asymptomatic at this point. 2. Hyperkalemia, resolved. The patient developed hyperkalemia secondary to rhabdomyolysis. 3. The patient is receiving replacement for hypophosphatemia. In presence of rhabdomyolysis, hypophosphatemia will be aggressively replaced. Monitor magnesium and phosphorus. HARSHIL/SUSAN Voice ID: [id number] Report ID: [id number] [facility]
[2018-05-05] MEDS: NA CHLORIDE 0.9% 1,000 ML IV SCH (03:07)
[2018-05-05] MEDS: ACETAMINOPHEN 500 MG TAB PO PRN (03:23)
[2018-05-05] MEDS: guaiFENesin 100 MG/5 ML UCUP PO PRN (06:03)
[2018-05-05 06:22] LABS: Albumin 3.2 g/dL (3.4-5.0); BUN Blood Urea Nitrogen 8 mg/dL (7-18); Bicarbonate 25 mmol/L (21-32); Glucose Level 94 mg/dL (74-106); Magnesium 1.7 mg/dL (1.8-2.4); Phosphorus 1.9 mg/dL (2.5-4.9); Potassium 3.2 mmol/L (3.5-5.1); Sodium Level 142 mmol/L (136-145)
[2018-05-05 06:27] LABS: Creatine Phosphokinase 5981 U/L (26-192)
[2018-05-05] MEDS ORDERED: POTASSIUM CL SA 10 MEQ TAB PO ONE ×2 (06:49→09:00)
[2018-05-05] MEDS ORDERED: MAGNESIUM SULFATE 1 gm IVPB 1 GM/100 ML BAG IV ONE (07:00)
[2018-05-05] MEDS: INSULIN -REGULAR HUMAN 50 UNIT/0.5 ML ML SQ SCH (07:30)
[2018-05-05] MEDS ORDERED: POTASSIUM PHOS IN 0.9 % NACL 15 MMOL/250 ML BAG IV ONE (08:01)
[2018-05-05 08:32] VITALS: BP 134/82; TEMP 98.7
--- NOTE | 2018-05-05 09:20 | P.DS ---
Admission Date: 05/02/18 Discharge Date: 05/05/18 Primary Care Provider: Unknown Disposition: AMA-LEFT AGAINST MEDICAL ADVIC Discharge Condition: GOOD Reason for Admission: Acute encephalopathy Consultations: Nephrology-Dr. Ivan Neurology-Dr. Sanchez Procedures: Renal ultrasound: COMPARISON: None. FINDINGS: The right kidney measures 10.6 x 5.1 x 4.9 cm. The left kidney measures 10.5 x 5.0 x 4.4 cm. Renal cortical thickness and echogenicity are normal. No hydronephrosis or suspicious renal mass. No bladder wall thickening or mass. No intraluminal stone or mass. IMPRESSION: No hydronephrosis or suspicious renal mass. No other significant findings. Abdominal ultrasound: COMPARISON: 2014 FINDINGS: Gallbladder has been removed. The common bile duct measures 7 millimeters. The pancreas appears normal in size and echotexture. IMPRESSION: Mild dilatation of the biliary tree. This probably is physiologic in this patient status post cholecystectomy. EEG: DATE OF STUDY: 05/03/2018 The EEG was recorded PORTABLE IN THE ICU on a 17 channel machine. Electrodes were applied in the usual manner using the International 10-20 system. The waking background rhythm in this record consists of POORLY developed and POORLY organized waves of 6-7 Hz., IN A WIDE DISTRIBUTION which attenuate POORLy with eye opening. MODERATE VOLTAGE 1.5-3 HZ ACTIVITY IS EXPRESSEDIN THE FRONTAL AND CENTRAL REGIONS. There are no focal or lateralizing features. No epileptiform activity appears. Sleep DID NOT OCCUR. Hyperventilation was NOT PERFORMED. Photic stimulation produced NO driving bilaterally. IMPRESSION: THIS IS A MILD TO MODERATELY ABNORMAL EEG DUE TO A MILD TO MODERATELY SLOW BACKGROUND. THIS IS A NON-SPECIFIC FINDING INDICATING THE PRESENCE OF A MILD TO MODERATE DIFFUSE DISTURBANCE IN CEREBRAL ACTIVITY. Medical problem list: Acute encephalopathy likely opioid, benzodiazepine, barbiturate overdose with history of medication abuse Hyperkalemia Acute renal injury likely from dehydration Abnormal liver function likely from medication Seizure disorder, on clear etiology Depression with anxiety History of narcotic abuse Diabetes mellitus type 1 Rhabdomyolysis likely from overdose and prolong immobilization Hypokalemia GERD History of hypertension Brief History of Present Illness: 32-year-old female with history of diabetes type 1 on insulin, depression with anxiety, and suspected seizure disorder. She came into the emergency room found unresponsive at home. It is not clear if the patient had a seizure but patient has been abusing opiate medication. Patient was given Narcan. She responded with improvement. Patient was evaluated the emergency room and admitted for further evaluation. No evidence of tonic-clonic activity , tongue biting or episodes of focal seizures noted. CT done March 13, 2018 unremarkable. Patient found have significant rhabdomyolysis. Urine tox screen was positive for opiates, barbiturates and benzodiazepines. Hospital Course: Patient admitted for acute encephalopathy likely from opioid, benzodiazepine and barbiturate overdose with history of abuse. Her condition improved. Patient appears at baseline. Patient was evaluated by a mental health. Patient was not suicidal. Patient did not require any psychiatric intervention. Patient was to stay 1 more day to continue to monitor her rhabdomyolysis. Patient refuse. Patient decided to leave against medical advice. This was addressed in detail. Risks and benefits addressed. Patient understands. At discharge recommendation to discontinue opioid, benzodiazepine and barbiturate medication. Patient may continue with her medication for depression with anxiety. Recommendation is for the patient follow up with psychiatry in [place] to further monitor and address. Patient was found to have rhabdomyolysis likely from medication and pro longed immobilization. Her condition improved. At discharge she was able to move appropriately. Nephrology was consulted. Nephrology recommended for the patient to stay longer to monitor her levels. Patient refused to stay. Patient decided to leave against medical advice. Recommendation is for the patient to follow up with her PCP within 1 week to recheck lab-CBC, BMP and CPK. Patient is not to do any exertional activity for at least 1 week. Patient had abnormal liver function tests likely related to medication. Hepatitis panel pending at discharge. This can be followed up by her PCP. Patient reports a history of seizure disorder. Patient evaluated by a neurology. EEG showed no seizure activity. No seizure activities occur during the hospital stay. Primidone was discontinued due to its barbiturates affect. Patient may continue with Neurontin 300 mg 1 pill 3 times a day. Recommendation is for the patient to follow up with neurology as an outpatient to further monitor and address. Recent CT of the head unremarkable. Patient with depression with anxiety. Patient will need to continue with her medication-Celexa 10 mg daily. Recommendation is for the patient to follow up with psychiatry as an outpatient to further monitor and address. Patient was evaluated by a mental health during her stay. Patient is not suicidal and did not require any psychiatric intervention. Patient has diabetes mellitus type 1. She may continue with insulin therapy- Lantus 2 units sc TID. Recommendation is to maintain blood sugars less 140 fasting and less than 200 after meals. Further adjustment can be done by her PCP. Patient with history of narcotic, benzodiazepine and barbiturate abuse. Recommendation to continue with cessation. Medication-Zanaflex and Primidone discontinued. Patient reports that she will stop using drugs. Patient may require continued cessation education and possible rehab in the future if this persists. Patient has GERD. Patient will continue with Protonix 40 mg 1 pill once daily. Patient with history of hypertension. Blood pressures have remained stable. At discharge Diovan has been discontinued. Recommendation is to monitor blood pressures closely as an outpatient. If her blood pressures remain above 150/90 patient may require medication. This can be further addressed by her PCP. Vital Signs/Physical Exam: Temp Pulse Resp BP Pulse Ox 98.7 F 74 16 134/82 100 05/05/18 08:00 05/05/18 08:00 05/05/18 08:00 05/05/18 08:00 05/05/18 08:00 General: Alert, In no apparent distress, Oriented x3, Cooperative HEENT: Atraumatic Neck: Supple Respiratory: Clear to auscultation bilaterally, Normal air movement Cardiovascular: Normal pulses, Regular rate/rhythm Gastrointestinal: Normal bowel sounds, Soft and benign, Non-distended, No tenderness, No masses, No rebound, No guarding Musculoskeletal: No contractures, No erythema, No tenderness, No warmth Integumentary: No tenderness/swelling, No erythema, No warmth, No cyanosis Neurological: Normal speech, Normal strength at 5/5 x4 extr, Normal tone, Normal affect Laboratory Data at Discharge: WBC 8.9 K/uL (4.3-10.9) D 05/03/18 04:46 Hgb 11.5 g/dL (12.0-15.0) L 05/03/18 04:46 Hct 34.5 % (36.0-45.0) L 05/03/18 04:46 Plt Count 311 K/uL (152-406) D 05/03/18 04:46 PT 11.5 SECONDS (9.5-12.5) 05/01/18 22:06 INR 0.97 05/01/18 22:06 APTT 23.8 SECONDS (24.3-36.9) L 05/01/18 22:06 Sodium 142 mmol/L (136-145) 05/05/18 04:51 Potassium 3.2 mmol/L (3.5-5.1) L 05/05/18 04:51 BUN 8 mg/dL (7-18) 05/05/18 04:51 Creatinine 0.70 mg/dL (0.55-1.3) 05/05/18 04:51 Glucose 94 mg/dL (74-106) 05/05/18 04:51 Phosphorus 1.9 mg/dL (2.5-4.9) L 05/05/18 04:51 Magnesium 1.7 mg/dL (1.8-2.4) L D 05/05/18 04:51 Total Bilirubin 0.3 mg/dL (0.2-1.0) 05/03/18 04:46 AST 431 U/L (15-37) H* 05/03/18 04:46 ALT 145 U/L (12-78) H 05/03/18 04:46 Alkaline Phosphatase 103 U/L (45-117) 05/03/18 04:46 Troponin I 0.94 ng/mL (0.0-0.045) H* 05/03/18 04:46 Lipase 174 U/L (73-393) 05/02/18 03:05 Home Medications: RX: Pantoprazole [Protonix Tab*] 40 mg PO DAILY #30 tab 02/07/15 RX: Citalopram [Celexa*] 1 tab PO DAILY 05/02/18 RX: Gabapentin [Neurontin*] 300 mg PO TID 05/02/18 RX: Insulin Glargine Human [Lantus*] 2 units SQ TID 05/02/18 Patient Discharge Instructions: 1. Patient will need to establish care with a PCP in the area to follow up this hospitalization. 2. Patient admitted for acute encephalopathy likely from opioid, benzodiazepine and barbiturate overdose with history of abuse. Her condition improved. Patient appears at baseline. Patient was evaluated by a mental health. Patient was not suicidal. Patient did not require any psychiatric intervention. Patient was to stay 1 more day to continue to monitor her rhabdomyolysis. Patient refused. Patient decided to leave against medical advice. This was addressed in detail. Risks and benefits addressed. Patient understands. At discharge recommendation to discontinue opioid, benzodiazepine and barbiturate medication. Patient may continue with her medication for depression with anxiety. Recommendation is for the patient follow up with psychiatry in [place] to further monitor and address. 3. Patient was found to have rhabdomyolysis likely from medication and pro longed immobilization. Her condition improved. At discharge she was able to move appropriately. Nephrology was consulted. Nephrology recommended for the patient to stay longer to monitor her levels. Patient refused to stay. Patient decided to leave against medical advice. Recommendation is for the patient to follow up with her PCP within 1 week to recheck lab-CBC, BMP and CPK. Patient is not to do any exertional activity for at least 1 week. 4. Patient had abnormal liver function tests likely related to medication. Hepatitis panel pending at discharge. This can be followed up by her PCP. 5. Patient reports a history of seizure disorder. Patient evaluated by a neurology. EEG showed no seizure activity. No seizure activities occur during the hospital stay. Primidone was discontinued due to its barbiturates affect. Patient may continue with Neurontin 300 mg 1 pill 3 times a day. Recommendation is for the patient to follow up with neurology as an outpatient to further monitor and address. Recent CT of the head unremarkable. 6. Patient with depression with anxiety. Patient will need to continue with her medication-Celexa 10 mg daily. Recommendation is for the patient to follow up with psychiatry as an outpatient to further monitor and address. Patient was evaluated by a mental health during her stay. Patient is not suicidal and did not require any psychiatric intervention. 7. Patient has diabetes mellitus type 1. She may continue with insulin therapy-Lantus 2 units subcu 3 times a day. Recommendation is to maintain blood sugars less 140 fasting and less than 200 after meals. Further adjustment can be done by her PCP. 8. Patient with history of narcotic, benzodiazepine and barbiturate abuse. Recommendation to continue with cessation. Medication-Zanaflex and Primidone discontinued. Patient reports that she will stop using drugs. Patient may require continued cessation education and possible rehab in the future if this persists. 9. Patient has GERD. Patient will continue with Protonix 40 mg 1 pill once daily. 10. Patient with history of hypertension. Blood pressures have remained stable. At discharge Diovan has been discontinued. Recommendation is to monitor blood pressures closely as an outpatient. If her blood pressures remain above 150/90 patient may require medication. This can be further addressed by her PCP. Diet: ADA Activity: Fall precautions Time spent managing pt's care (in minutes): 55
[2018-05-05 18:30] LABS: Hepatitis C Virus RNA (PCR)log <1.18 log IU/mL
--- NOTE | 2018-05-05 23:47 | PN ---
Date of Progress Note: 05/05/2018 Chief Complaint: Acute kidney injury and rhabdomyolysis. History Of Present Illness: The patient has been treated with IV fluids. Renal function has somewhat improved, CK level was elevated. The patient has electrolyte abnormalities and is receiving replacement. Review of Systems: Denies complaints. She wants to go home. Physical Examination: Lungs: Clear to auscultation bilaterally. Heart: S1, S2. Abdomen: Soft, benign, nontender. Extremities: No edema. Laboratory Data: Hemoglobin 11.5, WBC 8.9, platelet count is 311,000. Sodium 142, potassium 3.2, chloride is 108. CO2 25, BUN 8, creatinine 0.7, magnesium 1.7, calcium 8.3, and phosphorus 1.9. Impression And Plan: The patient is to receive replacement with potassium, magnesium, and phosphorus. The patient has elevated CK level. I discussed case with Dr. Engle. Her CK level is elevated, and the patient needs to continue fluids and replacement with electrolytes. The patient is reluctant to stay. She wants to be discharged and she decided to be discharged against medical advice. HARSHIL/SUSAN Voice ID: [id number] Report ID: [id number] [facility]
== END 2018-05-05 10:04 | disposition left against medical advice (07) | DRG 917 ==
LOC: ER 21:12 → ERHOLD 05-02 01:58 → 3RD-ICU 05-02 04:13 → 4TH 05-04 17:30
PROVIDERS: ADMIT Internal Medicine; ATTEND Internal Medicine
DX: T40.2X1A Poisoning by other opioids, accidental (unintentional), initial encounter (principal); G92 Toxic encephalopathy; M62.82 Rhabdomyolysis; N17.9 Acute kidney failure, unspecified; T42.4X1A Poisoning by benzodiazepines, accidental (unintentional), initial encounter; T42.3X1A Poisoning by barbiturates, accidental (unintentional), initial encounter; F41.8 Other specified anxiety disorders; E10.9 Type 1 diabetes mellitus without complications; K21.9 Gastro-esophageal reflux disease without esophagitis; G40.909 Epilepsy, unspecified, not intractable, without status epilepticus; F11.11 Opioid abuse, in remission; E87.6 Hypokalemia; R94.5 Abnormal results of liver function studies; Y92.009 Unspecified place in unspecified non-institutional (private) residence as the place of occurrence of the external cause; Z79.4 Long term (current) use of insulin; E83.39 Other disorders of phosphorus metabolism; E87.5 Hyperkalemia
CPT/HCPCS: 36415; 76705; 76770; 80048; 80053; 80069; 80074; 80076; 80307; 80320; 80329; 81003; 81015; 81025; 82550; 82553; 82570; 82805; 82962; 83605; 83690; 83735; 83970; 84132; 84145; 84156; 84443; 84484; 85025; 85610; 85730; 86317; 86704; 86706; 87070; 87205; 87522; 93005; 94640; 95816; 96361; 96374; 96375; 97163; 99285; C9113; J1650; J2310; J2405; J3411; J3475; J7030

== ENCOUNTER 2019-10-28 19:41 | Emergency (ER) | payer OTHER, SELFPAY ==
--- OUTSIDE RECORDS SUMMARY | 2019-10-28 19:44 | XMS REPORT ---
:1985 Author Organization [facility] Address 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 Problem Name Problem Onset [...] Instruction SEROQUEL 25 MG Take one QUETIAPINE 73708965654 Active Gabe Active ORAL TABLET tablet at FUMARATE Fazal bedtime MD GLOVER DM Take 10 DEXTROMETHORPH 69815700897 Active Marva Active 100-10 MG/5ML mL every AN-GUAIFENESIN Thomas ORAL SYRUP 6 hours as needed for cough PROAIR HFA 108 2 puffs ALBUTEROL [id number] Active Monica Nieves Active (90 Base) every 4 - SULFATE MD MCG/ACT 6 hours INHALATION as needed AEROSOL SOLUTION PROMETHAZINE Take 5 ml PROMETHAZINE 87340543141 Active Monica Nieves Active HCL 6.25 MG/5ML three HCL MD ORAL SOLUTION times daily as needed for cough KLONOPIN 2 MG Take one CLONAZEPAM 32539908305 Active Gabe Active ORAL TABLET tablet By Fazal Mouth Twice a Day as needed for anxiety AMITRIPTYLINE 1 by AMITRIPTYLINE 97685824535 Active Monica Nieves Active HCL 25 MG ORAL mouth HCL MD TABLET nightly at bedtime CELEXA 40 MG 1 by CITALOPRAM 97561308278 Active Gabe Active ORAL TABLET mouth HYDROBROMIDE Fazal every day AMOXICILLIN-POT 1 tsp AMOXICILLIN-POT 982847 AMOXICILLIN-POT Inactive CLAVULANATE by CLAVULANATE CLAVULANATE 875-125 MG ORAL mouth 875-125 MG ORAL TABLET twice TABLET a day PREDNISONE 20 MG Take 2 PREDNISONE 20 MG 409049 PREDNISONE Inactive ORAL TABLET tablet ORAL TABLET s by mouth daily X 5 days QUETIAPINE Take 1 QUETIAPINE 400645 QUETIAPINE Inactive FUMARATE 25 MG tablet FUMARATE 25 MG FUMARATE ORAL TABLET by ORAL TABLET mouth at bedtim e PROMETHAZINE HCL Take 5 PROMETHAZINE HCL 143008 PROMETHAZINE HCL Inactive 6.25 MG/5ML ORAL ml by 6.25 MG/5ML ORAL SOLUTION mouth SOLUTION three times daily as needed for cough TESSALON PERLES Take 1 TESSALON PERLES 385079 BENZONATATE Inactive 100 MG ORAL capsul 100 MG ORAL CAPSULE e CAPSULE three times daily as needed for cough CHERATUSSIN AC 2 CHERATUSSIN AC 637309 GUAIFENESIN- CODE Inactive 100-10 MG/5ML teaspo 100-10 MG/5ML INE ORAL SYRUP ons ORAL SYRUP (10mL) by mouth every 4 hours as needed for cough HYDROXYZINE HCL 1 by HYDROXYZINE HCL 883741 HYDROXYZINE HCL Inactive 25 MG ORAL mouth 25 MG ORAL TABLET every TABLET 6 hours as needed RISPERDAL 2 MG Take 1 RISPERDAL 2 MG 780910 RISPERIDONE Inactive ORAL TABLET tablet ORAL TABLET by mouth at bedtim e AMOXICILLIN-POT 1 tsp AMOXICILLIN-POT 45078956072 No Marva Active CLAVULANATE by CLAVULANATE Longer Thomas 875-125 MG ORAL mouth Active MD TABLET twice a day PREDNISONE 20 MG Take 2 PREDNISONE 78842183743 No Monica Pickett Active ORAL TABLET tablet Longer MD bhatt by Active mouth daily X 5 days QUETIAPINE Take 1 QUETIAPINE 21453090773 No Gabe Active FUMARATE 25 MG tablet FUMARATE Longer Fazal ORAL TABLET by Active [facility] PROMETHAZINE HCL Take 5 PROMETHAZINE HCL 07111193404 No Monica Nieves Active 6.25 MG/5ML ORAL ml by Longer MD SOLUTION mouth Active three times daily as needed for cough TESSALON PERLES Take 1 BENZONATATE 67372232762 No Monica Nieves Active 100 MG ORAL capsul Longer MD CAPSULE e Active three times daily as needed for cough CHERATUSSIN AC 2 GUAIFENESIN-CODE 65733286977 No Monica Nieves Active 100-10 MG/5ML teaspo INE Longer MD ORAL SYRUP ons Active (10mL) by mouth every 4 hours as needed for cough HYDROXYZINE HCL 1 by HYDROXYZINE HCL 29733224548 No Gabe Active 25 MG ORAL mouth Longer Fazal TABLET every Active MD 6 hours as needed RISPERDAL 2 MG Take 1 RISPERIDONE 84787241235 No Gabe Active ORAL TABLET tablet Longer [...] Est Patient Exp Problem Marva Thomas MD CPT-45082 [facility] 16:59:26 CDT - 65388 Family Practice Est Patient Exp Problem Gabe Diehl MD CPT-44397 [facility] 21:08:35 CDT - 57910 Behavioral Health Est Patient Exp Problem Marva Thomas MD CPT-94829 [facility] 17:53:05 CDT - 06406 Family Practice Est Patient Exp Problem Gabe Diehl MD CPT-88759 [facility] 20:22:46 CDT - 15559 Behavioral Health Est Patient Exp Problem Monica Pickett MD CPT-07117 [facility] 08:27:49 CDT - 68490 Family Practice Est Patient Exp Problem Gabe Diehl MD [facility]-37607 [facility] 14:46:42 CDT - 79679 Behavioral Health New Patient Monica Pickett MD CPT-14348 [facility] 09:00:57 [facility] - [address] [facility]
[2019-10-28] MEDS ORDERED: HYDROCODONE/CHLORPHEN 5 ML/OSYR ONE (20:14)
--- NOTE | 2019-10-28 20:49 | EDPHYS ---
Physician Documentation [facility] Name: Lashay Daniels Age: 34 yrs Sex: Female : 1985 Arrival Date: 10/28/2019 Time: 19:44 Bed 15 Private MD: ED Physician Gurdeep Hernandez HPI: 10/27 20:02 This 34 yrs old Female presents to ER via Ambulatory with complaints of Fever, pm1 Cough. 20:02 Onset: The symptoms/episode began/occurred last night. Modifying factors: there are no pm1 obvious modifying factors, patient concerned that she got sick from going to the [place]. Associated signs and symptoms: Pertinent positives: chest pain, Pertinent negatives: abdominal pain, diarrhea, earache, nausea, runny nose, shortness of breath, sore throat, vomiting. Severity of symptoms: in the emergency department the symptoms are unchanged. The patient has not experienced similar symptoms in the past. The patient has not recently seen a physician. 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 - Social history:: Smoking status: Patient reports use of chewing tobacco. ROS: 20:18 ENT: Negative for injury, pain, and discharge, Neck: Negative for injury, pain, and pm1 swelling, Cardiovascular: Negative for chest pain, palpitations, and edema. 20:18 Abdomen/GI: Negative for abdominal pain, nausea, vomiting, diarrhea, and constipation, Back: Negative for injury and pain, MS/Extremity: Negative for injury and deformity, Skin: Negative for injury, rash, and discoloration, Neuro: Negative for headache, weakness, numbness, tingling, and seizure. 20:18 Constitutional: Positive for fever, Negative for body aches, poor PO intake. 20:18 Respiratory: Positive for cough, Negative for shortness of breath, sputum production, wheezing. Exam: 20:18 Constitutional: This is a well developed, well nourished patient who is awake, alert, pm1 and in no acute distress. Head/Face: Normocephalic, atraumatic. Chest/axilla: Normal chest wall appearance and motion. Nontender with no deformity. No lesions are appreciated. Cardiovascular: Regular rate and rhythm with a normal S1 and S2. No gallops, murmurs, or rubs. Normal PMI, no JVD. No pulse deficits. Respiratory: Lungs have equal breath sounds bilaterally, clear to auscultation and percussion. No rales, rhonchi or wheezes noted. No increased work of breathing, no retractions or nasal flaring. Abdomen/GI: Soft, non-tender, with normal bowel sounds. No distension or tympany. No guarding or rebound. No evidence of tenderness throughout. Back: No spinal tenderness. No costovertebral tenderness. Full range of motion. Skin: Warm, dry with normal turgor. Normal color with no rashes, no lesions, and no evidence of cellulitis. MS/ Extremity: Pulses equal, no cyanosis. Neurovascular intact. Full, normal range of motion. 20:18 Neuro: Orientation: is normal, Motor: is normal, moves all fours, Gait: is steady, at a normal pace, without difficulty. Vital Signs: 20:16 BP 138 / 93; Pulse 106; Resp 18 S; Temp 99.4(O); Pulse Ox 98% on R/A; Weight 81.65 kg bb (R); Height 5 ft. 5 in. (165.10 cm) (R); Pain 5/10; 21:03 BP 118 / 88; Pulse 95; Resp 18; Temp 98.9; Pulse Ox 97% on R/A; Pain 2/10; aa1 20:16 Body Mass Index 29.95 (81.65 kg, 165.10 cm) bb MDM: 19:54 Patient medically screened. pm1 20:45 Data reviewed: vital signs. Data interpreted: Pulse oximetry: on room air is 98 %. pm1 Interpretation: normal. 20:45 Counseling: I had a detailed discussion with the patient and/or guardian regarding: the pm1 historical points, exam findings, and any diagnostic results supporting the discharge/admit diagnosis, lab results, radiology results, the need for outpatient follow up, to return to the emergency department if symptoms worsen or persist or if there are any questions or concerns that arise at home. 20:57 ED course: PMP[place] reviewed. pm1 10/27 20:00 Order name: Flu; Complete Time: 20:39 pm1 10/27 20:00 Order name: Strep; Complete Time: 20:39 pm1 10/27 20:06 Order name: Chest Pa And Lat (2 Views) XRAY; Complete Time: 07:49 pm1 10/27 20:41 Order name: Throat Culture EDMS Administered Medications: 20:16 Drug: Tussionex Pennkinetic ER 5 ml Route: PO; aa1 21:02 Follow up: Response: No adverse reaction aa1 Disposition: 10/28 04:28 Co-signature as Attending Physician, Gurdeep Hernandez MD I agree with the assessment and tw4 plan of care. Disposition: 10/28/19 20:48 Discharged to Home. Impression: Acute upper respiratory infection, unspecified. - Condition is Stable. - Discharge Instructions: Upper Respiratory Infection, Adult. - Prescriptions for Guaifenesin AC 10- 100 mg/5 mL Oral Liquid - take 10 milliliter by ORAL route every 4 hours As needed; 240 milliliter. - Work release form, Medication Reconciliation Form, Thank You Letter, Antibiotic Education, Prescription Opioid Use form. - Follow up: Emergency Department; When: As needed; Reason: Worsening of condition. Follow up: Private Physician; When: 2 - 3 days; Reason: Recheck today's complaints, Continuance of care, Re-evaluation by your physician. - Problem is new. - Symptoms have improved. - Notes: [facility] COVID 19 Call Center: Signatures: Dispatcher [employer] EDMS Melissa Guillen RN RN aa1 Nuria Timmons RN RN bb Jeferson Glasgow MD MD rn Marinas, Patrick, LABEL MAKER LABEL MAKER pm1 Gurdeep Hernandez MD MD tw4 Corrections: (The following items were deleted from the chart) 10/27 21:05 20:48 10/28/2019 20:48 Discharged to Home. Impression: Acute upper respiratory aa1 infection, unspecified. Condition is Stable. Forms are Medication Reconciliation Form, Thank You Letter, Antibiotic Education, Prescription Opioid Use. Follow up: Emergency Department; When: As needed; Reason: Worsening of condition. Follow up: Private Physician; When: 2 - 3 days; Reason: Recheck today's complaints, Continuance of care, Re-evaluation by your physician. Problem is new. Symptoms have improved. pm1
--- NOTE | 2019-10-28 20:49 | ER ---
Nurse's Notes [facility] Name: Lashay Daniels Age: 34 yrs Sex: Female : 1985 Arrival Date: 10/28/2019 Time: 19:44 Bed 15 Private MD: Diagnosis: Acute upper respiratory infection, unspecified Presentation: 10/27 20:03 Chief complaint: Patient states: she woke up in the middle of the night with cough and bb fever which got up to 101.2 the cough seems to be getting worse. Coronavirus screen: The patient has NOT traveled to a country currently being monitored by the [facility] within the last 14 days. Proceed with normal triage procedures. Ebola Screen: No symptoms or risks identified at this time. Initial Sepsis Screen: Does the patient meet any 2 criteria? No. Patient's initial sepsis screen is negative. Does the patient have a suspected source of infection? No. Patient's initial sepsis screen is negative. Risk Assessment: Do you want to hurt yourself or someone else? Patient reports no desire to harm self or others. Onset of symptoms was October 27, 2019. 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 - Social history:: Smoking status: Patient reports use of chewing tobacco. Assessment: 21:03 Reassessment: Patient appears in no apparent distress at this time. Patient and/or aa1 family updated on plan of care and expected duration. Pain level reassessed. Patient is alert, oriented x 3, equal unlabored respirations, skin warm/dry/pink. Discussed d/c \T\ f/u instructions with pt; denies questions or concerns at this time. Ambulatory to lobby with steady gait. Vital Signs: 20:16 BP 138 / 93; Pulse 106; Resp 18 S; Temp 99.4(O); Pulse Ox 98% on R/A; Weight 81.65 kg bb (R); Height 5 ft. 5 in. (165.10 cm) (R); Pain 5/10; 21:03 BP 118 / 88; Pulse 95; Resp 18; Temp 98.9; Pulse Ox 97% on R/A; Pain 2/10; aa1 20:16 Body Mass Index 29.95 (81.65 kg, 165.10 cm) ED Course: 19:44 Patient arrived in ED. cl3 19:52 Joshua Belcher NP is PHCP. pm1 19:52 Gurdeep Hernandez MD is Attending Physician. pm1 20:07 Melissa Guillen, DENISE is Primary Nurse. aa1 20:15 Triage completed. bb 20:16 Arm band placed on Patient placed in an exam room, on a stretcher, on pulse oximetry, bb room door closed, pt with mask. 20:44 Chest Pa And Lat (2 Views) XRAY In Process Unspecified. EDMS 21:03 No provider procedures requiring assistance completed. Patient did not have IV access aa1 during this emergency room visit. Administered Medications: 20:16 Drug: Tussionex Pennkinetic ER 5 ml Route: PO; aa1 21:02 Follow up: Response: No adverse reaction aa1 Outcome: 20:48 Discharge ordered by MD. pm1 21:03 Discharged to home ambulatory. aa1 21:03 Condition: good 21:03 Discharge instructions given to patient, Instructed on discharge instructions, follow up and referral plans. medication usage, Demonstrated understanding of instructions, follow-up care, medications, Prescriptions given X 1. 21:05 Patient left the ED. aa1 Signatures: Dispatcher [employer] EDWA Melissa Guillen, DENISE RN aa1 Nuria Timmons RN RN bb Joshua Belcher NP BULLARD OPERATOR pm1 Rajat Ortiz cl3
--- NOTE | 2019-10-28 21:12 | RAD REPORT ---
EXAM DESCRIPTION: RAD - Chest Pa And Lat (2 Views) - 10/28/2019 8:44 pm CLINICAL HISTORY: Cough;Fever Chest pain. COMPARISON: CHEST SINGLE VIEW dated 02/06/2015; CHEST SINGLE VIEW dated 02/01/2015; ABDOMEN 1 VIEW KUB dated 06/16/2014; CHEST SINGLE VIEW dated 09/26/2012 FINDINGS: Mild interstitial lung opacity is seen in the left upper lobe likely representing developi ng pneumonia. The heart is normal in size. No displaced fractures. IMPRESSION: Left upper lobe infiltrate seen suspicious for developing pneumonia.
[2019-10-28 21:46] VITALS: BP 118/88; TEMP 98.9; O2SAT 97
== END 2019-10-28 21:05 | disposition home or self-care (01) ==
LOC: ER 19:41
DX: J06.9 Acute upper respiratory infection, unspecified (principal); I10 Essential (primary) hypertension; F17.220 Nicotine dependence, chewing tobacco, uncomplicated
CPT/HCPCS: 71046; 87070; 87081; 87804; 99284

== ENCOUNTER 2020-01-20 21:12 | Emergency (ER) | payer SELFPAY ==
--- OUTSIDE RECORDS SUMMARY | 2020-01-20 21:22 | XMS REPORT | Continuity of Care Document ---
:1985 Author Organization [facility] I-Shake Information The Old Reader Care Team Providers Name Role Phone [facility] [employer] [facility] Reader Unavailable Un available Problems Problem Status Onset Classification Date Comments Sourc e Date Reported Migraine, 04/12/20 10/24/[address] unspecified, not 18 intractable, without status migrainosus HEADACHE Active 04/06/20 [place] [id number] [place] ELEVATED BP Active 04/06/20 [place] Escherichia coli Active 02/25/20 Problem 10/24/2018 urine (ESBL+ ), 02/24/2018 Medical (organism) 18 Problem added by Tessy aviles Expert. Group, Sujey Ohara [place] CATATONIA, Active 02/24/20 HYPOKALEMIA 18 [place] PALPITATIONS Active 02/24/20 18 [place] Chalazion left 10/28/19 01/25/2018 upper eyelid [address] STROKE SYMPTOMS Active 10/20/19 18 [place] Epilepsy, 10/07/19 01/06/2018 unspecified, not 18 [place] intractable, without status epilepticus SEIZURES Active 09/30/19 18 [place] GI BLEED/SEIZURES Active 09/30/19 18 [place] Unspecified 11/12/19 11/14/2016 abdominal pain [address] [place] CHEST PAIN Active 11/11/[address], [place] Discharge 06/14/20 06/17/2016 Diagnosis: Fracture 16 [place] of unspecified metatarsal bone(s), unspecified foot, initial encounter for closed fracture POSSIBLE FRACTURE Active 06/14/20 16 [place] Discharge 06/10/20 06/13/2016 Diagnosis: Hand [place] contusion HAND PAIN OR INJURY Active 06/10/20 16 [facility] Discharge 06/03/20 06/06/2016 Diagnosis: URI [place] (upper respiratory infection) EAR PAIN Active 06/03/[address] G89.4 - CHRONIC Active 05/06/20 O PID PAIN SYNDROME 16 [place] ABD PAIN Active 02/13/[address] UPPER GI BLEED Active 02/13/[address] VOMITING BLOOD Active 02/07/[address] ABDOMINAL PAIN, Active 02/07/20 UPPER GI BLEED 16 [facility] east ABDOMINAL PAIN Active 02/07/20 16 [place] Discharge 02/06/20 02/09/2016 Diagnosis: 16 [place] Diverticulitis Discharge 02/06/20 02/09/2016 Diagnosis: 16 [place] Abdominal pain ABD PAIN/ EAR PAIN Active 02/05/20 [facility] 16 [place] Discharge 10/04/19 10/07/2015 Diagnosis: 16 [place] 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 THROAT PAIN Active 10/04/19 16 [place] Discharge 09/19/19 09/21/2014 Diagnosis: Skin 15 [place] infection Discharge 09/19/19 09/21/2014 Diagnosis: Migraine 15 [place] MIGRAINE Active 09/19/19 15 [place] Gastrointestinal 01/06/2018 hemorrhage, [place] unspecified 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), and cerebral infarction without residual deficits Essential (primary) 01/06/[address] Malignant neoplasm 01/25/2018 of pancreas, [address] unspecified Nicotine 10/24/2018 [facility] dependence, cigarettes, uncomplicated Anxiety (finding) Active Problem 10/24/2018 [facility] Medical Group, [place] Chronic back pain Active Problem 10/24/2018 [facility] Medical (disorder) Group, [place] Gastroesophageal Active Problem 10/24/2018 Medical reflux disease [facility] 10/24/2018 Medical hemorrhage Group, (disorder) [facility], [place] Hypertensive Resolved Problem 10/24/2018 Med ical disorder, systemic G roup, arterial (disorder) [facility], [place],[facility] Insomnia (disorder) Active Problem 10/24/2018 Medical Group, [place] Migraine (disorder) Active Problem 10/24/2018 Medical Group,[facility], [place],[facility] Obesity (disorder) Active Problem 10/24/2018 Medical Group, [place] 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 UNSPECIFIED Active ABDOMINAL PAIN [facility] GASTROINTESTINAL Active MH HEMORRHAGE, [place] UNSPECIFIED LBP Active MH S[facility] [place] UNSPECIFIED Active CONVULS[facility] CATATONIC DISORDER Active M H DUE TO KNOWN [facility] PHYSIOLO HYPOKALEMIA Active MH [facility] ANEMIA, UNSPECIFIED Active MH [facility] ENCNTR FOR GENERAL Active M H ADULT MEDICAL EXAM [place] W/ VITAMIN D Active [facility] ESSENTIAL (PRIMARY) Active MH HYPERTENSION [facility] Medications Medication Details Route Status Patient Ordering Order Source Instructions Provider Date ketOROLAC 15 mg/mL 4 days No Longer 04/07 injectable MEDICATION Active 2017 [place] solution WASTE Product Size: 30 mg Product Wasted: ___ mg Saline Flush 0.9% Notes: (Same No Longer as: BD Active 2017 [place] Posiflush) Sodium Chloride 1,000 mL, 1000 Inactive 0.9% (Bolus) IV ml/hr, Infuse 2017 [facility] Over: 1 hr, Route: IV, 1,000, Drug form: INJ, ONCE, Priority: STAT, Dosing Weight 63.636 kg, Start date: 04/06/18 19:43:00 CDT, Stop date: 04/06/18 19:43:00 CDT Raymundo Notes: (Same Inactive as: Reglan) 2017 [place] Celexa 10 mg, 1 tab, Inactive Route: PO, 2017 [facility] Drug form: TAB, Bedtime, Dosing Weight 63.636, kg, Start date: 02/25/18 21:00:00 CDT, Duration: 30 day, Stop date: 03/26/18 21:00:00 CDT Citalopram 10 MG 10 mg = 1 tab, Active Oral Tablet PO, Daily, # 2018 [facility] [Celexa] 30 tab, 0 Refill(s), Pharmacy: [facility] [id number] Tylenol Notes: Max Inactive acetaminophen 2017 [facility] 4000 mg/day (4 gm/day). (Same as: Tylenol Extra Strength) Potassium Chloride Notes: (Same Inactive as: K-Dur 20) 2017 [facility] "Do Not Crush" For patients unable to swallow tablet, dissolve in one half glass of water. Allow about 2 minutes for the tablets to disintegrate. Stir before giving to prepare slurry and administer. Please exclude Patients with feeding tube less than 14 [place] (Dobhoff, J-tube etc) and pediatric and patients. With food and full glass of water Potassium Chloride Notes: (Same Inactive as: K-) 2017 [facility] "Do Not Crush" For patients unable to swallow tablet, dissolve in one half glass of water. Allow about 2 minutes for the tablets to disintegrate. Stir before giving to prepare slurry and administer. Please exclude Patients with feeding tube less than 14 [place] (Dobhoff, J-tube etc) and pediatric and patients. With food and full glass of water Potassium Chloride Notes: (Same Inactive as: K-Dur ) 2017 [facility] "Do Not Crush" For patients unable to swallow tablet, dissolve in one half glass of water. Allow about 2 minutes for the tablets to disintegrate. Stir before giving to prepare slurry and administer. Please exclude Patients with feeding tube less than 14 [place] (Dobhoff, J-tube etc) and pediatric and patients. With food and full glass of water Potassium Chloride Notes: MUST be Inactive 02/25 Diluted before 2017 [facility] use (Same as: KCl) MEDICATION WASTE Product Size: 40 mEq Product Wasted: ___ mEq Celexa 10 mg, 1 tab, Inactive Route: PO, 2017 [facility] Drug form: TAB, ONCE, Dosing Weight 63.636, kg, Start date: 02/24/18 21:00:00 CDT, Stop date: 02/24/18 21:00:00 CDT Ativan Notes: (Same No Longer as: Ativan) Active 2017 [facility] Ativan Notes: (Same Inactive as: Ativan) 2018 [facility] Docusate Notes: (Same No Longer as: Colace) Active 2017 [facility] Insulin Lispro Notes: (Same No Longer as: Humalog ) Active 2017 [facility] Roll in palms of hands gently; Do not shake `vigorously. "Single Patient Use Only " WASTE: F/P - Black; E - Municipal Trash Bin Stable for 28 days at room temperature. Expires in days from Date Dextrose 50% 25 gm, 50 mL, No Longer Syringe Route: IVP, Active 2017 [facility] Drug Form: INJ, Dosing Weight 63.636, kg, PRN, PRN Blood Glucose Results, Start date: 02/24/18 9:14:00 CDT, Duration: 30 day, Stop date: 03/26/18 9:13:00 CDT Glucagon 1 mg, Route: No Longer IM, Drug form: Active 2017 [facility] PDR/INJ, PRN, Dosing Weight 63.636, kg, PRN Blood Glucose Results, Start date: 02/24/18 9:14:00 CDT, Duration: 30 day, Stop date: 03/26/18 9:13:00 CDT Saline Flush 0.9% Notes: (Same No Longer as: BD Active 2017 [facility] Posiflush) Ondansetron Notes: (Same No Longer as: Zofran) Active 2017 [facility] MEDICATION WASTE Product Size: 4 mg Product Wasted: ___ mg Sodium Chloride 1,000 mL, No Longer 0.9% IV 1,000 mL Rate: [address] [place] [id number] ml/hr, Infuse over: 4 hr, Route: IV, Dosing Weight 63.636 kg, Total Volume: 1,000, Start date: 02/24/18 9:06:00 CDT, Duration: 30 day, Stop date: 03/26/18 9:05:00 CDT, 1.73, m2 Zofran ODT 4 mg, Route: Inactive PO, Drug form: 2017 [facility] TABDIS, ONCE, Dosing Weight 63.636, kg, Priority: STAT, Start date: 02/24/18 2:31:00 CDT, Stop date: 02/24/18 2:31:00 CDT Potassium Chloride Notes: MUST be Inactive 02/24 Diluted before 2017 [facility] use (Same as: KCl) MEDICATION WASTE Product Size: 40 mEq Product Wasted: 30mEq Potassium Chloride Notes: (Same No Longer 1.33 MEQ/ML Oral as: Potassium Active 2017 [place] Solution Chloride) Docusate 100 mg, Route: Inactive PO, Drug form: 2017 [facility] CAP, BID, Dosing Weight 81.818, kg, Start date: 09/30/17 9:00:00 GEAR INSPECTOR, Duration: 30 day, Stop date: 10/29/17 17:00:00 CDT Levetiracetam 500 Notes: (Same No Longer MG Oral Tablet as:Keppra) Active 2017 [place] [Keppra] Lorazepam 1 mg, Route: Inactive IVP, Q15Min, 2017 [facility] Dosing Weight 81.818, kg, PRN Seizure, Start date: 09/30/17 8:21:00 GEAR INSPECTOR, Duration: 30 day, Stop date: 10/30/17 9:20:00 CDT Saline Flush 0.9% 10 ml, Route: Inactive IVP, Drug 2017 [facility] Form: INJ, Dosing Weight 81.818, kg, PRN, PRN Line Flush, Start date: 09/30/17 8:17:00 GEAR INSPECTOR, Duration: 30 day, Stop date: 10/30/17 9:16:00 CDT Ondansetron 4 mg, Route: Inactive IVP, Q6H, 2017 [facility] Dosing Weight 81.818, kg, PRN Nausea & Vomiting, Start date: 09/30/17 8:17:00 GEAR INSPECTOR, Duration: 30 day, Stop date: 10/30/17 8:16:00 CDT Acetaminophen 100.4 F, Inactive Start date: 2017 [facility] 09/30/17 8:17:00 GEAR INSPECTOR, Duration: 30 day, Stop date: 10/30/17 8:16:00 CDT Acetaminophen 325 1 tab, Route: Inactive MG / Hydrocodone PO, Drug Form: 2017 [facility] Bitartrate 5 MG TAB, Dosing Oral Tablet Weight 81.818, kg, Q4H, PRN Pain Score 4-6, Start date: 09/30/17 8:17:00 GEAR INSPECTOR, Duration: 30 day, Stop date: 10/30/17 8:16:00 CDT Sodium Chloride 1,000 mL, Inactive 0.9% IV 1000 mL Rate: 125 2018 [place] ml/hr, Infuse over: 8 hr, Route: IV, Dosing Weight 81.818 kg, Total Volume: 1,000, Start date: 09/30/17 8:17:00 GEAR INSPECTOR, Duration: 30 day, Stop date: 10/30/17 8:16:00 CDT, 1.96, m2 octreotide 1,250 248.25 mL, Inactive microgram + Sodium Rate: 10 [place] Chloride 0.9% IV ml/hr, Infuse 248.25 mL over: 25 hr, Route: IV, Dosing Weight 81.818 kg, Total Volume: 249.5, Start date: 09/30/17 5:09:00 GEAR INSPECTOR, Duration: 30 day, Stop date: 10/30/17 5:08:00 CDT, 1.96, m2 Reglan 10 mg, Route: Inactive IVP, Drug 2017 [facility] form: INJ, ONCE, Dosing Weight 81.818, kg, Priority: STAT, Start date: 09/30/17 5:09:00 GEAR INSPECTOR, Stop date: 09/30/17 5:09:00 GEAR INSPECTOR Octreotide Notes: (Same Inactive As: 2018 [facility] SandoSTATIN). Refrigerate. MEDICATION WASTE Product Size: 100 microgram Product Wasted: ___ microgram Divalproex Sodium Notes: (Same No Longer 250 MG Enteric as: Depakote Active 2017 [place] Coated Tablet Delayed [Depakote] Release) Do not confuse with the extended-relea se tablet. Delayed absorption, enteric coated tablet. Do not crush pantoprazole 80 mg 100 mL, Rate: No Longer 09/30 + Sodium Chloride 10 ml/hr, Active 2017 [place] 0.9% IV 100 mL Infuse over: 10 hr, Route: IVPB, Dosing Weight 81.818 kg, Total Volume: 100, Infuse at 8 mg / hr for 72 hours for GI bleeding, Start date: 09/30/17 4:57:00 GEAR INSPECTOR, Duration: 72 hr, Stop date: 10/03/17 4:56:00 GEAR INSPECTOR, 1.96, m2 Acetaminophen 325 1 tab, Route: Inactive MG / Hydrocodone PO, Drug Form: 2017 [facility] Bitartrate 5 MG TAB, Dosing Oral Tablet [[place] Weight 81.818, 5/325] kg, ONCE, STAT, Start date: 09/30/17 4:37:00 GEAR INSPECTOR, Stop date: 09/30/17 4:37:00 GEAR INSPECTOR Protonix 80 mg, Route: Inactive IVP, ONCE, 2017 [facility] Dosing Weight 81.818, kg, Priority: STAT, Start date: 09/30/17 4:00:00 GEAR INSPECTOR, Stop date: 09/30/17 4:00:00 GEAR INSPECTOR Ondansetron 4 mg, Route: Inactive IVP, Drug 2017 [facility] form: INJ, ONCE, Dosing Weight 81.818, kg, Priority: STAT, Start date: 09/30/17 3:59:00 GEAR INSPECTOR, Stop date: 09/30/17 3:59:00 GEAR INSPECTOR Sodium Chloride 1,000 mL, Inactive 0.9% (Bolus) IV Infuse Over: 1 [place] hr, Route: IV, ONCE, Priority: STAT, Dosing Weight 81.818 kg, Start date: 09/30/17 3:59:00 GEAR INSPECTOR, Stop date: 09/30/17 3:59:00 GEAR INSPECTOR Famotidine 20 mg, Route: Inactive IVP, ONCE, 2017 [facility] Dosing Weight 81.818, kg, Priority: STAT, Start date: 09/30/17 3:59:00 GEAR INSPECTOR, Stop date: 09/30/17 3:59:00 GEAR INSPECTOR Famotidine 20 MG 20 mg = 1 tab, Active Oral Tablet PO, BID, # 30 [place] tab, 0 Refill(s) Ondansetron 4 MG 4 mg = 1 tab, Active 11/11/ H Disintegrating PO, TID, PRN 2017 [place] Tablet Nausea / Vomiting, Dissolve tab under tongue, X 3 day, # 20 tab, 0 Refill(s) Acetaminophen 300 1 - 2 tab, PO, No Longer 11/11 MG / Codeine Q6H, PRN Pain, Active 2017 [place] Phosphate 30 MG X 2 day, # 10 Oral Tablet tab, 0 [Tylenol with Refill(s) Codeine #3] Acetaminophen 325 1 tab, Route: Inactive MG / Hydrocodone PO, Dosing 2017 [place] Bitartrate 10 MG Weight 90, kg, Oral Tablet ONCE, STAT, Start date: 11/11/16 1:54:00 CDT, Stop date: 11/11/16 1:54:00 CDT Morphine 4 mg, Route: Inactive IVP, ONCE, 2016 [facility] Dosing Weight 90, kg, Priority: STAT, Start date: 11/11/16 0:08:00 CDT, Stop date: 11/11/16 0:08:00 CDT Levsin NATALIE Notes: (Same Inactive as: Levsin) 2016 Take 30 min before meal Ondansetron Notes: (Same Inactive as: Zofran) 2016 MEDICATION WASTE Product Size: 4 mg Product Wasted: ___ mg Famotidine Notes: (Same Inactive as: Pepcid) 2016 [place] Can be dilute in 5-10cc NS IVP: Slow IV push over at least 2 minutes. Sodium Chloride 1,000 mL, 1000 Inactive 0.154 MEQ/ML ml/hr, Infuse 2016 [facility] Injectable Over: 1 hr, Solution Route: IV, 1,000, Drug form: INJ, ONCE, Priority: STAT, Dosing Weight 90 kg, Start date: 11/10/16 23:04:00 CDT, Duration: 1 doses or times, Stop date: 11/10/16 23:04:00 CDT Saline Flush 0.9% Notes: (Same No Longer as: BD Active 2016 [facility] Posiflush) Acetaminophen 325 1 tab, Route: Inactive MG / Hydrocodone PO, Dosing 2015 [place] Bitartrate 7.5 MG Weight 87.273, Oral Tablet [[place] kg, ONCE, 7.5/325] Start date: 06/14/16 8:14:00 CDT, Stop date: 06/14/16 8:14:00 CDT Acetaminophen 300 1 - 2 tab, PO, Active MG / Codeine Q4H, PRN Pain, 2016 [place] Phosphate 30 MG X 3 day, # 20 Oral Tablet tab, 0 [Tylenol with Refill(s) Codeine #3] Acetaminophen 325 1 tab, Route: Inactive MG / Hydrocodone PO, Drug Form: 2015 [place] Bitartrate 5 MG TAB, Dosing Oral Tablet [[place] Weight 87.273, 5/325] kg, ONCE, STAT, Start date: 06/14/16 7:15:00 CDT, Stop date: 06/14/16 7:15:00 CDT ibuprofen 800 mg 800 mg = 1 Active oral tablet tab, PO, Q6H, 2015 [place] PRN Fever or Pain, Take with food, X 10 day, # 40 tab, 0 Refill(s), Pharmacy: [facility] [id number] Acetaminophen 300 1 tab, PO, Active MG / Codeine Q6H, PRN Pain, 2016 [place] Phosphate 30 MG X 3 day, # 12 Oral Tablet tab, 0 [Tylenol with Refill(s) Codeine #3] Acetaminophen 300 1 cap, PO, Active MG / butalbital 50 Q4H, PRN PRN 2015 [place] MG / Caffeine 40 Headache, Do MG Oral Capsule not exceed 6 [Fioricet] capsules in 24 hours, X 5 day, # 30 cap, 0 Refill(s), Pharmacy: [facility] [id number] 200 ACTUAT 2 puff, Active Albuterol 0.09 INHALER, Q4H, 2016 [place] MG/ACTUAT Metered PRN wheezing, Dose Inhaler coughing, or [Proventil] shortness of breath, # 1 ea, 1 Refill(s), Pharmacy: [facility] [id number] Promethazine DM 5 mL, PO, Q6H, Active 06/11/ M H oral syrup PRN for cough, 2015 [place] X 6 day, # 120 mL, 0 Refill(s), Pharmacy: [facility] [id number] Acetaminophen 325 Notes: Do not Inactive MG / Hydrocodone exceed 4gm/day 2015 Bitartrate 10 MG of Oral Tablet acetaminophen. (Same as: [place] 325/10) Ketorolac 4 days Inactive MEDICATION 2015 [place] WASTE Product Size: 60 mg Product Wasted: ___ mg Orphenadrine 60 mg, 2 mL, Inactive Route: IM, 2016 [facility] Drug form: INJ, ONCE, Dosing Weight 86.364, kg, Priority: STAT, Start date: 06/10/16 22:24:00 CDT, Stop date: 06/10/16 22:24:00 CDT Acetaminophen 325 1 tab, Route: Inactive MG / Hydrocodone PO, Dosing 2016 [place] Bitartrate 5 MG Weight 86.364, Oral Tablet kg, ONCE, STAT, Start date: 06/10/16 22:21:00 CDT, Stop date: 06/10/16 22:21:00 CDT Acetaminophen 325 1 tab, Route: Inactive MG / Hydrocodone PO, Dosing 2016 [place] Bitartrate 5 MG Weight 88.182, Oral Tablet kg, ONCE, STAT, Start date: 06/03/16 4:06:00 CDT, Stop date: 06/03/16 4:06:00 CDT Robitussin-AC oral 10 mL, PO, Active syrup Q6H, PRN as 2015 [facility] needed for cough and congestion, X 5 day, # 200 mL, 0 Refill(s) predniSONE 20 mg 40 mg = 2 tab, Active oral tablet PO, Daily, X 5 2015 day, # 10 tab, 0 Refill(s), Pharmacy: [facility] [id number] 200 ACTUAT 2 puff, Active Albuterol 0.09 INHALER, Q4H, 2016 [place] MG/ACTUAT Metered PRN wheezing, Dose Inhaler coughing, or [Proventil] shortness of breath, # 1 ea, 1 Refill(s), Pharmacy: [facility] [id number] homatropine 5 mL, Route: Inactive methylbromide 0.3 PO, Dosing 2016 [place] MG/ML / Weight 88.182, Hydrocodone kg, ONCE, Bitartrate 1 MG/ML STAT, Start Oral Solution date: 06/03/16 [Hycodan] 2:31:00 CDT, Stop date: 06/03/16 2:31:00 CDT Lunesta 3 mg, Route: Inactive PO, Bedtime, 2015 [facility] Dosing Weight 86.364, kg, Start date: 02/13/16 21:00:00 CDT, Duration: 30 day, Stop date: 03/13/16 21:00:00 CDT Olga Notes: (Same Inactive As: Ambien) 2015 [facility] Seroquel Notes: (Same Inactive as: SEROquel) 2015 Zanaflex Notes: (Same Inactive As: Zanaflex) 2015 ciprofloxacin 500 500 mg = 1 Active mg oral tablet tab, PO, Q12H, 2015 [place] X 3 day, # 6 tab, 0 Refill(s) Sucralfate 100 Notes: Enteral Inactive H MG/ML Oral feeds december 2015 Suspension interfere with [Carafate] the absorption of this medication. Shake well. Take 1 hr before or 2 hrs after antacids, dairy pdt, minerals & meals. (Same As: Carafate) Saline Flush 0.9% Notes: Same Inactive H as: BD 2015 Posiflush Sterile Glucose 50 MG/ML / 1,000 mL, Inactive Sodium Chloride Rate: 125 2015 [facility] ast 0.154 MEQ/ML ml/hr, Infuse Injectable over: 8 hr, Solution Route: IV, Dosing Weight 86.364 kg, Total Volume: 1,000, Start date: 02/13/16 10:15:00 CDT, Duration: 30 day, Stop date: 03/14/16 10:14:00 CDT Sodium Chloride 100 mL, Rate: Inactive H 0.154 MEQ/ML 8 mg/hr, 2015 Injectable Route: IV, Solution Dosing Weight 86.364 kg, Total Volume: 100, Start date: 02/13/16 10:15:00 CDT, Duration: 72 hr, Stop date: 02/16/16 10:14:00 CDT quetiapine 50 MG 50 mg = 1 tab, Active Oral Tablet PO, BID, 0 2015 [Seroquel] Refill(s) tizanidine 4 MG 8 mg = 2 tab, Active Oral Tablet PO, Q8H, 0 2015 [Zanaflex] Refill(s) Lunesta 3 mg, PO, Active Bedtime, 0 2015 Refill(s) tramadol Notes: Not to Inactive hydrochloride 50 exceed [address] [facility] [address] MG Oral Tablet 400mg/day. (Same As: Ultram) Acetaminophen 300 Notes: Do not Inactive MG / Codeine exceed 4gm/day 2015 [place] Phosphate 30 MG of Oral Tablet acetaminophen. [Tylenol with (Same as: Codeine #3] Tylenol with Codeine # 3) Acetaminophen Notes: Do not Inactive exceed 4 2015 gm/day. (Same as: Tylenol) Zofran Notes: (Same Inactive as: Zofran) 2015 MEDICATION WASTE Product Size: 4 mg Product Wasted: ___ mg docusate sodium Notes: (Same Inactive 100 mg oral as: Colace) 2015 [facility] t capsule (Do Not Crush) Metoclopramide 5 Notes: (Same Inactive H MG Oral Tablet as: Reglan) 2015 [facility] [Reglan] Take 30 min before meals Protonix Notes: Tablet Inactive should not be 2015 chewed or crushed. (Same as: Protonix) Dilaudid 0.5 mg, 0.5 Inactive mL, Route: IV, 2015 Drug form: INJ, Q3H, Dosing Weight 86.364, kg, PRN Pain Score 7-10, Start date: 02/13/16 6:41:00 CDT, Duration: 30 day, Stop date: 03/14/16 6:40:00 CDT Phenergan Notes: Do not Inactive give IV push. 2015 (Same as: Phenergan) Sodium Chloride 1,000 mL, Inactive 0.154 MEQ/ML Rate: 25 2015 Injectable ml/hr, Infuse Solution over: 40 hr, Route: IV, Dosing Weight 86.364 kg, Total Volume: 1,000, Start date: 02/13/16 6:35:00 CDT, Duration: 30 day, Stop date: 03/14/16 6:34:00 CDT Sodium Chloride 100 mL, Rate: Inactive H 0.154 MEQ/ML 10 ml/hr, 2015 Injectable Infuse over: Solution 10 hr, Route: IVPB, Dosing Weight 86.364 kg, Total Volume: 100, Infuse at 8 mg / hr for 72 hours for GI bleeding, Start date: 02/13/16 5:00:00 CDT, Duration: 72 hr, Stop date: 02/16/16 4:59:00 CDT Morphine 4 mg, Route: Inactive IVP, Drug 2015 [facility] form: INJ, ONCE, Dosing Weight 86.364, kg, Priority: STAT, Start date: 02/13/16 3:34:00 CDT, Stop date: 02/13/16 3:34:00 CDT Protonix Notes: For IV Inactive push 2015 reconstitute with 10 ml 0.9% sodium chloride and push over 2 minutes. (Same as: Protonix) Ondansetron 4 mg, Route: Inactive IVP, ONCE, 2015 [facility] Dosing Weight 86.364, kg, Priority: STAT, Start date: 02/13/16 3:34:00 CDT, Stop date: 02/13/16 3:34:00 CDT Saline Flush 0.9% Notes: (Same Inactive as: BD 2015 [facility] Posiflush) Sodium Chloride 1,000 mL, Inactive 0.154 MEQ/ML Rate: 125 2015 [facility] Injectable ml/hr, Infuse Solution over: 8 hr, Route: IV, Dosing Weight 86.364 kg, Total Volume: 1,000, Start date: 02/13/16 3:34:00 CDT, Duration: 30 day, Stop date: 03/14/16 3:33:00 CDT pantoprazole 40 mg 40 mg = 1 tab, Active oral enteric PO, BID-Before 2015 [place] coated tablet Meals, # 60 tab, 0 Refill(s) Sucralfate 100 1 gm = 10 mL, Active MG/ML Oral PO, QID-Before [place] Suspension Meals, # 560 [Carafate] mL, 0 Refill(s) Metoclopramide 5 5 mg = 1 tab, Active H MG Oral Tablet PO, Before 2015 [place] Meals & Bedtime, X 14 day, # 56 tab, 0 Refill(s) Promethazine 25 mg = 1 tab, Active Hydrochloride 25 PO, Q6H, PRN [place] MG Oral Tablet Nausea, X 4 [Phenergan] day, # 15 tab, 0 Refill(s) Acetaminophen 300 1 - 2 tab, PO, No Longer 02/10 MG / Codeine Q4H, PRN Pain, Active 2015 [place] Phosphate 30 MG X 2 day, # 20 Oral Tablet tab, 0 [Tylenol with Refill(s) Codeine #3] Acetaminophen 325 Notes: (Same Inactive MG / Hydrocodone as: [place] 2015 [facility] Bitartrate 5 MG 325/5) Do not Oral Tablet [[place] exceed 4gm/day 5/325] of acetaminophen. tramadol Notes: Not to Inactive hydrochloride 50 exceed [address] [facility] [address] MG Oral Tablet 400mg/day. (Same As: Ultram) Acetaminophen Notes: Do not Inactive exceed 4 2015 gm/day. (Same as: Tylenol) Reglan Notes: (Same No Longer as: Reglan) Active 2015 Take 30 min before meals pneumococcal Notes: (Same Inactive capsular as: Pneumovax 2015 polysaccharide 23) type 1 vaccine / Refrigerate pneumococcal capsular polysaccharide type 10A vaccine / pneumococcal capsular polysaccharide type 11A vaccine / pneumococcal capsular polysaccharide type 12F vaccine / pneumococcal capsular polysacchar Phenergan Notes: Do not Inactive give IV push. 2015 (Same as: Phenergan) Phenergan Notes: Do not Inactive give IV push. 2015 (Same as: Phenergan) Sucralfate 100 Notes: Enteral No Longer MG/ML Oral feeds december Suspension interfere with [Carafate] the absorption of this medication. Shake well. Take 1 hr before or 2 hrs after antacids, dairy pdt, minerals & meals. (Same As: Carafate) Phenergan Notes: Do not No Longer give IV push. 2015 (Same as: Phenergan) docusate sodium Notes: (Same No Longer 02/08/ H 100 mg oral as: Colace) Active 2015 [facility] t capsule (Do Not Crush) Seroquel Notes: (Same No Longer as: SEROquel) Active 2015 [facility] pantoprazole Notes: Tablet No Longer should not be Active 2015 [facility] chewed or crushed. (Same as: Protonix) Ambien Notes: (Same No Longer As: Ambien) Active 2015 [facility] Zofran Notes: (Same No Longer as: Zofran) Active 2015 [facility] MEDICATION WASTE Product Size: 4 mg Product Wasted: ___ mg Acetaminophen 325 Notes: (Same No Longer MG / Hydrocodone as: [place] Active 2015 [facility] Bitartrate 5 MG 325/5) Do not Oral Tablet [[place] exceed 4gm/day 5/325] of acetaminophen. Ciprofloxacin Notes: Do not No Longer refrigerate Active 2015 [facility] Sodium Chloride 100 mL, Rate: No Longer 0.154 MEQ/ML 10 ml/hr, Active 2015 [facility] Injectable Infuse over: Solution 10 hr, Route: IVPB, Dosing Weight 74.545 kg, Total Volume: 100, Infuse at 8 mg / hr for 72 hours for GI bleeding, Start date: 02/07/16 23:34:00 CDT, Duration: 72 hr, Stop date: 02/10/16 23:33:00 CDT Sodium Chloride 100 mL, Rate: No Longer 0.154 MEQ/ML 10 ml/hr, Active 2015 [facility] Injectable Infuse over: Solution 10 hr, Route: IVPB, Dosing Weight 74.545 kg, Total Volume: 100, Infuse at 8 mg / hr for 72 hours for GI bleeding, Start date: 02/07/16 23:33:00 CDT, Duration: 72 hr, Stop date: 02/10/16 23:32:00 CDT sodium chloride 1,000 mL, No Longer 0.9% 1000 ml INJ Rate: 100 2015 [facility] 1,000 mL ml/hr, Infuse over: 10 hr, Route: IV, Dosing Weight 74.545 kg, Total Volume: 1,000, Start date: 02/07/16 23:26:00 CDT, Duration: 30 day, Stop date: 03/08/16 23:25:00 CDT Dilaudid 0.5 mg, 0.5 No Longer mL, Route: Active 2015 [facility] IVP, Drug form: INJ, Q3H, Dosing Weight 74.545, kg, PRN Pain Score 6-10, Priority: Routine, Start date: 02/07/16 23:25:00 CDT, Duration: 30 day, Stop date: 03/08/16 23:24:00 CDT Flagyl Notes: (Same Inactive as: Flagyl) 2015 [facility] Avoid alcohol. Ciprofloxacin Notes: Do not Inactive refrigerate 2015 [facility] Zofran 4 mg, Route: Inactive IVP, Drug 2015 [facility] form: INJ, ONCE, Dosing Weight 74.545, kg, Priority: STAT, Start date: 02/07/16 22:00:00 CDT, Stop date: 02/07/16 22:00:00 CDT Morphine 4 mg, Route: Inactive IVP, Drug 2015 [facility] form: INJ, ONCE, Dosing Weight 74.545, kg, Priority: STAT, Start date: 02/07/16 22:00:00 CDT, Stop date: 02/07/16 22:00:00 CDT pantoprazole Notes: For IV Inactive push 2015 [facility] reconstitute with 10 ml 0.9% sodium chloride and push over 2 minutes. (Same as: Protonix) Ondansetron Notes: (Same Inactive as: Zofran) 2015 [facility] MEDICATION WASTE Product Size: 4 mg Product Wasted: __0_ mg sodium chloride 250 mL, Rate: No Longer 0.9% INJ 250 mL [employer] for Active 2015 [facility] use with blood product administration ., Dosing Weight 74.545, kg, Route: IV, Total Volume: 250, Priority: Routine, Start Date: 02/07/16 20:17:00 CDT, Duration: 30 day, Stop date: 03/08/16 20:16:00 CDT, Replace Every: 24 hr Morphine Notes: (Same Inactive as:MORPhine 2015 [facility] Sulfate) Saline Flush 0.9% Notes: (Same No Longer as: BD Active 2015 [facility]) Sodium Chloride 1,000 mL, Inactive 0.154 MEQ/ML 2,000 ml/hr, 2015 [facility] Injectable Infuse Over: Solution 30 minutes, Route: IV, 1,000, Drug form: INJ, ONCE, Priority: STAT, Dosing Weight 74.545 kg, Start date: 02/07/16 20:17:00 CDT, Duration: 1 doses or times, Stop date: 02/07/16 20:17:00 CDT Sodium Chloride 1,000 mL, Inactive 0.154 MEQ/ML 1,000 ml/hr, 2015 [facility] Injectable Infuse Over: 1 Solution hr, Route: IV, 1,000, Drug form: INJ, ONCE, Priority: STAT, Dosing Weight 73.636 kg, Start date: 02/07/16 19:53:00 CDT, Duration: 1 doses or times, Stop date: 02/07/16 19:53:00 CDT Dariana Notes: (Same Inactive as: Dariana) 2015 [facility] MEDICATION WASTE Product Size: 4 mg Product Wasted: ___ mg Morphine 4 mg, Route: Inactive IVP, Drug 2015 [facility] form: INJ, ONCE, Dosing Weight 73.636, kg, Priority: STAT, Start date: 02/06/16 0:18:00 CDT, Stop date: 02/06/16 0:18:00 CDT promethazine 25 mg 25 mg = 1 tab, On Hold oral tablet PO, Q6H, PRN 2015 [facility] Nausea/Vomitin g, X 3 day, # 12 tab, 0 Refill(s) Acetaminophen 300 1 - 2 tab, PO, No Longer 02/05 MG / Codeine Q6H, PRN Pain, Active 2015 [facility] Phosphate 30 MG X 2 day, # 20 Oral Tablet tab, 0 [Tylenol with Refill(s) Codeine #3] Metronidazole 500 500 mg = 1 On Hold MG Oral Tablet tab, PO, Q8H, 2016 [facility] [Flagyl] X 10 day, # 30 tab, 0 Refill(s) Ciprofloxacin 500 500 mg = 1 On Hold MG Oral Tablet tab, PO, Q12H, 2016 [place] [Cipro] X 10 day, # 20 tab, 0 Refill(s) Ondansetron Notes: (Same Inactive as: Zofran) 2015 [facility] MEDICATION WASTE Product Size: 4 mg Product Wasted: ___ mg Morphine 4 mg, Route: Inactive IVP, Drug 2015 [facility] form: INJ, ONCE, Dosing Weight 73.636, kg, Priority: STAT, Start date: 02/05/16 22:39:00 CDT, Stop date: 02/05/16 22:39:00 CDT Zofran 4 mg, Route: Inactive IVP, Drug 2015 [facility] form: INJ, ONCE, Dosing Weight 73.636, kg, Priority: STAT, Start date: 02/05/16 22:39:00 CDT, Stop date: 02/05/16 22:39:00 CDT Sodium Chloride 1,000 mL, Inactive 0.154 MEQ/ML 1,000 ml/hr, 2015 [facility] Injectable Infuse Over: 1 Solution Hour, Route: IV, ONCE, Priority: STAT, Dosing Weight 73.636 kg, Start date: 02/05/16 21:35:00 CDT, Duration: 1 doses or times, Stop date: 02/05/16 21:35:00 CDT Morphine 4 mg, Route: Inactive IVP, Drug 2015 [facility] form: INJ, ONCE, Dosing Weight 73.636, kg, Priority: STAT, Start date: 02/05/16 21:35:00 CDT, Stop date: 02/05/16 21:35:00 CDT Zofran Notes: (Same Inactive as: Zofran) 2015 [facility] MEDICATION WASTE Product Size: 4 mg Product Wasted: ___ mg Metronidazole 500 500 mg = 1 Active 10/04/ MH MG Oral Tablet tab, PO, Q8H, 2016 [facility] [Flagyl] X 7 day, # 21 tab, 0 Refill(s) Ciprofloxacin 500 500 mg = 1 Active 10/04/ MH MG Oral Tablet tab, PO, Q12H, 2016 [place] [Cipro] X 7 day, # 14 tab, 0 Refill(s) tramadol 1 - 2 tabs, Active hydrochloride 50 PO, Q4-6H, PRN 2015 [facility] MG Oral Tablet as needed for [Ultram] pain, X 7 day, # 12 tab, 0 Refill(s) Dilaudid 0.5 mg, Route: Inactive IM, ONCE, 2015 [facility] Dosing Weight 90.909, kg, Priority: STAT, Start date: 10/04/15 4:14:00, Stop date: 10/04/15 4:14:00 Acetaminophen 325 1 tab, Route: Inactive MG / Hydrocodone PO, Dosing 2015 [facility] Bitartrate 7.5 MG Weight 90.909, Oral Tablet [[place] kg, ONCE, 7.5/325] Start date: 10/04/15 3:37:00, Stop date: 10/04/15 3:37:00 Phenergan 12.5 mg, Inactive Route: IVPB, 2015 [facility] ONCE, Dosing Weight 90.909, kg, Priority: STAT, Start date: 10/04/15 2:20:00, Stop date: 10/04/15 2:20:00 Sodium Chloride 1,000 mL, Inactive 0.154 MEQ/ML 1,000 ml/hr, 2015 [facility] Injectable Infuse Over: 1 Solution Hour, Route: IV, ONCE, Priority: STAT, Dosing Weight 90.909 kg, Start date: 10/04/15 2:20:00, Duration: 1 doses or times, Stop date: 10/04/15 2:20:00 Zofran 4 mg, Route: Inactive IVP, ONCE, 2015 [facility] Dosing Weight 90.909, kg, Start date: 10/04/15 1:18:00, Stop date: 10/04/15 1:18:00 Morphine 4 mg, Route: Inactive IVP, ONCE, 2015 [facility] Dosing Weight 90.909, kg, Priority: STAT, Start date: 10/04/15 1:18:00, Stop date: 10/04/15 1:18:00 Ativan 0.5 mg, Route: Inactive IVP, ONCE, 2015 [facility] Dosing Weight 90.909, kg, Priority: STAT, Start date: 10/04/15 1:18:00, Stop date: 10/04/15 1:18:00 tramadol 50 mg = 1 tab, Active hydrochloride 50 PO, Q6H, pain, 2014 [facility] MG Oral Tablet # 20 tab, 0 [Ultram] Refill(s) Cephalexin 500 MG 500 mg = 1 Active Oral Capsule cap, PO, QID, 2014 [facility] [Keflex] # 40 cap, 0 Refill(s) Sulfamethoxazole 1 tab, PO, Active 800 MG / BID, # 20 tab, 2014[facility] t Trimethoprim 160 0 Refill(s) MG Oral Tablet [Bactrim] Clindamycin Notes: (Same Inactive As: Cleocin) 2014 Sodium Chloride 1,000 mL, Inactive 0.154 MEQ/ML 1,000 ml/hr, 2014 [facility] Injectable Infuse Over: 1 Solution hr, Route: IV, 1,000, Drug form: INJ, ONCE, Priority: STAT, Dosing Weight 83.182 kg, Start date: 09/19/14 1:23:00, Duration: 1 doses or times, Stop date: 09/19/14 1:23:00 Metoclopramide Notes: (Same Inactive as: Reglan) 2014 Diphenhydramine Notes: (Same Inactive as: Benadryl) 2014 Allergies, Adverse Reactions, Alerts No Known Medication Allergies Immunizations Immunization Date Site Status Last Comments Source Given Updated influenza virus Right completed [facility] edical vaccine, 6 Deltoid Group, inactivated [facility] pneumococcal Not Given [facility] regine 23-valent 6 Group, vaccine<sup>1</s [facility]> [facility] Results Order Name Results Value Reference Date Interpretation Comments [facility] DRUG U Negative Negative 04/07 SCREEN Phencyclidin *NA* /2017 [place] e Scr (04/06/18 8:34 PM) DRUG U Benzodiaz Negative Negative 04/07 SCREEN Scr *NA* [place] (04/06/18 8:34 PM) DRUG U Cocaine Negative Negative 04/07 SCREEN Scr *NA* /2017 [place] (04/06/18 8:34 PM) DRUG U Cannab Scr Negative Negative 04/07 SCREEN *NA* /2017 [place] (04/06/18 8:34 PM) DRUG U Opiate Scr Positive Negative 04/07 SCREEN *ABN* /2017 [place] (04/06/18 8:34 PM) DRUG UDS Note See Note 04/07 [facility] SCREEN (04/06/18 8:34 PM) /2017 [place] DRUG U Kalpana Scr Negative Negative 04/07 SCREEN *NA* /2017 [place] (04/06/18 8:34 PM) DRUG U Amph Scr Negative Negative 04/07 MH SCREEN *NA* /2017 [place] (04/06/18 8:34 PM) URINE AND UA Nitrite Negative Negative 04/07 STOOL (04/06/18 8:34 PM) /2017 [place] URINE AND UA Leuk Est Negative Negative 04/07 STOOL (04/06/18 8:34 PM) [place] URINE AND UA Sq Epi Moderate Few /LPF 04/07 MH STOOL /LPF [place] URINE AND UA RBC 1 0 - 2 04/07 MH STOOL [place] URINE AND UA WBC 2 0 - 5 04/07 MH STOOL [place] URINE AND UA <=1.0 0.1 - 1.0 04/07 STOOL Urobilinogen mg/dL [place] URINE AND UA Mucus Many /LPF None Seen 04/07 MH STOOL /LPF [place] URINE AND UA Bacteria Occasional None Seen 04/07 MH STOOL /HPF /HPF [place] URINE AND UA pH 5.0 5.0 - 8.0 04/07 STOOL [place] URINE AND UA Spec Grav 1.014 <=1.030 04/07 STOOL [place] URINE AND UA Protein Negative Negative 04/07 STOOL mg/dL mg/dL [place] URINE AND UA Glucose Negative Negative 04/07 STOOL mg/dL mg/dL [place] URINE AND UA Ketones Trace Negative 04/07 STOOL mg/dL mg/dL [place] URINE AND UA Blood Small Negative 04/07 STOOL *ABN* /2017 [place] (04/06/18 8:34 PM) URINE AND UA Bili Negative Negative 04/07 STOOL *NA* /2017 [place] (04/06/18 8:34 PM) URINE AND UA Turbidity Clear Clear 04/07 MH STOOL (04/06/18 8:34 PM) /2017 [place] URINE AND UA Color Yellow Yellow 04/07 MH STOOL *NA* /2017 [place] (04/06/18 8:34 PM) ELECTROLYT Potassium 3.3 3.5 - 5.1 02/25 MH ES Lvl [place] ELECTROLYT Potassium 2.6 3.5 - 5.1 02/25 Result MH ES Lvl Comment: [facility] Critical Result(s) called to Mary Kay Foreman at 02/25/2018 10:36 by Mary Kay Lewis. Read back OK. CARDIAC Total CK 1265 12 - 191 02/25 MH ENZYMES [place] CHEM PANEL eGFR 129 02/25 Result Comment: The [facility] eGFR is calculated using the CKD-EPI formula. In most young, healthy individuals the eGFR will be >90 mL/min/1.73m2 . The eGFR declines with age. An eGFR of 60-89 may be normal in some populations, particularly the elderly, for whom the CKD-EPI formula has not been extensively validated. Use of the eGFR is not recommended in the following populations:< br/>
Radha viduals with unstable creatinine concentration s, including patients and those with serious co-morbid conditions.<b r/>
Patie nts with extremes in muscle mass or diet.

The data above are obtained from the National Kidney Disease Education Program (NKDEP) which additionally recommends that when the eGFR is used in patients with extremes of body mass index for purposes of drug dosing, the eGFR should be multiplied by the estimated BMI. CHEM PANEL AST 84 0 - 37 02/25 [facility] CHEM PANEL Alk Phos 45 39 - 136 02/25 [facility] CHEM PANEL Bili Total 0.3 0.2 - 1.3 02/25 [facility] CHEM PANEL Globulin 2.6 2.7 - 4.2 02/25 [facility] CHEM PANEL A/G Ratio 1.0 0.7 - 1.6 02/25 [facility] CHEM PANEL ALT 113 0 - 65 02/25 [facility] CHEM PANEL B/C Ratio 19 6 - 25 02/25 [facility] CHEM PANEL Total 5.1 6.4 - 8.4 02/25 Protein /2017 [facility] CHEM PANEL Albumin Lvl 2.5 3.5 - 5.0 02/25 [facility] CHEM PANEL AGAP 12.6 10.0 - 02/25 20.0 /2017 [facility] CHEM PANEL Calcium Lvl 7.6 8.5 - 10.5 02/25 [facility] CHEM PANEL Potassium 2.6 3.5 - 5.1 02/25 Result Comment: [facility] Critical Result(s) called to Yoko Grullon at 02/25/2018 06:39 by LT. Read back OK. CHEM PANEL Chloride Lvl 114 95 - 109 02/25 [facility] CHEM PANEL Sodium Lvl 149 135 - 145 02/25 [facility] CHEM PANEL CO2 25 24 - 32 02/25 [facility] CHEM PANEL BUN 9 7 - 22 02/25 [facility] CHEM PANEL Creatinine 0.48 0.50 - 02/25 Lvl 1.40 [facility] CHEM PANEL Glucose Lvl 88 70 - 99 02/25 [facility] CHEM PANEL Phosphorus 2.6 2.5 - 4.5 02/25 [facility] CHEM PANEL Magnesium 1.8 1.8 - 2.4 02/25 Lvl /2017 [facility] HEMATOLOGY Segs 52.5 45.0 - 02/25 75.0 [facility] HEMATOLOGY Lymphocytes 2.7 1.0 - 5.5 02/25 MH # /2017 [facility] HEMATOLOGY Segs-Bands # 3.8 1.5 - 8.1 02/25 [facility] HEMATOLOGY Monocytes # 0.7 0.0 - 0.8 02/25 [facility] HEMATOLOGY Basophils 0.4 0.0 - 1.0 02/25 [facility] HEMATOLOGY Lymphocytes 36.7 20.0 - 02/25 40.0 [facility] HEMATOLOGY Eosinophils 0.8 0.0 - 4.0 02/25 [facility] HEMATOLOGY Monocytes 9.6 2.0 - 12.0 02/25 [facility] HEMATOLOGY Eosinophils 0.1 0.0 - 0.5 02/25 /2017 [facility] HEMATOLOGY MPV 9.5 7.4 - 10.4 02/25 [facility] HEMATOLOGY Platelet 261 133 - 450 02/25 [facility] HEMATOLOGY RDW 14.0 11.5 - 02/25 14.5 [facility] HEMATOLOGY MCH 28.0 27.0 - 02/25 MH 31.0 /2017 [facility] HEMATOLOGY Hct 31.1 36.0 - 02/25 MH 48.0 /2017 [facility] HEMATOLOGY MCV 84.5 80.0 - 02/25 MH 98.0 /2017 [facility] HEMATOLOGY MCHC 33.2 32.0 - 02/25 MH 36.0 /2017 [facility] HEMATOLOGY Hgb 10.3 12.0 - 02/25 MH 16.0 /2017 [facility] HEMATOLOGY RBC 3.69 4.20 - 02/25 MH 5.40 /2017 [facility] HEMATOLOGY WBC 7.3 3.7 - 10.4 02/25 MH /2017 [facility] DRUG U Phencyc Negative Negative 02/24 MH SCREEN Scr *NA* /2017 (02/24/18 2:36 AM) DRUG UDS Note See Note 02/24 MH SCREEN (02/24/18 2:36 AM) /2017 [place] DRUG U Cannab Scr Positive Negative 02/24 MH SCREEN *ABN* /2017 (02/24/18 2:36 AM) DRUG U Opiate Scr Negative Negative 02/24 MH SCREEN *NA* /2017 (02/24/18 2:36 AM) DRUG U Cocaine Negative Negative 02/24 MH SCREEN Scr *NA* /2017 (02/24/18 2:36 AM) DRUG U Benzodia Negative Negative 02/24 MH SCREEN Scr *NA* /2017 (02/24/18 2:36 AM) DRUG U Kalpana Scr Negative Negative 02/24 MH SCREEN *NA* /2017 (02/24/18 2:36 AM) DRUG U Amph Scr Negative Negative 02/24 MH SCREEN *NA* /2017 (02/24/18 2:36 AM) TOBRAMYCIN Culture: 10,000 - 50,000 CFU/mL Escherichia coli ESBL 02/24 MH :SUSC:PT:I Urine Multi-drug Resistant Organism /2017 [facility] SOLATE:ORD QN:NIYAH TOBRAMYCIN Escherichia [place] 02/24 MH :SUSC:PT:I coli ESBL a coli /2017 [facility] SOLATE:ORD ESBL QN:NIYAH URINE AND UA [place] 02/24 STOOL /2017 [facility] URINE AND UA Mucus Many /LPF None Seen 02/24 STOOL /LPF /2017 [facility] URINE AND UA Bacteria Occasional None Seen 02/24 STOOL /HPF /HPF /2017 [facility] URINE AND UA WBC 7 0 - 5 02/24 STOOL /2017 [facility] URINE AND UA Sq Epi Moderate Few /LPF 02/24 STOOL /LPF /2017 [facility] URINE AND UA Nitrite Negative Negative 02/24 STOOL (02/24/18 2:36 AM) /[facility]A 2.0 0.1 - 1.0 02/24 STOOL Urobilinogen /2017 [facility] URINE AND UA Blood Moderate Negative 02/24 STOOL *ABN* [facility] (02/24/18 2:36 AM) URINE AND UA Leuk Est Trace Negative 02/24 STOOL *ABN* [facility] (02/24/18 2:36 AM) URINE AND UA Spec Grav 1.024 <=1.030 02/24 STOOL [place] URINE AND UA Turbidity Slight Clear 02/24 STOOL *ABN* [facility] (02/24/18 2:36 AM) URINE AND UA Glucose Negative Negative 02/24 STOOL mg/dL mg/dL [facility] URINE AND UA Protein 30 mg/dL Negative 02/24 STOOL mg/dL /2017 [facility] URINE AND UA pH 5.0 5.0 - 8.0 02/24 STOOL [place] URINE AND UA Bili Negative Negative 02/24 STOOL *NA* /2017 [facility] (02/24/18 2:36 AM) URINE AND UA Ketones 20 mg/dL Negative 02/24 STOOL mg/dL /2017 [facility] URINE CHEM U Preg Negative Negative 02/24 (02/24/18 2:36 AM) [facility] CHEM PANEL Ketone 2.26 <=0.27 02/24 Quantitative mmol/L [facility] CHEM PANEL Ammonia 29.0 <=45.0 02/24 uMol/L /2017 [facility] CARDIAC Troponin-I <0.02 0.00 - 02/24 ENZYMES 0.40 /2017 [facility] CARDIAC CK MB 39.2 0.5 - 3.6 02/24 ENZYMES [facility] [place] 3892 12 - 191 02/24 ENZYMES [facility] CARDIAC CK MB Index 1.0 0.0 - 2.5 02/24 ENZYMES [facility] CHEM PANEL eGFR 56 02/24 Result Comment: The [facility] eGFR is calculated using the CKD-EPI formula. In most young, healthy individuals the eGFR will be >90 mL/min/1.73m2 . The eGFR declines with age. An eGFR of 60-89 may be normal in some populations, particularly the elderly, for whom the CKD-EPI formula has not been extensively validated. Use of the eGFR is not recommended in the following populations:< br/>
Radha viduals with unstable creatinine concentration s, including patients and those with serious co-morbid conditions.<b r/>
Patie nts with extremes in muscle mass or diet.

The data above are obtained from the National Kidney Disease Education Program (NKDEP) which additionally recommends that when the eGFR is used in patients with extremes of body mass index for purposes of drug dosing, the eGFR should be multiplied by the estimated BMI. CHEM PANEL Albumin Lvl 3.9 3.5 - 5.0 02/24 [facility] CHEM PANEL Total 8.3 6.4 - 8.4 02/24 Protein [facility] CHEM PANEL Sodium Lvl 144 135 - 145 02/24 [facility] CHEM PANEL Creatinine 1.26 0.50 - 02/24 MH Lvl 1.40 [facility] CHEM PANEL Chloride Lvl 106 95 - 109 02/24 [facility] CHEM PANEL B/C Ratio 25 6 - 25 02/24 [facility] CHEM PANEL CO2 21 24 - 32 02/24 [facility] CHEM PANEL Calcium Lvl 10.0 8.5 - 10.5 02/24 [facility] CHEM PANEL AGAP 19.6 10.0 - 02/24 MH 20.0 [facility] CHEM PANEL A/G Ratio 0.9 0.7 - 1.6 02/24 [facility] CHEM PANEL Globulin 4.4 2.7 - 4.2 02/24 [facility] CHEM PANEL AST 147 0 - 37 02/24 [facility] CHEM PANEL ALT 203 0 - 65 02/24 [facility] CHEM PANEL Alk Phos 73 39 - 136 02/24 [facility] CHEM PANEL Bili Total 0.4 0.2 - 1.3 02/24 [facility] CHEM PANEL BUN 32 7 - 22 02/24 [facility] CHEM PANEL Glucose Lvl 250 70 - 99 02/24 [facility] CHEM PANEL Lipase Lvl 374 73 - 393 02/24 [facility] HEMATOLOGY PTT 23.6 22.9 - 07 MH 35.8 [facility] HEMATOLOGY PT 14.4 12.0 - 02/24 MH 14.7 /2017 [facility] HEMATOLOGY INR 1.12 0.85 - 02/24 MH 1.17 /2017 [facility] HEMATOLOGY MPV 10.5 7.4 - 10.4 07 /2017 [facility] HEMATOLOGY Platelet 387 133 - 450 07 /2017 [facility] HEMATOLOGY RDW 14.0 11.5 - 02/24 MH 14.5 /2017 [facility] HEMATOLOGY MCH 28.1 27.0 - 07 MH 31.0 /2017 [facility] HEMATOLOGY MCHC 33.0 32.0 - 07 MH 36.0 /2017 [facility] HEMATOLOGY RBC 5.37 4.20 - 07 MH 5.40 /2017 [facility] HEMATOLOGY Hgb 15.1 12.0 - 02/24 MH 16.0 /2017 [facility] HEMATOLOGY Hct 45.8 36.0 - 02/24 MH 48.0 /2017 [facility] HEMATOLOGY MCV 85.3 80.0 - 02/24 MH 98.0 /2017 [facility] HEMATOLOGY WBC 19.5 3.7 - 10.4 02/24 /2017 [facility] HEMATOLOGY Segs-Bands # 16.9 1.5 - 8.1 02/24 [facility] HEMATOLOGY Lymphocytes 1.3 1.0 - 5.5 02/24 MH # /2018 [facility] HEMATOLOGY Monocytes # 1.2 0.0 - 0.8 02/24 [facility] HEMATOLOGY Basophils # 0.1 0.0 - 0.2 02/24 [facility] HEMATOLOGY Segs 86.6 45.0 - 02/24 MH 75.0 /2017 [facility] HEMATOLOGY Lymphocytes 6.8 20.0 - 02/24 MH 40.0 [facility] HEMATOLOGY Monocytes 6.2 2.0 - 12.0 02/24 [facility] HEMATOLOGY Basophils 0.4 0.0 - 1.0 02/24 [facility] SPECIAL Hgb A1C 5.9 <=5.6 % 02/24 CHEMISTRY /2017 [facility] TOXICOLOGY Acetaminoph X-NORESULT 10 - 20 02/24 Lvl [facility] TOXICOLOGY Salicylate 2.9 0.0 - 30.0 02/24 Lvl [facility] TOXICOLOGY Etoh (%) <0.003 02/24 [facility] TOXICOLOGY Ethanol Lvl <3 02/24 [facility] BLOOD BANK ABO/Rh A POS 09/30 RESULTS /2017 [facility] BLOOD BANK Antibody Negative 09/30 RESULTS Scrn (09/30/17 4:14 AM) /2017 [place] [facility] DRUG UDS Note See Note 09/30 SCREEN (09/30/17 3:57 AM) /2017 [place] [facility] DRUG U Kalpana Scr Negative Negative 09/30 MH SCREEN *NA* [facility] (09/30/17 3:57 AM) DRUG U Cocaine Negative Negative 09/30 MH SCREEN Scr *NA* [facility] (09/30/17 3:57 AM) DRUG U Amph Scr Negative Negative 09/30 MH SCREEN *NA* [facility] (09/30/17 3:57 AM) DRUG U Benzodia Positive Negative 09/30 MH SCREEN Scr *ABN* [facility] (09/30/17 3:57 AM) DRUG U Opiate Scr Positive Negative 09/30 MH SCREEN *ABN* [facility] (09/30/17 3:57 AM) DRUG U Cannab Scr Positive Negative 09/30 SCREEN *ABN* [facility] (09/30/17 3:57 AM) DRUG U Phencyc Negative Negative 09/30 SCREEN Scr *NA* [facility] (09/30/17 3:57 AM) TOXICOLOGY Valproic 6 50 - 100 09/30 Acid Lvl /2017 [facility] URINE AND UA Color Ltyellow 09/30 STOOL /2017 [facility] URINE AND UA <=1.0 0.1 - 1.0 09/30 STOOL Urobilinogen mg/dL /2017 [facility] URINE AND UA Bacteria Occasional None Seen 09/30 STOOL /HPF /HPF /2017 [facility] URINE AND UA Sq Epi Few /LPF Few /LPF 09/30 STOOL /2017 [facility] URINE AND UA Nitrite Negative Negative 09/30 STOOL (09/30/17 3:57 AM) /[facility] URINE AND UA Blood Negative Negative 09/30 STOOL (09/30/17 3:57 AM) /2017 [facility] URINE AND UA Bili Negative Negative 09/30 STOOL *NA* [facility] (09/30/17 3:57 AM) URINE AND UA RBC 1 0 - 2 09/30 STOOL [facility] URINE AND UA WBC 4 0 - 5 09/30 STOOL /2017 [facility] URINE AND UA Leuk Est Small Negative 09/30 STOOL *ABN* [facility] (09/30/17 3:57 AM) URINE AND UA Ketones Negative Negative 09/30 STOOL mg/dL mg/dL /2017 [facility] URINE AND UA Protein Negative Negative 09/30 STOOL mg/dL mg/dL [facility] URINE AND UA Turbidity Clear Clear 09/30 STOOL (09/30/17 3:57 AM) [facility] URINE AND UA Spec Grav 1.009 <=1.030 09/30 STOOL [facility] URINE AND UA Glucose Negative Negative 09/30 STOOL mg/dL mg/dL [facility] URINE AND UA pH 7.0 5.0 - 8.0 09/30 STOOL [facility] CARDIAC Total CK 49 12 - 191 09/30 ENZYMES [facility] CHEM PANEL Lactic Acid 1.1 0.5 - 2.2 09/30 Lvl [facility] CHEM PANEL eGFR 118 09/30 [facility] Comment: The [facility] eGFR is calculated using the CKD-EPI formula. In most young, healthy individuals the eGFR will be >90 mL/min/1.73m2 . The eGFR declines with age. An eGFR of 60-89 may be normal in some populations, particularly the elderly, for whom the CKD-EPI formula has not been extensively validated. Use of the eGFR is not recommended in the following populations:< br/>
Radha viduals with unstable creatinine concentration s, including patients and those with serious co-morbid conditions.<b r/>
Patie nts with extremes in muscle mass or diet.

The data above are obtained from the National Kidney Disease Education Program (NKDEP) which additionally recommends that when the eGFR is used in patients with extremes of body mass index for purposes of drug dosing, the eGFR should be multiplied by the estimated BMI. CHEM PANEL Total 7.4 6.4 - 8.4 09/30 Protein [facility] CHEM PANEL Calcium Lvl 8.2 8.5 - 10.5 09/30 [facility] CHEM PANEL Albumin Lvl 3.7 3.5 - 5.0 09/30 [facility] CHEM PANEL BUN 13 7 - 22 09/30 [facility] CHEM PANEL Glucose Lvl 108 70 - 99 09/30 [facility] CHEM PANEL CO2 27 24 - 32 09/30 [facility] CHEM PANEL Potassium 3.6 3.5 - 5.1 09/30 Lvl [facility] CHEM PANEL Chloride Lvl 105 95 - 109 09/30 /2017 [facility] CHEM PANEL Sodium Lvl 139 135 - 145 09/30 [facility] CHEM PANEL Creatinine 0.63 0.50 - 09/30 MH Lvl 1.40 /2017 [facility] CHEM PANEL AST 32 0 - 37 09/30 /2017 [facility] CHEM PANEL ALT 43 0 - 65 09/30 [facility] CHEM PANEL Bili Total 0.2 0.2 - 1.3 09/30 [facility] CHEM PANEL Alk Phos 76 39 - 136 09/30 /2017 [facility] CHEM PANEL AGAP 10.6 10.0 - 02 MH 20.0 /2017 [facility] CHEM PANEL Globulin 3.7 2.7 - 4.2 09/30 [facility] CHEM PANEL B/C Ratio 21 6 - 25 09/30 [facility] CHEM PANEL A/G Ratio 1.0 0.7 - 1.6 09/30 /2017 [facility] ENDOCRINOL S Preg Negative Negative 09/30 OGY *NA* /2017 [facility] (09/30/17 3:24 AM) HEMATOLOGY Eosinophils 0.1 0.0 - 0.5 09/30 MH # /2018 [facility] HEMATOLOGY Monocytes # 0.5 0.0 - 0.8 09/30 /2017 [facility] HEMATOLOGY Basophils 0.5 0.0 - 1.0 09/30 /2017 [facility] HEMATOLOGY Segs-Bands # 3.2 1.5 - 8.1 09/30 /2017 [facility] HEMATOLOGY Lymphocytes 2.9 1.0 - 5.5 09/30 MH # /2018 [facility] HEMATOLOGY Lymphocytes 43.8 20.0 - 09/30 MH 40.0 [facility] HEMATOLOGY Eosinophils 1.0 0.0 - 4.0 09/30 /2017 [facility] HEMATOLOGY Monocytes 7.6 2.0 - 12.0 09/30 /2017 [facility] HEMATOLOGY Segs 47.1 45.0 - 09/30 MH 75.0 /2017 [facility] HEMATOLOGY Hct 38.3 36.0 - 09/30 MH 48.0 /2017 [facility] HEMATOLOGY Hgb 12.7 12.0 - 09/30 MH 16.0 [facility] HEMATOLOGY MCV 85.8 80.0 - 09/30 MH 98.0 /2017 [facility] HEMATOLOGY MCH 28.3 27.0 - 09/30 MH 31.0 /2017 [facility] HEMATOLOGY RDW 14.6 11.5 - 09/30 MH 14.5 /2017 [facility] HEMATOLOGY MCHC 33.0 32.0 - 02 MH 36.0 /2018 [facility] HEMATOLOGY RBC 4.47 4.20 - 02 MH 5.40 /2018 [facility] HEMATOLOGY Platelet 244 133 - 450 09/30 [facility] HEMATOLOGY WBC 6.7 3.7 - 10.4 09/30 [facility] HEMATOLOGY MPV 8.6 7.4 - 10.4 09/30 [facility] CARDIAC CK MB Index <0.7 0.0 - 2.5 11/11 ENZYMES [facility] CARDIAC Troponin-I <0.02 0.00 - 11/11 MH ENZYMES 0.40 [facility] CARDIAC CK MB <0.5 0.5 - 3.6 11/11 ENZYMES [facility] CARDIAC Total CK 71 12 - 191 11/11 [facility] CHEM PANEL Amylase Lvl 37 25 - 115 11/11 [facility] CHEM PANEL eGFR 94 11/11 Comment: The [facility] eGFR is calculated using the CKD-EPI formula. In most young, healthy individuals the eGFR will be >90 mL/min/1.73m2 . The eGFR declines with age. An eGFR of 60-89 may be normal in some populations, particularly the elderly, for whom the CKD-EPI formula has not been extensively validated. Use of the eGFR is not recommended in the following populations:< br/>
Radha viduals with unstable creatinine concentration s, including patients and those with serious co-morbid conditions.<b r/>
Patie nts with extremes in muscle mass or diet.

The data above are obtained from the National Kidney Disease Education Program (NKDEP) which additionally recommends that when the eGFR is used in patients with extremes of body mass index for purposes of drug dosing, the eGFR should be multiplied by the estimated BMI. CHEM PANEL A/G Ratio 0.9 0.7 - 1.6 11/11 [facility] CHEM PANEL Globulin 3.8 2.7 - 4.2 11/11 [facility] CHEM PANEL B/C Ratio 12 6 - 25 11/11 [facility] CHEM PANEL AGAP 9.8 10.0 - 11/11 MH 20.0 /2016 [facility] CHEM PANEL Bili Total 0.5 0.2 - 1.3 11/11 [facility] CHEM PANEL Alk Phos 76 39 - 136 03 [facility] CHEM PANEL Calcium Lvl 8.6 8.5 - 10.5 11/11 [facility] CHEM PANEL CO2 29 24 - 32 11/11 [facility] CHEM PANEL Chloride Lvl 106 95 - 109 11/11 [facility] CHEM PANEL Potassium 3.8 3.5 - 5.1 11/11 MH Lvl /2016 [facility] CHEM PANEL Sodium Lvl 141 135 - 145 11/11 [facility] CHEM PANEL AST 24 0 - 37 11/11 [facility] CHEM PANEL ALT 22 0 - 65 11/11 [facility] CHEM PANEL Albumin Lvl 3.5 3.5 - 5.0 11/11 [facility] CHEM PANEL Total 7.3 6.4 - 8.4 11/11 MH [facility] CHEM PANEL BUN 10 7 - 22 11/11 [facility] CHEM PANEL Creatinine 0.82 0.50 - 11/11 MH Lvl 1. [facility] CHEM PANEL Glucose Lvl 100 70 - 99 11/11 [facility] HEMATOLOGY Monocytes # 0.6 0.0 - 0.8 11/11 [facility] HEMATOLOGY Lymphocytes 1.9 1.0 - 5.5 11/11 MH /2016 [facility] HEMATOLOGY Basophils 0.5 0.0 - 1.0 11/11 [facility] HEMATOLOGY Segs-Bands # 4.9 1.5 - 8.1 11/11 [facility] HEMATOLOGY Monocytes 8.3 2.0 - 12.0 11/11 [facility] HEMATOLOGY Eosinophils 0.3 0.0 - 4.0 11/11 [facility] HEMATOLOGY Lymphocytes 25.3 20.0 - 11/11 MH 40.0 [facility] HEMATOLOGY Segs 65.6 45.0 - 11/11 MH 75.0 /2017 [facility] HEMATOLOGY Hct 36.7 36.0 - 11/11 MH 48.0 /2017 [facility] HEMATOLOGY Hgb 12.1 12.0 - 11/11 MH 16.0 /2016 [facility] HEMATOLOGY MCV 84.7 80.0 - 11/11 MH 98.0 /2017 [facility] HEMATOLOGY RBC 4.33 4.20 - 11/11 MH 5.40 /2016 [facility] HEMATOLOGY WBC 7.5 3.7 - 10.4 11/11 [facility] HEMATOLOGY MPV 8.2 7.4 - 10.4 11/11 [facility] HEMATOLOGY RDW 13.9 11.5 - 11/11 MH 14.5 /2016 [facility] HEMATOLOGY Platelet 285 133 - 450 11/11 [facility] HEMATOLOGY MCH 28.1 27.0 - 11/11 MH 31.0 /2016 [facility] HEMATOLOGY MCHC 33.1 32.0 - 11/11 MH 36.0 /2016 [facility] URINE AND UA Nitrite Negative Negative 11/11 STOOL (11/10/16 10:12 PM) /2016 [facility] URINE AND UA Blood Negative Negative 11/11 STOOL (11/10/16 10:12 PM) /2016 [facility] URINE AND UA WBC 1 0 - 5 11/11 STOOL [facility] URINE AND UA Sq Epi Few /LPF Few /LPF 11/11 STOOL [facility] URINE AND UA Leuk Est Small Negative 11/11 STOOL *ABN* /2016 [facility] (11/10/16 10:12 PM) URINE AND UA Bili Negative Negative 11/11 STOOL *NA* /2016 [facility] (11/10/16 10:12 PM) URINE AND UA Ketones Negative Negative 11/11 STOOL mg/dL mg/dL [facility] URINE AND UA Glucose Negative Negative 11/11 STOOL mg/dL mg/dL [facility] URINE AND UA Bacteria Occasional None Seen 11/11 STOOL /HPF /HPF /2016 [facility] URINE AND UA RBC 1 0 - 2 11/11 STOOL [facility] URINE AND UA <=1.0 0.1 - 1.0 11/11 STOOL Urobilinogen mg/dL [facility] URINE AND UA Color Ltyellow 11/11 STOOL [facility] URINE AND UA Protein Negative Negative 11/11 STOOL mg/dL mg/dL [facility] URINE AND UA pH 6.0 5.0 - 8.0 11/11 STOOL [facility] URINE AND UA Spec Grav 1.011 <=1.030 11/11 STOOL [facility] URINE AND UA Turbidity Clear Clear 11/11 STOOL (11/10/16 10:12 PM) /2016 [facility] URINE CHEM U Preg Negative Negative 11/11 (11/10/16 10:12 PM) [facility] HEMATOLOGY RDW 13.9 11.5 - 02/12 MH 14.5 [facility] HEMATOLOGY Platelet 196 133 - 450 02/12 [facility] HEMATOLOGY MPV 8.1 7.4 - 10.4 02/12 [facility] HEMATOLOGY MCHC 32.4 32.0 - 02/12 MH 36.0 /2015 [facility] HEMATOLOGY WBC 3.6 3.7 - 10.4 02/12 [facility] HEMATOLOGY RBC 4.18 4.20 - 07 MH 5.40 /2015 [facility] HEMATOLOGY Hgb 11.6 12.0 - 02/12 MH 16.0 /2015 [facility] HEMATOLOGY MCH 27.7 27.0 - 02/12 MH 31.0 /2015 [facility] HEMATOLOGY MCV 85.4 80.0 - 07 MH 98.0 /2015 [facility] HEMATOLOGY Hct 35.7 36.0 - 07 MH 48.0 /2016 [facility] CHEM PANEL Phosphorus 3.8 2.5 - 4.5 02/12 [facility] CHEM PANEL Magnesium 2.1 1.8 - 2.4 02/12 Lvl /2015 [facility] CHEM PANEL A/G Ratio 0.8 0.7 - 1.6 02/12 [facility] CHEM PANEL B/C Ratio 10 6 - 25 02/12 [facility] CHEM PANEL Globulin 4.5 2.0 - 4.0 02/12 [facility] CHEM PANEL AGAP 10.5 10.0 - 02/12 MH 20.0 [facility] CHEM PANEL eGFR 97 02/12 [facility] Comment: The [facility] eGFR is calculated using the CKD-EPI formula. In most young, healthy individuals the eGFR will be >90 mL/min/1.73m2 . The eGFR declines with age. An eGFR of 60-89 may be normal in some populations, particularly the elderly, for whom the CKD-EPI formula has not been extensively validated. Use of the eGFR is not recommended in the following populations:< br/>
Radha viduals with unstable creatinine concentration s, including patients and those with serious co-morbid conditions.<b r/>
Patie nts with extremes in muscle mass or diet.

The data above are obtained from the National Kidney Disease Education Program (NKDEP) which additionally recommends that when the eGFR is used in patients with extremes of body mass index for purposes of drug dosing, the eGFR should be multiplied by the estimated BMI. CHEM PANEL Glucose Lvl 119 70 - 99 02/12 [facility] CHEM PANEL CO2 28 24 - 32 02/12 [facility] CHEM PANEL Potassium 3.5 3.5 - 5.1 07/ Lvl /2015 [facility] CHEM PANEL Creatinine 0.81 0.50 - 07/ MH Lvl 1.40 /2015 [facility] CHEM PANEL Chloride Lvl 104 95 - 109 07/ [facility] CHEM PANEL Sodium Lvl 139 135 - 145 07/ [facility] CHEM PANEL BUN 8 7 - 22 07 [facility] CHEM PANEL Bili Total 0.1 0.2 - 1.3 07 [facility] CHEM PANEL Alk Phos 117 39 - 136 07/ [facility] CHEM PANEL AST 36 0 - 37 07/ [facility] CHEM PANEL Albumin Lvl 3.5 3.5 - 5.0 07 [facility] CHEM PANEL Calcium Lvl 8.8 8.5 - 10.5 07 [facility] CHEM PANEL ALT 57 0 - 65 07 [facility] CHEM PANEL Total 8.0 6.4 - 8.4 02/12 [facility] CHEM PANEL Magnesium 2.1 1.8 - 2.4 07 Lvl /2015 [facility] CHEM PANEL Lipase Lvl 80 73 - 393 07 [facility] HEMATOLOGY PTT 30.2 22.9 - 07 35.8 /2015 [facility] HEMATOLOGY MPV 8.1 7.4 - 10.4 07 /2015 [facility] HEMATOLOGY RBC 4.51 4.20 - 07 5.40 /2015 [facility] HEMATOLOGY Hct 38.4 36.0 - 07/ 48.0 /2015 [facility] HEMATOLOGY Hgb 12.3 12.0 - 07 16.0 /2015 [facility] HEMATOLOGY MCHC 32.2 32.0 - 07/ 36.0 /2015 [facility] HEMATOLOGY MCH 27.4 27.0 - 07/ 31.0 /2016 [facility] HEMATOLOGY MCV 85.0 80.0 - 07/ 98.0 /2015 [facility] HEMATOLOGY Platelet 209 133 - 450 07/ /2015 [facility] HEMATOLOGY RDW 14.0 11.5 - 07 14.5 /2015 [facility] HEMATOLOGY WBC 3.8 3.7 - 10.4 07/ /2015 [facility] HEMATOLOGY INR 0.99 0.85 - 07 1.17 /2015 [facility] HEMATOLOGY PT 13.4 12.0 - 07 MH 14.7 /2016 [facility] HEMATOLOGY Monocytes # 0.6 0.0 - 0.8 07/ MH /2016 [facility] HEMATOLOGY Lymphocytes 36.8 20.0 - 07/ MH 40.0 /2016 [facility] HEMATOLOGY Segs 43.4 45.0 - 07/ MH 75.0 /2015 [facility] HEMATOLOGY Eosinophils 0.2 0.0 - 0.5 07/01 MH # /2016 [facility] HEMATOLOGY Lymphocytes 1.4 1.0 - 5.5 07/ MH # /2016 [facility] HEMATOLOGY Segs-Bands # 1.7 1.5 - 8.1 07/ MH /2015 [facility] HEMATOLOGY Basophils 0.7 0.0 - 1.0 07/ MH /2015 [facility] HEMATOLOGY Eosinophils 4.1 0.0 - 4.0 / /2015 [facility] HEMATOLOGY Monocytes 15.0 2.0 - 12.0 02/12 /2015 [facility] URINE AND UA <=1.0 0.1 - 1.0 02/12 STOOL Urobilinogen mg/dL /2015 [facility] URINE AND UA Spec Grav 1.018 <=1.030 02/12 STOOL /2015 [facility] URINE AND UA pH 6.0 5.0 - 8.0 02/12 STOOL /2015 [facility] URINE AND UA Protein Negative Negative 02/12 STOOL mg/dL mg/dL /2015 [facility] URINE AND UA Color Yellow Yellow 02/12 STOOL *NA* /2015 [facility] (02/13/16 3:41 AM) URINE AND UA Turbidity Clear Clear 02/12 STOOL (02/13/16 3:41 AM) /[address] URINE AND UA Trans Epi 2 <=0 /LPF 02/12 STOOL /2015 [facility] URINE AND UA RBC 6 0 - 2 02/12 STOOL /2016 [facility] URINE AND UA Mucus Few /LPF None Seen 02/12 STOOL /LPF /2015 [facility] URINE AND UA WBC 7 0 - 5 02/12 STOOL /2015 [facility] URINE AND UA Sq Epi Many /LPF Few /LPF 02/12 STOOL /2015 [facility] URINE AND UA Bacteria Occasional None Seen 02/12 STOOL /HPF /HPF /2015 [facility] URINE AND UA Glucose Negative Negative 02/12 STOOL mg/dL mg/dL /2015 [facility] URINE AND UA Ketones Negative Negative 02/12 STOOL mg/dL mg/dL [facility] URINE AND UA Blood Negative Negative 02/12 STOOL (02/13/16 3:41 AM) [facility] URINE AND UA Leuk Est Large Negative 02/12 STOOL *ABN* /2015 [facility] (02/13/16 3:41 AM) URINE AND UA Bili Negative Negative 02/12 STOOL *NA* /2015 [facility] (02/13/16 3:41 AM) URINE AND UA Nitrite Negative Negative 02/12 STOOL (02/13/16 3:41 AM) [facility] URINE AND Occult Bld Negative Negative 02/12 STOOL Stl (02/13/16 3:41 AM) [facility] ELECTROLYT AGAP 12.2 10.0 - 02/10 MH ES 20.0 [facility] ELECTROLYT eGFR 87 02/10 Result ES Comment: The [facility] eGFR is calculated using the CKD-EPI formula. In most young, healthy individuals the eGFR will be >90 mL/min/1.73m2 . The eGFR declines with age. An eGFR of 60-89 may be normal in some populations, particularly the elderly, for whom the CKD-EPI formula has not been extensively validated. Use of the eGFR is not recommended in the following populations:< br/>
Radha viduals with unstable creatinine concentration s, including patients and those with serious co-morbid conditions.<b r/>
Patie nts with extremes in muscle mass or diet.

The data above are obtained from the National Kidney Disease Education Program (NKDEP) which additionally recommends that when the eGFR is used in patients with extremes of body mass index for purposes of drug dosing, the eGFR should be multiplied by the estimated BMI. ELECTROLYT Glucose Lvl 111 70 - 99 02/10 MH ES [facility] ELECTROLYT Chloride Lvl 102 95 - 109 02/10 MH ES [facility] ELECTROLYT Creatinine 0.88 0.50 - 02/10 MH ES Lvl 1.40 [facility] ELECTROLYT BUN 4 7 - 22 02/10 MH ES [facility] ELECTROLYT Potassium 4.2 3.5 - 5.1 02/10 MH ES Lvl /2015 [facility] ELECTROLYT Sodium Lvl 140 135 - 145 02/10 ES [facility] ELECTROLYT Calcium Lvl 8.3 8.5 - 10.5 02/10 ES [facility] ELECTROLYT CO2 30 24 - 32 02/10 MH ES /2015 [facility] HEMATOLOGY Eosinophils 0.2 0.0 - 0.5 02/10 MH # /2016 [facility] HEMATOLOGY Monocytes # 0.5 0.0 - 0.8 02/10 [facility] HEMATOLOGY Lymphocytes 1.0 1.0 - 5.5 02/10 MH # /2016 [facility] HEMATOLOGY Segs 69.5 45.0 - 02/10 MH 75.0 [facility] HEMATOLOGY Lymphocytes 18.4 20.0 - 02/10 MH 40.0 /2015 [facility] HEMATOLOGY Segs-Bands # 3.9 1.5 - 8.1 02/10 [facility] HEMATOLOGY Basophils 0.4 0.0 - 1.0 02/10 [facility] HEMATOLOGY Monocytes 8.9 2.0 - 12.0 02/10 [facility] HEMATOLOGY Eosinophils 2.8 0.0 - 4.0 02/10 [facility] HEMATOLOGY MCHC 32.7 32.0 - 02/10 MH 36.0 [facility] HEMATOLOGY MCH 28.0 27.0 - 02/10 MH 31.0 [facility] HEMATOLOGY MCV 85.6 80.0 - 02/10 MH 98.0 /2015 [facility] HEMATOLOGY MPV 7.8 7.4 - 10.4 02/10 [facility] HEMATOLOGY Platelet 196 133 - 450 02/10 [facility] HEMATOLOGY RDW 14.3 11.5 - 02/10 MH 14.5 [facility] HEMATOLOGY Hct 33.1 36.0 - 02/10 MH 48.0 [facility] HEMATOLOGY Hgb 10.8 12.0 - 02/10 MH 16.0 [facility] HEMATOLOGY WBC 5.7 3.7 - 10.4 02/10 [facility] HEMATOLOGY RBC 3.87 4.20 - 02/10 MH 5.40 /2015 [facility] CHEM PANEL eGFR 117 02/09 Result Comment: The [facility] eGFR is calculated using the CKD-EPI formula. In most young, healthy individuals the eGFR will be >90 mL/min/1.73m2 . The eGFR declines with age. An eGFR of 60-89 may be normal in some populations, particularly the elderly, for whom the CKD-EPI formula has not been extensively validated. Use of the eGFR is not recommended in the following populations:< br/>
Radha viduals with unstable creatinine concentration s, including patients and those with serious co-morbid conditions.<b r/>
Patie nts with extremes in muscle mass or diet.

The data above are obtained from the National Kidney Disease Education Program (NKDEP) which additionally recommends that when the eGFR is used in patients with extremes of body mass index for purposes of drug dosing, the eGFR should be multiplied by the estimated BMI. CHEM PANEL Potassium 3.7 3.5 - 5.1 02/09 MH [facility] CHEM PANEL Chloride Lvl 103 95 - 109 02/09 [facility] CHEM PANEL CO2 28 24 - 32 02/09 [facility] CHEM PANEL Sodium Lvl 139 135 - 145 02/09 [facility] CHEM PANEL Creatinine 0.66 0.50 - 02/09 MH Lvl 1.40 [facility] CHEM PANEL Calcium Lvl 8.0 8.5 - 10.5 02/09 [facility] CHEM PANEL BUN 3 7 - 22 02/09 [facility] CHEM PANEL Glucose Lvl 108 70 - 99 02/09 [facility] CHEM PANEL AGAP 11.7 10.0 - 02/09 MH 20.0 [facility] CHEM PANEL Phosphorus 3.6 2.5 - 4.5 02/09 [facility] CHEM PANEL Magnesium 2.3 1.8 - 2.4 02/09 [facility] HEMATOLOGY MPV 8.4 7.4 - 10.4 02/09 [facility] HEMATOLOGY Platelet 220 133 - 450 02/09 [facility] HEMATOLOGY RDW 13.8 11.5 - 02/09 MH 14.5 /2015 [facility] HEMATOLOGY RBC 3.79 4.20 - 02/09 MH 5.40 /2015 [facility] HEMATOLOGY Hct 32.5 36.0 - 02/09 MH 48.0 /2015 [facility] HEMATOLOGY Hgb 10.6 12.0 - 02/09 MH 16.0 [facility] HEMATOLOGY MCV 85.6 80.0 - 02/09 MH 98.0 /2015 [facility] HEMATOLOGY MCH 28.0 27.0 - 02/09 MH 31.0 [facility] HEMATOLOGY MCHC 32.7 32.0 - 02/09 MH 36.0 [facility] HEMATOLOGY WBC 4.4 3.7 - 10.4 02/09 [facility] HEMATOLOGY Lymphocytes 36.2 20.0 - 02/09 MH 40.0 [facility] HEMATOLOGY Monocytes 11.0 2.0 - 12.0 02/09 [facility] HEMATOLOGY Basophils 0.3 0.0 - 1.0 02/09 /2015 [facility] HEMATOLOGY Segs-Bands # 2.1 1.5 - 8.1 02/09 /2015 [facility] HEMATOLOGY Eosinophils 4.0 0.0 - 4.0 02/09 /2015 [facility] HEMATOLOGY Lymphocytes 1.6 1.0 - 5.5 02/09 # /2016 [facility] HEMATOLOGY Monocytes # 0.5 0.0 - 0.8 02/09 /2015 [facility] HEMATOLOGY Eosinophils 0.2 0.0 - 0.5 02/09 MH # /2016 [facility] HEMATOLOGY Segs 48.5 45.0 - 02/09 MH 75.0 /2015 [facility] HEMATOLOGY Hct 32.7 36.0 - 02/07 48.0 /2015 [facility] HEMATOLOGY Hgb 10.7 12.0 - 02/07 16.0 [facility] CHEM PANEL Lactic Acid 0.7 0.5 - 2.2 02/07 Lvl /2015 [facility] BLOOD BANK ABO/Rh A POS 02/07 RESULTS /2015 [facility] BLOOD BANK Antibody Negative 02/07 RESULTS Scrn (02/07/16 8:47 PM) /2015 [facility] CHEM PANEL Magnesium 2.2 1.8 - 2.4 02/07 Lvl /2015 [facility] CHEM PANEL Glucose Lvl 86 70 - 99 02/07 [facility] CHEM PANEL Albumin Lvl 3.6 3.5 - 5.0 02/07 [facility] CHEM PANEL BUN 8 7 - 22 02/07 [facility] CHEM PANEL Calcium Lvl 8.5 8.5 - 10.5 02/07 [facility] CHEM PANEL Sodium Lvl 138 135 - 145 02/07 [facility] CHEM PANEL Creatinine 0.80 0.50 - 02/07 Lvl 1.40 /2015 [facility] CHEM PANEL CO2 27 24 - 32 02/07 [facility] CHEM PANEL Chloride Lvl 103 95 - 109 02/07 [facility] CHEM PANEL Potassium 3.9 3.5 - 5.1 02/07 Result Lvl Comment: [facility] Specimen slightly hemolyzed. CHEM PANEL AST 23 0 - 37 02/07 [facility] CHEM PANEL ALT 28 0 - 65 02/07 [facility] CHEM PANEL eGFR 98 02/07 Result Comment: The [facility] eGFR is calculated using the CKD-EPI formula. In most young, healthy individuals the eGFR will be >90 mL/min/1.73m2 . The eGFR declines with age. An eGFR of 60-89 may be normal in some populations, particularly the elderly, for whom the CKD-EPI formula has not been extensively validated. Use of the eGFR is not recommended in the following populations:< br/>
Radha viduals with unstable creatinine concentration s, including patients and those with serious co-morbid conditions.<b r/>
Patie nts with extremes in muscle mass or diet.

The data above are obtained from the National Kidney Disease Education Program (NKDEP) which additionally recommends that when the eGFR is used in patients with extremes of body mass index for purposes of drug dosing, the eGFR should be multiplied by the estimated BMI. CHEM PANEL Total 7.7 6.4 - 8.4 02/07 Protein [facility] CHEM PANEL Bili Total 0.2 0.2 - 1.3 02/07 [facility] CHEM PANEL Alk Phos 75 39 - 136 02/07 [facility] CHEM PANEL B/C Ratio 10 6 - 25 02/07 [facility] CHEM PANEL AGAP 11.9 10.0 - 02/07 MH 20.0 [facility] CHEM PANEL Globulin 4.1 2.0 - 4.0 02/07 [facility] CHEM PANEL A/G Ratio 0.9 0.7 - 1.6 02/07 [facility] CHEM PANEL Lipase Lvl 120 73 - 393 02/07 [facility] HEMATOLOGY Basophils # 0.1 0.0 - 0.2 02/07 [facility] HEMATOLOGY Eosinophils 0.1 0.0 - 0.5 02/07 MH # /2016 [facility] HEMATOLOGY Monocytes # 0.6 0.0 - 0.8 02/07 [facility] HEMATOLOGY Lymphocytes 2.6 1.0 - 5.5 02/07 # /2015 [facility] HEMATOLOGY Segs 51.4 45.0 - 02/07 MH 75.0 [facility] HEMATOLOGY Segs-Bands # 3.5 1.5 - 8.1 02/07 [facility] HEMATOLOGY Plt Morph Clumped 02/07 (02/07/16 8:47 PM) /2015 [facility] HEMATOLOGY RBC Morph Normal 02/07 (6/25/16 8:47 PM) /2015 [facility] HEMATOLOGY Basophils 0.8 0.0 - 1.0 02/07 /2015 [facility] HEMATOLOGY Eosinophils 1.6 0.0 - 4.0 02/07 /2015 [facility] HEMATOLOGY Monocytes 8.9 2.0 - 12.0 02/07 /2015 [facility] HEMATOLOGY Lymphocytes 37.3 20.0 - 02/07 MH 40.0 /2015 [facility] HEMATOLOGY PTT 20.0 22.9 - 02/07 MH 35.8 /2015 [facility] HEMATOLOGY PT 12.5 12.0 - 02/07 MH 14.7 /2015 [facility] HEMATOLOGY INR 0.90 0.85 - 02/07 MH 1.17 /2015 [facility] HEMATOLOGY RBC 4.60 4.20 - 02/07 MH 5.40 /2015 [facility] HEMATOLOGY RDW 13.8 11.5 - 02/07 14.5 /2015 [facility] HEMATOLOGY WBC 6.9 3.7 - 10.4 02/07 [facility] HEMATOLOGY MCV 85.2 80.0 - 02/07 98.0 /2015 [facility] HEMATOLOGY MCHC 32.3 32.0 - 02/07 36.0 /2015 [facility] HEMATOLOGY MCH 27.5 27.0 - 02/07 MH 31.0 /2015 [facility] HEMATOLOGY Platelet 221 133 - 450 02/07 [facility] HEMATOLOGY MPV 8.8 7.4 - 10.4 02/07 [facility] IMMUNOLOGY [facility] HIV 4th Negative Negative 02/07 GEN (02/07/16 8:47 PM) /2015 [facility] URINE AND UA <=1.0 0.1 - 1.0 02/07 STOOL Urobilinogen mg/dL /2015 [facility] URINE AND UA Bacteria Occasional None Seen 02/07 STOOL /HPF /HPF /2015 [facility] URINE AND UA Mucus Many /LPF None Seen 02/07 STOOL /LPF /2015 [facility] URINE AND UA WBC 3 0 - 5 02/07 STOOL /2015 [facility] URINE AND UA Nitrite Negative Negative 02/07 STOOL (02/07/16 8:47 PM) /2015 [facility] URINE AND UA Sq Epi Many /LPF Few /LPF 02/07 STOOL /2015 [facility] URINE AND UA Leuk Est Small Negative 02/07 STOOL *ABN* /2015 [facility] (02/07/16 8:47 PM) URINE AND UA RBC <1 0 - 2 02/07 STOOL /2015 [facility] URINE AND UA Bili Negative Negative 02/07 STOOL *NA* /2015 [facility] (02/07/16 8:47 PM) URINE AND UA Blood Negative Negative 02/07 STOOL (02/07/16 8:47 PM) [facility] URINE AND UA Protein Negative Negative 02/07 STOOL mg/dL mg/dL [facility] URINE AND UA pH 5.0 5.0 - 8.0 02/07 [facility]OL [facility] URINE AND UA Spec Grav 1.021 <=1.030 02/07 STOOL [facility] URINE AND UA Glucose Negative Negative 02/07 STOOL mg/dL mg/dL [facility] URINE AND UA Ketones Negative Negative 02/07 STOOL mg/dL mg/dL [facility] URINE AND UA Color Yellow Yellow 02/07 STOOL *NA* /2015 [facility] (02/07/16 8:47 PM) URINE AND UA Turbidity Slight Clear 02/07 STOOL *ABN* [facility] (02/07/16 8:47 PM) URINE CHEM U Preg Negative Negative 02/07 (02/07/16 8:47 PM) [facility] CHEM PANEL eGFR 93 02/05 Result Comment: The [facility] eGFR is calculated using the CKD-EPI formula. In most young, healthy individuals the eGFR will be >90 mL/min/1.73m2 . The eGFR declines with age. An eGFR of 60-89 may be normal in some populations, particularly the elderly, for whom the CKD-EPI formula has not been extensively validated. Use of the eGFR is not recommended in the following populations:< br/>
Radha viduals with unstable creatinine concentration s, including patients and those with serious co-morbid conditions.<b r/>
Patie nts with extremes in muscle mass or diet.

The data above are obtained from the National Kidney Disease Education Program (NKDEP) which additionally recommends that when the eGFR is used in patients with extremes of body mass index for purposes of drug dosing, the eGFR should be multiplied by the estimated BMI. CHEM PANEL Bili Total 0.3 0.2 - 1.3 02/05 [facility] CHEM PANEL Glucose Lvl 87 70 - 99 02/05 [facility] CHEM PANEL CO2 27 24 - 32 02/05 [facility] CHEM PANEL ALT 25 0 - 65 02/05 [facility] CHEM PANEL AST 11 0 - 37 06 [facility] CHEM PANEL Alk Phos 71 39 - 136 02/05 [facility] CHEM PANEL Albumin Lvl 3.7 3.5 - 5.0 02/05 [facility] CHEM PANEL Chloride Lvl 105 95 - 109 02/05 [facility] CHEM PANEL Sodium Lvl 138 135 - 145 02/05 [facility] CHEM PANEL Potassium 3.9 3.5 - 5.1 06 MH Lvl /2015 [facility] CHEM PANEL Calcium Lvl 8.3 8.5 - 10.5 02/05 [facility] CHEM PANEL Total 7.7 6.4 - 8.4 02/05 MH /2015 [facility] CHEM PANEL Creatinine 0.84 0.50 - 02/05 MH Lvl 1.40 /2015 [facility] CHEM PANEL BUN 17 7 - 22 02/05 [facility] CHEM PANEL AGAP 9.9 10.0 - 02/05 MH 20.0 /2015 [facility] CHEM PANEL B/C Ratio 20 6 - 25 02/05 [facility] CHEM PANEL A/G Ratio 0.9 0.7 - 1.6 02/05 [facility] CHEM PANEL Globulin 4.0 2.0 - 4.0 02/05 /2015 [facility] HEMATOLOGY Eosinophils 0.1 0.0 - 0.5 02/05 MH # /2016 [facility] HEMATOLOGY Basophils # 0.1 0.0 - 0.2 02/05 [facility] HEMATOLOGY Eosinophils 1.3 0.0 - 4.0 02/05 [facility] HEMATOLOGY Basophils 1.0 0.0 - 1.0 02/05 [facility] HEMATOLOGY Monocytes # 0.7 0.0 - 0.8 02/05 /2015 [facility] HEMATOLOGY Segs-Bands # 4.8 1.5 - 8.1 02/05 [facility] HEMATOLOGY Lymphocytes 2.2 1.0 - 5.5 02/05 MH # /2016 [facility] HEMATOLOGY Monocytes 9.0 2.0 - 12.0 02/05 [facility] HEMATOLOGY Segs 61.3 45.0 - 06 MH 75.0 /2016 [facility] HEMATOLOGY Lymphocytes 27.4 20.0 - 06 MH 40.0 /2016 [facility] HEMATOLOGY MPV 8.3 7.4 - 10.4 02/05 /2015 [facility] HEMATOLOGY WBC 7.8 3.7 - 10.4 06/24 MH /2015 [facility] HEMATOLOGY Platelet 267 133 - 450 02/05 MH /2015 [facility] HEMATOLOGY RDW 13.9 11.5 - 02/05 MH 14.5 /2015 [facility] HEMATOLOGY MCV 85.8 80.0 - 02/05 MH 98.0 /2015 [facility] HEMATOLOGY Hgb 12.4 12.0 - 02/05 MH 16.0 /2015 [facility] HEMATOLOGY Hct 38.1 36.0 - 02/05 MH 48.0 /2015 [facility] HEMATOLOGY MCHC 32.6 32.0 - 02/05 MH 36.0 /2015 [facility] HEMATOLOGY MCH 28.0 27.0 - 02/05 MH 31.0 /2015 [facility] HEMATOLOGY RBC 4.44 4.20 - 02/05 MH 5.40 /2015 [facility] URINE AND UA <=1.0 0.1 - 1.0 02/05 STOOL Urobilinogen mg/dL /2015 [facility] URINE AND UA WBC 3 0 - 5 02/05 STOOL /2015 [facility] URINE AND UA RBC 3 0 - 2 02/05 STOOL /2015 [facility] URINE AND UA Mucus Moderate None Seen 02/05 STOOL /LPF /LPF /2015 [facility] URINE AND UA Protein 30 mg/dL Negative 02/05 STOOL mg/dL /2015 [facility] URINE AND UA Glucose Negative Negative 02/05 STOOL mg/dL mg/dL [facility] URINE AND UA Ketones Negative Negative 02/05 STOOL mg/dL mg/dL [facility] URINE AND UA Bili Negative Negative 02/05 STOOL *NA* /2015 [facility] (02/05/16 9:57 PM) URINE AND UA Leuk Est Trace Negative 02/05 STOOL *ABN* /2015 [facility] (02/05/16 9:57 PM) URINE AND UA Blood Negative Negative 02/05 STOOL (02/05/16 9:57 PM) [facility] URINE AND UA Nitrite Negative Negative 02/05 [facility] (02/05/16 9:57 PM) /[facility] URINE AND UA Sq Epi Moderate Few /LPF 02/05 STOOL /LPF [facility] URINE AND UA Turbidity Clear Clear 02/05 [facility] (02/05/16 9:57 PM) [facility] URINE AND UA Spec Grav 1.032 <=1.030 02/05 STOOL /2015 [facility] URINE AND UA pH 6.0 5.0 - 8.0 02/05 STOOL /2015 [facility] URINE AND UA Color Yellow Yellow 02/05 STOOL *NA* [facility] (02/05/16 9:57 PM) URINE CHEM U Preg Negative Negative 02/05 (02/05/16 9:57 PM) /2015 [facility] MOLECULAR N gonorrhea Negative Negative 10/04 DIAGNOSTIC by Amp Det *NA* [facility] (APTIMA) (10/04/15 4:33 AM) MOLECULAR Source [employer] 10/04 DIAGNOSTIC APTIMA *NA* [facility] (10/04/15 4:33 AM) MOLECULAR C Negative Negative 10/04 DIAGNOSTIC trachomatis *NA* [facility] by Amp Det (10/04/15 4:33 AM) (APTIMA) MOLECULAR Source [employer] 10/04 DIAGNOSTIC APTIMA *NA* [facility] (10/04/15 4:33 AM) URINE AND Occult Bld Negative Negative 10/04 STOOL Stl (10/04/15 3:40 AM) [facility] URINE AND UA Color Ltyellow 10/04 STOOL [facility] URINE AND UA <=1.0 0.1 - 1.0 10/04 STOOL Urobilinogen mg/dL /2015 [facility] URINE AND UA Bili Negative Negative 10/04 STOOL *NA* [facility] (10/04/15 12:40 AM) URINE AND UA Blood Negative Negative 10/04 STOOL (10/04/15 12:40 AM) /2015 [facility] URINE AND UA Ketones Negative Negative 10/04 STOOL mg/dL mg/dL [facility] URINE AND UA Trans Epi 3 <=0 /LPF 10/04 STOOL [facility] URINE AND UA Mucus Few /LPF None Seen 10/04 STOOL /LPF /2015 [facility] URINE AND UA Sq Epi Moderate Few /LPF 10/04 STOOL /LPF /2015 [facility] URINE AND UA WBC 29 0 - 5 10/04 STOOL [facility] URINE AND UA RBC 2 0 - 2 10/04 ST[facility]OL [facility] URINE AND UA Leuk Est Large Negative 10/04 STOOL *ABN* [facility] (10/04/15 12:40 AM) URINE AND UA Nitrite Negative Negative 10/04 STOOL (10/04/15 12:40 AM) [facility] URINE AND UA Glucose Negative Negative 10/04 STOOL mg/dL mg/dL /2016 [facility] URINE AND UA pH 5.0 5.0 - 8.0 10/04 STOOL [facility] URINE AND UA Protein Negative Negative 10/04 STOOL mg/dL mg/dL [facility] URINE AND UA Spec Grav 1.014 <=1.030 10/04 STOOL [facility] URINE AND UA Turbidity Marked Clear 10/04 STOOL *ABN* /2015 [facility] (10/04/15 12:40 AM) URINE CHEM U Preg Negative Negative 10/04 (10/04/15 12:40 AM) [facility] CHEM PANEL eGFR 107 10/04 [facility] Comment: The [facility] eGFR is calculated using the CKD-EPI formula. In most young, healthy individuals the eGFR will be >90 mL/min/1.73m2 . The eGFR declines with age. An eGFR of 60-89 may be normal in some populations, particularly the elderly, for whom the CKD-EPI formula has not been extensively validated. Use of the eGFR is not recommended in the following populations:< br/>
Radha viduals with unstable creatinine concentration s, including patients and those with serious co-morbid conditions.<b r/>
Patie nts with extremes in muscle mass or diet.

The data above are obtained from the National Kidney Disease Education Program (NKDEP) which additionally recommends that when the eGFR is used in patients with extremes of body mass index for purposes of drug dosing, the eGFR should be multiplied by the estimated BMI. CHEM PANEL Bili Total 0.2 0.2 - 1.3 10/04 [facility] CHEM PANEL Alk Phos 72 39 - 136 10/04 [facility] CHEM PANEL AST 25 0 - 37 10/04 [facility] CHEM PANEL Total 7.5 6.4 - 8.4 10/04 Protein [facility] CHEM PANEL Calcium Lvl 8.6 8.5 - 10.5 10/04 [facility] CHEM PANEL ALT 42 0 - 65 10/04 [facility] CHEM PANEL Albumin Lvl 3.7 3.5 - 5.0 10/04 [facility] CHEM PANEL CO2 29 24 - 32 10/04 [facility] CHEM PANEL Chloride Lvl 103 95 - 109 10/04 [facility] CHEM PANEL Creatinine 0.75 0.50 - 10/04 MH Lvl 1.40 /2015 [facility] CHEM PANEL BUN 14 7 - 22 02 /2015 [facility] CHEM PANEL Glucose Lvl 81 70 - 99 10/04 /2015 [facility] CHEM PANEL Potassium 3.5 3.5 - 5.1 02 Lvl /2015 [facility] CHEM PANEL Sodium Lvl 139 135 - 145 02 [facility] CHEM PANEL A/G Ratio 1.0 0.7 - 1.6 10/04 /2015 [facility] CHEM PANEL Globulin 3.8 2.0 - 4.0 10/04 [facility] CHEM PANEL B/C Ratio 19 6 - 25 10/04 [facility] CHEM PANEL AGAP 10.5 10.0 - 10/04 MH 20.0 /2015 [facility] HEMATOLOGY Platelet 268 133 - 450 10/04 [facility] HEMATOLOGY MPV 8.2 7.4 - 10.4 10/04 [facility] HEMATOLOGY RBC 4.40 4.20 - 02 MH 5.40 /2015 [facility] HEMATOLOGY WBC 6.4 3.7 - 10.4 10/04 /2015 [facility] HEMATOLOGY RDW 13.5 11.5 - 10/04 MH 14.5 /2015 [facility] HEMATOLOGY Hgb 12.2 12.0 - 10/04 MH 16.0 /2015 [facility] HEMATOLOGY MCV 84.8 80.0 - 10/04 MH 98.0 /2015 [facility] HEMATOLOGY MCHC 32.7 32.0 - 10/04 MH 36.0 /2015 [facility] HEMATOLOGY Hct 37.3 36.0 - 10/04 MH 48.0 /2015 [facility] HEMATOLOGY MCH 27.8 27.0 - 10/04 MH 31.0 /2015 [facility] HEMATOLOGY Segs 50.0 45.0 - 02 MH 75.0 /2015 [facility] HEMATOLOGY Basophils 0.7 0.0 - 1.0 10/04 [facility] HEMATOLOGY Monocytes 10.0 2.0 - 12.0 10/04 /2015 [facility] HEMATOLOGY Eosinophils 2.4 0.0 - 4.0 10/04 /2015 [facility] HEMATOLOGY Lymphocytes 36.9 20.0 - 02 MH 40.0 /2015 [facility] HEMATOLOGY Segs-Bands # 3.2 1.5 - 8.1 10/04 /2015 [facility] HEMATOLOGY Lymphocytes 2.4 1.0 - 5.5 10/04 MH # /2015 [facility] HEMATOLOGY Eosinophils 0.2 0.0 - 0.5 10/04 MH # /2016 [facility] HEMATOLOGY Monocytes # 0.6 0.0 - 0.8 10/04 /2015 [facility] URINE CHEM U Preg Negative Negative 09/19 (09/19/14 1:53 AM) /2014 [facility] Pathology Reports No Data Provided for This Section Diagnostic Reports Report Value Date Source Chest 1view DX EXAM: XR CHEST 1 VIEW 04/06/2018 [facility] DATE: 04/06/2018 7:43 PM CDT INDICATION: Chest pain. COMPARISON: 02/23/2018. TECHNIQUE: Frontal radiograph of the chest was o btained. FINDINGS: No focal consolidation or pn eumothorax is identified. The cardiomediastinal silhouette is within normal limits. The costophrenic recesses are sharp and without effusion. No acute osseous abnormality is noted. IMPRESSION: No acute cardiopulmonary abnormality. SL: [id number] Brain wo contrast CT EXAM: CT BRAIN WITHOUT CONTRAST 04/06/2018 [facility] DATE: 04/06/2018 7:42 PM CDT INDICATION: - Headache with nausea and vomiting . ADDITIONAL INFORMATION: . COMPARISON: CT head of 02/23/2018. TECHNIQUE: Routine axial CT images of the brain were obtained. IV contrast: None. CT imaging performed at this location utilizes radiation dose optimization techniques which include one or more of the following: -Automated exposure control -Adjustment of the mA and/or kV according to pat ient size -Use of iterative reconstruction technique CT Radiation Dose DLP 897.56 mGy-cm FINDINGS: Non-contrast images of the ead demonstrate no edema, hemorrhage, mass lesion or other acute intracranial abnormality. Koehler-white matter distinctio n is preserved. The ventricles are stable. The basal cisterns and sulci are normal in size. The paranasal sinuses, orbits and mastoids are u nremarkable. IMPRESSION: 1. No definite acute infarct or intracranial hem orrhage detected. If there is further concern for intracranial pathology or acute stroke, MRI of the brain may be performed for complete assessment. SL: [id number] Knee 1-2 Views Clinical Indication: - bilateral knee pain 02/12 [facility] Bilateral DX Comparison: None FINDINGS: AP and lateral views of both knees are performed . No evidence for acute fracture or dislocation. The joint spaces are preserved bilaterally. There is no knee region soft tissue swelling. There are no radiopaque foreign bodies. Hoffa's fat pad region is unremarkable. No significant joint effusion appreciated. No lo ose intra-articular bodies. If there is further concern, recommend follow-up radiographs or MRI for complete assessment. IMPRESSION: Unremarkable bilateral knee radiographs. SL: [id number] Brain wo contrast CT EXAM: CT BRAIN WITHOUT CONTRAST 02/23/2018 [facility] DATE: 02/23/2018 10:30 PM CDT INDICATION: Altered mental status. COMPARISON: 09/30/2017. TECHNIQUE: Noncontrast axial imaging of the brain was acquired from the vertex to the skull base. Reformatted coronal and sagittal images were provided for review. CT radiation dose DLP: 981.84 mGy-cm. FINDINGS: No acute intracranial hemorr meghan, midline shift, or mass effect is identified. The russo-white matter differentiation is preserved. The ventricles and sulci are within normal limits, without evidence for hydrocephalus. The orbits, paranasal sinuse s, and mastoid air cells are unremarkable. The calvarium and skull base are intact. IMPRESSION: No acute intracranial abnormality. SL: [id number] Chest 1view DX Clinical Indication: - ams 02/23/2018 [facility] [place] Comparison: September 30, 2017 FINDINGS: The frontal chest radiograph shows normal lung volumes without interstitial or airspace opacities, pleural effusions or pneumothorax. The cardiomediastinal contours are normal. The t rachea is midline. There are no clinically significant osseous abno rmalities noted. IMPRESSION: No chest radiographic evidence of acute cardiopu lmonary disease. SL: 82 Chest 1view DX Chest, single view dated 09/30/2017. 09/30/2017 [facility] HISTORY: Dyspnea. Comparison is made to a prior study dated 2016. The heart is normal in size. The cardiomediastinal shadow is stable. The lungs appear clear. The pulmonary vasculature is normal in caliber. No acute pleural space abnormalities are detected. IMPRESSION: 1. No radiographic evidence of acute cardiopulmo nary disease. SL: [address] HEAD WITHOUT CONTRAST 09/30/2017 [facility] Clinical Indication: - seizure. Comparison: 10/02/2015. TECHNIQUE: CT images were ob tained from the foramen magnum to the vertex without the use of intravenous contrast on a multidetector CT. CT imaging was performed with exposure control parameters to reduc e radiation dose. Coronal and sagittal reconstru ctions were obtained. CT radiation dose DLP: 901.27 mGy-cm FINDINGS: There is no hemorrhage, extr a-axial fluid collection, overt mass, midline shift or hydrocephalus. The visualized paranasal sinuses and mastoid air cells are clear. The calvarium and skull base are intact. If clinical concern persists for acute pathology further evaluation with MRI brain can be obtained if clinically warranted. IMPRESSION: No CT evidence of acute intracranial abnormality . SL: KARIN ED Abdomen/Pelvis IV Study: CT abdomen and pelvis with contrast. 11/11/2016 [facility] contrast only CT HISTORY: Right lower quadrant pain Comments: Abdomen pelvic CT was obtain ed utilizing multiple axial images from the lung bases to the pelvic outlet. Intravenous contrast was given. Sagittal and coronal reconstructions were reviewed. Total exam DLP is 2112 mgy-cm. Visualized lower chest: The lung bases are clear . Normal size heart. ABDOMEN: The liver, spleen, kidneys, pancreas and adrenal glands are within normal limits. Dilated CBD, likely due to cholecystectomy. The small and large bowel lo ops are nondilated. No evidence of acute appendicitis or diverticulitis. No free intraperitoneal air or fluid collections . Urinary bladder is within normal limits. Uterus present Bones are within normal limits. Impression: No acute inflammatory process in the abdomen or pelvis Chest 1view DX Study: Chest 1view DX 11/10/2016 [facility] Clinical Indication: Chest pain - chest pain Comparison: Chest x-ray from 06/03/2016 FINDINGS: The cardiac silhou ette is normal in size. The lungs are clear and without consolidation or congestion. No pleural effusion or pneumothorax is seen. The osseous structures are unremarkable. IMPRESSION: No acute cardiopulmonary disease. SL: [id number] Foot series DX Patient Name: MICK KELLER 6 [facility] : 1985; Age: 30 years y/o Female MR: [id number] Study: Foot series DX Comparison: None Clinical Indication: Right foot pain; Nondisplaced fractures are n oted at the articular base of the right 1st metatarsal as well as the proximal metadiaphyseal junctions of the right 2nd, 3rd and 4th metatarsals. No dislocation. Soft tissue swelling at the dorsum of the forefoot. SL: [id number] Hand 3 views DX Clinical Indication: Right hand Pain, Trauma; [facility] Comparison: None FINDINGS: The 3 views of the right neff d show normal alignment without fractures or dislocations. There is no soft tissue swelling or radiopaque f oreign body. IMPRESSION: No acute bony abnormality in the right hand. SL: [id number] Chest 2 views DX CHEST RADIOGRAPH 2 VIEWS 06/03/2016 [facility] INDICATION: Chest pain COMPARISON: Chest radiograph 02/13/2016 DISCUSSION: The cardiomediastinal silhou ette and pulmonary vasculature are within normal limits. No consolidation, pleural effusion, or pneumothorax are visible. No suspicious pulmonary nodules are identified. No acute bony abnormalities are seen. IMPRESSION: No acute intrathoracic abnormalities are visuali zed. SL:16 Chest 1view DX Chest 1view DX 02/13/2016 3:34 AM CDT 02/13/2016 [facility] Ordering Physician: Shantanu Curtis MD CLINICAL HISTORY: Abnormal chest sounds; shortne ss of breath TECHNIQUE: AP view of the chest were obtained. COMPARISON: 02/07/2016 FINDINGS: Lungs are clear. No pleural effusion of pneumothorax is present. Cardiomediastinal silhouette is normal. Bones are normal. IMPRESSION: No acute abnormality of the chest. SL: SSENDOS-PC Abdomen complete US Patient Name: MICK KELLER 02/07 [facility] : 1985; Age: 30 years y/o Female MR: [id number] Study: Abdomen complete US 02/08/2016 11:13 AM CD T Ordering Physician: Lorenzo Ponce MD Comparison: None Clinical Indication: Epigastric Pain; The gallbladder is surgicall y absent by history. Patchy increased echogenicity of the liver is noted compatible with fatty infiltration of the liver; however, cirrhosis or chronic hepatitis could have t his appearance. No intrahepa tic duct dilatation demonstrated. Common duct caliber is [...] The pa ncreas head has a normal son ographic appearance; the body and tail are obscured by shadowing from overlying bowel gas. Flow at the portal vein is hepatopedal. IMPRESSION: 1. Status post cholecystectomy. 2. Patchy increased echogeni city of the liver is noted compatible with fatty infiltration of the liver; however, cirrhosis or chronic hepatitis could have this appearance. 3. Bilateral medical renal disease. SL: [id number] Chest/Abdomen/Pelvis Patient Name: MICK KELLER 01/14 [facility] w IV contrast CT : 1985; Age: 30 years y/o Female MR: [id number] Study: Chest/Abdomen/Pelvis w IV contrast CT 01/14 11:41 PM CDT Ordering Physician: Lennox Toribio MD Clinical Indication: Abdomin al pain, acute; right lower abd pain for 4 days, today started vomiting blood and pain worsened. Comparison: CT abdomen pelvis of 02/05/2016. TECHNIQUE: Sequential trans- axial images were obtained thru the chest, abdomen and pelvis after administration of iodinated contrast. Coronal and sagittal reconstructions were obtained. 100 cc of nonionic contrast material was used for the exam. Dose: DLP = mGy-cm CHEST FINDINGS: Stable borde rline cardiomegaly. No pericardial effusion. No mediastinum or hilar mass or adenopathy. Mild bibasilar atelectasis. No focal consolidation, significant pleural effusion or pneumothorax. ABDOMEN AND PELVIS FINDINGS: Postoperative cholecystectomy. Dilated common bile duct likely postsurgical. Diffuse fatty liver infiltration. The spleen, pancreas, and kidneys are stable in appearance. Grossly normal appendix. Abu ndance of stool within the colon. Mild descending diverticulosis. Stable fibroid uterus. Probably small left ovarian cyst. Small amount of fluid is present within the cul-de-sac. The bladder is nondistended. IMPRESSION: 1. Overall, no significant i nterval change. No definite acute focal abnormality detected. 2. Postoperative cholecystec neha. Dilated common bile duct likely postsurgical. 3. Diffuse fatty liver infiltration. 4. Mild descending diverticulosis. SL: JNJAKE Chest 1view DX EXAM: Chest 1view DX 02/07/2016 [facility] t DATE: 02/07/2016 11:36 PM CDT INDICATION: Chest pain COMPARISON: None. IMPRESSION: Grossly normal c ardiac silhouette and mediastinum. No focal consolidation, significant pleural effusion or pneumothorax. SL: JNGUYEN-PC Abdomen AP DX Study: Abdomen AP DX 02/07/2016 10:26 PM CDT 01/14 [facility] Patient Name: MICK KELLER MR: [id number] : 1985; Age: 30 years y/o Female Ordering Physician: Lennox Toribio MD Clinical Indication: Acute generalized abdominal pain. Comparison: None Bowel gas: The examination i s mildly compromised by large patient body habitus. A nonspecific nonobstructed bowel gas pattern is present. General: No organomegaly, ma ss lesions, or suspicious abnormal calcifications. Cholecystectomy clips in the right upper abdominal quadrant. Rounded opacity in the pelvis represents the urinary bladder. Lung bases: Clear lung bases. Normal size heart. Osseous structures: No fract ure, dislocation, or suspicious focal osseous lesion. IMPRESSION: 1. Nonspecific nonobstructed bowel gas pattern. SL: TPAINTER-PC ED Abdomen/Pelvis IV Study: ED Abdomen/Pelvis IV contrast only C T 02/05/2016 [facility] contrast only CT Age: 30 years y/o Female Clinical Indication: Abdomin al pain, acute;Pt c/o lower left abd pain and nausea x 2 days with R ear pain and headache x 1 day. Pt also c/o Left lower back pain x 2 days as well. Denies injury Comparison: 10/04/2015 TECHNIQUE: Helical imaging w as performed diaphragm through the symphysis with multiplanar reformations obtained. IV CONTRAST: 100cc Omnipaque 300 GI CONTRAST: None CT Radiation Dose: DLP =2081 mGy-cm FINDINGS: LOWER CHEST: The lung bases are clear. SOLID ORGANS: The spleen, pa ncreas, liver, adrenal glands and kidneys are unremarkable. The patient has had a previous cholecystectomy. BOWEL: The bowel is generall y within normal limits. From the splenic flexure to the sigmoid there are changes of diverticulosis. The majority of the descending colon is contracted. This may be due to sp asm associated with mild div erticular inflammation. There is no evidence of infiltration of the adjacent fat. No perforation or abscess formation is noted. The appendix is visualized and is within normal limits. PERITONEUM: No free intraperitoneal fluid or air . RETROPERITONEUM: No adenopathy. The aorta is nor mal. PELVIS: No pelvic mass. The urinary bladder [...] Otherwise unremarkable CT abdomen and pelvis. SL: PURVI-PC Pelvis w Transvag and EXAM: Ultrasound pelvis with Doppler 10/04 [facility] Doppler US History: Left pelvic pain, p ossible ovarian torsion. Negative test. COMPARISON: Ultrasound 03/08/2010 TECHNIQUE: Transabdominal an d transvaginal grayscale static imaging of the pelvis performed with duplex Doppler. FINDINGS: Exam is somewhat limited due to patien t motion. TRANSABDOMINAL PELVIC ULTRASOUND: Uterus: Measures 7.2 cm length. Right ovary: Visualized. Left ovary: Nonvisualized. Bladder is underdistended. TRANSVAGINAL PELVIC ULTRASOU ND performed to better evaluate the endometrium and adnexa: Uterus: Endometrial stripe m easures 2.5 cm thickness. Nabothian cysts in the cervix. Right ovary: Visualized with color and spectral flow. Left ovary: Visualized with color and spectral f low. No adnexal mass is seen. Small amount of free fl uid. IMPRESSION: No appreciable ovarian torsion. SL: [id number] Renal Stone CT EXAM: CT renal stone 10/04/2015 [facility] History: Right and left lateral abdominal pain COMPARISON: CT 03/08/2010 TECHNIQUE: Axial images of t he abdomen and pelvis with sagittal and coronal reformats. No contrast. FINDINGS: No renal, ureteral or bladder stone [...] urinary stone is seen. 2. Mild groundglass opacitie s in the lung bases may reflect air trapping or pneumonitis. SL: [id number] Consultation Notes No Data Provided for This Section Discharge Summaries No Data Provided for This Section History and Physicals No Data Provided for This Section Vital Signs Vital Sign Value Date Comments Source Heart Rate 87 04/07/2018 [facility] Systolic (mm Hg) 144 04/07/2018 [facility] [place] Diastolic (mm Hg) 97 04/07/2018 [place] Respitory Rate 18 04/07/2018 [place] Respitory Rate 18 04/07/2018 [place] Heart Rate 94 04/07/2018 [place] Systolic (mm Hg) 165 04/07/2018 [place] Diastolic (mm Hg) 104 04/07/2018 [place] Temperature Oral (F) 98.7 F 04/07/2018 [place] Weight 63.636 04/07/2018 [place] Systolic (mm Hg) 104 02/25/2018 [place] [facility] Diastolic (mm Hg) 72 02/25/[address] Respitory Rate 16 02/25/2018 [facility] Heart Rate 83 02/25/2018 [facility] Temperature Oral (F) 97.9 F 02/25/2018 [facility] Rate 18 02/25/2018 [facility] Systolic (mm Hg) 134 02/25/2018 [place] [facility] Diastolic (mm Hg) 91 02/25/[address] Heart Rate 100 02/25/2018 [facility] Temperature Oral (F) 98.6 F 02/25/2018 [facility] Temperature Oral (F) 98.5 F 02/25/2018 [facility] Heart Rate 102 02/25/2018 [facility] Respitory Rate 18 02/25/2018 [facility] Systolic (mm Hg) 128 02/25/2018 [place] [facility] Diastolic (mm Hg) 82 02/25/[address] BMI Calculated 22.64 02/24/2018 [facility] Weight 63.636 02/24/2018 [facility] Height 167.64 cm 02/24/2018 [facility] Weight 63.636 02/24/2018 [facility] Weight 85 10/19/2017 [facility] BMI Calculated 31.18 10/19/2017 [facility] Height 165.1 cm 10/19/2017 [facility] Systolic (mm Hg) 143 10/19/2017 [place] Diastolic (mm Hg) 92 10/19/[address] Heart Rate 88 10/19/2017 [facility] Respitory Rate 18 10/19/2017 [facility] Temperature Oral (F) 97.6 F 10/19/2017 [facility] Respitory Rate 18 09/30/2017 [facility] Systolic (mm Hg) 112 09/30/2017 [facility] [place] Diastolic (mm Hg) 69 09/30/[address] Heart Rate 85 09/30/2017 [facility] Temperature Oral (F) 98.5 F 09/30/2017 [facility] Respitory Rate 19 09/30/2017 [facility] Systolic (mm Hg) 128 09/30/2017 [place] Diastolic (mm Hg) 58 09/30/[address] Diastolic (mm Hg) 86 09/30/[address] Heart Rate 105 09/30/2017 [facility] Respitory Rate 19 09/30/2017 [facility] Systolic (mm Hg) 138 09/30/2017 [facility] [facility] Temperature Oral (F) 98.6 F 09/30/2017 [facility] Weight 81.818 09/30/2017 [facility] Height 165.1 cm 09/30/2017 [facility] BMI Calculated 30.02 09/30/2017 [facility] Heart Rate 104 09/30/2017 [facility] Temperature Oral (F) 98.6 F 09/30/2017 [facility] Respitory Rate 18 11/11/2016 [facility] Systolic (mm Hg) 146 11/11/2016 [place] [facility] Diastolic (mm Hg) 95 11/11/[address] Temperature Oral (F) 97.9 F 11/11/2016 [facility] Heart Rate 81 11/11/2016 [facility] Weight 90 11/11/2016 [facility] Height 165.1 cm 11/11/2016 [facility] Respitory Rate 18 11/11/2016 [facility] Heart Rate 106 11/11/2016 [facility] Temperature Oral (F) 98.7 F 11/11/2016 [facility] BMI Calculated 33.02 11/11/2016 [facility] Systolic (mm Hg) 145 11/11/2016 [place] [facility] Diastolic (mm Hg) 99 11/11/[address] Heart Rate 79 06/14/2016 [facility] Respitory Rate 18 06/14/2016 [facility] Temperature Oral (F) 98.7 F 06/14/2016 [facility] Systolic (mm Hg) 128 06/14/2016 [place] [facility] Diastolic (mm Hg) 84 06/14/[address] Weight 87.273 06/14/2016 [facility] BMI Calculated 33.03 06/14/2016 [facility] Height 162.56 cm 06/14/2016 [facility] Temperature Oral (F) 98.7 F 06/14/2016 [facility] Systolic (mm Hg) 134 06/14/2016 [place] [facility] Diastolic (mm Hg) 92 06/14/[address] Respitory Rate 17 06/14/2016 [facility] Heart Rate 90 06/14/2016 [facility] Heart Rate 96 06/11/2016 [facility] Temperature Oral (F) 97.8 F 06/11/2016 [facility] Systolic (mm Hg) 128 06/11/2016 [place] [facility] Diastolic (mm Hg) 98 06/11/[address] Respitory Rate 18 06/11/2016 [facility] Weight 86.364 06/11/2016 [facility] BMI Calculated 31.68 06/11/2016 [facility] Height 165.1 cm 06/11/2016 [facility] Respitory Rate 20 06/11/2016 [facility] Heart Rate 112 06/11/2016 [facility] Temperature Oral (F) 98.1 F 06/11/2016 [facility] Systolic (mm Hg) 143 06/11/2016 [place] [facility] Diastolic (mm Hg) 91 06/11/[address] Temperature Oral (F) 98 F 06/03/2016 [facility] Respitory Rate 18 06/03/2016 [facility] Heart Rate 89 06/03/2016 [facility] Systolic (mm Hg) 121 06/03/2016 [place] Diastolic (mm Hg) 87 06/03/[address] Weight 88.182 06/03/2016 [facility] Temperature Oral (F) 98.1 F 06/03/2016 [facility] BMI Calculated 32.35 06/03/2016 [facility] Height 165.1 cm 06/03/2016 [facility] Respitory Rate 18 06/03/2016 [facility] Heart Rate 98 06/03/2016 [facility] Systolic (mm Hg) 127 06/03/2016 [place] Diastolic (mm Hg) 89 06/03/[address] Temperature Oral (F) 97.7 F 02/13/2016 [facility] Respitory Rate 17 02/13/2016 [facility] Systolic (mm Hg) 126 02/13/2016 [place] Diastolic (mm Hg) 82 02/13/[address] Heart Rate 92 02/13/2016 [facility] Height 165.1 cm 02/13/2016 [facility] BMI Calculated 31.68 02/13/2016 [facility] Weight 86.364 02/13/2016 [facility] Systolic (mm Hg) 116 02/13/2016 [place] Diastolic (mm Hg) 78 02/13/[address] Temperature Oral (F) 97.8 F 02/13/2016 [facility] Respitory Rate 16 02/13/2016 [facility] Heart Rate 82 02/13/2016 [facility] Respitory Rate 16 02/13/2016 [facility] Systolic (mm Hg) 112 02/13/2016 [place] Diastolic (mm Hg) 88 02/13/[address] Temperature Oral (F) 98.2 F 02/13/2016 [facility] Heart Rate 102 02/13/2016 [facility] Height 165.1 cm 02/13/2016 [facility] BMI Calculated 31.68 02/13/2016 [facility] Weight 86.364 02/13/2016 [facility] Temperature Oral (F) 98.4 F 02/11/2016 [facility] Heart Rate 68 02/11/2016 [facility] Respitory Rate 16 02/11/2016 [facility] Systolic (mm Hg) 103 02/11/2016 [place] Diastolic (mm Hg) 74 02/11/[address] Heart Rate 80 02/11/2016 [facility] Systolic (mm Hg) 118 02/11/2016 [place] Diastolic (mm Hg) 72 02/11/[address] Respitory Rate 16 02/11/2016 [facility] Temperature Oral (F) 99.1 F 02/11/2016 [facility] Systolic (mm Hg) 113 02/11/2016 [place] [facility] Diastolic (mm Hg) 74 02/11/[address] Temperature Oral (F) 99.8 F 02/11/2016 [facility] Respitory Rate 16 02/11/2016 [facility] Heart Rate 82 02/11/2016 [facility] Weight 74.5 02/08/2016 [facility] BMI Calculated 27.35 02/08/2016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
[2020-01-20] MEDS ORDERED: NA CHLORIDE 0.9% 1,000 ML ONE (22:38)
[2020-01-20] MEDS ORDERED: KETOROLAC 30 MG/ML INJ ONE (22:38)
[2020-01-20] MEDS ORDERED: METOCLOPRAMIDE 10 MG/2mL INJ ONE (22:38)
[2020-01-20] MEDS ORDERED: DIPHENHYDRAMINE 50 MG/ML VIAL ONE (22:38)
--- NOTE | 2020-01-20 23:01 | EDPHYS ---
Physician Documentation [facility] Name: Lashay Daniels Age: 34 yrs Sex: Female : 1985 Arrival Date: 01/20/2020 Time: 21:13 Bed 6 Private MD: ED Physician Alejandro Salazar HPI: 01/19 22:23 This 34 yrs old Female presents to ER via Ambulatory with complaints of kb Headache, Nausea/Vomiting. 22:23 The patient complains of pain to the right side of head. The patient describes the kb headache as constant. Onset: The symptoms/episode began/occurred 4 day(s) ago. Associated signs and symptoms: Pertinent positives: nausea, vomiting, Pertinent negatives: altered mental status, dizziness, fever, malaise, neck stiffness, paresthesias, Photophobia rash, sinus congestion, sinus tenderness, vision changes, vision loss, weakness, vertigo. Severity of symptoms: At its worst the pain was moderate, in the emergency department the pain is unchanged. Headache History: The patient has had previous headaches. The symptoms are alleviated by nothing. the symptoms are aggravated by lights. The patient has experienced a previous episode. The patient has not recently seen a physician. Pt reports headache to right side of head that started 4 days ago with associated nausea and vomiting. States she had similar headaches many years ago, but hasn't had one is a long time. . Historical: - Allergies: 21:21 No Known Drug Allergies; ll1 - PMHx: 21:21 renal insufficiency; Seizures; Pancreatitis; nerve damage LLE; Migraines; Hypertension; ll1 Diabetes - IDDM; Chronic pain; - PSHx: 21:21 Cholecystectomy; ll1 - Social history:: Smoking status: Patient reports use of chewing tobacco. Patient/guardian denies using alcohol, street drugs. ROS: 22:22 Constitutional: Negative for fever, chills, and weight loss, Eyes: Negative for injury, kb pain, redness, and discharge, ENT: Negative for injury, pain, and discharge, Neck: Negative for injury, pain, and swelling, Cardiovascular: Negative for chest pain, palpitations, and edema, Respiratory: Negative for shortness of breath, cough, wheezing, and pleuritic chest pain, Back: Negative for injury and pain, : Negative for injury, bleeding, discharge, and swelling, MS/Extremity: Negative for injury and deformity, Skin: Negative for injury, rash, and discoloration. 22:22 Abdomen/GI: Positive for nausea and vomiting, Negative for abdominal pain, diarrhea, constipation. 22:22 Neuro: Positive for headache. Exam: 22:22 Constitutional: This is a well developed, well nourished patient who is awake, alert, kb and in no acute distress. Head/Face: Normocephalic, atraumatic. Eyes: Pupils equal round and reactive to light, extra-ocular motions intact. Lids and lashes normal. Conjunctiva and sclera are non-icteric and not injected. Cornea within normal limits. Periorbital areas with no swelling, redness, or edema. ENT: Nares patent. No nasal discharge, no septal abnormalities noted. Tympanic membranes are normal and external auditory canals are clear. Oropharynx with no redness, swelling, or masses, exudates, or evidence of obstruction, uvula midline. Mucous membranes moist. Neck: Trachea midline, no thyromegaly or masses palpated, and no cervical lymphadenopathy. Supple, full range of motion without nuchal rigidity, or vertebral point tenderness. No Meningismus. Chest/axilla: Normal chest wall appearance and motion. Nontender with no deformity. No lesions are appreciated. Cardiovascular: Regular rate and rhythm with a normal S1 and S2. No gallops, murmurs, or rubs. Normal PMI, no JVD. No pulse deficits. Respiratory: Lungs have equal breath sounds bilaterally, clear to auscultation and percussion. No rales, rhonchi or wheezes noted. No increased work of breathing, no retractions or nasal flaring. Abdomen/GI: Soft, non-tender, with normal bowel sounds. No distension or tympany. No guarding or rebound. No evidence of tenderness throughout. Skin: Warm, dry with normal turgor. Normal color with no rashes, no lesions, and no evidence of cellulitis. MS/ Extremity: Pulses equal, no cyanosis. Neurovascular intact. Full, normal range of motion. Neuro: Awake and alert, GCS 15, oriented to person, place, time, and situation. Cranial nerves II-XII grossly intact. Motor strength 5/5 in all extremities. Sensory grossly intact. Cerebellar exam normal. Normal gait. Vital Signs: 21:21 BP 126 / 79; Pulse 79; Resp 17; Temp 98.2; Pulse Ox 100% ; Pain 8/10; ll1 22:30 BP 108 / 78; Pulse 71; Resp 16; Pulse Ox 100% ; jb4 [place] Coma Score: 22:22 Eye Response: spontaneous(4). Verbal Response: oriented(5). Motor Response: obeys kb commands(6). Total: 15. MDM: 21:16 Patient medically screened. kb 22:22 Data reviewed: vital signs, nurses notes. Data interpreted: Pulse oximetry: on room air kb is 100 %. Interpretation: normal. 22:59 Counseling: I had a detailed discussion with the patient and/or guardian regarding: the kb historical points, exam findings, and any diagnostic results supporting the discharge/admit diagnosis, radiology results, the need for outpatient follow up, a family practitioner, to return to the emergency department if symptoms worsen or persist or if there are any questions or concerns that arise at home. Response to treatment: the patient's symptoms have resolved after treatment. ED course: Pain is resolved and pt requests to go home now. . 01/19 21:20 Order name: CT Head Brain wo Cont kb 01/19 22:22 Order name: IV Start; Complete Time: 22:29 kb Administered Medications: 22:30 Drug: NS 0.9% 1000 ml Route: IV; Rate: 1000 ml; Site: right antecubital; jb4 23:06 Follow up: Response: No adverse reaction; IV Status: Order to discontinue infusion; IV jb4 Intake: 200ml 22:31 Drug: Reglan 10 mg Route: IVP; Site: right antecubital; jb4 23:06 Follow up: Response: No adverse reaction; Pain is decreased jb4 22:32 Drug: Benadryl 12.5 mg Route: IVP; Site: right antecubital; jb4 23:06 Follow up: Response: No adverse reaction; Pain is decreased jb4 22:46 Drug: TORadol - Ketorolac 15 mg Route: IVP; Site: right antecubital; jb4 23:07 Follow up: Response: No adverse reaction; Pain is decreased jb4 Disposition: 01/20 03:47 Co-signature as Attending Physician, Alejandro Salazar MD. [email or web address] Disposition: 01/20/20 22:59 Discharged to Home. Impression: Headache. - Condition is Stable. - Discharge Instructions: Migraine Headache, [id number], General Headache Without Cause, [id number]. - Medication Reconciliation Form, Thank You Letter, Antibiotic Education, Prescription Opioid Use form. - Follow up: Emergency Department; When: As needed; Reason: Worsening of condition. Follow up: Private Physician; When: 2 - 3 days; Reason: Recheck today's complaints, Continuance of care, Re-evaluation by your physician. Signatures: Dispatcher [employer] EDCA Isis Jay, HEALTH CAREERS INSTRUCTOR-C HEALTH CAREERS INSTRUCTOR-CkZhen Christopher RN RN jb4 Marcus Ortiz RN RN ll1 Alejandro Salazar MD MD [email or web address] Corrections: (The following items were deleted from the chart) 01/19 23:07 22:59 01/20/2020 22:59 Discharged to Home. Impression: Headache. Condition is Stable. jb4 Forms are Medication Reconciliation Form, Thank You Letter, Antibiotic Education, Prescription Opioid Use. Follow up: Emergency Department; When: As needed; Reason: Worsening of condition. Follow up: Private Physician; When: 2 - 3 days; Reason: Recheck today's complaints, Continuance of care, Re-evaluation by your physician. kb
--- NOTE | 2020-01-20 23:01 | ER ---
Nurse's Notes [facility] Name: Lashay Daniels Age: 34 yrs Sex: Female : 1985 Arrival Date: 01/20/2020 Time: 21:13 Bed 6 Private MD: Diagnosis: Headache Presentation: 01/19 21:21 Chief complaint: Patient states: Right sided HU for 4 days. + N/V today. No fever. ll1 Coronavirus screen: Proceed with normal triage. Patient denies a cough. Patient denies shortness of breath or difficulty breathing. Patient denies measured and/or subjective temperature greater than 100.4F prior to today's visit. Patient denies travel on a cruise ship or to a country the [facility] currently lists as an affected area. Patient denies contact with known and/or suspected case of COVID-19. Ebola Screen: Patient denies travel to an Ebola-affected area in the 21 days before illness onset. Initial Sepsis Screen: Does the patient meet any 2 criteria? No. Patient's initial sepsis screen is negative. Risk Assessment: Do you want to hurt yourself or someone else? Patient reports no desire to harm self or others. Onset of symptoms was January 16, 2020. 21:21 Method Of Arrival: Ambulatory ll1 21:21 Acuity: AKOSUA 3 ll1 Historical: - Allergies: 21:21 No Known Drug Allergies; ll1 - PMHx: 21:21 renal insufficiency; Seizures; Pancreatitis; nerve damage LLE; Migraines; Hypertension; ll1 Diabetes - IDDM; Chronic pain; - PSHx: 21:21 Cholecystectomy; ll1 - Social history:: Smoking status: Patient reports use of chewing tobacco. Patient/guardian denies using alcohol, street drugs. Screenin:38 Abuse screen: Denies threats or abuse. Nutritional screening: No deficits noted. jb4 Tuberculosis screening: No symptoms or risk factors identified. Fall Risk None identified. Assessment: 21:38 General: Appears in no apparent distress. uncomfortable, Behavior is calm, cooperative, jb4 appropriate for age. Pain: Complains of pain in Right side of the head. Pain does not radiate. Pain currently is 8 out of 10 on a pain scale. Quality of pain is described as pressure, sharp, Pain began suddenly, 4 days ago Is continuous. Neuro: Level of Consciousness is awake, alert, obeys commands, Oriented to person, place, time, situation, Reports headache in right that is the "worst ever", photophobia in right eye and left eye. Cardiovascular: Patient's skin is warm and dry. Respiratory: Airway is patent Respiratory effort is even, unlabored, Respiratory pattern is regular, symmetrical. GI: Reports nausea. : No signs and/or symptoms were reported regarding the genitourinary system. EENT: No signs and/or symptoms were reported regarding the EENT system. Derm: Skin is intact, Skin is pink, warm \\T\\ dry. Musculoskeletal: Circulation, motion, and sensation intact. Range of motion: intact in all extremities. 22:39 Reassessment: Patient appears in no apparent distress at this time. Patient and/or jb4 family updated on plan of care and expected duration. Pain level reassessed. Patient is alert, oriented x 3, equal unlabored respirations, skin warm/dry/pink. 23:04 Reassessment: Patient appears in no apparent distress at this time. Patient and/or jb4 family updated on plan of care and expected duration. Pain level reassessed. Patient is alert, oriented x 3, equal unlabored respirations, skin warm/dry/pink. Pt verbalized understanding of d/c and follow up instructions. Denies questions or concerns. Ambulated out of ED with steady gait. Patient denies pain at this time. Patient states symptoms have improved. Vital Signs: 21:21 BP 126 / 79; Pulse 79; Resp 17; Temp 98.2; Pulse Ox 100% ; Pain 8/10; ll1 22:30 BP 108 / 78; Pulse 71; Resp 16; Pulse Ox 100% ; jb4 [place] Coma Score: 22:22 Eye Response: spontaneous(4). Verbal Response: oriented(5). Motor Response: obeys kb commands(6). Total: 15. ED Course: 21:13 Patient arrived in ED. cl3 21:16 Alejandro Salazar MD is Attending Physician. mh7 21:16 Isis Jay FNP-C is [facility]. kb 21:23 Triage completed. ll1 21:23 Arm band placed on Patient placed in an exam room, on a stretcher. ll1 21:32 Zhen Lehman RN is Primary Nurse. jb4 21:38 Patient has correct armband on for positive identification. Bed in low position. Call jb4 light in reach. Side rails up X 1. Pulse ox on. NIBP on. Door closed. Noise minimized. Lights dimmed. Warm blanket given. 21:[address] via wheelchair. zbigniew 21:48 CT completed. Patient tolerated procedure well. Patient moved back from CT. zbigniew 21:51 CT Head Brain wo Cont In Process Unspecified. EDMS 21:59 Inserted saline lock: 20 gauge in right antecubital area, using aseptic technique. jb4 23:06 No provider procedures requiring assistance completed. IV discontinued, intact, jb4 bleeding controlled, No redness/swelling at site. Pressure dressing applied. Administered Medications: 22:30 Drug: NS 0.9% 1000 ml Route: IV; Rate: 1000 ml; Site: right antecubital; jb4 23:06 Follow up: Response: No adverse reaction; IV Status: Order to discontinue infusion; IV jb4 Intake: 200ml 22:31 Drug: Reglan 10 mg Route: IVP; Site: right antecubital; jb4 23:06 Follow up: Response: No adverse reaction; Pain is decreased jb4 22:32 Drug: Benadryl 12.5 mg Route: IVP; Site: right antecubital; jb4 23:06 Follow up: Response: No adverse reaction; Pain is decreased jb4 22:46 Drug: TORadol - Ketorolac 15 mg Route: IVP; Site: right antecubital; jb4 23:07 Follow up: Response: No adverse reaction; Pain is decreased jb4 Intake: 23:06 IV: 200ml; Total: 200ml. jb4 Outcome: 22:59 Discharge ordered by . calista 23:06 Discharged to home ambulatory. jb4 23:06 Condition: stable 23:06 Discharge instructions given to patient, Instructed on discharge instructions, follow up and referral plans. Demonstrated understanding of instructions, follow-up care. 23:07 Patient left the ED. jb4 Signatures: Dispatcher [employer] EDMS Isis Jay, CRIMINAL COURT JUDGEMichealC CRIMINAL COURT JUDGE-Zhen Cruz RN RN jb4 Rajat Ortiz3 Valentina Cohn md1 Marcus Ortiz RN RN 1 Alejandro Salazar MD MD 7 Corrections: (The following items were deleted from the chart) : No provider procedures requiring assistance completed. jb4 jb4 :30 IV discontinued, intact, bleeding controlled, No redness/swelling at site. jb4 Pressure dressing applied, jb4
[2020-01-20 23:35] VITALS: BP 108/78; O2SAT 100
[2020-01-20 23:41] VITALS: TEMP 98.2
--- NOTE | 2020-01-21 08:46 | RAD REPORT ---
EXAM DESCRIPTION: Head Brain Wo Cont CLINICAL HISTORY: 34 years Female HEADACHE COMPARISON: None TECHNIQUE: Images were obtained in axial, sagittal, and coronal planes. This exam was performed according to our departmental dose-optimization program which includes use of Automated Exposure Control, adjustment of the mA and/or kV according to patient size and/or use o f iterative reconstruction technique. FINDINGS: Ventricular system appears normal. No abnormal areas of increased or decreased attenuation are seen involving the brain parenchyma. No e xtra-axial fluid collections noted. No evidence for skull fracture. Symmetric aeration mastoid air cells bilaterally. Unremarkable parana kendra sinuses. IMPRESSION: No acute intracranial abnormality. No evidence for hemorrhage, mass lesion, or large acu te infarction. Electronically signed by: Mabel Ellis MD 01/20/2020 10:04 PM CDT Due to temporary technical issues with the PACS/Fluency reporting system, reports are being signed by the in house radiologist without review as a courtesy to ensure prompt reporting. The interpreting r adiologist is fully responsible for the content of the report.
== END 2020-01-20 23:07 | disposition home or self-care (01) ==
LOC: ER 21:12
DX: R51 Headache (principal); R11.2 Nausea with vomiting, unspecified; I10 Essential (primary) hypertension; F17.220 Nicotine dependence, chewing tobacco, uncomplicated
CPT/HCPCS: 70450; 96361; 96374; 96375; 99284; J1200; J2765; J7030

== ENCOUNTER 2021-01-17 07:41 | Emergency (ER) | payer SELFPAY ==
[2021-01-17 08:26] LABS: Urine Blood Negative (Negative); Urine Glucose Negative (Negative); Urine Protein 1+ (Negative); Urine Specific Gravity >=1.030 (1.005-1.030); Urine pH 5.5 (5.0-7.0)
[2021-01-17 08:27] LABS: Absolute Lymphocytes (CBC) 2.7 K/uL (0.7-4.9); Basophils % 0.7 % (0-1.3); Hematocrit 36.1 % (36.0-45.0); Lymphocytes % 34.6 % (15.3-44.8); MPV 8.1 fL (7.6-11.3); RBC Red Blood Cell Count 4.42 M/uL (3.86-4.86)
[2021-01-17 08:42] LABS: Albumin 3.5 g/dL (3.4-5.0); Bilirubin Direct 0.1 mg/dL (0-0.2); Bilirubin Total 0.3 mg/dL (0.2-1.0); Potassium 3.6 mmol/L (3.5-5.1); Protein, Total 7.4 g/dL (6.4-8.2)
[2021-01-17] MEDS ORDERED: NA CHLORIDE 0.9% 1,000 ML ONE (08:47)
[2021-01-17] MEDS ORDERED: ONDANSETRON 4 MG/2 ML VIAL ONE (08:47)
[2021-01-17] MEDS ORDERED: MORPHINE 4 MG/ML SYR ONE ×2 (08:47→09:54)
--- NOTE | 2021-01-17 10:45 | RAD REPORT ---
EXAM DESCRIPTION: CTAbdomen Pelvis W Contrast - 01/17/2021 9:17 am CLINICAL HISTORY: Abdominal pain. ABD PAIN COMPARISON: CT ABD PELVIS W CONTRAST dated 02/01/2015; CT ABD PELVIS W CONTRAST dated 06/13/2014; CT ABD PELVIS W CONTRAST dated 10/13/2011; CT ABD PELVIS W CONTRAST dated 07/08/2009 TECHNIQUE: Biphasic CT imaging of the abdomen and pelvis was performed with 100 ml non-ionic IV cont rast. All CT scans are performed using dose optimization technique as appropriate and may include automated exposure control or mA/KV adjustment according to patient size. FINDINGS: The lung bases are clear. Mild diffuse fatty liver. Cholecystectomy clips. The spleen, pancreas, adrenal glands and kidneys are normal limits. No bowel obstruction, free air, free fluid or abscess. Moderate stool is present in the colon. The ap pendix is normal. No evidence of significant lymphadenopathy. No suspicious bony findings. IMPRESSION: No acute intra-abdominal or pelvic finding. Mild diffuse fatty liver.
--- NOTE | 2021-01-17 11:12 | ER ---
Nurse's Notes [facility] Name: Lashay Daniels Age: 35 yrs Sex: Female : 1985 Arrival Date: 01/17/2021 Time: 07:44 Bed 13 Private MD: Diagnosis: Vomiting;Abdominal tenderness Presentation: 01/17 07:45 Chief complaint: Patient states: "I was sick with a sore throat and cough last week and aa5 I was negative for covid on Tuesday but last night I started with lower abdominal pain and vomiting". Denies diarrhea. 07:45 Onset of symptoms was January 2021. aa5 07:45 Acuity: AKOSUA 3 aa5 07:45 Method Of Arrival: Ambulatory aa5 07:45 Coronavirus screen: cough unrelated to allergies, sore throat. Ebola Screen: Patient aa5 negative for fever greater than or equal to 101.5 degrees Fahrenheit, and additional compatible Ebola Virus Disease symptoms. Initial Sepsis Screen: Does the patient meet any 2 criteria? No. Patient's initial sepsis screen is negative. Does the patient have a suspected source of infection? No. Patient's initial sepsis screen is negative. Risk Assessment: Do you want to hurt yourself or someone else? Patient reports no desire to harm self or others. CHIEF MEDICAL TECHNOLOGIST: 08:36 LMP 12/22/2020 aa5 Historical: - Allergies: 07:45 No Known Allergies; aa5 - Home Meds: 07:45 None [Active]; aa5 - PMHx: 07:45 None; aa5 - PSHx: 07:45 Cholecystectomy; aa5 - Immunization history:: Adult Immunizations unknown. - Social history:: Smoking status: Patient denies any tobacco usage or history of. - Family history:: not pertinent. Screenin:45 Abuse screen: Denies threats or abuse. Nutritional screening: No deficits noted. aa5 Tuberculosis screening: No symptoms or risk factors identified. Fall Risk None identified. Assessment: 07:45 General: Appears comfortable, Behavior is calm, cooperative. Pain: Complains of pain in aa5 right lower quadrant and left lower quadrant Pain currently is 7 out of 10 on a pain scale. Quality of pain is described as sharp, Pain began 1 day ago. Is continuous. Neuro: Level of Consciousness is awake, alert, obeys commands, Oriented to person, place, time, situation. Cardiovascular: Patient's skin is warm and dry. Respiratory: Reports cough Airway is patent Respiratory effort is even, unlabored, Respiratory pattern is regular, symmetrical, Breath sounds are clear bilaterally. GI: Abdomen is round non-distended, Bowel sounds present X 4 quads. Abd is soft and non tender X 4 quads. Reports nausea, vomiting, Patient currently denies diarrhea. : No signs and/or symptoms were reported regarding the genitourinary system. EENT: Reports sore throat has improved . Derm: Skin is pink, warm \\T\\ dry. Musculoskeletal: Range of motion: intact in all extremities. 09:08 Reassessment: Patient is alert, oriented x 3, equal unlabored respirations, skin aa5 warm/dry/pink. Pt taken to CT scan. 09:39 Reassessment: Pt reports increased pain, MD was notified. (see MAR). aa5 10:11 Reassessment: Patient appears in no apparent distress at this time. No changes from vg1 previously documented assessment. Patient and/or family updated on plan of care and expected duration. Pain level reassessed. Patient is alert, oriented x 3, equal unlabored respirations, skin warm/dry/pink. Pt states pain 7/10. States pain is near Left and Right ovaries; has a hx of ruptured cysts. 11:11 Reassessment: Patient appears in no apparent distress at this time. No changes from vg1 previously documented assessment. Patient and/or family updated on plan of care and expected duration. Pain level reassessed. Patient is alert, oriented x 3, equal unlabored respirations, skin warm/dry/pink. Vital Signs: 07:45 BP 117 / 82; Pulse 96; Resp 18 S; Temp 97.7(O); Pulse Ox 100% on R/A; Weight 99.79 kg aa5 (R); Height 5 ft. 6 in. (167.64 cm) (R); Pain 7/10; 09:30 BP 118 / 80; Pulse 87; Resp 18 S; Pulse Ox 97% on R/A; aa5 10:12 BP 134 / 75; Pulse 94; Resp 16; Pulse Ox 100% on R/A; vg1 11:11 BP 135 / 93; Pulse 87; Resp 16; Pulse Ox 100% ; vg1 07:45 Body Mass Index 35.51 (99.79 kg, 167.64 cm) aa5 ED Course: 07:44 Patient arrived in ED. mr 07:45 Arm band placed on. aa5 07:45 Patient has correct armband on for positive identification. Placed in gown. Bed in low aa5 position. Call light in reach. Side rails up X 1. 07:52 Iliana Love RN is Primary Nurse. aa5 07:54 Nahid Durham MD is Attending Physician. nico 08:10 Triage completed. aa5 08:20 Inserted saline lock: 20 gauge in right antecubital area, using aseptic technique. mt Blood collected. 09:17 CT Abd/Pelvis - IV Contrast Only In Process Unspecified. EDMS 09:55 Report given to DENISE Saleh. aa5 09:56 Primary Nurse role handed off by Iliana Love RN vg1 09:56 Therese Adams RN is Primary Nurse. vg1 11:12 Zhen Albert MD is Referral Physician. nico 11:46 No provider procedures requiring assistance completed. IV discontinued, intact, vg1 bleeding controlled, No redness/swelling at site. Pressure dressing applied. Administered Medications: 08:30 Drug: NS 0.9% 1000 ml Route: IV; Rate: 1 bolus; Site: right antecubital; aa5 09:39 Follow up: IV Status: Completed infusion; IV Intake: 1000ml aa5 08:30 Drug: morphine 4 mg Route: IVP; Site: right antecubital; aa5 08:35 Follow up: Response: No adverse reaction aa5 08:30 Drug: Zofran (Ondansetron) 4 mg Route: IVP; Site: right antecubital; aa5 08:35 Follow up: Response: No adverse reaction aa5 09:39 Drug: morphine 4 mg Route: IVP; Site: right antecubital; aa5 11:11 Follow up: Response: No adverse reaction; Pain is unchanged, physician notified vg1 Intake: 09:39 IV: 1000ml; Total: 1000ml. aa5 Outcome: 11:12 Discharge ordered by . nico 11:46 Discharged to home ambulatory. vg1 11:46 Condition: stable 11:46 Discharge instructions given to patient, Instructed on discharge instructions, follow up and referral plans. medication usage, Demonstrated understanding of instructions, follow-up care, medications, Prescriptions given X 2. 11:46 Patient left the ED. vg1 Signatures: Dispatcher [employer] EDNahid Adams, Monique Lyon MD, cha, Iliana, RN RN aa5 Autumn Persaud mt, Victoria RN RN vg1
--- NOTE | 2021-01-17 11:13 | EDPHYS ---
Physician Documentation [facility] Name: Lashay Daniels Age: 35 yrs Sex: Female : 1985 Arrival Date: 01/17/2021 Time: 07:44 Bed 13 Private MD: MARCEL Physician Nahid Durham HPI: 01/17 08:02 This 35 yrs old Female presents to ER via Unassigned with complaints of nico Vomiting, Abdominal Pain. 08:02 The patient presents to the emergency department with nausea, vomiting, that is nico continuous. Onset: The symptoms/episode began/occurred 2 day(s) ago. Possible causes: unknown. The symptoms are aggravated by movement, pressure, The symptoms are alleviated by nothing. remaining still. Associated signs and symptoms: The patient has no apparent associated signs or symptoms. Severity of symptoms: At their worst the symptoms were mild moderate in the emergency department the symptoms are unchanged. The patient has not experienced similar symptoms in the past, but family has similar symptoms. 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 - Social history:: Smoking status: Patient denies any tobacco usage or history of. - Family history:: not pertinent. ROS: 08:03 Constitutional: Negative for fever, chills, and weight loss, Eyes: Negative for injury, nico pain, redness, and discharge, ENT: Negative for injury, pain, and discharge, Neck: Negative for injury, pain, and swelling, Cardiovascular: Negative for chest pain, palpitations, and edema, Respiratory: Negative for shortness of breath, cough, wheezing, and pleuritic chest pain, Back: Negative for injury and pain, : Negative for injury, bleeding, discharge, and swelling, MS/Extremity: Negative for injury and deformity, Skin: Negative for injury, rash, and discoloration, Neuro: Negative for headache, weakness, numbness, tingling, and seizure, Psych: Negative for depression, anxiety, suicide ideation, homicidal ideation, and hallucinations, Allergy/Immunology: Negative for hives, rash, and allergies, Endocrine: Negative for neck swelling, polydipsia, polyuria, polyphagia, and marked weight changes, Hematologic/Lymphatic: Negative for swollen nodes, abnormal bleeding, and unusual bruising. 08:03 Abdomen/GI: Positive for abdominal pain, of the suprapubic area, right lower quadrant and left lower quadrant. Exam: 08:03 Constitutional: This is a well developed, well nourished patient who is awake, alert, nico and in no acute distress. Head/Face: Normocephalic, atraumatic. Eyes: Pupils equal round and reactive to light, extra-ocular motions intact. Lids and lashes normal. Conjunctiva and sclera are non-icteric and not injected. Cornea within normal limits. Periorbital areas with no swelling, redness, or edema. ENT: Nares patent. No nasal discharge, no septal abnormalities noted. Tympanic membranes are normal and external auditory canals are clear. Oropharynx with no redness, swelling, or masses, exudates, or evidence of obstruction, uvula midline. Mucous membranes moist. Neck: Trachea midline, no thyromegaly or masses palpated, and no cervical lymphadenopathy. Supple, full range of motion without nuchal rigidity, or vertebral point tenderness. No Meningismus. Chest/axilla: Normal chest wall appearance and motion. Nontender with no deformity. No lesions are appreciated. Cardiovascular: Regular rate and rhythm with a normal S1 and S2. No gallops, murmurs, or rubs. Normal PMI, no JVD. No pulse deficits. Respiratory: Lungs have equal breath sounds bilaterally, clear to auscultation and percussion. No rales, rhonchi or wheezes noted. No increased work of breathing, no retractions or nasal flaring. Back: No spinal tenderness. No costovertebral tenderness. Full range of motion. Female : Normal external genitalia. Skin: Warm, dry with normal turgor. Normal color with no rashes, no lesions, and no evidence of cellulitis. MS/ Extremity: Pulses equal, no cyanosis. Neurovascular intact. Full, normal range of motion. Neuro: Awake and alert, GCS 15, oriented to person, place, time, and situation. Cranial nerves II-XII grossly intact. Motor strength 5/5 in all extremities. Sensory grossly intact. Cerebellar exam normal. Normal gait. Psych: Awake, alert, with orientation to person, place and time. Behavior, mood, and affect are within normal limits. 08:03 Abdomen/GI: Inspection: abdomen appears normal, Bowel sounds: normal, Palpation: moderate abdominal tenderness, in the suprapubic area, right lower quadrant and left lower quadrant, Liver: no appreciated palpable abnormalities, Hernia: not appreciated. Vital Signs: 07:45 BP 117 / 82; Pulse 96; Resp 18 S; Temp 97.7(O); Pulse Ox 100% on R/A; Weight 99.79 kg aa5 (R); Height 5 ft. 6 in. (167.64 cm) (R); Pain 7/10; 09:30 BP 118 / 80; Pulse 87; Resp 18 S; Pulse Ox 97% on R/A; aa5 10:12 BP 134 / 75; Pulse 94; Resp 16; Pulse Ox 100% on R/A; vg1 11:11 BP 135 / 93; Pulse 87; Resp 16; Pulse Ox 100% ; vg1 07:45 Body Mass Index 35.51 (99.79 kg, 167.64 cm) aa5 MDM: 07:54 Patient medically screened. nico 08:04 Differential diagnosis: Nonspecific abd pain, pancreatitis, diverticulitis, nico Endometriosis, gastroesophageal reflux disease, Irritable bowel syndrome, Ovarian Torsion, pancreatitis, Pyelonephritis, urinary tract infection. Data reviewed: vital signs, nurses notes, lab test result(s), radiologic studies. 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 Counseling: I had a detailed discussion with the patient and/or guardian regarding: the historical points, exam findings, and any diagnostic results supporting the discharge/admit diagnosis, lab results, radiology results. 01/17 08:01 Order name: Basic Metabolic Panel; Complete Time: 09:18 nico 01/17 08:01 Order name: CBC with Diff; Complete Time: 09:18 nico 01/17 08:01 Order name: Hepatic Function; Complete Time: 09:18 nico 01/17 08:01 Order name: Lipase; Complete Time: 09:18 nico 01/17 08:26 Order name: Urine Dipstick-Ancillary; Complete Time: 09:18 EDMS 01/17 08:26 Order name: Urine --Ancillary (enter results); Complete Time: 10:08 eb 01/17 08:01 Order name: IV Saline Lock; Complete Time: 08:20 [facility] 01/17 08:01 Order name: Labs collected and sent; Complete Time: 08:20 [facility] 01/17 08:01 Order name: Urine Dipstick-Ancillary (obtain specimen); Complete Time: 08:20 [facility] 01/17 08:01 Order name: CT Abd/Pelvis - IV Contrast Only; Complete Time: 11:03 [facility] 01/17 08:01 Order name: Urine Test (obtain specimen); Complete Time: 08:33 [facility] Administered Medications: 08:30 Drug: NS 0.9% 1000 ml Route: IV; Rate: 1 bolus; Site: right antecubital; aa5 09:39 Follow up: IV Status: Completed infusion; IV Intake: 1000ml aa5 08:30 Drug: morphine 4 mg Route: IVP; Site: right antecubital; aa5 08:35 Follow up: Response: No adverse reaction aa5 08:30 Drug: Zofran (Ondansetron) 4 mg Route: IVP; Site: right antecubital; aa5 08:35 Follow up: Response: No adverse reaction aa5 09:39 Drug: morphine 4 mg Route: IVP; Site: right antecubital; aa5 11:11 Follow up: Response: No adverse reaction; Pain is unchanged, physician notified vg1 Disposition: 01/17/21 11:12 Discharged to Home. Impression: Vomiting, Abdominal tenderness. - Condition is Stable. - Discharge Instructions: Abdominal Pain, Adult, Nausea and Vomiting, Adult, Nausea and Vomiting, Adult, [id number], Abdominal Pain, Adult, [id number]. - Prescriptions for Bentyl 20 mg Oral Tablet - take 1 tablet by ORAL route every 6 hours As needed; 20 tablet. Zofran 4 mg Oral Tablet - take 1 tablet by ORAL route every 12 hours As needed; 20 tablet. - Medication Reconciliation Form, Thank You Letter, Antibiotic Education, Prescription Opioid Use, Work release form form. - Follow up: Private Physician; When: 2 - 3 days; Reason: Recheck today's complaints, Continuance of care, Re-evaluation by your physician. Follow up: Zhen Albert MD; When: 2 - 3 days; Reason: Recheck today's complaints, Re-evaluation by your physician. - Problem is new. - Symptoms have improved. Signatures: Dispatcher [employer] Nahid Woody MD MD cha Calderon, Audri, RN RN aa5 Therese Adams, RN RN vg1 Corrections: (The following items were deleted from the chart) 11:46 11:12 01/17/2021 11:12 Discharged to Home. Impression: Vomiting; Abdominal tenderness. vg1 Condition is Stable. Forms are Medication Reconciliation Form, Thank You Letter, Antibiotic Education, Prescription Opioid Use. Follow up: Private Physician; When: 2 - 3 days; Reason: Recheck today's complaints, Continuance of care, Re-evaluation by your physician. Follow up: Zhen Albert; When: 2 - 3 days; Reason: Recheck today's complaints, Re-evaluation by your physician. Problem is new. Symptoms have improved. nico
[2021-01-17 12:03] VITALS: TEMP 97.7
[2021-01-17 12:12] VITALS: O2SAT 100
[2021-01-17 12:18] VITALS: BP 135/93
== END 2021-01-17 11:46 | disposition home or self-care (01) ==
LOC: ER 07:41
DX: R10.819 Abdominal tenderness, unspecified site (principal)
CPT/HCPCS: 36415; 74177; 80048; 80076; 81003; 81025; 83690; 85025; 96361; 96374; 96375; 99284; J2405; J7030; Q9967

== ENCOUNTER 2021-04-11 12:09 | Emergency (ER) | payer SELFPAY ==
[2021-04-11] MEDS ORDERED: ACETAMINOPHEN 500 MG TAB ONE (13:54)
--- NOTE | 2021-04-11 14:24 | EDPHYS ---
Physician Documentation [facility] Name: Lashay Daniels Age: 35 yrs Sex: Female : 1985 Arrival Date: 04/11/2021 Time: 12:11 Bed 12 Private MD: MARCEL Physician Nahid Durham HPI: 04/11 15:21 This 35 yrs old Female presents to ER via Ambulatory with complaints of Fever, kb Sore Throat. 15:21 The patient or guardian reports flu symptoms, low-grade fever. Onset: The kb symptoms/episode began/occurred last night. Severity of symptoms: At their worst the symptoms were mild, in the emergency department the symptoms are unchanged. Modifying factors: The symptoms are alleviated by nothing, the symptoms are aggravated by nothing. Associated signs and symptoms: Pertinent positives: fever. The patient has not experienced similar symptoms in the past. The patient has not recently seen a physician. Pt reports she woke up in the middle of the night in a sweat. Reports fever, chills, loss of taste and smell and fever blisters. . Historical: - Allergies: 12:37 No Known Allergies; vg1 - Home Meds: 12:37 None [Active]; vg1 - PMHx: 12:37 Chronic pain; Diabetes - IDDM; Hypertension; Migraines; nerve damage LLE; Pancreatitis; vg1 renal insufficiency; Seizures; - PSHx: 12:37 Cholecystectomy; vg1 - Immunization history:: Adult Immunizations up to date, Client reports receiving the 2nd dose of the Covid vaccine. - Social history:: Smoking status: Patient reports use of chewing tobacco. ROS: 15:19 Respiratory: Negative for shortness of breath, cough, wheezing, and pleuritic chest kb pain. 15:19 Constitutional: Positive for chills, fever. 15:19 ENT: Positive for loss of taste and smell; fever blisters. 15:19 All other systems are negative. Exam: 15:19 Constitutional: This is a well developed, well nourished patient who is awake, alert, kb and in no acute distress. Head/Face: Normocephalic, atraumatic. Cardiovascular: Regular rate and rhythm with a normal S1 and S2. No gallops, murmurs, or rubs. No pulse deficits. Respiratory: Respirations even and unlabored. No increased work of breathing, no retractions or nasal flaring. Skin: Warm, dry with normal turgor. Normal color. MS/ Extremity: Pulses equal, no cyanosis. Neurovascular intact. Full, normal range of motion. Neuro: Awake and alert, GCS 15, oriented to person, place, time, and situation. Moves all extremities. Normal gait. Psych: Awake, alert, with orientation to person, place and time. Behavior, mood, and affect are within normal limits. 15:19 ENT: vesicular lesions on lips. Vital Signs: 12:35 BP 127 / 87; Pulse 84; Resp 16; Temp 98.3; Pulse Ox 98% on R/A; Weight 92.99 kg; Height vg1 5 ft. 6 in. (167.64 cm); Pain 0/10; 13:34 BP 131 / 80; Pulse 90; Resp 16; Pulse Ox 100% ; vg1 12:35 Body Mass Index 33.09 (92.99 kg, 167.64 cm) vg1 MDM: 12:34 Patient medically screened. kb 15:18 Data reviewed: vital signs, nurses notes. Data interpreted: Pulse oximetry: on room air kb is 100 %. Interpretation: normal. Counseling: I had a detailed discussion with the patient and/or guardian regarding: the historical points, exam findings, and any diagnostic results supporting the discharge/admit diagnosis, lab results, the need for outpatient follow up, a family practitioner, to return to the emergency department if symptoms worsen or persist or if there are any questions or concerns that arise at home. 04/11 14:09 Order name: SARS-COV-2 RT PCR; Complete Time: 14:19 EDMS Administered Medications: 13:31 Not Given (Physician Discretion): Ibuprofen 800 mg PO once vg1 13:35 Drug: Tylenol 1000 mg Route: PO; vg1 14:37 Follow up: Response: No adverse reaction; Marked relief of symptoms vg1 14:37 Drug: valACYclovir 1000 mg Route: PO; vg1 14:37 Follow up: Response: Medication administered at discharge. vg1 Disposition: 04/12 08:32 Co-signature as Attending Physician, Nahid Durham MD I agree with the assessment and nico plan of care. Disposition Summary: 04/11/21 14:24 Discharge Ordered Location: Home kb Condition: Stable kb Diagnosis - Herpesviral infection, unspecified kb Followup: kb - With: Emergency Department - When: As needed - Reason: Worsening of condition Followup: kb - With: Private Physician - When: 2 - 3 days - Reason: Recheck today's complaints, Continuance of care, Re-evaluation by your physician Discharge Instructions: - Discharge Summary Sheet kb - Cold Sore, [id number] kb Forms: - Medication Reconciliation Form kb - Thank You Letter kb - Antibiotic Education kb - Prescription Opioid Use kb Signatures: Dispatcher [employer] EDIsis Andino, HOLLY SAUCEDO-Nahid Miramontes MD MD cha Garcia, Victoria, RN RN vg1 Corrections: (The following items were deleted from the chart) 04/11 13:11 12:45 CORONAVIRUS+MR.LAB.BRZ ordered. [facility]
--- NOTE | 2021-04-11 14:24 | ER ---
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 Pt stated last night fever of 103 last night and lost taste and smell. Stated took Ibuprofen about an hour ago of 600 mg PO. Coronavirus screen: Vaccine status: Patient reports receiving the 2nd dose of the covid vaccine. Client denies travel out of the [place] in the last 14 days. Client presents with at least one sign or symptom that may indicate coronavirus-19. Standard/surgical mask placed on the client. Ebola Screen: Patient negative for fever greater than or equal to 101.5 degrees Fahrenheit, and additional compatible Ebola Virus Disease symptoms. Initial Sepsis Screen: Does the patient meet any 2 criteria? No. Patient's initial sepsis screen is negative. Does the patient have a suspected source of infection? No. Patient's initial sepsis screen is negative. Risk Assessment: Do you want to hurt yourself or someone else? Patient reports no desire to harm self or others. Onset of symptoms was April 10, 2021. 12:35 Method Of Arrival: Ambulatory vg1 12:35 Acuity: AKOSUA 4 vg1 Triage Assessment: 12:37 General: Appears in no apparent distress. comfortable, Behavior is calm, cooperative. vg1 Pain: Denies pain. EENT: Reports unable to taste and smell. Neuro: Level of Consciousness is awake, alert, obeys commands, Oriented to person, place, time, situation. Cardiovascular: Patient's skin is warm and dry. Respiratory: Airway is patent Respiratory effort is even, unlabored. GI: No signs and/or symptoms were reported involving the gastrointestinal system. : No signs and/or symptoms were reported regarding the genitourinary system. Derm: Skin is intact, is healthy with good turgor. Musculoskeletal: Circulation, motion, and sensation intact. Historical: - Allergies: 12:37 No Known Allergies; vg1 - Home Meds: 12:37 None [Active]; vg1 - PMHx: 12:37 Chronic pain; Diabetes - IDDM; Hypertension; Migraines; nerve damage LLE; Pancreatitis; vg1 renal insufficiency; Seizures; - PSHx: 12:37 Cholecystectomy; vg1 - Immunization history:: Adult Immunizations up to date, Client reports receiving the 2nd dose of the Covid vaccine. - Social history:: Smoking status: Patient reports use of chewing tobacco. Screenin:40 Abuse screen: Denies threats or abuse. Nutritional screening: No deficits noted. vg1 Tuberculosis screening: No symptoms or risk factors identified. Fall Risk None identified. Assessment: 12:40 Reassessment: see triage. Respiratory: Airway is patent Respiratory effort is even, vg1 unlabored, Breath sounds are clear bilaterally. 12:40 EENT: Throat is clear. vg1 13:34 Reassessment: Patient appears in no apparent distress at this time. No changes from vg1 previously documented assessment. Patient and/or family updated on plan of care and expected duration. Pain level reassessed. Patient is alert, oriented x 3, equal unlabored respirations, skin warm/dry/pink. 14:37 Reassessment: Patient appears in no apparent distress at this time. Patient and/or vg1 family updated on plan of care and expected duration. Pain level reassessed. Patient is alert, oriented x 3, equal unlabored respirations, skin warm/dry/pink. Vital Signs: 12:35 BP 127 / 87; Pulse 84; Resp 16; Temp 98.3; Pulse Ox 98% on R/A; Weight 92.99 kg; Height vg1 5 ft. 6 in. (167.64 cm); Pain 0/10; 13:34 BP 131 / 80; Pulse 90; Resp 16; Pulse Ox 100% ; vg1 12:35 Body Mass Index 33.09 (92.99 kg, 167.64 cm) vg1 ED Course: 12:11 Patient arrived in ED. ds1 12:29 Therese Adams RN is Primary Nurse. vg1 12:33 Isis Jay FNP-C is PHCP. kb 12:33 Nahid Durham MD is Attending Physician. kb 12:37 Triage completed. vg1 12:40 Patient has correct armband on for positive identification. Call light in reach. vg1 12:40 Arm band placed on. vg1 12:40 No provider procedures requiring assistance completed. Patient did not have IV access vg1 during this emergency room visit. 12:50 COVID swab sent to lab. vg1 Administered Medications: 13:31 Not Given (Physician Discretion): Ibuprofen 800 mg PO once vg1 13:35 Drug: Tylenol 1000 mg Route: PO; vg1 14:37 Follow up: Response: No adverse reaction; Marked relief of symptoms vg1 14:37 Drug: valACYclovir 1000 mg Route: PO; vg1 14:37 Follow up: Response: Medication administered at discharge. vg1 Outcome: 14:24 Discharge ordered by . calista 14:37 Discharged to home ambulatory. vg1 14:37 Condition: stable 14:37 Discharge instructions given to patient, Instructed on discharge instructions, follow up and referral plans. Demonstrated understanding of instructions, follow-up care. 14:37 Patient left the ED. 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 Pt stated last night fever of 103 last night and lost taste and smell. vg1
[2021-04-11 14:42] VITALS: TEMP 98.3
[2021-04-11 14:43] VITALS: BP 131/80; O2SAT 100
[2021-04-11] MEDS ORDERED: VALACYCLOVIR 500 MG TAB ONE (14:58)
== END 2021-04-11 14:37 | disposition home or self-care (01) ==
LOC: ER 12:09
DX: B00.9 Herpesviral infection, unspecified (principal); I10 Essential (primary) hypertension; F17.220 Nicotine dependence, chewing tobacco, uncomplicated; Z20.822 Contact with and (suspected) exposure to COVID-19
CPT/HCPCS: 99283; U0003

== ENCOUNTER 2022-05-05 00:01 | Emergency (ER) | payer SELFPAY ==
[2022-05-05 01:16] LABS: Absolute Lymphocytes (CBC) 2.5 K/uL (0.7-4.9); Hematocrit 39.6 % (36.0-45.0); Lymphocytes % 26.3 % (15.3-44.8); MCV 84.7 fL (80-100); MPV 8.3 fL (7.6-11.3); RBC Red Blood Cell Count 4.68 M/uL (3.86-4.86)
[2022-05-05 01:33] LABS: Bilirubin Total 0.4 mg/dL (0.2-1.0); Potassium 3.4 mmol/L (3.5-5.1); Protein, Total 8.3 g/dL (6.4-8.2); Troponin High Sensitivity 6.2 pg/mL (<58.9)
[2022-05-05 03:00] LABS: Urine Blood Trace-lysed (Negative); Urine Glucose Negative (Negative); Urine Protein Negative (Negative); Urine Specific Gravity 1.025 (1.005-1.030)
[2022-05-05 03:08] LABS: Urine Specific Gravity/Preg 1.025 (1.005-1.030)
--- NOTE | 2022-05-05 05:01 | ER ---
Nurse's Notes [facility] Name: Lashay Daniels Age: 36 yrs Sex: Female : 1985 Arrival Date: 05/05/2022 Time: 00:07 Bed 4 Private MD: Diagnosis: Chest pain, unspecified;Shortness of breath;Lower abdominal pain, unspecified Presentation: 05/05 00:17 Chief complaint: Patient states: "I'm having chest pain. It started yesterday and it as6 just hasn't gotten better". Coronavirus screen: At this time, the client does not indicate any symptoms associated with coronavirus-19. Ebola Screen: No symptoms or risks identified at this time. Initial Sepsis Screen: Does the patient meet any 2 criteria? No. Patient's initial sepsis screen is negative. Does the patient have a suspected source of infection? No. Patient's initial sepsis screen is negative. Risk Assessment: Do you want to hurt yourself or someone else? Patient reports no desire to harm self or others. Onset of symptoms was May 03, 2022. 00:17 Method Of Arrival: Ambulatory as6 00:17 Acuity: AKOSUA 3 as6 Historical: - Allergies: 00:22 No Known Allergies; as6 - Home Meds: 00:22 losartan 80mg oral [Active]; as6 - PMHx: 00:22 Chronic pain; Diabetes - IDDM; Hypertension; Migraines; nerve damage LLE; Pancreatitis; as6 renal insufficiency; Seizures; - PSHx: 00:22 Cholecystectomy; as6 - Immunization history:: Client reports receiving the 2nd dose of the Covid vaccine, moderna. - Social history:: Smoking status: Patient reports use of chewing tobacco. Screenin:08 Abuse screen: Denies threats or abuse. Denies injuries from another. Nutritional ha1 screening: No deficits noted. Tuberculosis screening: No symptoms or risk factors identified. Fall Risk IV access (20 points). Assessment: 00:30 General: Appears in no apparent distress. Behavior is calm, cooperative. Pain: ha1 Complains of pain in abdomen and chest Quality of pain is described as pressure, Pain began 1 day ago. Alleviated by medications. Neuro: Level of Consciousness is awake, alert, obeys commands, Oriented to person, place, time, situation. Cardiovascular: Reports chest pain, Capillary refill < 3 seconds Patient's skin is warm and dry. Rhythm is sinus rhythm. Respiratory: Airway is patent Trachea midline Respiratory effort is even, unlabored. GI: Abdomen is non-distended, obese, Bowel sounds present X 4 quads. : Urine is clear, Reports having a UTI five days ago. Musculoskeletal: Circulation, motion, and sensation intact. Range of motion: intact in all extremities. 01:30 Reassessment: Patient appears in no apparent distress at this time. Patient and/or ha1 family updated on plan of care and expected duration. Pain level reassessed. Patient is alert, oriented x 3, equal unlabored respirations, skin warm/dry/pink. 02:30 Reassessment: Patient appears in no apparent distress at this time. Patient and/or ha1 family updated on plan of care and expected duration. Pain level reassessed. Patient is alert, oriented x 3, equal unlabored respirations, skin warm/dry/pink. 03:08 GI: Abd is soft. ha1 03:30 Reassessment: Patient and/or family updated on plan of care and expected duration. Pain ha1 level reassessed. Patient is alert, oriented x 3, equal unlabored respirations, skin warm/dry/pink. 04:23 Reassessment: Patient and/or family updated on plan of care and expected duration. Pain ha1 level reassessed. Patient is alert, oriented x 3, equal unlabored respirations, skin warm/dry/pink. pt. states " I do not have pain, just tightness on my chest". 05:18 Reassessment: Patient and/or family updated on plan of care and expected duration. Pain ha1 level reassessed. Patient is alert, oriented x 3, equal unlabored respirations, skin warm/dry/pink. being discharged. Vital Signs: 00:17 BP 104 / 90; Pulse 92; Resp 18 S; Temp 97.5(TE); Pulse Ox 100% on R/A; Weight 97.52 kg as6 (R); Height 5 ft. 5 in. (165.10 cm) (R); Pain 7/10; 00:45 BP 119 / 85; Pulse 92; Resp 19; Pulse Ox 100% on R/A; ha1 03:03 Pulse 90; Resp 18; Pulse Ox 100% on R/A; ha1 04:24 BP 104 / 76; Pulse 86; Resp 18 S; Pulse Ox 100% on R/A; ha1 05:19 BP 105 / 70; Pulse 80; Resp 17 S; Pulse Ox 100% on R/A; ha1 00:17 Body Mass Index 35.78 (97.52 kg, 165.10 cm) as6 ED Course: 00:07 Patient arrived in ED. ja2 00:09 Roe Colon DO is Attending Physician. jb4 00:22 Triage completed. as6 00:22 Arm band placed on. as6 00:30 Inserted saline lock: 20 gauge in right antecubital area, using aseptic technique. ha1 Blood collected. 00:40 Danica Stern, RN is Primary Nurse. ha1 01:09 XRAY Chest (1 view) In Process Unspecified. EDMS 01:12 D-Dimer Sent. ha1 01:12 CMP Sent. ha1 01:12 Lipase Sent. ha1 01:12 CBC with Diff Sent. ha1 01:12 Troponin HS Sent. ha1 03:08 Patient has correct armband on for positive identification. ha1 04:08 CT Abd/Pelvis - IV Contrast Only In Process Unspecified. EDMS 04:08 Chest For Pe Angio In Process Unspecified. EDMS 04:59 Bud Stewart DO is Referral Physician. ms3 05:17 No provider procedures requiring assistance completed. IV discontinued, intact, ha1 bleeding controlled, No redness/swelling at site. Pressure dressing applied. Administered Medications: No medications were administered Medication: 05:18 VIS not applicable for this client. ha1 Outcome: 05:00 Discharge ordered by MD. ms3 05:17 Discharged to home ambulatory, with family. ha1 05:17 Condition: stable 05:17 Discharge instructions given to patient, Instructed on discharge instructions, follow up and referral plans. Demonstrated understanding of instructions, follow-up care. 05:20 Patient left the ED. ha1 Signatures: Dispatcher [employer] EDMS Zhen Lehman, RN RN jbRoe Oropeza DO DO ms3 Nori Horn2 Buzz Rob RN RN as6 Danica Stern, DENISE RN ha1 Corrections: (The following items were deleted from the chart) 03:32 03:02 Reassessment: Patient and/or family updated on plan of care and expected ha1 duration. Pain level reassessed. Patient is alert, oriented x 3, equal unlabored respirations, skin warm/dry/pink. ha1
--- NOTE | 2022-05-05 05:01 | EDPHYS ---
Physician Documentation [facility] Name: Lashay Daniels Age: 36 yrs Sex: Female : 1985 Arrival Date: 05/05/2022 Time: 00:07 Bed 4 Private MD: ED Physician Roe Colon HPI: 05/05 00:20 This 36 yrs old Female presents to ER via Unassigned with complaints of ms3 Abdominal Pain, Blood Pressure Problem, Chest Pressure. 00:20 36-year-old female with no past medical history presents for elevated blood pressure, ms3 chest pain that began earlier today. Patient states she is having moderate substernal pain. Patient denies alleviating or inciting factors. Patient endorses shortness of breath. Patient denies fevers, chills, nausea, vomiting.. Historical: - Allergies: 00:22 No Known Allergies; as6 - Home Meds: 00:22 losartan 80mg oral [Active]; as6 - PMHx: 00:22 Chronic pain; Diabetes - IDDM; Hypertension; Migraines; nerve damage LLE; Pancreatitis; as6 renal insufficiency; Seizures; - PSHx: 00:22 Cholecystectomy; as6 - Immunization history:: Client reports receiving the 2nd dose of the Covid vaccine, moderna. - Social history:: Smoking status: Patient reports use of chewing tobacco. ROS: 00:33 Constitutional: Negative for fever, and chills. ENT: Negative for injury, pain, and ms3 discharge, Neck: Negative for injury, pain, and swelling. 00:33 Cardiovascular: Positive for chest pain. 00:33 Respiratory: Positive for shortness of breath. 00:34 Abdomen/GI: Positive for abdominal pain. ms3 00:34 All other systems are negative. Exam: 00:34 Constitutional: This is a well developed, well nourished patient who is awake, alert, ms3 and in no acute distress. Neck: Trachea midline, no cervical lymphadenopathy. Supple, full range of motion without nuchal rigidity, or vertebral point tenderness. No Meningismus. Chest/axilla: Normal chest wall appearance and motion. Nontender with no deformity. Cardiovascular: Regular rate and rhythm with a normal S1 and S2. No gallops, murmurs, or rubs. Normal PMI, no JVD. No pulse deficits. Respiratory: Lungs have equal breath sounds bilaterally, clear to auscultation and percussion. No rales, rhonchi or wheezes noted. No increased work of breathing, no retractions or nasal flaring. Abdomen/GI: Soft, non-tender, with normal bowel sounds. No distension or tympany. No guarding or rebound. No evidence of tenderness throughout. Skin: Warm, dry with normal turgor. Normal color with no rashes, no lesions, and no evidence of cellulitis. MS/ Extremity: Pulses equal, no cyanosis. Neurovascular intact. Full, normal range of motion. Neuro: Awake and alert, GCS 15, oriented to person, place, time, and situation. Cranial nerves II-XII grossly intact. Motor strength 5/5 in all extremities. Sensory grossly intact. Cerebellar exam normal. Normal gait. 00:47 ECG was reviewed by the Attending Physician. ms3 Vital Signs: 00:17 BP 104 / 90; Pulse 92; Resp 18 S; Temp 97.5(TE); Pulse Ox 100% on R/A; Weight 97.52 kg as6 (R); Height 5 ft. 5 in. (165.10 cm) (R); Pain 7/10; 00:45 BP 119 / 85; Pulse 92; Resp 19; Pulse Ox 100% on R/A; ha1 03:03 Pulse 90; Resp 18; Pulse Ox 100% on R/A; ha1 04:24 BP 104 / 76; Pulse 86; Resp 18 S; Pulse Ox 100% on R/A; ha1 05:19 BP 105 / 70; Pulse 80; Resp 17 S; Pulse Ox 100% on R/A; ha1 00:17 Body Mass Index 35.78 (97.52 kg, 165.10 cm) as6 MDM: 00:19 Patient medically screened. ms3 00:34 Differential diagnosis: abnormal EKG, acute pericarditis, pulmonary embolus. ms3 05:13 HEART Score: History: Slightly Suspicious (0), ECG: Normal (0), Age: < or = 45 years ms3 (0), Risk Factors: 1 or 2 risk factors (1), Troponin: < or = 1 x Normal Limit (0), Total Score = 1. 08:23 Data reviewed: vital signs, nurses notes, lab test result(s), and as a result, I will ms3 discharge patient. Counseling: I had a detailed discussion with the patient and/or guardian regarding: the historical points, exam findings, and any diagnostic results supporting the discharge/admit diagnosis, lab results, the need for outpatient follow up. 05/05 00:32 Order name: CBC with Diff; Complete Time: 03:23 ms3 05/05 00:32 Order name: Troponin HS; Complete Time: 03:23 ms3 05/05 00:32 Order name: CMP; Complete Time: 03:23 ms3 05/05 00:32 Order name: Lipase; Complete Time: 03:23 ms3 05/05 00:33 Order name: D-Dimer; Complete Time: 03:23 ms3 05/05 00:32 Order name: XRAY Chest (1 view) ms3 05/05 00:32 Order name: EKG; Complete Time: 00:33 ms3 05/05 00:32 Order name: Cardiac monitoring; Complete Time: 01:11 ms3 05/05 00:32 Order name: CT Abd/Pelvis - IV Contrast Only ms3 05/05 03:01 Order name: Urine Dipstick-Ancillary; Complete Time: 03:23 EDMS 05/05 03:01 Order name: Urine --Ancillary (enter results); Complete Time: 03:23 wm 05/05 03:33 Order name: Chest For Pe Angio EDMS 05/05 00:32 Order name: EKG - Nurse/Tech; Complete Time: 00:55 ms3 05/05 00:32 Order name: IV Saline Lock; Complete Time: 01:11 ms3 05/05 00:32 Order name: Labs collected and sent; Complete Time: 01:12 ms3 05/05 00:32 Order name: O2 Per Protocol; Complete Time: 01:12 ms3 05/05 00:32 Order name: O2 Sat Monitoring; Complete Time: 01:12 ms3 05/05 00:33 Order name: Urine Dipstick-Ancillary (obtain specimen); Complete Time: 03:01 ms3 05/05 00:33 Order name: Urine Test (obtain specimen); Complete Time: 03:01 ms3 EC:47 Rate is 89 beats/min. Rhythm is regular. QRS Guinda is Normal. MI interval is normal. QRS ms3 interval is normal. Clinical impression: Normal ECG. Interpreted by me. Reviewed by me. Administered Medications: No medications were administered Disposition Summary: 05/05/22 05:00 Discharge Ordered Location: Home ms3 Condition: Stable ms3 Diagnosis - Chest pain, unspecified ms3 - Shortness of breath ms3 - Lower abdominal pain, unspecified ms3 Followup: ms3 - With: Bud Stewart DO - When: 2 - 3 days - Reason: Recheck today's complaints Discharge Instructions: - Discharge Summary Sheet ms3 - Abdominal Pain, Adult ms3 - Nonspecific Chest Pain, Adult ms3 - Form - Return To Work ha1 Forms: - Medication Reconciliation Form ms3 - Thank You Letter ms3 - Antibiotic Education ms3 - Prescription Opioid Use ms3 - Family Work Release ha1 - Work release form ha1 Signatures: Dispatcher [employer] EDMS Roe Colon DO DO ms3 Buzz Rob, RN RN as6 Corrections: (The following items were deleted from the chart) 03:32 03:24 Abdomen Pelvis W Con+CT.[id number].BRZ ordered. EDMS EDMS
--- NOTE | 2022-05-06 11:19 | RAD REPORT ---
EXAM DESCRIPTION: CT - Chest For Pe Angio - 05/05/2022 4:05 am CLINICAL HISTORY: The patient is 36 years old and is Female; SOB, D dimer elevation TECHNIQUE: Axial computed tomographic angiography images of the chest with intravenous contrast. S agittal and coronal reformatted images were created and reviewed. This CT exam was performed using one or more of the following dose reduction techniques: automated exposure control, adjustment of t he mA and/or kV according to patient size, and/or use of iterative reconstruction technique. MIP re constructed images were created and reviewed. COMPARISON: No relevant prior studies available. FINDINGS: Pulmonary arteries: No PE identified. Aorta: No acute findings. No thoracic aortic aneurysm. Lungs: No pulmonary consolidation or groundglass opacities to suggest pneumonia. Pleural space: No pleural effusion or pneumothorax. Heart: Borderline cardiac enlargement. No significant pericardial fluid. Mediastinum: No pneumomediastinum. Bones/joints: No acute fracture visualized. No dislocation. Soft tissues: Unremarkable. Lymph nodes: Unremarkable. No pathologically enlarged lymph nodes. Upper abdomen: See CT abdomen pelvis report, study performed concurrently. IMPRESSION: No PE identified. Electronically signed by: Clementina Garner MD 05/05/2022 4:29 AM CDT Due to temporary technical issues with the PACS/Fluency reporting system, reports are being signed by the in house radiologists without review as a courtesy to insure prompt reporting. The interpreting radiologist is fully responsible for the content of the report.
--- NOTE | 2022-05-06 11:39 | RAD REPORT ---
EXAM DESCRIPTION: CT - Abdomen Pelvis W Contrast - 05/05/2022 4:05 am CLINICAL HISTORY: The patient is 36 years old and is Female; RLQ abdominal pain TECHNIQUE: Axial computed tomography images of the abdomen and pelvis with intravenous contrast. S agittal and coronal reformatted images were created and reviewed. This CT exam was performed using one or more of the following dose reduction techniques: automated exposure control, adjustment of t he mA and/or kV according to patient size, and/or use of iterative reconstruction technique. COMPARISON: CT abdomen pelvis with contrast January 17, 2021. FINDINGS: Lung bases: Unremarkable. No mass. No consolidation. ABDOMEN: Liver: Fatty liver, mild. Gallbladder and bile ducts: Cholecystectomy without biliary dilatation. Pancreas: No findings to suggest acute pancreatitis. No mass visualized. No ductal dilation. Spleen: Unremarkable. No splenomegaly. Adrenals: Unremarkable. No mass. Kidneys and ureters: Unremarkable. No solid mass. No hydronephrosis. Stomach and bowel: No bowel dilatation or obstruction. No bowel wall thickening. PELVIS: Appendix: The visualized appendix is normal. No pericecal inflammation to suggest acute appendici tis. Bladder: Bladder is nearly empty. No stones. Reproductive: Retroflexed uterus. Nabothian cysts. Small subserosal fundal fibroid. No adnexal ma ss. ABDOMEN and PELVIS: Intraperitoneal space: Unremarkable. No free air. No significant fluid collection. Bones/joints: Minimal lumbar scoliosis. No acute fracture visualized. No dislocation. Soft tissues: Unremarkable. Vasculature: Unremarkable. No abdominal aortic aneurysm. Lymph nodes: No pathologically enlarged lymph nodes. IMPRESSION: 1. No acute obstructive or inflammatory process identified. Normal appendix. 2. Cholecystectomy without biliary dilatation. 3. Additional non-emergent findings as above. Electronically signed by: Clementina Garner MD 05/05/2022 4:24 AM CDT Due to temporary technical issues with the PACS/Fluency reporting system, reports are being signed by the in house radiologists without review as a courtesy to insure prompt reporting. The interpreting radiologist is fully responsible for the content of the report.
[2022-05-06 12:48] VITALS: TEMP 97.5; O2SAT 100
[2022-05-06 12:58] VITALS: BP 105/70
--- NOTE | 2022-05-06 13:25 | RAD REPORT ---
EXAM DESCRIPTION: RAD - Chest Single View - 05/05/2022 1:08 am CLINICAL HISTORY: 36 years Female, CHEST PAIN COMPARISON: Prior chest x-ray report from 10/28/2019. The image is unavailable for review. TECHNIQUE: Single portable x-ray view of the chest performed on 05/05/2022 at 1:03 AM FINDINGS: The lungs are well expanded and are clear. There is no evidence of a pneumothorax. The cardiac silhouette is normal in size and configuration. The mediastinal contours are normal. No acute osseous abnormality is identified. No acute soft tissue abnormalities are seen. Lines and tubes: None. Free air: None IMPRESSION: No evidence of acute intrathoracic disease. Electronically signed by: Calista Falk DO 05/05/2022 1:27 AM CDT Due to temporary technical issues with the PACS/Fluency reporting system, reports are being signed by the in house radiologists without review as a courtesy to insure prompt reporting. The interpreting radiologist is fully responsible for the content of the report.
--- NOTE | 2022-05-06 13:41 | EKG ---
Test Date: 2022-05-05 Test Time: 00:47:25 Soap Boiler: ROBERT MEASUREMENT RESULTS: Intervals: Rate: 89 MT: 140 QRSD: 86 QT: 360 QTc: 438 [place]: P: 61 MT: 140 QRS: 80 T: 41 INTERPRETIVE STATEMENTS: Normal sinus rhythm Normal ECG Compared to ECG 05/01/2018 22:11:48 Sinus tachycardia no longer present Right-axis deviation no longer present Incomplete right bundle-branch block no longer present T-wave abnormality no longer present Electronically Signed On 05-06-22 13:38:51 CDT by Daniel Clarke
== END 2022-05-05 05:20 | disposition home or self-care (01) ==
LOC: ER 00:01
DX: R07.89 Other chest pain (principal); R06.02 Shortness of breath; R10.30 Lower abdominal pain, unspecified
CPT/HCPCS: 36415; 71045; 71275; 74177; 80053; 81003; 81025; 83690; 84484; 85025; 85379; 93005; 99284; Q9967

== ENCOUNTER 2023-05-18 23:48 | Observation (INO) | payer OTHER ==
[2023-05-19 00:23] LABS: Absolute Lymphocytes (CBC) 2.2 K/uL (0.7-4.9); Hematocrit 38.5 % (36.0-45.0); Lymphocytes % 32.6 % (15.3-44.8); MCV 85.7 fL (80-100); MPV 8.1 fL (7.6-11.3); Platelets 307 thou/uL (152-406); RBC Red Blood Cell Count 4.49 M/uL (3.86-4.86)
[2023-05-19] MEDS ORDERED: LORazepam 2 MG/ML VIAL ONE (00:30)
[2023-05-19] MEDS ORDERED: NA CHLORIDE 0.9% 1,000 ML ONE (00:31)
[2023-05-19] MEDS ORDERED: ONDANSETRON 4 MG/2 ML VIAL ONE ×2 (00:31→02:10)
[2023-05-19] MEDS ORDERED: KETOROLAC 30 MG/ML INJ ONE (00:31)
[2023-05-19] MEDS ORDERED: FAMOTIDINE 20 MG/2 ML VIAL IV ONE (00:31)
[2023-05-19 00:42] LABS: Albumin 3.2 g/dL (3.4-5.0); Bilirubin Total 0.3 mg/dL (0.2-1.0); Protein, Total 7.7 g/dL (6.4-8.2); Troponin High Sensitivity 8.3 pg/mL (<58.9)
[2023-05-19 00:46] LABS: Specific Gravity 1.028 (1.005-1.030); Urine Bacteria <20 /HPF (<20); Urine Bilirubin NEGATIVE (Negative); Urine Blood Trace (Negative); Urine Clarity Extremely Turbid (Clear); Urine Color Yellow (Yellow); Urine Glucose NEGATIVE (Negative); Urine Mucus 1+ /HPF (None Seen); Urine Protein 1+ (Negative); Urine RBC <5 /HPF (None Seen); Urine Urobilinogen Normal (Normal); Urine pH 5.5 (5.0-7.0)
[2023-05-19] MEDS ORDERED: POTASSIUM CL SA 10 MEQ TAB PO ONE (01:13)
[2023-05-19] MEDS ORDERED: MORPHINE 4 MG/ML SYR ONE (02:10)
--- NOTE | 2023-05-19 02:10 | ER ---
Nurse's Notes [facility] Name: Lashay Daniels Age: 37 yrs Sex: Female : 1985 Arrival Date: 05/18/2023 Time: 23:48 Bed 15 Private MD: Diagnosis: Chest pain, unspecified;Abdominal pain, Generalized;Nausea with vomiting, unspecified;Syncope Near Presentation: 05/18 23:49 Chief complaint: EMS states: 37 year old female reports nausea, vomiting, chest and mid ha1 epigastric pain. 23:49 Coronavirus screen: Vaccine status:. Ebola Screen: No symptoms or risks identified at [facility] this time. Initial Sepsis Screen: Does the patient meet any 2 criteria? No. Patient's initial sepsis screen is negative. Does the patient have a suspected source of infection? No. Patient's initial sepsis screen is negative. Risk Assessment: Do you want to hurt yourself or someone else? Patient reports no desire to harm self or others. Onset of symptoms was May 19, 2023. 23:49 Method Of Arrival: EMS: [facility] 23:49 Acuity: AKOSUA 3 ha1 Triage Assessment: 23:49 General: Appears uncomfortable, Behavior is calm, cooperative. Pain: Complains of pain ha1 in epigastric area and chest Pain does not radiate. Pain currently is 7 out of 10 on a pain scale. Quality of pain is described as burning, pressure. Neuro: Level of Consciousness is awake, alert, obeys commands, Oriented to person, place, time, situation. Cardiovascular: Capillary refill < 3 seconds Patient's skin is warm and dry. Respiratory: Airway is patent Respiratory effort is even, unlabored, Respiratory pattern is regular, symmetrical. GI: Abdomen is round non-distended, Bowel sounds present X 4 quads. Reports nausea, vomiting. : No signs and/or symptoms were reported regarding the genitourinary system. Musculoskeletal: Circulation, motion, and sensation intact. Range of motion: intact in all extremities. Historical: - Allergies: 23:49 No Known Allergies; ha1 - Home Meds: 23:49 valsartan oral [Active]; ha1 - PMHx: 23:49 Chronic pain; Diabetes - IDDM; Hypertension; Migraines; nerve damage LLE; Pancreatitis; ha1 renal insufficiency; Anxiety; - PSHx: 23:49 Cholecystectomy; ha1 - Immunization history:: Adult Immunizations up to date. - Social history:: Smoking status: Patient denies any tobacco usage or history of. Screenin:49 [facility] ED Fall Risk Assessment (Adult) History of falling in the last 3 months, ha1 including since admission No falls in past 3 months (0 pts) Confusion or Disorientation No (0 pts) Intoxicated or Sedated No (0 pts) Impaired Gait No (0 pts) Mobility Assist Device Used No (0 pt) Altered Elimination No (0 pt) Score/Fall Risk Level 0 - 2 = Low Risk Oriented to surroundings, Maintained a safe environment, Educated pt \T\ family on fall prevention, incl call for assistance when getting out of bed. Abuse screen: Denies threats or abuse. Denies injuries from another. Nutritional screening: No deficits noted. Tuberculosis screening: No symptoms or risk factors identified. Assessment: 23:49 Reassessment: see triage assessment. ha1 05/19 00:35 Reassessment: Patient and/or family updated on plan of care and expected duration. Pain ha1 level reassessed. Patient is alert, oriented x 3, equal unlabored respirations, skin warm/dry/pink. Patient states feeling better. Patient states symptoms have improved. 01:30 Reassessment: Patient and/or family updated on plan of care and expected duration. Pain ha1 level reassessed. Patient is alert, oriented x 3, equal unlabored respirations, skin warm/dry/pink. pain 8/10. notified care provider. 02:30 Reassessment: Patient and/or family updated on plan of care and expected duration. Pain ha1 level reassessed. Patient is alert, oriented x 3, equal unlabored respirations, skin warm/dry/pink. 04:00 Reassessment: Patient and/or family updated on plan of care and expected duration. Pain ha1 level reassessed. Patient is alert, oriented x 3, equal unlabored respirations, skin warm/dry/pink. pain 8/10. Vital Signs: 05/18 23:49 BP 149 / 76; Pulse 96; Resp 18 S; Temp 98.1(T); Pulse Ox 100% on R/A; Weight 91.17 kg; ha1 Height 5 ft. 5 in. ; Pain 7/10; 05/19 00:30 BP 138 / 82; Pulse 95; Resp 17 S; Pulse Ox 100% on R/A; ha1 01:26 BP 132 / 82; Pulse 86; Resp 18 S; Pulse Ox 100% on R/A; ha1 02:42 BP 154 / 104; Pulse 89; Resp 14; Pulse Ox 100% on R/A; oe 05/18 23:49 Body Mass Index 33.45 (91.17 kg, 165.1 cm) ha1 05/18 23:49 Pain Scale: Adult ha ED Course: 05/18 23:49 Patient arrived in ED. kb 23:49 Arm band placed on right wrist. ha1 23:49 Patient has correct armband on for positive identification. Bed in low position. Call ha1 light in reach. Side rails up X 1. 23:51 Isis Jay FNP-C [facility]. kb 23:51 London Vanegas MD is Attending Physician. kb 05/19 00:05 Inserted saline lock: 22 gauge in right antecubital area, using aseptic technique. ha1 Blood collected. 00:28 Chest Single View XRAY In Process Unspecified. EDMS 00:28 Radiology exam delayed due to test not completed at this time. eh4 00:28 Danica Stern, RN is Primary Nurse. ha1 00:30 CBC with Diff Sent. ha1 00:30 CMP Sent. ha1 00:30 Lipase Sent. ha1 00:30 Test, Urine Sent. ha1 00:30 Urinalysis w/ reflexes Sent. ha1 00:42 Triage completed. ha1 01:19 CT Abd/Pelvis - IV Contrast Only In Process Unspecified. EDMS 02:09 Octavio Lou MD is Hospitalizing Provider. kb 02:29 Tito Holder is Hospitalizing Provider. kb 03:32 No provider procedures requiring assistance completed. Patient admitted, IV remains in ha1 place. 04:30 Provided Education on: need fro admit . ha1 Administered Medications: 00:15 Drug: NS 0.9% IV 1000 ml IV at 1 bolus Per protocol; 1000 mL bolus Route: IV; Rate: 1 ha1 bolus; Site: right antecubital; 00:15 Drug: Famotidine IVP 20 mg IVP once; dilute with 10 mL 0.9% NaCl; give over 2 minutes ha1 Route: IVP; Site: right antecubital; 00:18 Drug: Ondansetron IVP 4 mg IVP once; over 2 minutes Route: IVP; Site: right antecubital;ha1 00:20 Drug: TORadol - Ketorolac IVP 15 mg IVP once Route: IVP; Site: right antecubital; ha1 00:29 Drug: Ativan IVP 1 mg IVP once Route: IVP; Site: right antecubital; ha1 01:13 Drug: Potassium Chloride PO 40 mEq PO once Route: PO; ha1 01:58 Drug: Ondansetron IVP 4 mg IVP once; over 2 minutes Route: IVP; Site: right antecubital;ha1 02:04 Drug: morphine IVP or IV 4 mg IVP once over 4 mins Route: IVP; Infused Over: 4 mins; ha1 Site: right antecubital; 04:30 Drug: Promethazine IVP 25 mg IVP once Route: IVP; Site: right antecubital; lg3 Medication: 03:30 VIS not applicable for this client. ha1 Outcome: 02:10 Decision to Hospitalize by Provider. kb 04:35 Admitted to Med/surg accompanied by tech, via wheelchair, room 229, with chart, Report ha1 called to DENISE [place] 04:35 Condition: stable 04:53 Patient left the ED. ha1 Signatures: Dispatcher [employer] EDMS Isis Jay, HOLLY GOETZP-Mick Medellin Lacie, RN RN 3 Danica Stern RN RN [facility] Sena Pierre 4 Corrections: (The following items were deleted from the chart) 01:44 01:30 Reassessment: Patient and/or family updated on plan of care and expected ha1 duration. Pain level reassessed. Patient is alert, oriented x 3, equal unlabored respirations, skin warm/dry/pink. pain 8/10 ha1
--- NOTE | 2023-05-19 02:10 | EDPHYS ---
Physician Documentation [facility] Name: Lashay Daniels Age: 37 yrs Sex: Female : 1985 Arrival Date: 05/18/2023 Time: 23:48 Bed 15 Private MD: ED Physician London Vanegas HPI: 05/19 00:07 This 37 yrs old Female presents to ER via Unassigned with complaints of abd kb pain, n/v. 00:27 The patient presents with abdominal pain in the lower abdomen. Onset: The kb symptoms/episode began/occurred this morning. The symptoms do not radiate. Associated signs and symptoms: Pertinent positives: nausea and vomiting, chest pain. The symptoms are described as constant. Modifying factors: The symptoms are alleviated by nothing, the symptoms are aggravated by nothing. Severity of pain: At its worst the pain was moderate in the emergency department the pain is unchanged. The patient has not experienced similar symptoms in the past. The patient has not recently seen a physician. Pt reports abd pain, nausea and vomiting that started this morning. Was eating whataburger this evening and started having chest pain and anxiety. . Historical: - Allergies: 05/18 23:49 No Known Allergies; ha1 - Home Meds: 23:49 valsartan oral [Active]; ha1 - PMHx: 23:49 Chronic pain; Diabetes - IDDM; Hypertension; Migraines; nerve damage LLE; Pancreatitis; ha1 renal insufficiency; Anxiety; - PSHx: 23:49 Cholecystectomy; ha1 - Immunization history:: Adult Immunizations up to date. - Social history:: Smoking status: Patient denies any tobacco usage or history of. ROS: 05/19 00:27 Constitutional: Negative for fever, chills, and weight loss, kb Cardiovascular: Positive for chest pain, Abdomen/GI: Positive for abdominal pain, nausea and vomiting, Psych: Positive for anxiety, All other systems are negative, Exam: 00:07 Constitutional: This is a well developed, well nourished patient who is awake, alert, kb and in no acute distress. Head/Face: Normocephalic, atraumatic. ENT: Moist Mucous membranes Cardiovascular: Regular rate Respiratory: Respirations even and unlabored. No increased work of breathing. Talking in full sentences Skin: Warm, dry with normal turgor. Normal color. MS/ Extremity: Pulses equal, no cyanosis. Neurovascular intact. Full, normal range of motion. Neuro: Awake and alert, GCS 15, oriented to person, place, time, and situation. Moves all extremities. Normal gait. 00:07 Constitutional: The patient appears anxious, 00:07 ECG was reviewed by the Attending Physician. 00:07 Abdomen/GI: Inspection: abdomen appears normal, Bowel sounds: normal, Palpation: soft, in all quadrants, mild abdominal tenderness, in the suprapubic area and right upper quadrant, Vital Signs: 05/18 23:49 BP 149 / 76; Pulse 96; Resp 18 S; Temp 98.1(T); Pulse Ox 100% on R/A; Weight 91.17 kg; ha1 Height 5 ft. 5 in. ; Pain 02/21; 05/19 00:30 BP 138 / 82; Pulse 95; Resp 17 S; Pulse Ox 100% on R/A; ha1 01:26 BP 132 / 82; Pulse 86; Resp 18 S; Pulse Ox 100% on R/A; ha1 02:42 BP 154 / 104; Pulse 89; Resp 14; Pulse Ox 100% on R/A; oe 05/18 23:49 Body Mass Index 33.45 (91.17 kg, 165.1 cm) ha1 05/18 23:49 Pain Scale: Adult ha1 MDM: 05/18 23:51 Patient medically screened. kb 05/19 00:30 Differential diagnosis: diverticulitis, non-specific abd pain, Pyelonephritis, urinary kb tract infection. Data reviewed: vital signs, nurses notes. 02:07 Consideration of Admission/Observation Patient was admitted/placed on observation. kb Escalation of care including admission/observation considered. Management of patient was discussed with the following: Hospitalist: ROGELIO Bullock accepts pt for admission under Dr Holder. Historians other than the Patient: EMS: [facility]. Counseling: I had a detailed discussion with the patient and/or guardian regarding the historical points, exam findings, and any diagnostic results supporting the discharge/admit diagnosis, lab results, radiology results, the need for further work-up and treatment in the hospital. ED course: Discussed results with pt. Pt actively vomiting and reports chest pain has returned and increased. Will admit for rule out. . 05/18 23:51 Order name: CBC with Diff; Complete Time: 00:31 kb 05/18 23:51 Order name: CMP; Complete Time: 00:42 kb 05/18 23:51 Order name: Lipase; Complete Time: 00:42 kb 05/18 23:51 Order name: Test, Urine; Complete Time: 00:47 kb 05/18 23:51 Order name: Urinalysis w/ reflexes; Complete Time: 00:47 kb 05/18 23:51 Order name: Troponin High Sensitivity; Complete Time: 00:42 kb 05/18 23:51 Order name: CT Abd/Pelvis - IV Contrast Only kb 05/18 23:51 Order name: Chest Single View XRAY kb 05/18 23:51 Order name: EKG; Complete Time: 23:52 kb 05/19 03:00 Order name: CONS Physician Consult EDIN 05/18 23:51 Order name: IV Saline Lock; Complete Time: 00:30 kb 05/18 23:51 Order name: Labs collected and sent; Complete Time: 00:30 kb 05/18 23:51 Order name: EKG - Nurse/Tech; Complete Time: 00:29 kb EC:07 Rate is 96 beats/min. Rhythm is regular. QRS [place] is Normal. PA interval is normal at kb 142 msec. QRS interval is normal at 88 msec. QT interval is normal at 442 msec. Administered Medications: 00:15 Drug: NS 0.9% IV 1000 ml IV at 1 bolus Per protocol; 1000 mL bolus Route: IV; Rate: 1 ha1 bolus; Site: right antecubital; 00:15 Drug: Famotidine IVP 20 mg IVP once; dilute with 10 mL 0.9% NaCl; give over 2 minutes ha1 Route: IVP; Site: right antecubital; 00:18 Drug: Ondansetron IVP 4 mg IVP once; over 2 minutes Route: IVP; Site: right antecubital;ha1 00:20 Drug: TORadol - Ketorolac IVP 15 mg IVP once Route: IVP; Site: right antecubital; ha1 00:29 Drug: Ativan IVP 1 mg IVP once Route: IVP; Site: right antecubital; ha1 01:13 Drug: Potassium Chloride PO 40 mEq PO once Route: PO; ha1 01:58 Drug: Ondansetron IVP 4 mg IVP once; over 2 minutes Route: IVP; Site: right antecubital;ha1 02:04 Drug: morphine IVP or IV 4 mg IVP once over 4 mins Route: IVP; Infused Over: 4 mins; ha1 Site: right antecubital; 04:30 Drug: Promethazine IVP 25 mg IVP once Route: IVP; Site: right antecubital; lg3 Disposition: 02:40 Co-signature as Attending Physician, London Vanegas MD I agree with the assessment sp4 and plan of care. I reviewed the patient's care provided by the Advanced Practice Provider and agree with the diagnosis and treatment plan. Disposition Summary: 05/19/23 02:10 Hospitalization Ordered Notes: Hospitalization Status: Observation kb Location: Telemetry/MedSurg (observation) kb Condition: Stable kb Problem: new kb Symptoms: are unchanged kb Bed/Room Type: Standard kb Provider: Tito Holder(05/19/23 02:29) Room Assignment: [facility](05/19/23 03:04) Diagnosis - Chest pain, unspecified kb - Abdominal pain, Generalized kb - Nausea with vomiting, unspecified kb - Syncope Near kb Forms: - Medication Reconciliation Form kb - SBAR form kb - Leadership Thank You Letter kb Signatures: Dispatcher [employer] Isis Romano FNP-C FNP-Melinda Lozano RN RN Yulissa Gutierrez RN RN lg3 Danica Stern RN RN ha1 London Vanegas MD MD sp4 Corrections: (The following items were deleted from the chart) 02:07 Management of patient was discussed with the following: Hospitalist: ROGELIO Bullock kb accepts pt for admission under Dr Lou. kb 02:10 Octavio Lou kb 03:04 02:10 calista
--- NOTE | 2023-05-19 02:49 | P.HP ---
Certification for Inpatient Patient admitted to: Observation With expected LOS: <2 Midnights Patient will require the following post-hospital care: None Practitioner: I am a practitioner with admitting privileges, knowledge of patient current condition, hospital course, and medical plan of care. Services: Services provided to patient in accordance with Admission requirements found in Title 42 Section 412.3 of the Code of Federal Regulations Patient History Date of Service: 05/19/23 Reason for admission: chest pain History of Present Illness: 37-year-old female with a past medical history of diabetes, hypertension, migraines, pancreatitis, anxiety, renal insufficiency, chronic pain, presents to the emergency room with chest pain. She reports associated nausea vomiting, abdominal pain started yesterday After eating Whataburger. She reports chest pain is constant, substernal, described at chest pressure, nonradiating. She denies fever, chills, diaphoresis, chest pain radiation, shortness of breath. Vital signs BP 149 / 76; Pulse 96; Resp 18 S; Temp 98.1(T); Pulse Ox 100% on R/A; EKG7 Rate is 96 beats/min. Rhythm is regular. QRS [place] is Normal. [place] interval is normal at 142 msec. QRS interval is normal at 88 msec. QT interval is normal at 442 msec. Plan to admit for chest pain, abdominal pain with nausea vomiting. Laboratory evaluation CBC unremarkable CMP mild hypokalemia 3.0 blood glucose 117 UA negative, chest x-ray, CT of the abdomen pelvis no acute abnormality Allergies No Known Drug Allergies Allergy (Verified 02/03/15 10:46) Unknown No Known Allergies Allergy (Uncoded 03/14/18 00:41) Unknown Home Medications: Pantoprazole [Protonix Tab*] 40 mg PO DAILY #30 tab 02/07/15 Citalopram [Celexa*] 1 tab PO DAILY 05/02/18 Gabapentin [Neurontin*] 300 mg PO TID 05/02/18 Insulin Glargine Human [Lantus*] 2 units SQ TID 05/02/18 - Past Medical/Surgical History Diabetic: Yes -: HTN -: CAD, 2014 -: migraines -: siezures -: diabetes -: chronic pain -: pancreatitis -: renal insufficiency -: nerve damage LLE -: Kayla 2008 - Family History Father -: Cancer Mother -: Cancer - Social History Alcohol use: Yes CD- Drugs: No Caffeine use: Yes Review of Systems 10-point ROS is otherwise unremarkable Physical Examination - Physical Exam General: Alert, In no apparent distress, Oriented x3, Other (moderate anxiety) HEENT: Atraumatic, Normocephalic, PERRLA Neck: Supple, 2+ carotid pulse no bruit, JVD not distended Respiratory: Clear to auscultation bilaterally, Normal air movement Cardiovascular: Normal pulses, Regular rate/rhythm, Normal S1 S2, Edema (RLE +1) Capillary refill: <2 Seconds Gastrointestinal: Normal bowel sounds, Hypoactive Integumentary: No rashes, No breakdown Neurological: Normal gait, Normal speech, Normal strength at 5/5 x4 extr - Studies Laboratory Data (last 24 hrs) 05/19/23 05/19/23 00:10 00:10 WBC 6.80 Hgb 13.1 Hct 38.5 Plt Count 307 Sodium 137 Potassium 3.0 L BUN 11 Creatinine 0.97 Glucose 117 H Total Bilirubin 0.3 AST 32 ALT 72 H Alkaline Phosphatase 101 Lipase 34 Assessment and Plan - Plan Assessment plan Chest pain rule out GA Abdominal pain with nausea vomiting Mild hypokalemia Type 2 diabetes Hypertension Hyperlipidemia Anxiety Chronic pain Assessment plan Chest pain rule out GA Cardiology consult, trend troponins 149 / 76; Pulse 96; Resp 18 S; Temp 98.1(T); Pulse Ox 100% on R/A; EKG7 Rate is 96 beats/min. Rhythm is regular. QRS [place] is Normal. [place] interval is normal at kb 142 msec. QRS interval is normal at 88 msec. QT interval is normal at 442 msec. UA negative, chest x-ray, CT of the abdomen pelvis no acute abnormality Abdominal pain with nausea vomiting As needed antiemetics, analgesics hypokalemia hypokalemia 3.0 Trend electrolytes replace as needed Type 2 diabetes Sliding scale, Accu-Cheks Hypertension Hyperlipidemia Anxiety Chronic pain Resume appropriate home medications DVT Lovenox Diet n.p.o. Full code Discharge Plan: Home Plan to discharge in: 24 Hours - Advance Directives Does patient have a Living Will: No Does patient have a Durable POA for Healthcare: No - Code Status/Comfort Care Code Status: Full Code Physician Review: Patient Assessed, Agree with Above Assessment and Plan Critical Care: No Time Spent Managing Pts Care (In Minutes): 50
[2023-05-19] MEDS ORDERED: ACETAMINOPHEN 500 MG TAB PO PRN (03:28)
[2023-05-19] MEDS ORDERED: NITROGLYCERIN 0.4 MG/TAB SL PRN (03:28)
[2023-05-19] MEDS ORDERED: LORAZEPAM 0.5 MG TABLET PO PRN (03:28)
[2023-05-19] MEDS: MORPHINE 2 MG/ML SYR IV PRN ×3 (04:00→20:09)
[2023-05-19] MEDS ORDERED: MORPHINE 2 MG/ML SYR ONE (04:04)
[2023-05-19] MEDS ORDERED: PROMETHAZINE INJ 25 MG/ML AMP IV PRN (04:21)
[2023-05-19] MEDS ORDERED: PROMETHAZINE INJ 25 MG/ML AMP ONE (04:36)
[2023-05-19 05:54] VITALS: BMI 34.7
[2023-05-19] MEDS ORDERED: MORPHINE 2 MG/ML SYR IV ONE (06:55)
[2023-05-19] MEDS: INSULIN -REGULAR HUMAN 50 UNIT/0.5 ML ML SQ SCH ×4 (07:30→21:00)
--- NOTE | 2023-05-19 08:32 | RAD REPORT ---
EXAM DESCRIPTION: CT - Ct Stroke Brain Wo Cont - 05/19/2023 8:21 am CLINICAL HISTORY: r/o stroke COMPARISON: Head Brain Wo Cont dated 01/20/2020; Head Brain Wo Cont dated 03/13/2018 TECHNIQUE: Noncontrast head CT images were obtained without IV contrast. Multiplanar reformats were generated and reviewed. All CT scans are performed using dose optimization technique as appropriate and may include automated exposure control or mA/KV adjustment according to patient size. FINDINGS: No intracranial hemorrhage, mass, or edema. Midline structures are unremarkable. Normal ventricular caliber for age. Gaston-white matter differentiation is preserved, without evidence of acute infarct. No abnormal extra- axial fluid collections. Mastoid air cells and visualized portions of the paranasal sinuses are clear. No acute bony findings. IMPRESSION: No evidence of an acute intracranial process. The findings were communicated to Tito Holder on 05/19/2023 at 08:28 hours.
[2023-05-19] MEDS: ENOXAPARIN 40 MG/0.4 ML SQ SCH (10:27)
[2023-05-19] MEDS: ASPIRIN 325 MG TAB PO SCH (10:27)
[2023-05-19] MEDS: TIZANIDINE 4 MG TABLET PO SCH ×2 (13:00→21:16)
[2023-05-19] MEDS ORDERED: DIAZEPAM 5 MG TABLET PO PRN (13:07)
--- NOTE | 2023-05-19 15:48 | RAD REPORT ---
EXAM DESCRIPTION: CT - Abdomen Pelvis W Contrast - 05/19/2023 6:00 am CLINICAL HISTORY: 37 years Female ABD PAIN, VOMITING TECHNIQUE: Contiguous axial images obtained through the abdomen and pelvis following intravenous con trast administration. Coronal and sagittal reformatted images provided. This CT exam was performed according to our departmental dose-optimization program, which includes on e or more of the following dose reduction techniques: automated exposure control, adjustment of the m A and/or kV according to patient size, and/or use of iterative reconstruction technique. COMPARISON: Report from the prior exam dated 05/06/2022. Images not provided for comparison. FINDINGS: The appendix is normal. There is no bowel inflammation, obstruction, free intraperitoneal air, or ascites. Minimal bibasilar atelectasis. Prior cholecystectomy without biliary dilatation. The liver, pancreas, spleen, adrenal glands, kidneys, uterus, left ovary, urinary bladder, and osseou s structures are unremarkable. 3.8 cm right ovarian cyst appears benign and does not require follow-up. IMPRESSION: Normal appendix. No acute abdominal or pelvic abnormalities. Electronically signed by: Argelia Mora MD 05/19/2023 1:41 AM CDT Due to temporary technical issues with the PACS/Fluency reporting system, reports are being signed by the in house radiologists without review as a courtesy to insure prompt reporting. The interpreting radiologist is fully responsible for the content of the report.
--- NOTE | 2023-05-19 15:54 | RAD REPORT ---
EXAM DESCRIPTION: RAD - Chest Single View - 05/19/2023 12:26 am CLINICAL HISTORY: The patient is 37 years old and is Female; CHEST PAIN TECHNIQUE: Frontal view of the chest. COMPARISON: No relevant prior studies available. FINDINGS: Lungs: Unremarkable. No consolidation. Pleural space: Unremarkable. No pneumothorax. Heart: Unremarkable. Mediastinum: Unremarkable. Bones/joints: No acute findings. IMPRESSION: No acute findings in the chest. Electronically signed by: Aleksandr Blanc MD 05/19/2023 12:34 AM CDT Due to temporary technical issues with the PACS/Fluency reporting system, reports are being signed by the in house radiologists without review as a courtesy to insure prompt reporting. The interpreting radiologist is fully responsible for the content of the report.
--- NOTE | 2023-05-19 16:58 | EKG ---
Test Date: 2023-05-19 Test Time: 00:01:38 Radio Program Checker: LORENZO MEASUREMENT RESULTS: Intervals: Rate: 96 MD: 142 QRSD: 88 QT: 350 QTc: 442 Leopold: P: 44 MD: 142 QRS: 51 T: 32 INTERPRETIVE STATEMENTS: Normal sinus rhythm Normal ECG Compared to ECG 05/05/2022 00:47:25 No significant changes Electronically Signed On 05-19-23 16:56:15 CDT by Daniel Clarke
[2023-05-19] MEDS: ONDANSETRON 4 MG/2 ML VIAL IV PRN ×2 (18:27→23:04)
[2023-05-19] MEDS ORDERED: ATORVASTATIN 40 MG TAB PO SCH (21:00)
--- NOTE | 2023-05-19 21:05 | CON ---
Date of Consultation: 05/19/2023 Reason For Consultation: Chest pain. History Of Present Illness: A 37-year-old female with history of diabetes, hypertension, history of pancreatitis, presented with chest pain, retrosternal, along with abdominal pain. Feels nauseated af ter eating a burger yesterday. Pain is constant and radiates to the shoulder. Past Medical History: As outlined above in the HPI. Medications: Refer consultation for detailed list. Allergies: NO KNOWN DRUG ALLERGIES. Family History: No premature coronary artery disease or cancer. Social History: She does not smoke or drink. Does not use any drugs. Review of Systems: All systems reviewed are negative except as mentioned in HPI. Physical Examination: Vital Signs: Reviewed. Head and Neck: Pupils are equal, reactive to light. Intact eye movements. No JVD. No cervical lym phadenopathy. Neck is supple. Thyroid is not enlarged. Lungs: Clear to auscultation bilaterally. No rhonchi, wheezing, or crackles. No accessory muscle u se. Heart: Regular rate and rhythm. No extra sounds. Abdomen: Soft, nontender. Bowel sounds positive. No organomegaly. No masses or hernia. No rigidi ty or rebound. Extremities: No edema, clubbing, or cyanosis. Intact pulses. Skin: No rash. Neurologic: Alert, awake, oriented x3. No acute focal deficits appreciated. Investigations: Cardiac enzymes are negative. BUN 14, creatinine 0.97. Hemoglobin 13.1. Assessment/recommendation: 1.Chest pain. It is atypical. Cardiac enzymes are negative. No further inpatient cardiac workup i s needed. Patient can be released from my standpoint and plan for outpatient exercise stress test an d an echo. 2.Hypertension. Blood pressure is controlled. Continue medications. SR/MODL Voice ID: [id number] Report ID: [id number]
[2023-05-20] MEDS: MORPHINE 2 MG/ML SYR IV PRN ×2 (01:05→06:02)
[2023-05-20 01:40] VITALS: O2SAT 99
[2023-05-20] MEDS ORDERED: PROMETHAZINE INJ 25 MG/ML AMP IV ONE (02:55)
[2023-05-20 03:21] LABS: Absolute Lymphocytes (CBC) 2.1 K/uL (0.7-4.9); Hematocrit 31.8 % (36.0-45.0); Lymphocytes % 31.3 % (15.3-44.8); MCV 85.1 fL (80-100); MPV 8.7 fL (7.6-11.3); Platelets 240 thou/uL (152-406); RBC Red Blood Cell Count 3.74 M/uL (3.86-4.86)
[2023-05-20 03:39] LABS: Magnesium 1.9 mg/dL (1.6-2.4); Potassium 3.8 mEq/L (3.5-5.1)
[2023-05-20] MEDS: TIZANIDINE 4 MG TABLET PO SCH (05:51)
[2023-05-20] MEDS: ASPIRIN 325 MG TAB PO SCH (07:45)
[2023-05-20] MEDS: ENOXAPARIN 40 MG/0.4 ML SQ SCH (07:46)
[2023-05-20] MEDS: ONDANSETRON 4 MG/2 ML VIAL IV PRN (07:54)
--- NOTE | 2023-05-20 08:48 | P.DS ---
Admission Date: 05/19/23 Discharge Date: 05/20/23 Disposition: ROUTINE DISCHARGE Discharge Condition: FAIR Reason for Admission: chest pain - Problems (1) Polypharmacy Status: Acute (2) Acute encephalopathy Onset Date: 05/03/18 Status: Acute (3) Abdominal pain Onset Date: 02/03/15 Status: Acute Brief History of Present Illness: 37-year-old female with a past medical history of diabetes, hypertension, migraines, pancreatitis, anxiety, renal insufficiency, chronic pain, presented to the emergency room with chest pain. She reported associated nausea, vomiting, abdominal pain. Patient reported symptoms was precipitated after eating a [employer] sandwich. She described a constant substernal chest pressure, nonradiating. She denied diaphoresis or shortness of breath. Initial troponin negative, EKG did not show any ischemic changes. Chest x-ray and CT abdomen and pelvis were unremarkable. Patient was hospitalized for further evaluation. Hospital Course: Patient placed under observation on the medical floor. She complained of right- sided weakness, stroke alert was called, examination revealed no objective evidence of limp weakness. Head CT did not show any acute CVA. Patient's symptoms appear subjective. Patient seen and evaluated by cardiology Dr. Clarke who recommended outpatient stress test. She was kept overnight for BP monitoring due to borderline low blood pressure. Patient BP readings are better today. Patient is on multiple psychotropic medications and has been informed to follow-up with his PCP to have her sedating medications scaled down. Her vitals are stable for discharge. Vital Signs/Physical Exam: Temp Pulse Resp BP Pulse Ox 96.8 F 78 16 124/80 96 05/20/23 04:00 05/20/23 07:45 05/20/23 06:32 05/20/23 07:45 05/20/23 06:32 General: Alert, In no apparent distress, Oriented x3 HEENT: Mucous membr. moist/pink, Sclerae nonicteric Neck: Supple, JVD not distended Respiratory: Clear to auscultation bilaterally, Normal air movement Cardiovascular: No edema, Regular rate/rhythm, Normal S1 S2 Gastrointestinal: Normal bowel sounds, Soft and benign, Non-distended Musculoskeletal: No swelling Integumentary: No rashes, No cyanosis Neurological: Normal strength at 5/5 x4 extr, Cranial nerves 3-12 intact Laboratory Data at Discharge: WBC 6.60 thou/uL (4.3-10.9) 05/20/23 01:56 Hgb 11.2 g/dL (12.0-15.0) L D 05/20/23 01:56 Hct 31.8 % (36.0-45.0) L 05/20/23 01:56 Plt Count 240 thou/uL (152-406) 05/20/23 01:56 Sodium 138 mEq/L (136-145) 05/20/23 01:56 Potassium 3.8 mEq/L (3.5-5.1) 05/20/23 01:56 BUN 13 mg/dL (7-18) 05/20/23 01:56 Creatinine 0.70 mg/dL (0.55-1.02) 05/20/23 01:56 Glucose 100 mg/dL (74-106) 05/20/23 01:56 Magnesium 1.9 mg/dL (1.6-2.4) 05/20/23 01:56 Total Bilirubin 0.3 mg/dL (0.2-1.0) 05/19/23 00:10 AST 32 U/L (15-37) 05/19/23 00:10 ALT 72 U/L (13-56) H 05/19/23 00:10 Alkaline Phosphatase 101 U/L (45-117) 05/19/23 00:10 Triglycerides 131 mg/dL (<150) 05/19/23 04:28 Cholesterol 204 mg/dL (<200) H 05/19/23 04:28 HDL Cholesterol 90 mg/dL (40-60) H 05/19/23 04:28 Cholesterol/HDL Ratio 2.27 05/19/23 04:28 Lipase 34 U/L (13-75) 05/19/23 00:10 Home Medications: Tizanidine [Zanaflex*] 4 mg PO Q8H 05/19/23 Valsartan 80 mg PO DAILY 05/19/23 diazePAM [Diazepam] 10 mg PO Q8H PRN 05/19/23 Aspirin [Aspirin EC] 81 mg PO DAILY #30 tab 05/20/23 Atorvastatin Calcium [Lipitor] 40 mg PO BEDTIME #30 tab 05/20/23 New Medications: Aspirin [Aspirin EC] 81 mg PO DAILY #30 tab Atorvastatin Calcium [Lipitor] 40 mg PO BEDTIME #30 tab Diet: AHA Activity: Ad tete Followup: Unknown,U [Primary Care Provider] - 1-2 Weeks Time spent managing pt's care (in minutes): 27
[2023-05-20 08:55] VITALS: BP 124/79; TEMP 97
[2023-05-20] MEDS ORDERED: VALSARTAN 80 MG TAB PO SCH (09:00)
[2023-05-20] MEDS ORDERED: POTASSIUM CL SA 10 MEQ TAB PO ONE (09:00)
== END 2023-05-20 09:53 | disposition home or self-care (01) ==
LOC: ER 23:48 → 2ND 05-19 02:57
PROVIDERS: ADMIT Internal Medicine; ATTEND Internal Medicine
DX: R07.9 Chest pain, unspecified (principal); E11.9 Type 2 diabetes mellitus without complications; R53.1 Weakness; R11.2 Nausea with vomiting, unspecified; R10.9 Unspecified abdominal pain; I10 Essential (primary) hypertension; G43.909 Migraine, unspecified, not intractable, without status migrainosus; K85.90 Acute pancreatitis without necrosis or infection, unspecified; F41.9 Anxiety disorder, unspecified; N28.9 Disorder of kidney and ureter, unspecified; G89.29 Other chronic pain; E87.6 Hypokalemia; Z80.9 Family history of malignant neoplasm, unspecified
CPT/HCPCS: 93005; 85025 ×2; 81001; 80048; 36415 ×2; 83735; 81025; 84132; 80061; 82947 ×2; 83036; 84484 ×2; 83690; 80053; 74177; 70450; 71045; 96375; 96374; 99285; Q9967; J2550 ×3; J1650 ×2; J2270 ×6; J2405 ×5; J7030; G0378

== ENCOUNTER 2023-05-22 09:13 | Emergency (ER) | payer OTHER ==
[2023-05-22 09:28] LABS: Absolute Lymphocytes (CBC) 2.8 K/uL (0.7-4.9); Hematocrit 39.2 % (36.0-45.0); Lymphocytes % 37.6 % (15.3-44.8); MCV 85.6 fL (80-100); MPV 7.9 fL (7.6-11.3); Platelets 311 thou/uL (152-406); RBC Red Blood Cell Count 4.58 M/uL (3.86-4.86)
[2023-05-22] MEDS ORDERED: LORazepam 2 MG/ML VIAL ONE (09:30)
[2023-05-22] MEDS ORDERED: KETOROLAC 30 MG/ML INJ ONE (09:31)
[2023-05-22] MEDS ORDERED: ONDANSETRON 4 MG/2 ML VIAL ONE (09:43)
[2023-05-22 09:47] LABS: Potassium 3.6 mEq/L (3.5-5.1); Troponin High Sensitivity 8.3 pg/mL (<58.9)
[2023-05-22] MEDS ORDERED: PROMETHAZINE INJ 25 MG/ML AMP ONE ×2 (10:01→11:21)
--- NOTE | 2023-05-22 10:40 | RAD REPORT ---
EXAM DESCRIPTION: RAD - Chest Single View - 05/22/2023 10:33 am CLINICAL HISTORY: PALPITATIONS COMPARISON: Chest Single View dated 05/19/2023; Chest Single View dated 05/05/2022; Chest Pa And Lat ( 2 Views) dated 10/28/2019; CHEST SINGLE VIEW dated 02/06/2015 FINDINGS: Lines: None. Lungs: No evidence of edema or pneumonia. Pleural: No significant pleural effusions or pneumothorax. Cardiac: The heart size is within normal limits. Mediastinum: Within normal limits. Bones: No acute fractures. Other: None IMPRESSION: No acute cardiopulmonary disease.
--- NOTE | 2023-05-22 10:44 | RAD REPORT ---
EXAM DESCRIPTION: US - Transvaginal Study Probe - 05/22/2023 10:29 am CLINICAL HISTORY: ABD PAIN Pelvic pain. COMPARISON: PELVIS dated 01/11/2015 FINDINGS: The uterus is normal in size, shape and echotexture. The uterus measures 8.3 x 4.8 x 5.6 c m. Small subserosal fibroid measuring 1.4 cm off of the anterior wall the uterine fundus. The endometrial stripe measures 11 mm, within normal limits The left ovary was not visualized. The right ovary measures 3.8 x 3.1 x 2.5 cm. A simple appearing 3. 1 x 2.8 x 3.2 cm right ovarian cyst is present which does not require follow-up. Vascular flow in the right ovary. Left ovary not visualized. No significant pelvic ascites. IMPRESSION: Right ovarian blood flow is present. Simple right ovarian cyst that does not require fol low-up. Nonvisualized left ovary which may have been obscured by bowel gas. Small subserosal uterine fibroid.
--- NOTE | 2023-05-22 10:56 | ER ---
Nurse's Notes [facility] Name: Lashay Daniels Age: 37 yrs Sex: Female : 1985 Arrival Date: 05/22/2023 Time: 09:13 Bed Ultrasound Private MD: Diagnosis: Nausea with vomiting, unspecified;Palpitations;Leiomyoma of uterus, unspecified Presentation: 05/22 09:11 Chief complaint: EMS states: Chest and pelvic pain. Seen here Tuesday for chest pain. nj1 States she started her period yesterday, has had large blood clots along with pain. 09:11 Coronavirus screen: Vaccine status: Patient reports receiving the 2nd dose of the covid nj1 vaccine. Ebola Screen: Patient denies travel to an Ebola-affected area in the 21 days before illness onset. Initial Sepsis Screen: Does the patient meet any 2 criteria? No. Patient's initial sepsis screen is negative. Does the patient have a suspected source of infection? No. Patient's initial sepsis screen is negative. Risk Assessment: Do you want to hurt yourself or someone else? Patient reports no desire to harm self or others. Onset of symptoms was May 21, 2023. 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 - Social history:: Smoking status: Patient denies any tobacco usage or history of. Screenin:27 [facility] ED Fall Risk Assessment (Adult) Score/Fall Risk Level 0 - 2 = Low Risk [facility] Oriented to surroundings, Maintained a safe environment, Hourly rounding (assess needs \\T\\ fall precautionary measures) done. Abuse screen: Denies threats or abuse. Denies injuries from another. Nutritional screening: No deficits noted. Tuberculosis screening: No symptoms or risk factors identified. Assessment: 09:15 General: Appears uncomfortable, Behavior is cooperative, anxious. nj1 09:15 Pain: Complains of pain in chest and pelvis Pain currently is 10 out of 10 on a pain nj1 scale. Neuro: Level of Consciousness is awake, alert, obeys commands, Oriented to person, place, time, situation. Cardiovascular: Chest pain quality is pressure. Respiratory: Airway is patent Respiratory effort is unlabored, Respiratory pattern is tachypnea. : Reports vaginal bleeding that is "large clots". 11:14 Reassessment: Patient appears in no apparent distress at this time. Patient and/or hb family updated on plan of care and expected duration. Pain level reassessed. Patient is alert, oriented x 3, equal unlabored respirations, skin warm/dry/pink. 13:09 Reassessment: Patient and/or family updated on plan of care and expected duration. Pain mb9 level reassessed. Patient is alert, oriented x 3, equal unlabored respirations, skin warm/dry/pink. Patient states feeling better. Patient states symptoms have improved. Vital Signs: 09:11 BP 134 / 107; Pulse 95; Resp 25; Temp 97.9(O); Pulse Ox 100% on R/A; Weight 93.89 kg; nj1 Height 5 ft. 5 in. ; Pain 10/10; 10:53 BP 145 / 108; Pulse 89; Resp 20; Pulse Ox 99% on R/A; Pain 9/10; em1 12:23 BP 172 / 101; Pulse 90; Resp 19; Pulse Ox 100% on R/A; nj1 13:09 BP 165 / 78; Pulse 85; Resp 18; Pulse Ox 100% on R/A; mb9 09:11 Body Mass Index 34.45 (93.89 kg, 165.1 cm) nj1 09:11 Pain Scale: Adult nj1 10:53 Pain Scale: Adult em1 ED Course: 09:14 Patient arrived in ED. eb 09:14 Jeferson Glasgow MD is Attending Physician. rn 09:16 Isis Jay FNP-C is [facility]. kb 09:18 Inserted saline lock: 22 gauge in right antecubital area, using aseptic technique. nj1 Blood collected. 09:21 Sarah Grove, RN is Primary Nurse. nj1 09:23 Triage completed. nj1 09:24 Arm band placed on. nj1 09:27 Patient has correct armband on for positive identification. Bed in low position. Call nj1 light in reach. Provided Education on: call light, fall precautions. 10:31 US Transvaginal Study (Probe) In Process Unspecified. EDMS 10:35 XRAY Chest (1 view) In Process Unspecified. EDMS 13:09 No provider procedures requiring assistance completed. IV discontinued, intact, mb9 bleeding controlled, No redness/swelling at site. Pressure dressing applied. Administered Medications: 09:20 Drug: Ativan IVP 1 mg IVP once Route: IVP; Site: right antecubital; nj1 11:13 Follow up: Response: No adverse reaction hb 09:20 Drug: Ketorolac IVP 15 mg IVP once Route: IVP; Site: right antecubital; nj1 11:13 Follow up: Response: No adverse reaction hb 09:36 Drug: Ondansetron IVP 4 mg IVP once; over 2 minutes Route: IVP; Site: right antecubital;nj1 11:13 Follow up: Response: No adverse reaction hb 09:51 Drug: Promethazine IVP 12.5 mg IVP once Route: IVP; Site: right antecubital; hb 11:13 Follow up: Response: No adverse reaction hb 11:13 Drug: Promethazine IVP 12.5 mg IVP once Route: IVP; Site: right antecubital; hb 12:24 Follow up: Response: No adverse reaction nj1 11:14 Drug: NS 0.9% IV 1000 ml IV at 1000 ml once Route: IV; Rate: 1000 ml; Site: left upper hb arm; 12:24 Drug: cloNIDine PO 0.1 mg PO once Route: PO; nj1 Medication: 11:14 VIS not applicable for this client. hb Outcome: 10:56 Discharge ordered by . calista 13:10 Discharged to home ambulatory, hector 13:10 Condition: stable 13:10 Discharge instructions given to patient, Instructed on discharge instructions, follow up and referral plans. Demonstrated understanding of instructions, follow-up care, medications, Prescriptions given X 1, 13:10 Patient left the ED. hector Signatures: Dispatcher [employer] EDMS Isis Jay, HOLLY VERGARACkJeferson Nagy MD MD rn Rafa, Valdemar 1 Ifeoma Gutiérrez RN RN Trixie Leyva, Monique Banuelos, RN RN mb9 Sarah Grove RN RN nj1 Corrections: (The following items were deleted from the chart) :24 09:23 PMHx: Diabetes - IDDM; nj1 nj1
--- NOTE | 2023-05-22 10:56 | EDPHYS ---
Physician Documentation [facility] Name: Lashay Daniels Age: 37 yrs Sex: Female : 1985 Arrival Date: 05/22/2023 Time: 09:13 Bed Ultrasound Private MD: ED Physician Jeferson Glasgow HPI: 05/22 10:44 This 37 yrs old Female presents to ER via EMS with complaints of pelvic pain, kb vaginal bleeding, anxiety. 10:44 The patient presents with pelvic pain, that is located in/on the suprapubic area, kb vaginal bleeding that is moderate, with clots. Onset: The symptoms/episode began/occurred last night. Modifying factors: The symptoms are alleviated by nothing, the symptoms are aggravated by nothing. Associated signs and symptoms: Pertinent positives: vaginal bleeding. Severity of symptoms: At their worst the symptoms were moderate, in the emergency department the symptoms are unchanged. The patient has experienced similar episodes in the past, a few times. The patient has been recently been admitted at [facility], was discharged earlier this week. Pt reports suprapubic pain and vaginal bleeding with clots that started last night. Reports palpitations and anxiety this morning. . 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 - Social history:: Smoking status: Patient denies any tobacco usage or history of. ROS: 10:44 Constitutional: Negative for fever, chills, and weight loss, kb 10:44 Cardiovascular: Positive for palpitations, 10:44 Abdomen/GI: Positive for nausea and vomiting, 10:44 : Positive for pelvic pain, vaginal bleeding, 10:44 All other systems are negative, Exam: 10:44 Constitutional: This is a well developed, well nourished patient who is awake, alert, kb and in no acute distress. Head/Face: Normocephalic, atraumatic. ENT: Moist Mucous membranes Cardiovascular: Regular rate Respiratory: Respirations even and unlabored. No increased work of breathing. Talking in full sentences Abdomen/GI: Soft, non-tender. No distention Skin: Warm, dry with normal turgor. Normal color. MS/ Extremity: Pulses equal, no cyanosis. Neurovascular intact. Full, normal range of motion. Neuro: Awake and alert, GCS 15, oriented to person, place, time, and situation. Moves all extremities. Normal gait. 10:44 Constitutional: The patient appears anxious, Vital Signs: 09:11 BP 134 / 107; Pulse 95; Resp 25; Temp 97.9(O); Pulse Ox 100% on R/A; Weight 93.89 kg; nj1 Height 5 ft. 5 in. ; Pain 10/10; 10:53 BP 145 / 108; Pulse 89; Resp 20; Pulse Ox 99% on R/A; Pain 9/10; em1 12:23 BP 172 / 101; Pulse 90; Resp 19; Pulse Ox 100% on R/A; nj1 13:09 BP 165 / 78; Pulse 85; Resp 18; Pulse Ox 100% on R/A; mb9 09:11 Body Mass Index 34.45 (93.89 kg, 165.1 cm) nj1 09:11 Pain Scale: Adult nj1 10:53 Pain Scale: Adult em1 MDM: 09:14 Patient medically screened. rn 10:53 Differential diagnosis: dysmenorrhea, menorrhea, nonspecific abdominal pain, uterine kb fibroids. Data reviewed: vital signs, nurses notes. Historians other than the Patient: EMS: [facility]. External Records Reviewed: Inpatient record: discharge summary reviewed from previous admission, discharged 2 days ago. Counseling: I had a detailed discussion with the patient and/or guardian regarding the historical points, exam findings, and any diagnostic results supporting the discharge/admit diagnosis, lab results, radiology results, the need for outpatient follow up, a family practitioner, a denture model maker, an OB/Gyne specialist, to return to the emergency department if symptoms worsen or persist or if there are any questions or concerns that arise at home. 05/22 09:17 Order name: Basic Metabolic Panel; Complete Time: 09:55 kb 05/22 09:17 Order name: CBC with Diff; Complete Time: 09:37 kb 05/22 09:17 Order name: Troponin HS; Complete Time: 09:55 kb 05/22 09:17 Order name: XRAY Chest (1 view); Complete Time: 10:43 kb 05/22 09:17 Order name: US Transvaginal Study (Probe); Complete Time: 10:44 kb 05/22 09:17 Order name: EKG; Complete Time: 09:18 kb 05/22 09:17 Order name: Cardiac monitoring; Complete Time: 09:18 kb 05/22 09:17 Order name: EKG - Nurse/Tech; Complete Time: 09:30 kb 05/22 09:17 Order name: IV Saline Lock; Complete Time: 09:18 kb 05/22 09:17 Order name: Labs collected and sent; Complete Time: 09:21 kb 05/22 09:17 Order name: O2 Per Protocol; Complete Time: 09:18 kb 05/22 09:17 Order name: O2 Sat Monitoring; Complete Time: 09:18 kb 05/22 09:56 Order name: Vital Signs; Complete Time: 10:53 kb Administered Medications: 09:20 Drug: Ativan IVP 1 mg IVP once Route: IVP; Site: right antecubital; nj1 11:13 Follow up: Response: No adverse reaction hb 09:20 Drug: Ketorolac IVP 15 mg IVP once Route: IVP; Site: right antecubital; nj1 11:13 Follow up: Response: No adverse reaction hb 09:36 Drug: Ondansetron IVP 4 mg IVP once; over 2 minutes Route: IVP; Site: right antecubital;nj1 11:13 Follow up: Response: No adverse reaction hb 09:51 Drug: Promethazine IVP 12.5 mg IVP once Route: IVP; Site: right antecubital; hb 11:13 Follow up: Response: No adverse reaction hb 11:13 Drug: Promethazine IVP 12.5 mg IVP once Route: IVP; Site: right antecubital; hb 12:24 Follow up: Response: No adverse reaction nj1 11:14 Drug: NS 0.9% IV 1000 ml IV at 1000 ml once Route: IV; Rate: 1000 ml; Site: left upper hb arm; 12:24 Drug: cloNIDine PO 0.1 mg PO once Route: PO; nj1 Disposition: 18:06 Co-signature as Attending Physician, Jeferson Glasgow MD I reviewed the patient's care rn provided by the Advanced Practice Provider and agree with the diagnosis and treatment plan. Disposition Summary: 05/22/23 10:56 Discharge Ordered Notes: Location: Home kb Condition: Stable kb Diagnosis - Nausea with vomiting, unspecified kb - Palpitations kb - Leiomyoma of uterus, unspecified kb Followup: kb - With: Emergency Department - When: As needed - Reason: Worsening of condition Followup: kb - With: Private Physician - When: 2 - 3 days - Reason: Recheck today's complaints, Continuance of care, Re-evaluation by your physician Discharge Instructions: - Discharge Summary Sheet kb - Nausea and Vomiting, Adult, [id number] kb - Palpitations, [id number] kb Forms: - Medication Reconciliation Form kb - Thank You Letter kb - Antibiotic Education kb - Prescription Opioid Use kb - Patient Portal Instructions kb - Leadership Thank You Letter kb - Work release form eb Prescriptions: - promethazine 25 mg Oral tablet - take 1 tablet ORAL route every 6 hours As needed; 12 tablet; Refills: 0, kb Product Selection Permitted Signatures: Dispatcher [employer] EDMS Isis Jay, HOT STICK MAN-C HOT STICK MAN-Ckb Jeferson Glasgow MD MD rn Baxter, Heather, RN RN hb Jaco, Norma, RN RN nj1 Corrections: (The following items were deleted from the chart) 09:24 09:23 PMHx: Diabetes - IDDM; nj1 nj 10:57 10:44 The patient has not experienced similar symptoms in the past, [facility] 10:57 10:44 The patient has not recently seen a physician, [facility]
[2023-05-22] MEDS ORDERED: NA CHLORIDE 0.9% 1,000 ML ONE (11:21)
[2023-05-22] MEDS ORDERED: cloNIDine HCL 0.1 MG TAB ONE (12:34)
[2023-05-22 13:16] VITALS: O2SAT 100
[2023-05-22 13:17] VITALS: BP 165/78
--- NOTE | 2023-05-23 12:16 | EKG ---
Test Date: 2023-05-22 Test Time: 20:42:06 Neon Tube Bender: MARYA MEASUREMENT RESULTS: Intervals: Rate: 84 OH: 144 QRSD: 88 QT: 378 QTc: 446 [place]: P: 65 OH: 144 QRS: 78 T: 57 INTERPRETIVE STATEMENTS: Normal sinus rhythm Normal ECG Compared to ECG 05/19/2023 00:01:38 No significant changes Electronically Signed On 05-23-23 12:14:21 CDT by Daniel Clarke
== END 2023-05-22 13:10 | disposition home or self-care (01) ==
LOC: ER 09:13
DX: R11.2 Nausea with vomiting, unspecified (principal); R00.2 Palpitations; D25.9 Leiomyoma of uterus, unspecified; I10 Essential (primary) hypertension; F41.9 Anxiety disorder, unspecified
CPT/HCPCS: 93005; 85025; 80048; 36415; 84484; 71045; 76830; 96375; 96374; 99284; J2550 ×2; J2405; J7030

== ENCOUNTER 2023-05-22 19:20 | Emergency (ER) | payer OTHER ==
--- NOTE | 2023-05-22 20:04 | RAD REPORT ---
EXAM DESCRIPTION: RAD - Chest Single View - 05/22/2023 7:55 pm CLINICAL HISTORY: CHEST PAIN COMPARISON: Chest Single View dated 05/22/2023; Chest Single View dated 05/19/2023; Chest Single View dated 05/05/2022; Chest Pa And Lat (2 Views) dated 10/28/2019 FINDINGS: Lines: None. Lungs: No evidence of edema or pneumonia. Pleural: No significant pleural effusions or pneumothorax. Cardiac: The heart size is within normal limits. Mediastinum: Within normal limits. Bones: No acute fractures. Other: None IMPRESSION: No acute cardiopulmonary disease.
[2023-05-22] MEDS ORDERED: METOPROLOL TAR 50 MG TAB ONE (20:05)
[2023-05-22] MEDS ORDERED: ASPIRIN 81 MG CHEWABLE TABLET ONE (20:06)
[2023-05-22] MEDS ORDERED: LORazepam 2 MG/ML VIAL ONE (20:07)
--- NOTE | 2023-05-22 20:30 | RAD REPORT ---
EXAM DESCRIPTION: US - Extrem Venous W Compress [place] - 05/22/2023 8:16 pm CLINICAL HISTORY: PAIN COMPARISON: UPPER EXTREMITY VENOUS UNILATE dated 12/18/2022 TECHNIQUE: Real-time sonographic evaluation of the lower extremity deep venous systems was performed using color Doppler, grayscale, and compression. FINDINGS: Bilateral lower extremities. Normal compressibility, flow augmentation, phasic flow and spontaneous flow is identified in both the left and right lower extremity deep venous systems. No intraluminal filling defects seen. IMPRESSION: No DVT in either lower extremity.
[2023-05-22 20:49] LABS: Absolute Lymphocytes (CBC) 2.1 K/uL (0.7-4.9); Hematocrit 36.3 % (36.0-45.0); MCV 85.6 fL (80-100); MPV 7.9 fL (7.6-11.3); Platelets 285 thou/uL (152-406); Protime INR 1.05; RBC Red Blood Cell Count 4.24 M/uL (3.86-4.86)
[2023-05-22 21:07] LABS: Bilirubin Direct 0.1 mg/dL (0-0.2); Bilirubin Indirect, Calculated 0.2 mg/dL (0.2-0.8); Bilirubin Total 0.3 mg/dL (0.2-1.0); Magnesium 2.1 mg/dL (1.6-2.4); Potassium 3.7 mEq/L (3.5-5.1); Protein, Total 7.1 g/dL (6.4-8.2); Troponin High Sensitivity 9.1 pg/mL (<58.9)
--- NOTE | 2023-05-22 21:15 | RAD REPORT ---
EXAM DESCRIPTION: CTAngio Aorta For Dissection - 05/22/2023 8:59 pm CLINICAL HISTORY: pulmonary embolism;Dissection COMPARISON: Abdomen Pelvis W Contrast dated 05/19/2023; Transvaginal Study Probe dated 05/22/2023 TECHNIQUE: CTA of the chest, abdomen, and pelvis was performed. MIPS of the aorta were created. All CT scans are performed using dose optimization technique as appropriate and may include automated exposure control or mA/KV adjustment according to patient size. FINDINGS: Thorax: Chest Wall: No abnormal mass Lungs: No acute abnormality. Pleura: No effusions or pneumothorax. Elsa/Mediastinum: No lymphadenopathy. Aorta/Pulmonary Arteries: No aortic aneurysm or dissection. Though not optimized for evaluation of th e pulmonary arteries, no pulmonary embolus is identified to the level of the subsegmental pulmonary a rteries. Heart: Normal size. Abdomen/Pelvis: Liver: Hepatic steatosis Biliary: Cholecystectomy Stomach: No significant focal abnormality. Duodenum: No significant focal abnormality. Pancreas: No significant abnormality. Spleen: No significant abnormality. Adrenal: No suspicious lesions. Kidney/ureter: No hydronephrosis. No renal calculi. Retroperitoneum: No retroperitoneal adenopathy. Vascular: No aneurysm. Bowel: Normal appendix. No bowel obstruction.. Peritoneum: No ascites or free air. Bladder: Grossly unremarkable. Reproductive: Simple right adnexal cyst measuring 3.9 which does not require follow-up and is almost certainly benign in a patient of this age. . Bones: No acute fracture. Other: n/a IMPRESSION: No acute findings within the chest, abdomen, or pelvis. Specifically, no aortic aneurysm , aortic dissection, or clinically significant pulmonary embolus. Several incidental findings as note d above.
[2023-05-22 21:41] LABS: Specific Gravity > 1.030 (1.005-1.030)
[2023-05-22 21:45] LABS: Specific Gravity > 1.030 (1.005-1.030); Urine Bacteria None Seen /HPF (<20); Urine Bilirubin NEGATIVE (Negative); Urine Blood 3+ (OVER) (Negative); Urine Clarity Clear (Clear); Urine Color Light-Brown (Yellow); Urine Glucose NEGATIVE (Negative); Urine Protein NEGATIVE (Negative); Urine RBC >50 /HPF (None Seen); Urine Urobilinogen Normal (Normal); Urine pH 6.5 (5.0-7.0)
[2023-05-22 21:57] LABS: Methadone ND (NEGATIVE)
--- NOTE | 2023-05-22 21:57 | EDPHYS ---
Physician Documentation [facility] Name: Lashay Daniels Age: 37 yrs Sex: Female : 1985 Arrival Date: 05/22/2023 Time: 19:20 Bed 15 Private MD: ED Physician Nahid Durham HPI: 05/22 19:50 This 37 yrs old Female presents to ER via Ambulatory with complaints of cp, nico sob, just dc er and inpatient. 19:50 The patient has shortness of breath at rest, with light activity. Onset: The nico symptoms/episode began/occurred 3 day(s) ago. Duration: The symptoms are continuous, and are steadily getting worse. The patient's shortness of breath has no apparent modifying factors. The patient or guardian reports chest pain that is located primarily in the substernal area. The pain does not radiate. Associated signs and symptoms: Pertinent positives: dizziness. Severity of symptoms: At their worst the symptoms were mild moderate in the emergency department the symptoms are unchanged. Associated signs and symptoms: Pertinent positives: shortness of breath. The chest pain is described as a heaviness. Historical: - Allergies: 19:34 No Known Allergies; mb9 - PMHx: 19:34 Anxiety; Chronic pain; Hypertension; Migraines; nerve damage LLE; Pancreatitis; renal mb9 insufficiency; - PSHx: 19:34 Cholecystectomy; mb9 - Immunization history:: Adult Immunizations up to date. - Social history:: Smoking status: Patient denies any tobacco usage or history of. - Family history:: not pertinent. ROS: 19:50 Constitutional: Negative for fever, chills, and weight loss, Eyes: Negative for injury, nico pain, redness, and discharge, ENT: Negative for injury, pain, and discharge, Neck: Negative for injury, pain, and swelling, Abdomen/GI: Negative for abdominal pain, nausea, vomiting, diarrhea, and constipation, Back: Negative for injury and pain, : Negative for injury, bleeding, discharge, and swelling, MS/Extremity: Negative for injury and deformity, Skin: Negative for injury, rash, and discoloration, Neuro: Negative for headache, weakness, numbness, tingling, and seizure, Psych: Negative for depression, anxiety, suicide ideation, homicidal ideation, and hallucinations, Allergy/Immunology: Negative for hives, rash, and allergies, Endocrine: Negative for neck swelling, polydipsia, polyuria, polyphagia, and marked weight changes, Hematologic/Lymphatic: Negative for swollen nodes, abnormal bleeding, and unusual bruising, 19:50 Cardiovascular: Positive for chest pain, of the chest, 19:50 MS/extremity: Positive for pain, of the right leg, Negative for pain, swelling, tenderness, Exam: 19:50 Constitutional: This is a well developed, well nourished patient who is awake, alert, nico and in no acute distress. Head/Face: Normocephalic, atraumatic. Eyes: Pupils equal round and reactive to light, extra-ocular motions intact. Lids and lashes normal. Conjunctiva and sclera are non-icteric and not injected. Cornea within normal limits. Periorbital areas with no swelling, redness, or edema. ENT: Nares patent. No nasal discharge, no septal abnormalities noted. Tympanic membranes are normal and external auditory canals are clear. Oropharynx with no redness, swelling, or masses, exudates, or evidence of obstruction, uvula midline. Mucous membranes moist. Neck: Trachea midline, no thyromegaly or masses palpated, and no cervical lymphadenopathy. Supple, full range of motion without nuchal rigidity, or vertebral point tenderness. No Meningismus. Chest/axilla: Normal chest wall appearance and motion. Nontender with no deformity. No lesions are appreciated. Cardiovascular: Regular rate and rhythm with a normal S1 and S2. No gallops, murmurs, or rubs. Normal PMI, no JVD. No pulse deficits. Respiratory: Lungs have equal breath sounds bilaterally, clear to auscultation and percussion. No rales, rhonchi or wheezes noted. No increased work of breathing, no retractions or nasal flaring. Abdomen/GI: Soft, non-tender, with normal bowel sounds. No distension or tympany. No guarding or rebound. No evidence of tenderness throughout. Back: No spinal tenderness. No costovertebral tenderness. Full range of motion. Skin: Warm, dry with normal turgor. Normal color with no rashes, no lesions, and no evidence of cellulitis. MS/ Extremity: Pulses equal, no cyanosis. Neurovascular intact. Full, normal range of motion. Neuro: Awake and alert, GCS 15, oriented to person, place, time, and situation. Cranial nerves II-XII grossly intact. Motor strength 5/5 in all extremities. Sensory grossly intact. Cerebellar exam normal. Normal gait. Psych: Awake, alert, with orientation to person, place and time. Behavior, mood, and affect are within normal limits. 20:56 ECG was reviewed by the Attending Physician. nico Vital Signs: 19:35 BP 125 / 97; Pulse 90; Resp 18; Temp 98.2; Pulse Ox 100% on R/A; Weight 93.89 kg; mb9 Height 5 ft. 5 in. ; Pain 9/10; 20:30 BP 151 / 102; Pulse 86; Resp 20; Pulse Ox 100% on R/A; eh3 21:34 BP 133 / 98; Pulse 80; Resp 18; Pulse Ox 100% on R/A; mb9 22:12 BP 135 / 84; Pulse 78; Resp 18; Pulse Ox 100% on R/A; mb9 19:35 Body Mass Index 34.45 (93.89 kg, 165.1 cm) mb9 19:35 Pain Scale: Adult mb9 Lillian Coma Score: 19:50 Eye Response: spontaneous(4). Motor Response: obeys commands(6). Verbal Response: nico oriented(5). Total: 15. MDM: 19:31 Patient medically screened. nico 19:53 Antibiotic administration: Not indicated. Differential diagnosis: Anemia Anxiety nico Reaction asthma, Bronchitis CHF exacerbation, Chronic Obstructive Pulmonary Disease abnormal EKG, acute myocardial infarction, acute pericarditis, anxiety, chest wall pain, costochondritis, esophagitis, gastritis, hiatal hernia, pancreatitis, peptic ulcer disease, pericarditis, pulmonary embolus, thoracic aortic disection, unstable angina, Myocardial Infarction pneumonia, pulmonary edema, Pulmonary Embolism reactive airway disease, Unstable Angina. HEART Score: History: Moderately Suspicious (1), ECG: Non specific repolarization disturbance / LBTB / PM (1), Age: < or = 45 years (0), Risk Factors: > or = 3 Risk factors for atherosclerotic disease (2), [Hypercholesterolemia] [Hypertension] [+ Family HX] [Obesity] Troponin: < or = 1 x Normal Limit (0). GAURAV Risk Score: 1 - Three or more CAD risk factors, TOTAL SCORE = 1. Immunization status:. Data reviewed: vital signs, nurses notes. Consideration of Admission/Observation Escalation of care including admission/observation considered. I considered the following discharge prescriptions or medication management in the emergency department Medications were administered in the Emergency Department. See MAR. Independent interpretation of the following test(s) in the Emergency Department EKG: See my EKG interpretation above. Test considered but Not performed: Ultrasound no 2 d echo. 05/22 19:45 Order name: Basic Metabolic Panel; Complete Time: 21:16 nico 05/22 19:45 Order name: CBC with Diff; Complete Time: 20:57 nico 05/22 19:45 Order name: LFT's; Complete Time: 21:16 nico 05/22 19:45 Order name: Magnesium; Complete Time: 21:16 nico 05/22 19:45 Order name: NT PRO-BNP; Complete Time: 21:16 nico 05/22 19:45 Order name: PT-INR; Complete Time: 20:57 nico 05/22 19:45 Order name: Troponin HS; Complete Time: 21:16 nico 05/22 19:45 Order name: Lipase; Complete Time: 21:16 [facility] 05/22 19:45 Order name: UDS [facility] 05/22 19:45 Order name: Urinalysis w/ reflexes; Complete Time: 21:54 nico 05/22 19:45 Order name: PREGU; Complete Time: 21:54 nico 05/22 19:45 Order name: XRAY Chest (1 view); Complete Time: 20:57 05/22 19:45 Order name: US Extremity Venous W Compression [place]; Complete Time: 20:57 nico 05/22 19:49 Order name: CT Aorta for Dissection; Complete Time: 21:54 [facility] 05/22 19:45 Order name: EKG; Complete Time: 19:46 nico 05/22 19:45 Order name: Cardiac monitoring; Complete Time: 19:45 [facility] 05/22 19:45 Order name: EKG - Nurse/Tech; Complete Time: 20:45 nico 05/22 19:45 Order name: IV Saline Lock; Complete Time: 20:45 nico 05/22 19:45 Order name: Labs collected and sent; Complete Time: 20:45 nico 05/22 19:45 Order name: O2 Per Protocol; Complete Time: 19:45 nico 05/22 19:45 Order name: O2 Sat Monitoring; Complete Time: 19:45 [facility] EC:56 Rate is 84 beats/min. Rhythm is regular. QRS Rhodes is Normal. RI interval is normal. QRS nico interval is normal. QT interval is normal. No Q waves. T waves are Normal. No ST changes noted. Clinical impression: Normal ECG and No evidence of ischemia. Interpreted by me. Reviewed by me. Administered Medications: 20:30 Drug: Aspirin PO Chewable Tablet 162 mg PO once Route: PO; eh3 22:11 Follow up: Response: No adverse reaction mb9 20:30 Drug: Ativan IVP 1 mg IVP once Route: IVP; Site: right antecubital; eh3 22:11 Follow up: Response: No adverse reaction mb9 20:30 Drug: Metoprolol PO 50 mg PO once Route: PO; eh3 22:11 Follow up: Response: No adverse reaction mb9 22:00 Drug: Promethazine IM 25 mg IM once Route: IM; Site: right gluteus; mb9 22:23 Follow up: Response: No adverse reaction mb9 Disposition Summary: 05/22/23 21:56 Discharge Ordered Notes: Location: Home nico Problem: new nico Symptoms: have improved nico Condition: Stable nico Diagnosis - Chest pain, unspecified nico - Dyspnea nico - Essential (primary) hypertension nico - UTI/ Urinary tract infection, site not specified nico Followup: nico - With: Private Physician - When: 2 - 3 days - Reason: Recheck today's complaints, Continuance of care, Re-evaluation by your physician Followup: nico - With: Daniel Clarke MD - When: 2 - 3 days - Reason: Recheck today's complaints, Re-evaluation by your physician Discharge Instructions: - Discharge Summary Sheet nico - Nonspecific Chest Pain, Adult nico - Hypertension, Adult nico - Urinary Tract Infection, Adult, [id number] nico - Hypertension, Adult, [id number] nico - How to Take Your Blood Pressure, [id number] nico - Aspirin and Your Heart nico - Managing Your Hypertension nico Forms: - Medication Reconciliation Form nico - Thank You Letter nico - Antibiotic Education nico - Prescription Opioid Use nico - Patient Portal Instructions nico - Leadership Thank You Letter [facility] Prescriptions: - Hydroxyzine HCl 25 mg Oral Tablet - take 1 tablet ORAL route every 6 hours As needed; 30 tablet; Refills: 0, nico Product Selection Permitted - Toprol XL 50 mg Oral Tablet - take 1 tablet ORAL route once daily; 20 tablet; Refills: 0, Product Selection nico Permitted - Macrobid 100 mg Oral Capsule - take 1 capsule ORAL route every 12 hours for 7 days; 14 capsule; Refills: 0, nico Product Selection Permitted Signatures: Dispatcher [employer] Nahid Woody MD MD cha Hall, Erin RN RN eh3 Aster, Monique Banuelos RN RN mb9 Corrections: (The following items were deleted from the chart) 19:53 19:46 Chest For PE Angio+[id number].RAD.BRZ ordered. EDMS EDMS
--- NOTE | 2023-05-22 21:57 | ER ---
Nurse's Notes [facility] Name: Lashay Daniels Age: 37 yrs Sex: Female : 1985 Arrival Date: 05/22/2023 Time: 19:20 Bed 15 Private MD: Diagnosis: Chest pain, unspecified;Dyspnea;Essential (primary) hypertension;UTI/ Urinary tract infection, site not specified Presentation: 05/22 19:35 Chief complaint: Patient states: "I was told from a nurse upstairs to come back here if mb9 my symptoms weren't better and that I shouldn't have been discharged. I was told to come back and ask for the shift coordinator nurse. I'm still having chest pain and my stomach hurts.". Coronavirus screen: Vaccine status: At this time, the client does not indicate any symptoms associated with coronavirus-19. Ebola Screen: No symptoms or risks identified at this time. Initial Sepsis Screen: Does the patient meet any 2 criteria? No. Patient's initial sepsis screen is negative. Does the patient have a suspected source of infection? No. Patient's initial sepsis screen is negative. Risk Assessment: Do you want to hurt yourself or someone else? Patient reports no desire to harm self or others. Onset of symptoms was May 22, 2023. 19:35 Method Of Arrival: Ambulatory mb9 19:35 Acuity: AKOSUA 3 mb9 Triage Assessment: 19:37 General: Appears in no apparent distress. Behavior is anxious. Pain: Complains of pain mb9 in chest and abdomen Pain does not radiate. Pain currently is 9 out of 10 on a pain scale. Quality of pain is described as pressure, Pain began gradually, Is continuous. EENT: No signs and/or symptoms were reported regarding the EENT system. Neuro: Level of Consciousness is awake, alert, obeys commands, Oriented to person, place, time, situation, Appropriate for age. Cardiovascular: Reports chest pain. Respiratory: Airway is patent. Derm: Skin is pink, warm \\T\\ dry. Musculoskeletal: Range of motion: intact in all extremities. Historical: - Allergies: 19:34 No Known Allergies; mb9 - PMHx: 19:34 Anxiety; Chronic pain; Hypertension; Migraines; nerve damage LLE; Pancreatitis; renal mb9 insufficiency; - PSHx: 19:34 Cholecystectomy; mb9 - Immunization history:: Adult Immunizations up to date. - Social history:: Smoking status: Patient denies any tobacco usage or history of. - Family history:: not pertinent. Screenin:40 [facility] ED Fall Risk Assessment (Adult) Score/Fall Risk Level 0 - 2 = Low Risk. Abuse eh3 screen: Denies threats or abuse. Denies injuries from another. Nutritional screening: No deficits noted. Tuberculosis screening: No symptoms or risk factors identified. Assessment: 19:38 Reassessment: Charge nurseBuzz, at bedside speaking to pt. mb9 19:40 General: Appears distressed, uncomfortable, Behavior is cooperative, anxious, crying. eh3 Pain: Complains of pain in chest, abdomen and right leg. Neuro: Level of Consciousness is awake, alert, obeys commands, Oriented to person, place, time, situation. Cardiovascular: Capillary refill < 3 seconds Patient's skin is warm and dry. Respiratory: Airway is patent Respiratory effort is even, unlabored, Respiratory pattern is regular, symmetrical. GI: Abdomen is round non-distended, Reports nausea, vomiting. Derm: Skin is pink, warm \\T\\ dry. Musculoskeletal: Circulation, motion, and sensation intact. 20:30 Reassessment: Patient and/or family updated on plan of care and expected duration. Pain eh3 level reassessed. Patient is alert, oriented x 3, equal unlabored respirations, skin warm/dry/pink. 22:00 Reassessment: pt reports nausea. ERP notified, new orders at this time. mb9 22:17 Reassessment: Patient and/or family updated on plan of care and expected duration. Pain mb9 level reassessed. Patient is alert, oriented x 3, equal unlabored respirations, skin warm/dry/pink. Patient states feeling better. Patient states symptoms have improved. Vital Signs: 19:35 BP 125 / 97; Pulse 90; Resp 18; Temp 98.2; Pulse Ox 100% on R/A; Weight 93.89 kg; mb9 Height 5 ft. 5 in. ; Pain 9/10; 20:30 BP 151 / 102; Pulse 86; Resp 20; Pulse Ox 100% on R/A; eh3 21:34 BP 133 / 98; Pulse 80; Resp 18; Pulse Ox 100% on R/A; mb9 22:12 BP 135 / 84; Pulse 78; Resp 18; Pulse Ox 100% on R/A; mb9 19:35 Body Mass Index 34.45 (93.89 kg, 165.1 cm) mb9 19:35 Pain Scale: Adult mb9 Leicester Coma Score: 19:50 Eye Response: spontaneous(4). Motor Response: obeys commands(6). Verbal Response: nico oriented(5). Total: 15. ED Course: 19:27 Patient arrived in ED. mb9 19:31 Nahid Durham MD is Attending Physician. nico 19:34 Sol Pierre, DENISE is Primary Nurse. eh3 19:34 Arm band placed on. mb9 19:37 Triage completed. mb9 19:38 Placed in gown. Bed in low position. Call light in reach. Side rails up X 1. Client mb9 placed on continuous cardiac and pulse oximetry monitoring. NIBP monitoring applied. gambling monitor on. 19:40 Provided Education on: Use of call sherwood. eh3 19:57 XRAY Chest (1 view) In Process Unspecified. EDMS 20:18 US Extremity Venous W Compression Irving In Process Unspecified. EDMS 20:38 Inserted saline lock: 22 gauge in right antecubital area, using aseptic technique. oe Blood collected. 20:38 Basic Metabolic Panel Sent. oe 20:38 CBC with Diff Sent. oe 20:38 LFT's Sent. oe 20:38 Magnesium Sent. oe 20:38 NT PRO-BNP Sent. oe 20:38 PT-INR Sent. oe 20:38 Troponin HS Sent. oe 21:01 CT Aorta for Dissection In Process Unspecified. EDMS 21:13 Report given to DENISE Banks. eh3 21:34 Urinalysis w/ reflexes Sent. mb9 21:34 PREGU Sent. mb9 21:34 No provider procedures requiring assistance completed. mb9 21:55 Daniel Clarke MD is Referral Physician. nico 22:23 IV discontinued, intact, bleeding controlled, No redness/swelling at site. Pressure mb9 dressing applied. Administered Medications: 20:30 Drug: Aspirin PO Chewable Tablet 162 mg PO once Route: PO; eh3 22:11 Follow up: Response: No adverse reaction mb9 20:30 Drug: Ativan IVP 1 mg IVP once Route: IVP; Site: right antecubital; eh3 22:11 Follow up: Response: No adverse reaction mb9 20:30 Drug: Metoprolol PO 50 mg PO once Route: PO; eh3 22:11 Follow up: Response: No adverse reaction mb9 22:00 Drug: Promethazine IM 25 mg IM once Route: IM; Site: right gluteus; mb9 22:23 Follow up: Response: No adverse reaction mb9 Medication: 21:34 VIS not applicable for this client. mb9 Outcome: 21:56 Discharge ordered by MD. walsh 22:23 Discharged to home ambulatory, 9 22:23 Condition: stable 22:23 Discharge instructions given to patient, Instructed on discharge instructions, follow up and referral plans. Demonstrated understanding of instructions, follow-up care, medications, Prescriptions given X 3, 22:24 Patient left the ED. mb9 Signatures: Dispatcher [employer] Nahid Woody MD MD cha Espinosa, Orlando oe Hall, Erin, RN RN 3 Monique Rodarte RN RN mb9
[2023-05-22] MEDS ORDERED: PROMETHAZINE INJ 25 MG/ML AMP ONE (22:01)
[2023-05-22 22:04] LABS: Barbiturates NEGATIVE (NEGATIVE); Benzodiazepines POSITIVE (NEGATIVE); Cocaine NEGATIVE (NEGATIVE); METHAMPHETAM NEGATIVE (NEGATIVE); Opiates NEGATIVE (NEGATIVE); Phencyclidine NEGATIVE (NEGATIVE); THC Cannibis NEGATIVE (NEGATIVE)
[2023-05-22 22:41] VITALS: TEMP 98.2; O2SAT 100
[2023-05-22 22:55] VITALS: BP 135/84
--- NOTE | 2023-05-23 12:17 | EKG ---
Test Date: 2023-05-22 Test Time: 09:26:36 Char Dust Cleaner And Salvager: HB MEASUREMENT RESULTS: Intervals: Rate: 83 NE: 160 QRSD: 84 QT: 364 QTc: 427 [place]: P: 19 NE: 160 QRS: -4 T: 32 INTERPRETIVE STATEMENTS: Normal sinus rhythm with sinus arrhythmia Normal ECG Compared to ECG 05/19/2023 00:01:38 No significant changes Electronically Signed On 05-23-23 12:14:59 CDT by Daniel Clarke
== END 2023-05-22 22:24 | disposition home or self-care (01) ==
LOC: ER 19:20
DX: R07.89 Other chest pain (principal); R06.00 Dyspnea, unspecified; I10 Essential (primary) hypertension; N39.0 Urinary tract infection, site not specified
CPT/HCPCS: 93005; 85025; 81001; 80048; 36415; 83735; 81025; 85610; 80076; 84484; 83690; 83880; 80307; 71275; 74175; 71045; 93970; 96372; 96374; 99285; Q9967; J2550

== ENCOUNTER 2024-01-11 13:20 | Emergency (ER) | payer OTHER ==
[2024-01-11] MEDS ORDERED: NA CHLORIDE 0.9% 1,000 ML ONE ×2 (14:03→17:11)
[2024-01-11] MEDS ORDERED: MORPHINE 4 MG/ML SYR ONE ×2 (14:03→17:38)
[2024-01-11] MEDS ORDERED: FAMOTIDINE 20 MG/2 ML VIAL IV ONE (14:03)
[2024-01-11] MEDS ORDERED: ONDANSETRON 4 MG/2 ML VIAL ONE (14:03)
[2024-01-11 14:13] LABS: Absolute Lymphocytes (CBC) 1.7 K/uL (0.7-4.9); Absolute Monocytes 0.6 K/uL (0.1-1.3); Absolute Neutrophil 10.6 K/uL (1.8-8.0); Basophils % 0.3 % (0-1.3); Eosinophils % 0.2 % (0-4.4); Hematocrit 44.2 % (36.0-45.0); Hemoglobin 14.6 g/dL (12.0-15.0); Lymphocytes % 13.4 % (15.3-44.8); MCH 29.2 pg (27.0-35.0); MCV 88.7 fL (80-100); MPV 8.5 fL (7.6-11.3); Monocytes % 4.3 % (3.3-12.3); Neutrophils % 81.8 % (41.7-73.7); Nucleated Red Blood Cells % 0.2 % (0-0); Platelets 345 thou/uL (152-406); RBC Red Blood Cell Count 4.98 M/uL (3.86-4.86); Red Cell Distribution Width 13.4 % (12.1-15.2)
[2024-01-11] MEDS ORDERED: FENTANYL CITR 100 MCG/2 ML ONE (15:33)
[2024-01-11 15:55] LABS: Albumin 4.1 g/dL (3.4-5.0); Anion Gap 11.6 mEq/L (5.0-15.0); Potassium 3.6 mEq/L (3.5-5.1); Protein, Total 8.1 g/dL (6.4-8.2); Troponin High Sensitivity 9.7 pg/mL (<58.9)
--- NOTE | 2024-01-11 16:48 | RAD REPORT ---
EXAM DESCRIPTION: CT - Abdomen Pelvis W Contrast - 01/11/2024 4:20 pm CLINICAL HISTORY: Abdominal pain COMPARISON: 2022. TECHNIQUE: Computed axial tomography of the abdomen pelvis was obtained. 100 cc Isovue-300 was admin istered intravenously. Oral contrast was not requested which limits evaluation of bowel and appendix All CT scans are performed using dose optimization technique as appropriate and may include automated exposure control or mA/KV adjustment according to patient size. FINDINGS: Cholecystectomy Mild fatty liver The spleen, pancreas, adrenal and kidneys appear unremarkable. There is no evidence of diverticulitis. Normal appendix. Hysterectomy. 2.3 centimeter right ovarian cyst. This likely is benign. No further workup recommended . No significant free fluid IMPRESSION: 2.3 centimeter right ovarian cyst without significant free fluid
[2024-01-11 17:34] LABS: Urine Bacteria <20 /HPF (<20); Urine Bilirubin NEGATIVE (Negative); Urine Blood Negative (Negative); Urine Clarity Clear (Clear); Urine Color Colorless (Yellow); Urine Culture Reflex Order NOT NEEDED; Urine Glucose NEGATIVE (Negative); Urine Ketones 3+ (Negative); Urine Micro Reflex YN NO BILL MICROSCOPIC; Urine Mucus Slight /HPF (None Seen); Urine Nitrite NEGATIVE (Negative); Urine Protein NEGATIVE (Negative); Urine RBC <5 /HPF (None Seen); Urine Urobilinogen Normal (Normal); Urine WBC <5 /HPF (<5); Urine pH 5.5 (5.0-7.0)
[2024-01-11 17:36] LABS: Specific Gravity > 1.030 (1.005-1.030)
[2024-01-11] MEDS ORDERED: METOCLOPRAMIDE 10 MG/2mL INJ ONE (17:38)
--- NOTE | 2024-01-11 18:32 | ER ---
Nurse's Notes [facility] Name: Lashay Daniels Age: 38 yrs Sex: Female : 1985 Arrival Date: 01/11/2024 Time: 13:20 Bed 10 Private MD: Diagnosis: Abdominal pain, Generalized;Nausea with vomiting, unspecified Presentation: 01/10 13:50 Chief complaint: Patient states: RIGHT UPPER ABD PAIN WITH "CHEST TIGHTNESS" STARTED db YESTERDAY, WORSE TODAY. VOMITING SINCE YESTERRDAY. Coronavirus screen: Client denies travel out of the [place] in the last 14 days. At this time, the client does not indicate any symptoms associated with coronavirus-19. Ebola Screen: Patient negative for fever greater than or equal to 101.5 degrees Fahrenheit, and additional compatible Ebola Virus Disease symptoms Patient denies exposure to infectious person. Patient denies travel to an Ebola-affected area in the 21 days before illness onset. No symptoms or risks identified at this time. Initial Sepsis Screen: Does the patient meet any 2 criteria? No. Patient's initial sepsis screen is negative. Does the patient have a suspected source of infection? No. Patient's initial sepsis screen is negative. Risk Assessment: Do you want to hurt yourself or someone else? Patient reports no desire to harm self or others. Onset of symptoms was January 11, 2024. 13:50 Method Of Arrival: Ambulatory db 13:50 Acuity: AKOSUA 3 db Triage Assessment: 13:52 General: Appears in no apparent distress. comfortable, Behavior is calm, cooperative. db Pain: Complains of pain in abdomen. Neuro: Level of Consciousness is awake, alert, obeys commands, Oriented to person, place, time, situation. Cardiovascular: Reports chest pain. Respiratory: Airway is patent Respiratory effort is even, unlabored, Respiratory pattern is regular, symmetrical. GI: Abdomen is flat, non-distended, Reports upper abdominal pain, nausea, vomiting. 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 - Infectious Disease History:: Denies. - Social history:: Smoking status: Patient denies any tobacco usage or history of. Assessment: 15:30 Reassessment:. Pain: Complains of pain in abdomen Pain currently is 9 out of 10 on a rs5 pain scale. Quality of pain is described as aching, Is continuous. 15:31 Reassessment: provider notified pt is experiencing pain. rs5 15:35 Reassessment: to bedside for med adm. rs5 Vital Signs: 13:50 BP 130 / 101; Pulse 96; Resp 18; Temp 97.3; Pulse Ox 98% ; Weight 79.38 kg; Height 5 db ft. 5 in. ; Pain 8/10; 16:45 BP 146 / 98; Pulse 79; Resp 16; Pulse Ox 100% on R/A; iw 13:50 Body Mass Index 29.12 (79.38 kg, 165.1 cm) db 13:50 Pain Scale: Adult db ED Course: 13:21 Patient arrived in ED. ld1 13:33 Crystal Rey PA-C is PHCP. sb4 13:33 Jayjay Stewart MD is Attending Physician. sb4 13:52 Triage completed. db 13:52 Arm band placed on Patient placed. db 14:06 Initial lab(s) drawn, by me, sent to lab. Inserted saline lock: 20 gauge in right jg11 antecubital area, using aseptic technique. Blood collected. 14:07 Test, Serum Sent. jg11 14:07 Troponin High Sensitivity Sent. jg11 14:07 CBC with Diff Sent. jg11 14:07 CMP Sent. jg11 14:07 Lipase Sent. jg11 14:09 Pearl Ding, RN is Primary Nurse. db 16:20 CT Abd/Pelvis - IV Contrast Only In Process Unspecified. EDMS Administered Medications: 14:05 Drug: NS 0.9% IV 1000 ml IV at 1 bolus Per protocol; 1000 mL bolus Route: IV; Rate: 1 db bolus; Site: right antecubital; 14:05 Drug: Famotidine IVP 20 mg IVP once; dilute with 10 mL 0.9% NaCl; give over 2 minutes db Route: IVP; Site: right antecubital; 14:05 Drug: morphine IVP or IV 4 mg IVP once over 4 mins Route: IVP; Infused Over: 4 mins; db Site: right antecubital; 14:06 Drug: Ondansetron IVP 4 mg IVP once; over 2 minutes Route: IVP; Site: right antecubital;db 15:35 Drug: fentaNYL (PF) IVP 50 mcg IVP once Route: IVP; Site: right antecubital; rs5 17:25 Drug: NS 0.9% IV 1000 ml IV at 1 bolus Per protocol; 1000 mL bolus Route: IV; Rate: 1 iw bolus; Site: right antecubital; 17:46 Drug: metoCLOPramide IVP 10 mg IVP once; over 1 to 2 minutes Route: IVP; Site: right iw antecubital; 17:47 Drug: morphine IVP or IV 4 mg IVP once over 4 mins Route: IVP; Infused Over: 4 mins; iw Site: right antecubital; Outcome: 18:32 Discharge ordered by MD. tarango 19:15 Patient left the ED. iw Signatures: Dispatcher [employer] EDRoma Spain RN RN iw Tiffany Colon RN RN ld1 Pearl Ding RN RN db Crystal Rey, PA-C PA-C sb4 Sathya Sanderson RN RN rs5 Wilver Greene [email or web address] Corrections: (The following items were deleted from the chart) 13:52 13:50 Pulse 96bpm; Resp 18bpm; Pulse Ox 98%; Temp 97.3F; 79.38 kg; Height 5 ft. 5 in.; db BMI: 29.1; Pain 8/10, Adult; db
--- NOTE | 2024-01-11 18:32 | EDPHYS ---
Physician Documentation [facility] Name: Lashay Daniels Age: 38 yrs Sex: Female : 1985 Arrival Date: 01/11/2024 Time: 13:20 Bed 10 Private MD: ED Physician Jayjay Stewart HPI: 01/10 13:56 This 38 yrs old Female presents to ER via Ambulatory with complaints of sb4 abdominal pain, n/v/d. 13:56 The patient presents with abdominal pain in the right upper quadrant. Onset: The sb4 symptoms/episode began/occurred yesterday. The symptoms do not radiate. Associated signs and symptoms: Pertinent positives: nausea, vomiting, and diarrhea, chest pain. The symptoms are described as burning. Modifying factors: The symptoms are alleviated by nothing, the symptoms are aggravated by food. The patient has not experienced similar symptoms in the past. The patient has not recently seen a physician. 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 - Infectious Disease History:: Denies. - Social history:: Smoking status: Patient denies any tobacco usage or history of. ROS: 13:56 Constitutional: Negative for fever, chills, and weight loss, sb4 13:56 Cardiovascular: Positive for chest pain, 13:56 Abdomen/GI: Positive for abdominal pain, nausea, vomiting, and diarrhea, 13:56 All other systems are negative, Exam: 13:56 Head/Face: Normocephalic, atraumatic. Eyes: Extra-ocular motions intact. Periorbital sb4 areas with no swelling, redness, or edema. Cardiovascular: Regular rate and rhythm with a normal S1 and S2. 13:56 Constitutional: The patient appears alert, awake, uncomfortable, 13:56 Abdomen/GI: Inspection: abdomen appears normal, Bowel sounds: normal, Palpation: soft, moderate abdominal tenderness, in the right upper quadrant and left upper quadrant, 13:56 Skin: Appearance: diaphoresis is noted, Vital Signs: 13:50 BP 130 / 101; Pulse 96; Resp 18; Temp 97.3; Pulse Ox 98% ; Weight 79.38 kg; Height 5 db ft. 5 in. ; Pain 8/10; 16:45 BP 146 / 98; Pulse 79; Resp 16; Pulse Ox 100% on R/A; iw 13:50 Body Mass Index 29.12 (79.38 kg, 165.1 cm) db 13:50 Pain Scale: Adult db MDM: 13:39 Patient medically screened. sb4 18:31 Data reviewed: vital signs, nurses notes, lab test result(s), radiologic studies, and sb4 as a result, I will discharge patient. Counseling: I had a detailed discussion with the patient and/or guardian regarding the historical points, exam findings, and any diagnostic results supporting the discharge/admit diagnosis, lab results, radiology results, to return to the emergency department if symptoms worsen or persist or if there are any questions or concerns that arise at home. 01/10 13:55 Order name: CBC with Diff; Complete Time: 14:15 01/10 13:55 Order name: CMP; Complete Time: 15:56 01/10 13:55 Order name: Lipase; Complete Time: 15:56 01/10 13:55 Order name: Troponin High Sensitivity; Complete Time: 15:56 4 01/10 13:55 Order name: Test, Serum; Complete Time: 14:44 01/10 16:59 Order name: UAM; Complete Time: 17:37 01/10 13:55 Order name: CT Abd/Pelvis - IV Contrast Only; Complete Time: 16:49 01/10 13:55 Order name: IV Saline Lock; Complete Time: 14:07 01/10 13:55 Order name: Labs collected and sent; Complete Time: 14:07 01/10 14:16 Order name: Labs - recollect needed: GREEN; Complete Time: 15:28 bc6 01/10 16:50 Order name: PO challenge; Complete Time: 18:31 sb4 Administered Medications: 14:05 Drug: NS 0.9% IV 1000 ml IV at 1 bolus Per protocol; 1000 mL bolus Route: IV; Rate: 1 db bolus; Site: right antecubital; 14:05 Drug: Famotidine IVP 20 mg IVP once; dilute with 10 mL 0.9% NaCl; give over 2 minutes db Route: IVP; Site: right antecubital; 14:05 Drug: morphine IVP or IV 4 mg IVP once over 4 mins Route: IVP; Infused Over: 4 mins; db Site: right antecubital; 14:06 Drug: Ondansetron IVP 4 mg IVP once; over 2 minutes Route: IVP; Site: right antecubital;db 15:35 Drug: fentaNYL (PF) IVP 50 mcg IVP once Route: IVP; Site: right antecubital; rs5 17:25 Drug: NS 0.9% IV 1000 ml IV at 1 bolus Per protocol; 1000 mL bolus Route: IV; Rate: 1 iw bolus; Site: right antecubital; 17:46 Drug: metoCLOPramide IVP 10 mg IVP once; over 1 to 2 minutes Route: IVP; Site: right iw antecubital; 17:47 Drug: morphine IVP or IV 4 mg IVP once over 4 mins Route: IVP; Infused Over: 4 mins; iw Site: right antecubital; Disposition Summary: 01/11/24 18:32 Discharge Ordered Notes: Location: Home sb4 Problem: new sb4 Symptoms: have improved sb4 Condition: Stable sb4 Diagnosis - Abdominal pain, Generalized sb4 - Nausea with vomiting, unspecified sb4 Followup: sb4 - With: Emergency Department - When: As needed - Reason: Trouble breathing, Worsening of condition Discharge Instructions: - Discharge Summary Sheet sb4 - Nausea and Vomiting, Adult sb4 - Abdominal Pain, Adult, Ebco-gi-Yeas sb4 Forms: - Work release form sb4 - Patient Portal Instructions sb4 - Leadership Thank You Letter sb4 Prescriptions: - dicyclomine 20 mg Oral tablet - take 1 tablet ORAL route 4 times per day; 20 tablet; Refills: 0, Product sb4 Selection Permitted - ondansetron 8 mg Oral Tablet,disintegrating - take 1 tablet ORAL route every 8 hours; 20 tablet; Refills: 0, Product sb4 Selection Permitted Signatures: Dispatcher [employer] Roma Diaz RN RN iw Pearl Ding RN RN db Brown, Sophia PAAnthony PAMichealC sb4 Sathya Sanderson RN RN rs5 Mariia Vinson6 Corrections: (The following items were deleted from the chart) 13:56 13:56 CBC+H.LAB.BRZ ordered. EDMS EDMS 13:56 13:56 COMPREHENSIVE METABOLIC PANEL+C.LAB.BRZ ordered. EDMS EDMS 13:56 13:56 LIPASE+C.LAB.BRZ ordered. EDMS EDMS 13:56 13:56 Troponin High Sensitivity+C.LAB.BRZ ordered. EDMS EDMS 13:56 13:56 Abdomen Pelvis W Con+CT.RAD.BRZ ordered. EDMS EDMS 13:56 13:56 TEST, SERUM+SC.LAB.BRZ ordered. EDMS EDMS
[2024-01-11 19:34] VITALS: BP 146/98; TEMP 97.3; O2SAT 100
== END 2024-01-11 19:15 | disposition home or self-care (01) ==
LOC: ER 13:20
DX: R10.84 Generalized abdominal pain (principal); R11.2 Nausea with vomiting, unspecified
CPT/HCPCS: 85025; 81001; 36415; 84703; 84484; 83690; 80053; 74177; 96375; 96374; 99284; Q9967; J2765; J3010; J2405; J7030 ×2